=== PATIENT | female | born 1940 | race Caucasian/White ===

== ENCOUNTER 2017-01-31 10:04 | Inpatient (IN) | payer MEDICARE, OTHER ==
[2017-01-31] MEDS ORDERED: Albuterol/Ipratropium 3.0-0.5 MG/3 ML Neb Soln ONE (10:20)
--- NOTE | 2017-01-31 10:23 | EDM.PDOC ---
ED HISTORY OF PRESENT ILLNESS - General Chief Complaint: Respiratory Problem Stated Complaint: PT NOT BREATHING GOOD Time Seen by Provider: 01/31/17 10:05 Source of Information: Reports: Patient History Limitations: Reports: No limitations - History of Present Illness INITIAL COMMENTS - FREE TEXT/NARRATIVE: History of present illness: [76-year-old female comes in complaining of shortness of breath, daughter is at bedside indicating that mother has gotten increasingly weak unable to breathe and] Review of systems: As per history of present illness and below otherwise all systems reviewed and negative. Past medical history: As per history of present illness and as reviewed below otherwise noncontributory. Surgical history: As per history of present illness and as reviewed below otherwise noncontributory. Social history: No reported history of drug or alcohol abuse. Family history: As per history of present illness and as reviewed below otherwise noncontributory. Physical exam: HEENT: Atraumatic, normocephalic, pupils reactive, negative for conjunctival pallor or scleral icterus, mucous membranes moist, throat clear, neck supple, nontender, trachea midline. Lungs: Clear to auscultation, breath sounds equal bilaterally, chest nontender. Heart: S1S2, regular, negative for clicks, rubs, or JVD. Abdomen: Soft, nondistended, nontender. Negative for masses or hepatosplenomegaly. Negative for costovertebral tenderness. Pelvis: Stable nontender. Genitourinary: Deferred. Rectal: Deferred. Extremities: Atraumatic, negative for cords or calf pain. Neurovascular unremarkable. Neuro: Awake, alert, oriented. Cranial nerves II through XII unremarkable. Cerebellum unremarkable. Motor and sensory unremarkable throughout. Exam nonfocal. Diagnostics: [Chest x-ray, CBC, CMP, troponin, lactic acid, blood cultures, CT of the chest] Therapeutics: [] Impression: [Pneumonia in presence of resolving lung cancer] Plan: [Admit] Definitive disposition and diagnosis as appropriate pending reevaluation and review of above. - Related Data Allergies/ADRs: Allergies Allergy/AdvReac Type Severity Reaction Status Date / Time codeine Allergy Airway Verified 01/31/17 10:27 Tightness Iodinated Contrast Media - Allergy Airway Verified 01/31/17 10:27 Oral and Tightness [Iodinated Contrast Media - IV Dye] Penicillins Allergy Airway Verified 01/31/17 10:27 Tightness procaine HCl [From Novocain] Allergy Itching Verified 01/31/17 10:27 Home Meds: Home Meds Aclidinium [place] [Tudorza Pressair] 1 puff INH BID 11/09/14 [History] Clopidogrel [Plavix] 1 tab PO DAILY 11/09/14 [History] Esomeprazole Magnesium [Nexium] 1 tab PO DAILY 11/09/14 [History] Fluticasone/Vilanterol [Breo Ellipta 100-25 Mcg INH] 1 puff INH DAILY 11/09/14 [ History] Furosemide [Lasix] 1 tab PO DAILY 11/09/14 [History] Insulin Glarg,Human.Rec.Analog [Lantus] 9 units SUBCUT BID 11/09/14 [History] LORazepam 1 tab PO QID 11/09/14 [History] Levalbuterol HCl 1 puff INH QID 11/09/14 [History] Losartan [Cozaar] 1 tab PO DAILY 11/09/14 [History] atorvaSTATin [Lipitor] 5 mg PO DAILY 11/09/14 [History] diphenhydrAMINE [Benadryl] 1 cap PO QID 11/09/14 [History] Social & Family History - Tobacco Use Smoking Status *Q: Former Smoker Years of Tobacco use: 25 - Alcohol Use Days Per Week of Alcohol Use: 0 - Recreational Drug Use Recreational Drug Use: No ED ROS GENERAL - Review of Systems Review Of Systems: See Below (History of present illness) ED EXAM, GENERAL - Physical Exam Exam: See Below (See history of present illness) Course - Vital Signs Last Recorded V/S: Last Vital Signs Temp 36.4 C 01/31/17 10:28 Pulse 100 01/31/17 10:28 Resp 26 H 01/31/17 10:28 BP 114/57 L 01/31/17 10:28 Pulse Ox 94 L 01/31/17 10:28 - Orders/Labs/Meds Orders: Active Orders 24 hr Category Date Time Status Patient Status [ADT] Stat ADT 01/31/17 12:42 Ordered EKG Documentation Completion [RC] STAT Care 01/31/17 10:29 Active Chest 2V [CR] Stat Exams 01/31/17 10:29 Taken Chest wo Cont [CT] Stat Exams 01/31/17 11:36 Taken CULTURE BLOOD [BC] Stat Lab 01/31/17 11:38 Received CULTURE BLOOD [BC] Stat Lab 01/31/17 11:40 Received Levofloxacin/Dextrose 5%-Water [Levaquin in D5W 750 MG/ Med 01/31/17 12:29 Ordered 150 ML] 750 mg Premix Bag 1 bag IV ONETIME Blood Culture x2 Reflex Set [OM.PC] Stat Oth 01/31/17 11:23 Ordered Medication Orders Levofloxacin/Dextrose 750 mg/ (Premix) 150 mls @ 100 mls/hr IV ONETIME ONE Stop: 01/31/17 13:58 Labs: Laboratory Tests 01/31/17 01/31/17 01/31/17 Range/Units 10:45 10:45 10:45 WBC 19.33 H (4.0-11.0) K/uL RBC 4.11 L (4.30-5.90) M/uL Hgb 12.9 (12.0-16.0) g/dL Hct 39.9 (36.0-46.0) % MCV 97.1 (80.0-98.0) fL MCH 31.4 (27.0-32.0) pg MCHC 32.3 (31.0-37.0) g/dL RDW Std Deviation 51.7 (28.0-62.0) fl RDW Coeff of Lucrecia 15 (11.0-15.0) % Plt Count 244 (150-400) K/uL MPV 10.30 (7.40-12.00) fL Neut % (Auto) 84.8 H (48.0-80.0) % Lymph % (Auto) 10.7 L (16.0-40.0) % [place] % (Auto) 2.8 (0.0-15.0) % Eos % (Auto) 1.4 (0.0-7.0) % Baso % (Auto) 0.3 (0.0-1.5) % Neut # (Auto) 16.4 H (1.4-5.7) K/uL Lymph # (Auto) 2.1 (0.6-2.4) K/uL [place] # (Auto) 0.5 (0.0-0.8) K/uL Eos # (Auto) 0.3 (0.0-0.7) K/uL Baso # (Auto) 0.1 (0.0-0.1) K/uL Nucleated RBC % 0.0 /100WBC Nucleated RBCs # 0 K/uL INR 1.10 (0.86-1.11) Lactate (0.20-2.00) mmol/L Sodium 138 (136-146) mmol/L Potassium 4.2 (3.5-5.1) mmol/L Chloride 103 (98-110) mmol/L Carbon Dioxide 23 (21-31) mmol/L BUN 23 (6.0-23.0) mg/dL Creatinine 1.2 (0.6-1.5) mg/dL Est Cr Clr Drug Dosing 30.60 mL/min Estimated GFR (MDRD) 43.8 ml/min Glucose 250 H (60-110) mg/dL Calcium 9.2 (8.8-10.8) mg/dL Total Bilirubin 0.6 (0.1-1.5) mg/dL AST 19 (5-40) IU/L ALT 19 (8-54) IU/L Alkaline Phosphatase 85 (40-150) Troponin I (0.0-0.29) NG/ML Total Protein 6.4 (6.0-8.0) g/dL Albumin 3.5 (3.4-4.8) g/dL Globulin 2.9 (2.0-3.5) g/dL Albumin/Globulin Ratio 1.2 L (1.3-2.8) Amylase 49 (10-90) U/L Lipase 10 (7-80) U/L Urine Color Urine Appearance Urine pH (5.0-8.0) Ur Specific [place] (1.001-1.035) Urine Protein (NEGATIVE) mg/dL Urine Glucose (UA) (NEGATIVE) mg/dL Urine Ketones (NEGATIVE) mg/dL Urine Occult Blood (NEGATIVE) Urine Nitrite (NEGATIVE) Urine Bilirubin (NEGATIVE) Urine Urobilinogen (<2.0) EU/dL Ur Leukocyte Esterase (NEGATIVE) Urine RBC (0-2/HPF) Urine WBC (0-5/HPF) Ur Epithelial Cells (NONE-FEW) Urine Bacteria (NEGATIVE) 01/31/17 01/31/17 01/31/17 Range/Units 10:45 10:45 11:40 WBC (4.0-11.0) K/uL RBC (4.30-5.90) M/uL Hgb (12.0-16.0) g/dL Hct (36.0-46.0) % MCV (80.0-98.0) fL MCH (27.0-32.0) pg MCHC (31.0-37.0) g/dL RDW Std Deviation (28.0-62.0) fl RDW Coeff of Lucrecia (11.0-15.0) % Plt Count (150-400) K/uL MPV (7.40-12.00) fL Neut % (Auto) (48.0-80.0) % Lymph % (Auto) (16.0-40.0) % [place] % (Auto) (0.0-15.0) % Eos % (Auto) (0.0-7.0) % Baso % (Auto) (0.0-1.5) % Neut # (Auto) (1.4-5.7) K/uL Lymph # (Auto) (0.6-2.4) K/uL [place] # (Auto) (0.0-0.8) K/uL Eos # (Auto) (0.0-0.7) K/uL Baso # (Auto) (0.0-0.1) K/uL Nucleated RBC % /100WBC Nucleated RBCs # K/uL INR (0.86-1.11) Lactate 2.3 H (0.20-2.00) mmol/L Sodium (136-146) mmol/L Potassium (3.5-5.1) mmol/L Chloride (98-110) mmol/L Carbon Dioxide (21-31) mmol/L BUN (6.0-23.0) mg/dL Creatinine (0.6-1.5) mg/dL Est Cr Clr Drug Dosing mL/min Estimated GFR (MDRD) ml/min Glucose (60-110) mg/dL Calcium (8.8-10.8) mg/dL Total Bilirubin (0.1-1.5) mg/dL AST (5-40) IU/L ALT (8-54) IU/L Alkaline Phosphatase (40-150) Troponin I < 0.10 (0.0-0.29) NG/ML Total Protein (6.0-8.0) g/dL Albumin (3.4-4.8) g/dL Globulin (2.0-3.5) g/dL Albumin/Globulin Ratio (1.3-2.8) Amylase (10-90) U/L Lipase (7-80) U/L Urine Color YELLOW Urine Appearance CLEAR Urine pH 5.5 (5.0-8.0) Ur Specific [place] 1.025 (1.001-1.035) Urine Protein NEGATIVE (NEGATIVE) mg/dL Urine Glucose (UA) 100 H (NEGATIVE) mg/dL Urine Ketones NEGATIVE (NEGATIVE) mg/dL Urine Occult Blood NEGATIVE (NEGATIVE) Urine Nitrite NEGATIVE (NEGATIVE) Urine Bilirubin NEGATIVE (NEGATIVE) Urine Urobilinogen 0.2 (<2.0) EU/dL Ur Leukocyte Esterase SMALL (NEGATIVE) Urine RBC 1-2 (0-2/HPF) Urine WBC 20-25 (0-5/HPF) Ur Epithelial Cells FEW (NONE-FEW) Urine Bacteria 1+ H (NEGATIVE) Meds: Medications Generic Name Dose Route Start Last Admin Trade Name Kendall PRN Reason Stop Dose Admin Levofloxacin/Dextrose 750 mg/ 150 mls @ 100 mls/hr 01/31/17 12:29 Premix IV 01/31/17 13:58 ONETIME ONE Discontinued Medications Generic Name Dose Route Start Last Admin Trade Name Kendall PRN Reason Stop Dose Admin Albuterol/Ipratropium Confirm 01/31/17 10:20 01/31/17 10:29 Duoneb 3.0-0.5 Mg/3 Ml Administered 01/31/17 10:21 3 ml Dose Administration 3 ml .ROUTE .STK-MED ONE Sodium Chloride 1,000 mls @ 999 mls/hr 01/31/17 10:29 01/31/17 11:13 Normal Saline IV 01/31/17 11:29 999 mls/hr .Bolus ONE Administration Ketorolac Tromethamine 30 mg 01/31/17 10:29 01/31/17 11:12 Toradol IVPUSH 01/31/17 10:30 30 mg ONETIME ONE Administration Departure - Departure Time of Disposition: 12:46 Disposition: Admitted As Inpatient 67 Condition: good Clinical Impression: Pneumonia Forms: ED Department Discharge - My Orders Last 24 Hours: My Active Orders 01/31/17 10:29 EKG Documentation Completion [RC] STAT Chest 2V [CR] Stat 01/31/17 11:23 Blood Culture x2 Reflex Set [OM.PC] Stat 01/31/17 11:36 Chest wo Cont [CT] Stat 01/31/17 11:38 CULTURE BLOOD [BC] Stat 01/31/17 11:40 CULTURE BLOOD [BC] Stat 01/31/17 12:29 Levofloxacin/Dextrose 5%-Water [Levaquin in D5W 750 MG/150 ML] 750 mg Premix Bag 1 bag IV ONETIME 01/31/17 12:42 Patient Status [ADT] Stat - Assessment/Plan Last 24 Hours: My Active Orders 01/31/17 10:29 EKG Documentation Completion [RC] STAT Chest 2V [CR] Stat 01/31/17 11:23 Blood Culture x2 Reflex Set [OM.PC] Stat 01/31/17 11:36 Chest wo Cont [CT] Stat 01/31/17 11:38 CULTURE BLOOD [BC] Stat 01/31/17 11:40 CULTURE BLOOD [BC] Stat 01/31/17 12:29 Levofloxacin/Dextrose 5%-Water [Levaquin in D5W 750 MG/150 ML] 750 mg Premix Bag 1 bag IV ONETIME 01/31/17 12:42 Patient Status [ADT] Stat
[2017-01-31] MEDS ORDERED: Sodium Chloride 0.9% 1,000 ML IV ONE (10:29)
[2017-01-31] MEDS ORDERED: Ketorolac 30 MG/ML SDV IVPUSH ONE (10:29)
[2017-01-31] MEDS ORDERED: Levofloxacin/Dextrose 5%-Water 750 MG in Premix Bag 1 BAG IV ONE (12:29)
[2017-01-31] MEDS ORDERED: Ondansetron 4 MG/2 ML SDV IVPUSH PRN (13:07)
[2017-01-31] MEDS ORDERED: Acetaminophen 325 MG Tab PO PRN (13:07)
[2017-01-31] MEDS ORDERED: Sodium Chloride 0.9% 1,000 ML IV SCH (13:15)
--- NOTE | 2017-01-31 13:16 | PCM.HP ---
H&P History of Present Illness - General Admit Problem/Dx: Admission Diagnosis/Problem Admission Diagnosis/Problem Pneumonia - History of Present Illness Initial Comments - Free Text/Narative: 76 yo female with pmh of severe COPD and lung cancer. She presents with several day history of myalgias, fevers, cough and wheezing. She was evaluated in the ED with CT chest which reported irregular nodule in left upper lobe which could be scarring vs malignance and right lower lobe infiltrates.. Patient is scheduled for PET scan next month. Sacral Pain Score (Numeric/FACES): 2 - Related Data Allergies/Adverse Reactions: Allergies Allergy/AdvReac Type Severity Reaction Status Date / Time codeine Allergy Airway Verified 01/31/17 10:27 Tightness Iodinated Contrast Media - Allergy Airway Verified 01/31/17 10:27 Oral and Tightness [Iodinated Contrast Media - IV Dye] Penicillins Allergy Airway Verified 01/31/17 10:27 Tightness procaine HCl [From Novocain] Allergy Itching Verified 01/31/17 10:27 Home Medications: Home Meds Aclidinium [place] [Tudorza Pressair] 1 puff INH BID 11/09/14 [History] Esomeprazole Magnesium [Nexium] 1 tab PO DAILY 11/09/14 [History] Fluticasone/Vilanterol [Breo Ellipta 100-25 Mcg INH] 1 puff INH DAILY 11/09/14 [ History] Insulin Glarg,Human.Rec.Analog [Lantus] 9 units SUBCUT BID 11/09/14 [History] RX: Clopidogrel [Plavix] 1 tab PO DAILY 11/09/14 [History] RX: Furosemide [Lasix] 1 tab PO DAILY 11/09/14 [History] RX: LORazepam 1 tab PO QID 11/09/14 [History] RX: Levalbuterol HCl 1 puff INH QID 11/09/14 [History] RX: Losartan [Cozaar] 1 tab PO DAILY 11/09/14 [History] RX: atorvaSTATin [Lipitor] 5 mg PO DAILY 11/09/14 [History] diphenhydrAMINE [Benadryl] 1 cap PO QID 11/09/14 [History] Past Medical History HEENT History: Reports: Hard of hearing Cardiovascular History: Reports: Hypertension Respiratory History: Reports: Asthma, COPD Gastrointestinal History: Reports: GERD Genitourinary History: Reports: None Psychiatric History: Reports: Anxiety, Depression Endocrine/Metabolic History: Reports: Diabetes, type II Oncologic (Cancer) History: Reports: Lung Other Oncologic History: remission for 4 months - Past Surgical History HEENT Surgical History: Reports: None Cardiovascular Surgical History: Reports: Other (see below) Other Cardiovascular Surgeries/Procedures: Left bracial plastic artery Respiratory Surgical History: Reports: Other (see below) Other Respiratory Surgeries/Procedures: lung surgery- hx lung cancer GI Surgical History: Reports: Appendectomy, Cholecystectomy Female Surgical History: Reports: Hysterectomy Endocrine Surgical History: Reports: None Oncologic Surgical History: Reports: None Social & Family History - Tobacco Use Smoking Status *Q: Former Smoker Years of Tobacco use: 25 Used Tobacco, but Quit: Yes Month Tobacco Last Used: 14 years ago - Caffeine Use Caffeine Use: Reports: Coffee Caffeine Use Comment: 3 cups/coffee - Alcohol Use Days Per Week of Alcohol Use: 0 - Recreational Drug Use Recreational Drug Use: No H&P Review of Systems - Review of Systems: Review Of Systems: See Below General: Reports: malaise, weakness, fatigue HEENT: Reports: no symptoms Pulmonary: Reports: Wheezing, Cough Cardiovascular: Reports: no symptoms Gastrointestinal: Reports: No symptoms Genitourinary: Reports: no symptoms 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: Reports: no symptoms Skin: Reports: no symptoms Psychiatric: Reports: no symptoms Neurological: Reports: No Symptoms Hematologic/Lymphatic: Reports: no symptoms Immunologic: Reports: no symptoms Exam - Exam Exam: See Below - Vital Signs Vital Signs: Last Vital Signs Temp 36.4 C 01/31/17 10:28 Pulse 100 01/31/17 10:28 Resp 26 H 01/31/17 10:28 BP 114/57 L 01/31/17 10:28 Pulse Ox 94 L 01/31/17 10:28 Weight: 76 kg - Exam General: alert, cooperative Neck: supple, trachea midline, 2 Lungs: Normal respiratory effort, Decreased breath sounds Cardiovascular: regular rate, regular rhythm Abdomen: normal bowel sounds, soft Extremities: normal inspection. No: edema Skin: warm, dry, intact Neurological: No: focal deficit - Patient Data Lab Results last 24 hrs: Laboratory Results - last 24 hr 01/31/17 01/31/17 01/31/17 Range/Units 10:45 10:45 10:45 WBC 19.33 H (4.0-11.0) K/uL RBC 4.11 L (4.30-5.90) M/uL Hgb 12.9 (12.0-16.0) g/dL Hct 39.9 (36.0-46.0) % MCV 97.1 (80.0-98.0) fL MCH 31.4 (27.0-32.0) pg MCHC 32.3 (31.0-37.0) g/dL RDW Std Deviation 51.7 (28.0-62.0) fl RDW Coeff of Lucrecia 15 (11.0-15.0) % Plt Count 244 (150-400) K/uL MPV 10.30 (7.40-12.00) fL Neut % (Auto) 84.8 H (48.0-80.0) % Lymph % (Auto) 10.7 L (16.0-40.0) % [place] % (Auto) 2.8 (0.0-15.0) % Eos % (Auto) 1.4 (0.0-7.0) % Baso % (Auto) 0.3 (0.0-1.5) % Neut # (Auto) 16.4 H (1.4-5.7) K/uL Lymph # (Auto) 2.1 (0.6-2.4) K/uL [place] # (Auto) 0.5 (0.0-0.8) K/uL Eos # (Auto) 0.3 (0.0-0.7) K/uL Baso # (Auto) 0.1 (0.0-0.1) K/uL Nucleated RBC % 0.0 /100WBC Nucleated RBCs # 0 K/uL INR 1.10 (0.86-1.11) Lactate (0.20-2.00) mmol/L Sodium 138 (136-146) mmol/L Potassium 4.2 (3.5-5.1) mmol/L Chloride 103 (98-110) mmol/L Carbon Dioxide 23 (21-31) mmol/L BUN 23 (6.0-23.0) mg/dL Creatinine 1.2 (0.6-1.5) mg/dL Est Cr Clr Drug Dosing 30.60 mL/min Estimated GFR (MDRD) 43.8 ml/min Glucose 250 H (60-110) mg/dL Calcium 9.2 (8.8-10.8) mg/dL Total Bilirubin 0.6 (0.1-1.5) mg/dL AST 19 (5-40) IU/L ALT 19 (8-54) IU/L Alkaline Phosphatase 85 (40-150) Troponin I (0.0-0.29) NG/ML Total Protein 6.4 (6.0-8.0) g/dL Albumin 3.5 (3.4-4.8) g/dL Globulin 2.9 (2.0-3.5) g/dL Albumin/Globulin Ratio 1.2 L (1.3-2.8) Amylase 49 (10-90) U/L Lipase 10 (7-80) U/L Urine Color Urine Appearance Urine pH (5.0-8.0) Ur Specific [place] (1.001-1.035) Urine Protein (NEGATIVE) mg/dL Urine Glucose (UA) (NEGATIVE) mg/dL Urine Ketones (NEGATIVE) mg/dL Urine Occult Blood (NEGATIVE) Urine Nitrite (NEGATIVE) Urine Bilirubin (NEGATIVE) Urine Urobilinogen (<2.0) EU/dL Ur Leukocyte Esterase (NEGATIVE) Urine RBC (0-2/HPF) Urine WBC (0-5/HPF) Ur Epithelial Cells (NONE-FEW) Urine Bacteria (NEGATIVE) 01/31/17 01/31/17 01/31/17 Range/Units 10:45 10:45 11:40 WBC (4.0-11.0) K/uL RBC (4.30-5.90) M/uL Hgb (12.0-16.0) g/dL Hct (36.0-46.0) % MCV (80.0-98.0) fL MCH (27.0-32.0) pg MCHC (31.0-37.0) g/dL RDW Std Deviation (28.0-62.0) fl RDW Coeff of [place] (11.0-15.0) % Plt Count (150-400) K/uL MPV (7.40-12.00) fL Neut % (Auto) (48.0-80.0) % Lymph % (Auto) (16.0-40.0) % [place] % (Auto) (0.0-15.0) % Eos % (Auto) (0.0-7.0) % Baso % (Auto) (0.0-1.5) % Neut # (Auto) (1.4-5.7) K/uL Lymph # (Auto) (0.6-2.4) K/uL [place] # (Auto) (0.0-0.8) K/uL Eos # (Auto) (0.0-0.7) K/uL Baso # (Auto) (0.0-0.1) K/uL Nucleated RBC % /100WBC Nucleated RBCs # K/uL INR (0.86-1.11) Lactate 2.3 H (0.20-2.00) mmol/L Sodium (136-146) mmol/L Potassium (3.5-5.1) mmol/L Chloride (98-110) mmol/L Carbon Dioxide (21-31) mmol/L BUN (6.0-23.0) mg/dL Creatinine (0.6-1.5) mg/dL Est Cr Clr Drug Dosing mL/min Estimated GFR (MDRD) ml/min Glucose (60-110) mg/dL Calcium (8.8-10.8) mg/dL Total Bilirubin (0.1-1.5) mg/dL AST (5-40) IU/L ALT (8-54) IU/L Alkaline Phosphatase (40-150) Troponin I < 0.10 (0.0-0.29) NG/ML Total Protein (6.0-8.0) g/dL Albumin (3.4-4.8) g/dL Globulin (2.0-3.5) g/dL Albumin/Globulin Ratio (1.3-2.8) Amylase (10-90) U/L Lipase (7-80) U/L Urine Color YELLOW Urine Appearance CLEAR Urine pH 5.5 (5.0-8.0) Ur Specific [place] 1.025 (1.001-1.035) Urine Protein NEGATIVE (NEGATIVE) mg/dL Urine Glucose (UA) 100 H (NEGATIVE) mg/dL Urine Ketones NEGATIVE (NEGATIVE) mg/dL Urine Occult Blood NEGATIVE (NEGATIVE) Urine Nitrite NEGATIVE (NEGATIVE) Urine Bilirubin NEGATIVE (NEGATIVE) Urine Urobilinogen 0.2 (<2.0) EU/dL Ur Leukocyte Esterase SMALL (NEGATIVE) Urine RBC 1-2 (0-2/HPF) Urine WBC 20-25 (0-5/HPF) Ur Epithelial Cells FEW (NONE-FEW) Urine Bacteria 1+ H (NEGATIVE) Result Diagrams: 01/31/17 10:45 01/31/17 10:45 *Q Meaningful Use (ADM) - VTE *Q VTE Criteria *Q: - Stroke *Q Stroke Criteria *Q: - AMI *Q AMI Criteria *Q: Problem List Initiated/Reviewed/Updated: Yes Orders Last 24hrs: Active Orders 24 hr Category Date Time Status Patient Status [ADT] Stat ADT 01/31/17 12:42 Active Antiembolic Devices [RC] PER UNIT ROUTINE Care 01/31/17 13:08 Ordered EKG Documentation Completion [RC] STAT Care 01/31/17 10:29 Active Intake and Output [RC] QSHIFT Care 01/31/17 13:07 Ordered Oxygen Therapy [RC] PRN Care 01/31/17 13:07 Ordered RT Aerosol Therapy [RC] ASDIRECTED Care 01/31/17 13:09 Ordered Up ad Sara [RC] ASDIRECTED Care 01/31/17 13:07 Ordered VTE/DVT Education [RC] PER UNIT ROUTINE Care 01/31/17 13:07 Ordered Vital Signs [RC] Q4H Care 01/31/17 13:07 Ordered [employer] Diet [DIET] Diet 01/31/17 Breakfast Ordered Chest 2V [CR] Stat Exams 01/31/17 10:29 Taken Chest wo Cont [CT] Stat Exams 01/31/17 11:36 Taken BASIC METABOLIC PANEL,BMP [CHEM] AM Lab 02/01/17 05:11 Ordered BASIC METABOLIC PANEL,BMP [CHEM] AM Lab 02/02/17 05:11 Ordered BASIC METABOLIC PANEL,BMP [CHEM] AM Lab 02/03/17 05:11 Ordered CBC WITH AUTO DIFF [HEME] AM Lab 02/01/17 05:11 Ordered CBC WITH AUTO DIFF [HEME] AM Lab 02/02/17 05:11 Ordered CBC WITH AUTO DIFF [HEME] AM Lab 02/03/17 05:11 Ordered CULTURE BLOOD [BC] Stat Lab 01/31/17 11:38 Received CULTURE BLOOD [BC] Stat Lab 01/31/17 11:40 Received CULTURE SPUTUM + SMEAR [RM] Stat Lab 01/31/17 13:07 Uncollected CULTURE URINE [RM] Stat Lab 01/31/17 13:07 Uncollected LACTIC ACID,WHOLE BLOOD [BG] Q6H Lab 01/31/17 16:45 Ordered LACTIC ACID,WHOLE BLOOD [BG] Q6H Lab 01/31/17 22:45 Ordered LACTIC ACID,WHOLE BLOOD [BG] Q6H Lab 02/01/17 04:45 Ordered Acetaminophen [Tylenol] Med 01/31/17 13:07 Ordered 650 mg PO Q4H PRN Aclidinium [place] [Tudorza Pressair] Med 01/31/17 21:00 Ordered 1 puff INH BID Albuterol/Ipratropium [DuoNeb 3.0-0.5 MG/3 ML] Med 01/31/17 13:07 Ordered 3 ml NEB Q4HRRT PRN Clopidogrel [Plavix] Med 02/01/17 09:00 Ordered 1 tab PO DAILY Enoxaparin [Lovenox] Med 01/31/17 21:00 Ordered 40 mg SUBCUT Q12HR Fluticasone/Vilanterol Med 02/01/17 09:00 Ordered 1 puff INH DAILY Insulin Glarg,Human.Rec.Analog Med 01/31/17 21:00 Ordered 9 units SUBCUT BID Levalbuterol HCl Med 01/31/17 18:00 Ordered 1 puff INH QID Levofloxacin/Dextrose 5%-Water [Levaquin in D5W 750 MG/ Med 01/31/17 12:29 Active 150 ML] 750 mg Premix Bag 1 bag IV ONETIME Levofloxacin/Dextrose 5%-Water [Levaquin in D5W 750 MG/ Med 02/01/17 13:15 Ordered 150 ML] 750 mg Premix Bag 1 bag IV Q24H Ondansetron [Zofran] Med 01/31/17 13:07 Ordered 4 mg IVPUSH Q4H PRN Sodium Chloride 0.9% @ 125 MLS/HR (1000ml) Med 01/31/17 13:15 Ordered Sodium Chloride 0.9% [Normal Saline] 1,000 ml IV ASDIRECTED atorvaSTATin [Lipitor] Med 02/01/17 09:00 Ordered 5 mg PO DAILY Blood Culture x2 Reflex Set [OM.PC] Stat Oth 01/31/17 11:23 Ordered Sequential Compression Device [OM.PC] Per Unit Routine Oth 01/31/17 13:07 Ordered Resuscitation Status Routine Resus Stat 01/31/17 13:07 Ordered Medication Orders Acetaminophen (Tylenol) 650 mg PO Q4H PRN PRN Reason: Pain (Mild 1-3)/fever Albuterol/Ipratropium (Duoneb 3.0-0.5 Mg/3 Ml) 3 ml NEB Q4HRRT PRN PRN Reason: Shortness Of Breath/wheezing Atorvastatin Calcium (Lipitor) 5 mg PO DAILY VIJAYA Clopidogrel Bisulfate (Plavix) mg PO DAILY VIJAYA Enoxaparin Sodium (Lovenox) 40 mg SUBCUT Q12HR VIJAYA Levofloxacin/Dextrose 750 mg/ (Premix) 150 mls @ 100 mls/hr IV ONETIME ONE Stop: 01/31/17 13:58 Last Admin: 01/31/17 12:48 Dose: 100 mls/hr Sodium Chloride (Normal Saline) 1,000 mls @ 125 mls/hr IV ASDIRECTED VIJAYA Stop: 01/31/17 21:14 Non-Formulary Medication (Insulin Glarg,Human.Rec.Analog) 9 units SUBCUT BID VIJAYA Non-Formulary Medication (Fluticasone/Vilanterol) 1 puff INH DAILY VIJAYA Non-Formulary Medication (Aclidinium [place] [Tudorza Pressair]) 1 puff INH BID VIJAYA Non-Formulary Medication (Levalbuterol Hcl) 1 puff INH QID VIJAYA Ondansetron HCl (Zofran) 4 mg IVPUSH Q4H PRN PRN Reason: Nausea Assessment/Plan Comment:: 76 yo female admitted with community acquired pneumonia and UTI. We will treat with levaquin. Cultures are pending. When pneumonia clears patient will need repeat lung imaging.
[2017-01-31] MEDS: Albuterol/Ipratropium 3.0-0.5 MG/3 ML Neb Soln NEB PRN (16:03)
[2017-01-31] MEDS: Insulin Aspart 100 Units/ML 3 ML Pen SUBCUT SCH (16:41)
[2017-01-31] MEDS: Levalbuterol HCl 1.25 MG/0.5 ML Neb INH SCH ×2 (17:03→23:54)
[2017-01-31] MEDS: ACLIDINIUM BROMIDE INH SCH (20:52)
[2017-01-31] MEDS ORDERED: INSULIN GLARGINE SUBCUT SCH (21:00)
[2017-01-31] MEDS ORDERED: Enoxaparin 40 MG/0.4 ML Syringe SUBCUT SCH (21:00)
[2017-01-31] MEDS ORDERED: [UNRECOGNIZED DRUG - OTHER] SUBCUT SCH (21:00)
[2017-01-31] MEDS: Insulin Glargine,Human Rec. Analog 100 Units/ML 3 ML Pen SUBCUT SCH (21:17)
[2017-02-01] MEDS: Albuterol/Ipratropium 3.0-0.5 MG/3 ML Neb Soln NEB PRN (02:53)
[2017-02-01] MEDS: Levalbuterol HCl 1.25 MG/0.5 ML Neb INH SCH ×4 (05:53→20:46)
[2017-02-01 08:03] LABS: CHLORIDE,CL 106 mmol/L (98-110); SODIUM,NA 139 mmol/L (136-146)
[2017-02-01] MEDS: ACLIDINIUM BROMIDE INH SCH ×2 (08:43→20:47)
[2017-02-01] MEDS: Insulin Glargine,Human Rec. Analog 100 Units/ML 3 ML Pen SUBCUT SCH ×2 (08:52→21:40)
[2017-02-01] MEDS: Insulin Aspart 100 Units/ML 3 ML Pen SUBCUT SCH ×3 (08:52→18:23)
[2017-02-01] MEDS ORDERED: Clopidogrel 75 MG Tab PO SCH (09:00)
[2017-02-01] MEDS ORDERED: BREO ELLIPTA INH SCH (09:00)
[2017-02-01] MEDS: atorvaSTATin 10 MG Tab PO SCH (09:41)
[2017-02-01] MEDS ORDERED: Non-Formulary Medication 1 Each (Budesonide/Formoterol 2 INH) IH SCH (10:45)
--- NOTE | 2017-02-01 10:58 | PCM.PN ---
- General Info Date of Service: 02/01/17 Admission Dx/Problem (Free Text): Admission Diagnosis/Problem Admission Diagnosis/Problem Pneumonia Subjective Update: patient is breathing more easily. She is on her home O2 requirement of 2L in the day and 3L at night. She has a decreased appetite but denies any N/V/C/D or abdominal pain. She denies any chest pain. Functional Status: Reports: tolerating diet, ambulating, urinating - Review of Systems General: Reports: Fatigue HEENT: Reports: no symptoms Pulmonary: Reports: shortness of breath (back to baseline) Cardiovascular: Reports: No Symptoms Gastrointestinal: Reports: No symptoms, Decreased appetite. Denies: Abdominal pain, Constipation, Diarrhea, Nausea, Vomiting Genitourinary: Reports: no symptoms 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: Reports: no symptoms Skin: Reports: no symptoms Neurological: Reports: No Symptoms Psychiatric: Reports: no symptoms - Patient Data Vitals - most recent: Last Vital Signs Temp 98.8 F 02/01/17 08:00 Pulse 96 02/01/17 08:00 Resp 18 02/01/17 08:00 BP 149/67 H 02/01/17 08:00 Pulse Ox 93 L 02/01/17 08:00 Weight - most recent: 160 lb 14.999 oz I&O - last 24 hours: Intake & Output 01/31/17 02/01/17 02/01/17 22:59 06:59 14:59 Intake Total 670 870 Output Total 0 800 Balance 670 70 Lab Results last 24 hrs: Laboratory Results - last 24 hr 01/31/17 01/31/17 02/01/17 Range/Units 16:21 17:26 07:35 WBC 11.49 H (4.0-11.0) K/uL RBC 3.64 L (4.30-5.90) M/uL Hgb 11.4 L (12.0-16.0) g/dL Hct 34.9 L (36.0-46.0) % MCV 95.9 (80.0-98.0) fL MCH 31.3 (27.0-32.0) pg MCHC 32.7 (31.0-37.0) g/dL RDW Std Deviation 49.8 (28.0-62.0) fl RDW Coeff of Lucrecia 14 (11.0-15.0) % Plt Count 229 (150-400) K/uL MPV 10.20 (7.40-12.00) fL Neut % (Auto) 68.5 (48.0-80.0) % Lymph % (Auto) 14.4 L (16.0-40.0) % Cooper % (Auto) 7.7 (0.0-15.0) % Eos % (Auto) 9.1 H (0.0-7.0) % Baso % (Auto) 0.3 (0.0-1.5) % Neut # (Auto) 7.9 H (1.4-5.7) K/uL Lymph # (Auto) 1.7 (0.6-2.4) K/uL Cooper # (Auto) 0.9 H (0.0-0.8) K/uL Eos # (Auto) 1.1 H (0.0-0.7) K/uL Baso # (Auto) 0.0 (0.0-0.1) K/uL Nucleated RBC % 0.0 /100WBC Nucleated RBCs # 0 K/uL Lactate 1.2 (0.20-2.00) mmol/L Sodium (136-146) mmol/L Potassium (3.5-5.1) mmol/L Chloride (98-110) mmol/L Carbon Dioxide (21-31) mmol/L BUN (6.0-23.0) mg/dL Creatinine (0.6-1.5) mg/dL Est Cr Clr Drug Dosing mL/min Estimated GFR (MDRD) ml/min Glucose (60-110) mg/dL POC Glucose 130 H (60-110) mg/dL Calcium (8.8-10.8) mg/dL 02/01/17 Range/Units 07:35 WBC (4.0-11.0) K/uL RBC (4.30-5.90) M/uL Hgb (12.0-16.0) g/dL Hct (36.0-46.0) % MCV (80.0-98.0) fL MCH (27.0-32.0) pg MCHC (31.0-37.0) g/dL RDW Std Deviation (28.0-62.0) fl RDW Coeff of Lucrecia (11.0-15.0) % Plt Count (150-400) K/uL MPV (7.40-12.00) fL Neut % (Auto) (48.0-80.0) % Lymph % (Auto) (16.0-40.0) % Cooper % (Auto) (0.0-15.0) % Eos % (Auto) (0.0-7.0) % Baso % (Auto) (0.0-1.5) % Neut # (Auto) (1.4-5.7) K/uL Lymph # (Auto) (0.6-2.4) K/uL Cooper # (Auto) (0.0-0.8) K/uL Eos # (Auto) (0.0-0.7) K/uL Baso # (Auto) (0.0-0.1) K/uL Nucleated RBC % /100WBC Nucleated RBCs # K/uL Lactate (0.20-2.00) mmol/L Sodium 139 (136-146) mmol/L Potassium 3.6 (3.5-5.1) mmol/L Chloride 106 (98-110) mmol/L Carbon Dioxide 24 (21-31) mmol/L BUN 16 (6.0-23.0) mg/dL Creatinine 0.9 (0.6-1.5) mg/dL Est Cr Clr Drug Dosing 42.72 mL/min Estimated GFR (MDRD) > 60.0 ml/min Glucose 144 H (60-110) mg/dL POC Glucose (60-110) mg/dL Calcium 8.3 L (8.8-10.8) mg/dL Med Orders - Current: Current Medications Acetaminophen (Tylenol) 650 mg PO Q4H PRN PRN Reason: Pain (Mild 1-3)/fever Albuterol/Ipratropium (Duoneb 3.0-0.5 Mg/3 Ml) 3 ml NEB Q4HRRT PRN PRN Reason: Shortness Of Breath/wheezing Last Admin: 02/01/17 02:53 Dose: 3 ml Atorvastatin Calcium (Lipitor) 5 mg PO DAILY VIJAYA Last Admin: 02/01/17 09:41 Dose: 5 mg Diphenhydramine HCl (Benadryl) 50 mg PO TID PRN PRN Reason: Anxiety Enoxaparin Sodium (Lovenox) 40 mg SUBCUT Q24H [facility] Furosemide (Lasix) 20 mg PO DAILY [facility] Levofloxacin/Dextrose 750 mg/ (Premix) 150 mls @ 100 mls/hr IV Q48H [facility] Insulin Aspart (Novolog) 0 unit SUBCUT TIDAC VIJAYA PRN Reason: Protocol Insulin Glargine (Lantus Solostar) 9 units SUBCUT BID [facility] Last Admin: 02/01/17 08:52 Dose: Not Given Levalbuterol HCl (Xopenex) 1.25 mg INH QIDRT [facility] Last Admin: 02/01/17 10:11 Dose: 1.25 mg Lorazepam (Ativan) 1 mg PO QID PRN PRN Reason: Anxiety Losartan Potassium (Cozaar) 50 mg PO DAILY [facility] Ondansetron HCl (Zofran) 4 mg IVPUSH Q4H PRN PRN Reason: Nausea Symbicort 160/4.5 (Mcg) 2 each INH BIDRT [facility] Aclidinium [place] [ (Tudorza Pressair]) 1 each INH BIDRT [facility] Nexium 40 Mg 1 each PO DAILY [facility] Prednisone (Prednisone) 10 mg PO DAILY [facility] Discontinued Medications Albuterol/Ipratropium (Duoneb 3.0-0.5 Mg/3 Ml) Confirm Administered Dose 3 ml .ROUTE .STK-MED ONE Stop: 01/31/17 10:21 Last Admin: 01/31/17 10:29 Dose: 3 ml Clopidogrel Bisulfate (Plavix) 75 mg PO DAILY [facility] Last Admin: 02/01/17 09:37 Dose: Not Given Enoxaparin Sodium (Lovenox) 40 mg SUBCUT Q12HR [facility] Last Admin: 01/31/17 21:24 Dose: 40 mg Sodium Chloride (Normal Saline) 1,000 mls @ 999 mls/hr IV .Bolus ONE Stop: 01/31/17 11:29 Last Admin: 01/31/17 11:13 Dose: 999 mls/hr Levofloxacin/Dextrose 750 mg/ (Premix) 150 mls @ 100 mls/hr IV ONETIME ONE Stop: 01/31/17 13:58 Last Admin: 01/31/17 12:48 Dose: 100 mls/hr Sodium Chloride (Normal Saline) 1,000 mls @ 125 mls/hr IV ASDIRECTED [facility] Stop: 01/31/17 21:14 Last Admin: 01/31/17 13:34 Dose: 125 mls/hr Insulin Aspart (Novolog) 8 unit SUBCUT TIDAC [facility] Last Admin: 02/01/17 08:52 Dose: Not Given Ketorolac Tromethamine (Toradol) 30 mg IVPUSH ONETIME ONE Stop: 01/31/17 10:30 Last Admin: 01/31/17 11:12 Dose: 30 mg Levalbuterol HCl (Xopenex) 1.25 mg INH QID [facility] Last Admin: 02/01/17 05:53 Dose: 1.25 mg Non-Formulary Medication (Insulin Glarg,Human.Rec.Analog) 9 units SUBCUT BID [facility] Breo Ellipta ( Fluticasone/Vilanterol) 1 puff INH DAILY [facility] Aclidinium [place] [ (Tudorza Pressair]) 1 puff INH BID [facility] Last Admin: 02/01/17 08:43 Dose: 1 puff Nexium 40 Mg 40 each PO DAILY VIJAYA - Exam Quality Assessment: supplemental oxygen (2L during day and 3L at night), DVT prophylaxis (SCD's, Lovenox) General: alert, oriented, cooperative, no acute distress Neck: supple Lungs: Clear to auscultation, Normal respiratory effort, Decreased breath sounds Cardiovascular: Regular Rate, Regular Rhythm Abdomen: bowel sounds present, soft, no tenderness, no distension Extremities: no edema, no calf tenderness Peripheral Pulses: 2+: radial (L), radial (R) Skin: warm, dry, intact Neurological: no new focal deficit Psy/Mental Status: alert, normal affect, normal mood - Problem List & Annotations (1) Pneumonia SNOMED Code(s): 494049140 Code(s): J18.9 - PNEUMONIA, UNSPECIFIED ORGANISM Status: Acute Current Visit: Yes - Problem List Review Problem List Initiated/Reviewed/Updated: Yes - My Orders Last 24 Hours: My Active Orders 02/01/17 10:36 LORazepam [Ativan] 1 mg PO QID PRN diphenhydrAMINE [Benadryl] 50 mg PO TID PRN 02/01/17 10:45 Furosemide [Lasix] 20 mg PO DAILY Losartan [Cozaar] 50 mg PO DAILY Patient's Own Medication [Ptom] 1 each PO DAILY predniSONE 10 mg PO DAILY - Plan Plan:: 76 yo female admitted with community acquired pneumonia and UTI. 1. Community acquired pneumonia: -continue with levaquin 750mg IV daily. -blood Cultures are pending. -When pneumonia clears patient will need repeat lung imaging. -patient is back to baseline in terms of home O2 requirement. 2. UTI: -continue with Levaquin 750mg IV daily -urine cultures pending Home medications restarted Disposition: 1-2 days pending improvement.
[2017-02-01] MEDS: diphenhydrAMINE 50 MG Cap PO PRN (11:21)
[2017-02-01] MEDS: Losartan 50 MG Tab PO SCH (11:21)
[2017-02-01] MEDS: Furosemide 20 MG Tab PO SCH (11:21)
[2017-02-01] MEDS: predniSONE 10 MG Tab PO SCH (11:21)
[2017-02-01] MEDS: LORazepam 1 MG Tab PO PRN ×2 (11:21→18:59)
--- NOTE | 2017-02-01 11:29 | CR ---
EXAM DATE: 01/31/17 PATIENT'S AGE: 76 Patient: SEB WALKER Facility: [place], [place] Site . Site : 1940 Study: XRay Chest [id number]/16/2017 11:11:40 AM Ordering Physician: Doctor Martini Final Report: INDICATION: SOB/DIZZNIESS FOR 3 DAYS TECHNIQUE: PA and lateral chest films are submitted. COMPARISON: Chest CT dated 02/11/2016. FINDINGS: 1. There is an area of abnormal density in the left upper lobe posteriorly near or abutting the major fissure measuring approximately 3 cm in size. This is more prominent than on 02/11/2016. Differential would include malignancy versus inflammatory change. Recommend CT for further evaluation. Adjacent to this, there is linear scarring or atelectasis in the left upper lobe. 2. Chronic scarring and pleural thickening at the right lung base. Multiple old right rib fractures. 3. Heart size and pulmonary vasculature within normal limits. 4. Mild hyperinflation. IMPRESSION: 3 cm irregular density in the left upper lobe which is indeterminate for malignancy. Recommend chest CT for further evaluation. Dictated by Lalo Wells MD @ 01/31/2017 11:22:51 AM Dictated by: Lalo Wells MD @ 01/31/2017 11:22:56 (Electronic Signature) Report Signed by Proxy and Original Signed Document filed in the Medical Record. [facility]
--- NOTE | 2017-02-01 11:29 | CT ---
EXAM DATE: 01/31/17 PATIENT'S AGE: 76 Patient: SEB WALKER Facility: [place], [place] Site . Site : 1940 Study: CT Chest wo cont [id number]/16/2017 11:55:55 AM Ordering Physician: Doctor Martini Final Report: INDICATION: SOB. Last round of left lung radiation therapy in August 2016. TECHNIQUE: Volumetric helical scanning of the thorax was performed without IV contrast material. Coronal and sagittal reconstructions were obtained. COMPARISON: Today`s chest x-ray and is chest CT of 02/11/2016 FINDINGS: A 2.3 x 1.9 x 1.5 cm left upper lobe masslike opacity along the major fissure corresponds to the chest x-ray abnormality and is clearly increased from the previous CT scan. This may represent neoplasm and/or scarring. Some additional opacity nearby in the left upper lobe and in the adjacent left lower lobe superior segment presumably represents fibrosis. Right base atelectasis is demonstrated also. Concurrent pneumonia is not excluded. No pleural effusion is demonstrated. No airway abnormality is evident. No mediastinal or hilar lymphadenopathy is demonstrated. The heart size is normal. Calcified coronary arterial plaque is demonstrated. Images of the upper abdomen are unremarkable except for fatty change in the liver and a 1.2 cm left renal cyst. IMPRESSION: 1. 2.3 x 1.9 x 1.5 cm left upper lobe masslike opacity along the major fissure which corresponds to the chest x-ray and could represent neoplasm and/or scarring. 2. Fibrosis in the left upper lobe and left lower lobe superior segment near the left upper lobe pleural-based masslike opacity. 3. Right lower lobe base atelectasis. Concurrent pneumonia not excluded. 4. Coronary artery disease. 5. Fatty liver. 6. Left renal cyst. Dictated by Camilo Rich MD @ Jan 31 2017 11:59AM (Electronic Signature) Report Signed by Proxy and Original Signed Document filed in the Medical Record. [facility]
[2017-02-01] MEDS ORDERED: Enoxaparin 40 MG/0.4 ML Syringe SUBCUT SCH (21:00)
[2017-02-02] MEDS: Albuterol/Ipratropium 3.0-0.5 MG/3 ML Neb Soln NEB PRN (00:05)
[2017-02-02] MEDS: Levalbuterol HCl 1.25 MG/0.5 ML Neb INH SCH (05:18)
[2017-02-02 05:37] LABS: CHLORIDE,CL 106 mmol/L (98-110); SODIUM,NA 140 mmol/L (136-146)
[2017-02-02] MEDS: ACLIDINIUM BROMIDE INH SCH (06:28)
[2017-02-02] MEDS: Insulin Aspart 100 Units/ML 3 ML Pen SUBCUT SCH (06:46)
[2017-02-02 07:40] VITALS: BP 166/69
[2017-02-02] MEDS: atorvaSTATin 10 MG Tab PO SCH (08:56)
[2017-02-02] MEDS: Furosemide 20 MG Tab PO SCH (08:56)
[2017-02-02] MEDS: Losartan 50 MG Tab PO SCH (08:56)
[2017-02-02] MEDS: predniSONE 10 MG Tab PO SCH (08:57)
[2017-02-02] MEDS: diphenhydrAMINE 50 MG Cap PO PRN (09:08)
[2017-02-02] MEDS: Insulin Glargine,Human Rec. Analog 100 Units/ML 3 ML Pen SUBCUT SCH (09:18)
[2017-02-02] MEDS ORDERED: Levofloxacin 500 MG Tab PO ONE (09:35)
--- NOTE | 2017-02-02 10:36 | PCM.DCSUM1 ---
Discharge Summary - Hospital Course Free Text/Narrative:: Admission diagnosis: 1. Pneumonia 2. Left upper lobe lung nodule 3. UTI 4. Lung cancer Discharge diagnosis: 1. Pneumonia 2. Left upper lobe lung nodule 3. UTI 4. Lung cancer 76 year old female with a history of COPD and lung cancer that was admitted with community acquired pneumonia and UTI. Initial CXR showed a 3cm irregular density in the left upper lobe that could represent a malignancy. Chest CT was recommended and done which showed right lower lobe pneumonia, fibrosis, CAD, fatty liver and a left renal cyst. Another chest CT is recommended once the pneumonia clears. Patient started on Levaquin 750mg IV q48 (every other day secondary to her creatinine clearance) which improved her WBC count from 19,000 to 10,000. Patients wheezing and cough improved with this treatment and she was back at her baseline O2 requirement of 3L at night and 2L during the day, at time of discharge. Blood cultures were negative. Urine showed +1 bacteria and culture showed E. Coli susceptible to Levaquin which the patient was already on. At the time of discharge, the patients respiratory status was back to baseline, she was tolerating oral intake (with a diminished appetite), and she was voiding appropriately. - Discharge Data Discharge Date: 02/02/17 Discharge Disposition: Home, Self-Care 01 Condition: Fair - Discharge Diagnosis/Problem(s) (1) Pneumonia SNOMED Code(s): 601136194 ICD Code: J18.9 - PNEUMONIA, UNSPECIFIED ORGANISM Status: Acute Current Visit: Yes - Patient Instructions Diet: Diabetic Diet Activity: As Tolerated Showering/Bathing: February Shower Notify Provider of: Fever, Increased Pain, Nausea and/or Vomiting - Discharge Plan Prescriptions/Med Rec: Levofloxacin [Levaquin] 750 mg PO Q48H #3 tablet Home Medications: Home Meds Aclidinium [place] [Tudorza Pressair] 1 puff INH BID 11/09/14 [History] Esomeprazole Magnesium [Nexium] 40 mg PO DAILY 11/09/14 [History] Furosemide [Lasix] 20 mg PO DAILY 11/09/14 [History] Insulin Glarg,Human.Rec.Analog [Lantus] 12 units SUBCUT BID 11/09/14 [History] LORazepam 1 mg PO QID 11/09/14 [History] Levalbuterol HCl 1.25 mg INH QID PRN 11/09/14 [History] Losartan [Cozaar] 50 mg PO DAILY 11/09/14 [History] atorvaSTATin [Lipitor] 5 mg PO DAILY 11/09/14 [History] diphenhydrAMINE [Benadryl] 50 mg PO TID 11/09/14 [History] Budesonide/Formoterol [Symbicort 160-4.5 MCG] 2 inh IH BID 02/01/17 [History] Hydrocodone/Acetaminophen [Hydrocodon-Acetaminophen 5-325] 5 - 325 mg PO QID PRN 02/01/17 [History] Insulin Aspart [Novolog Flexpen] 8 unit SUBCUT TIDAC 02/01/17 [History] predniSONE 10 mg PO DAILY 02/01/17 [History] Levofloxacin [Levaquin] 750 mg PO Q48H #3 tablet 02/02/17 [Rx] Patient Handouts: Levofloxacin tablets, Community-Acquired Pneumonia, Adult, [id number] Forms: ED Department Discharge Referrals: [facility] [Outside] Micha Dai MD [Primary Care Provider] - 02/09/17 10:15 am - Discharge Summary/Plan Comment DC Time >30 min.: No Discharge Summary/Plan Comment: Admission diagnosis: 1. Community acquired Pneumonia 2. Left upper lobe lung nodule 3. UTI 4. Lung cancer Discharge diagnosis: 1. Community acquired Pneumonia 2. Left upper lobe lung nodule 3. UTI 4. Lung cancer 76 year old female with a history of COPD and lung cancer that was admitted with community acquired pneumonia and UTI. Initial CXR showed a 3cm irregular density in the left upper lobe that could represent a malignancy. Chest CT was recommended and done which showed right lower lobe pneumonia, fibrosis, CAD, fatty liver and a left renal cyst. Another chest CT is recommended once the pneumonia clears. Patient started on Levaquin 750mg IV q48 (every other day secondary to her creatinine clearance) which improved her WBC count from 19,000 to 10,000. Patients wheezing and cough improved with this treatment and she was back at her baseline O2 requirement of 3L at night and 2L during the day, at time of discharge. Blood cultures were negative. Urine showed +1 bacteria and culture showed E. Coli susceptible to Levaquin which the patient was already on. At the time of discharge, the patients respiratory status was back to baseline, she was tolerating oral intake (with a diminished appetite), and she was voiding appropriately. Discharge diagnosis: 1. prescribed Levaquin 750mg PO q48hrs, 3 tabs, 0 refills. This will treat her pneumonia and her UTI 2. f/u with Dr. Dai on 02/09/17. 3. Recommend f/u chest CT once pneumonia has cleared. Patient has a PET scan setup for next month. 4. All home medications were restarted - Patient Data Vitals - Most Recent: Last Vital Signs Temp 97.9 F 02/02/17 07:38 Pulse 98 02/02/17 07:38 Resp 18 02/02/17 07:38 BP 166/69 H 02/02/17 08:56 Pulse Ox 96 02/02/17 07:38 Weight - Most Recent: 167 lb 8.821 oz I&O - Last 24 hours: Intake & Output 02/01/17 02/02/17 02/02/17 22:59 06:59 14:59 Intake Total 636 Output Total 1250 Balance -614 Lab Results - Last 24 hrs: Laboratory Results - last 24 hr 01/31/17 01/31/17 02/01/17 Range/Units 20:46 21:27 06:28 WBC (4.0-11.0) K/uL RBC (4.30-5.90) M/uL Hgb (12.0-16.0) g/dL Hct (36.0-46.0) % MCV (80.0-98.0) fL MCH (27.0-32.0) pg MCHC (31.0-37.0) g/dL RDW Std Deviation (28.0-62.0) fl RDW Coeff of Lucrecia (11.0-15.0) % Plt Count (150-400) K/uL MPV (7.40-12.00) fL Neut % (Auto) (48.0-80.0) % Lymph % (Auto) (16.0-40.0) % [place] % (Auto) (0.0-15.0) % Eos % (Auto) (0.0-7.0) % Baso % (Auto) (0.0-1.5) % Neut # (Auto) (1.4-5.7) K/uL Lymph # (Auto) (0.6-2.4) K/uL [place] # (Auto) (0.0-0.8) K/uL Eos # (Auto) (0.0-0.7) K/uL Baso # (Auto) (0.0-0.1) K/uL Nucleated RBC % /100WBC Nucleated RBCs # K/uL Sodium (136-146) mmol/L Potassium (3.5-5.1) mmol/L Chloride (98-110) mmol/L Carbon Dioxide (21-31) mmol/L BUN (6.0-23.0) mg/dL Creatinine (0.6-1.5) mg/dL Est Cr Clr Drug Dosing mL/min Estimated GFR (MDRD) ml/min Glucose (60-110) mg/dL POC Glucose 64 117 H 154 H (60-110) mg/dL Calcium (8.8-10.8) mg/dL 02/01/17 02/01/17 02/01/17 Range/Units 11:44 18:02 20:35 WBC (4.0-11.0) K/uL RBC (4.30-5.90) M/uL Hgb (12.0-16.0) g/dL Hct (36.0-46.0) % MCV (80.0-98.0) fL MCH (27.0-32.0) pg MCHC (31.0-37.0) g/dL RDW Std Deviation (28.0-62.0) fl RDW Coeff of Lucrecia (11.0-15.0) % Plt Count (150-400) K/uL MPV (7.40-12.00) fL Neut % (Auto) (48.0-80.0) % Lymph % (Auto) (16.0-40.0) % [place] % (Auto) (0.0-15.0) % Eos % (Auto) (0.0-7.0) % Baso % (Auto) (0.0-1.5) % Neut # (Auto) (1.4-5.7) K/uL Lymph # (Auto) (0.6-2.4) K/uL [place] # (Auto) (0.0-0.8) K/uL Eos # (Auto) (0.0-0.7) K/uL Baso # (Auto) (0.0-0.1) K/uL Nucleated RBC % /100WBC Nucleated RBCs # K/uL Sodium (136-146) mmol/L Potassium (3.5-5.1) mmol/L Chloride (98-110) mmol/L Carbon Dioxide (21-31) mmol/L BUN (6.0-23.0) mg/dL Creatinine (0.6-1.5) mg/dL Est Cr Clr Drug Dosing mL/min Estimated GFR (MDRD) ml/min Glucose (60-110) mg/dL POC Glucose 140 H 179 H 150 H (60-110) mg/dL Calcium (8.8-10.8) mg/dL 02/02/17 02/02/17 02/02/17 Range/Units 04:43 04:43 06:39 WBC 9.56 (4.0-11.0) K/uL RBC 3.95 L (4.30-5.90) M/uL Hgb 12.1 (12.0-16.0) g/dL Hct 37.7 (36.0-46.0) % MCV 95.4 (80.0-98.0) fL MCH 30.6 (27.0-32.0) pg MCHC 32.1 (31.0-37.0) g/dL RDW Std Deviation 49.0 (28.0-62.0) fl RDW Coeff of Lucrecia 14 (11.0-15.0) % Plt Count 252 (150-400) K/uL MPV 10.10 (7.40-12.00) fL Neut % (Auto) 65.5 (48.0-80.0) % Lymph % (Auto) 16.1 (16.0-40.0) % [place] % (Auto) 7.8 (0.0-15.0) % Eos % (Auto) 10.1 H (0.0-7.0) % Baso % (Auto) 0.5 (0.0-1.5) % Neut # (Auto) 6.3 H (1.4-5.7) K/uL Lymph # (Auto) 1.5 (0.6-2.4) K/uL [place] # (Auto) 0.8 (0.0-0.8) K/uL Eos # (Auto) 1.0 H (0.0-0.7) K/uL Baso # (Auto) 0.1 (0.0-0.1) K/uL Nucleated RBC % 0.0 /100WBC Nucleated RBCs # 0 K/uL Sodium 140 (136-146) mmol/L Potassium 3.9 (3.5-5.1) mmol/L Chloride 106 (98-110) mmol/L Carbon Dioxide 22 (21-31) mmol/L BUN 14 (6.0-23.0) mg/dL Creatinine 0.9 (0.6-1.5) mg/dL Est Cr Clr Drug Dosing 42.72 mL/min Estimated GFR (MDRD) > 60.0 ml/min Glucose 131 H (60-110) mg/dL POC Glucose 144 H (60-110) mg/dL Calcium 8.9 (8.8-10.8) mg/dL 02/02/17 Range/Units 09:14 WBC (4.0-11.0) K/uL RBC (4.30-5.90) M/uL Hgb (12.0-16.0) g/dL Hct (36.0-46.0) % MCV (80.0-98.0) fL MCH (27.0-32.0) pg MCHC (31.0-37.0) g/dL RDW Std Deviation (28.0-62.0) fl RDW Coeff of Lucrecia (11.0-15.0) % Plt Count (150-400) K/uL MPV (7.40-12.00) fL Neut % (Auto) (48.0-80.0) % Lymph % (Auto) (16.0-40.0) % [place] % (Auto) (0.0-15.0) % Eos % (Auto) (0.0-7.0) % Baso % (Auto) (0.0-1.5) % Neut # (Auto) (1.4-5.7) K/uL Lymph # (Auto) (0.6-2.4) K/uL [place] # (Auto) (0.0-0.8) K/uL Eos # (Auto) (0.0-0.7) K/uL Baso # (Auto) (0.0-0.1) K/uL Nucleated RBC % /100WBC Nucleated RBCs # K/uL Sodium (136-146) mmol/L Potassium (3.5-5.1) mmol/L Chloride (98-110) mmol/L Carbon Dioxide (21-31) mmol/L BUN (6.0-23.0) mg/dL Creatinine (0.6-1.5) mg/dL Est Cr Clr Drug Dosing mL/min Estimated GFR (MDRD) ml/min Glucose (60-110) mg/dL POC Glucose 150 H (60-110) mg/dL Calcium (8.8-10.8) mg/dL Med Orders - Current: Current Medications Acetaminophen (Tylenol) 650 mg PO Q4H PRN PRN Reason: Pain (Mild 1-3)/fever Albuterol/Ipratropium (Duoneb 3.0-0.5 Mg/3 Ml) 3 ml NEB Q4HRRT PRN PRN Reason: Shortness Of Breath/wheezing Last Admin: 02/02/17 00:05 Dose: 3 ml Atorvastatin Calcium (Lipitor) 5 mg PO DAILY [facility] Last Admin: 02/02/17 08:56 Dose: 5 mg Diphenhydramine HCl (Benadryl) 50 mg PO TID PRN PRN Reason: Anxiety Last Admin: 02/02/17 09:08 Dose: 50 mg Enoxaparin Sodium (Lovenox) 40 mg SUBCUT Q24H [facility] Last Admin: 02/01/17 20:18 Dose: 40 mg Furosemide (Lasix) 20 mg PO DAILY [facility] Last Admin: 02/02/17 08:56 Dose: 20 mg Levofloxacin/Dextrose 750 mg/ (Premix) 150 mls @ 100 mls/hr IV Q48H [facility] Insulin Aspart (Novolog) 0 unit SUBCUT TIDAC [facility] PRN Reason: Protocol Last Admin: 02/02/17 06:46 Dose: Not Given Insulin Glargine (Lantus Solostar) 9 units SUBCUT BID [facility] Last Admin: 02/02/17 09:18 Dose: 9 units Levalbuterol HCl (Xopenex) 1.25 mg INH QIDRT [facility] Last Admin: 02/02/17 05:18 Dose: 1.25 mg Lorazepam (Ativan) 1 mg PO QID PRN PRN Reason: Anxiety Last Admin: 02/01/17 18:59 Dose: 1 mg Losartan Potassium (Cozaar) 50 mg PO DAILY [facility] Last Admin: 02/02/17 08:56 Dose: 50 mg Ondansetron HCl (Zofran) 4 mg IVPUSH Q4H PRN PRN Reason: Nausea Symbicort 160/4.5 (Mcg) 2 each INH BIDRT [facility] Last Admin: 02/02/17 09:35 Dose: 2 each Aclidinium [place] [ (Tudorza Pressair]) 1 each INH BIDRT [facility] Last Admin: 02/02/17 06:28 Dose: 1 each Nexium 40 Mg 1 each PO DAILY [facility] Last Admin: 02/02/17 08:58 Dose: 1 each Prednisone (Prednisone) 10 mg PO DAILY [facility] Last Admin: 02/02/17 08:57 Dose: 10 mg Discontinued Medications Albuterol/Ipratropium (Duoneb 3.0-0.5 Mg/3 Ml) Confirm Administered Dose 3 ml .ROUTE .STK-MED ONE Stop: 01/31/17 10:21 Last Admin: 01/31/17 10:29 Dose: 3 ml Clopidogrel Bisulfate (Plavix) 75 mg PO DAILY [facility] Last Admin: 02/01/17 09:37 Dose: Not Given Enoxaparin Sodium (Lovenox) 40 mg SUBCUT Q12HR [facility] Last Admin: 01/31/17 21:24 Dose: 40 mg Sodium Chloride (Normal Saline) 1,000 mls @ 999 mls/hr IV .Bolus ONE Stop: 01/31/17 11:29 Last Admin: 01/31/17 11:13 Dose: 999 mls/hr Levofloxacin/Dextrose 750 mg/ (Premix) 150 mls @ 100 mls/hr IV ONETIME ONE Stop: 01/31/17 13:58 Last Admin: 01/31/17 12:48 Dose: 100 mls/hr Sodium Chloride (Normal Saline) 1,000 mls @ 125 mls/hr IV ASDIRECTED [facility] Stop: 01/31/17 21:14 Last Admin: 01/31/17 13:34 Dose: 125 mls/hr Insulin Aspart (Novolog) 8 unit SUBCUT TIDAC [facility] Last Admin: 02/01/17 08:52 Dose: Not Given Ketorolac Tromethamine (Toradol) 30 mg IVPUSH ONETIME ONE Stop: 01/31/17 10:30 Last Admin: 01/31/17 11:12 Dose: 30 mg Levalbuterol HCl (Xopenex) 1.25 mg INH QID [facility] Last Admin: 02/01/17 05:53 Dose: 1.25 mg Levofloxacin (Levaquin) 750 mg PO ONETIME ONE Stop: 02/02/17 09:36 Last Admin: 02/02/17 09:40 Dose: 750 mg Non-Formulary Medication (Insulin Glarg,Human.Rec.Analog) 9 units SUBCUT BID [facility] Breo Ellipta ( Fluticasone/Vilanterol) 1 puff INH DAILY [facility] Last Admin: 02/01/17 19:48 Dose: Not Given Aclidinium Stevinson [ (Tudorza Pressair]) 1 puff INH BID [facility] Last Admin: 02/01/17 08:43 Dose: 1 puff Nexium 40 Mg 40 each PO DAILY [facility] *Q Meaningful Use (DIS) - VTE *Q VTE Criteria *Q: - Stroke *Q Stroke Criteria *Q: - AMI *Q AMI Criteria *Q:
[2017-02-02] MEDS ORDERED: Levofloxacin/Dextrose 5%-Water 750 MG in Premix Bag 1 BAG IV SCH (12:00)
== END 2017-02-02 10:15 | disposition home or self-care (01) | DRG 190 ==
LOC: MW.ED 10:04 → MW.MS 12:42 → UNDOADMIN 13:27 → UNDODISIN 02-02 10:15
PROVIDERS: ADMIT Internal Medicine; ATTEND Internal Medicine
DX: J44.0 Chronic obstructive pulmonary disease with (acute) lower respiratory infection (principal); J18.9 Pneumonia, unspecified organism; N39.0 Urinary tract infection, site not specified; C34.90 Malignant neoplasm of unspecified part of unspecified bronchus or lung; B96.20 Unspecified Escherichia coli [E. coli] as the cause of diseases classified elsewhere; I10 Essential (primary) hypertension; E11.9 Type 2 diabetes mellitus without complications; Z79.4 Long term (current) use of insulin; F41.8 Other specified anxiety disorders; Z87.891 Personal history of nicotine dependence; Z99.81 Dependence on supplemental oxygen
CPT/HCPCS: 36415; 71020; 71250; 80053; 81001; 82150; 83605; 83690; 84484; 85025; 85610; 87040 ×2; 87086; 87088; 87186; 93005; 94664; 96361; 96365; 96375; 99285; J1885; J1956; J7040; 80048; 82962; 94640; 99283; A9270-GY; J1650; J1815-GY; J7612-GY

== ENCOUNTER → 2017-03-01 | Outpatient (CLI) | payer MEDICARE, OTHER | LOC: MW.NM 08:46 | PROVIDERS: ATTEND Radiology Radiation Oncology ==

== ENCOUNTER 2017-03-12 16:53 | Observation (INO) | payer MEDICARE, OTHER ==
[2017-03-12] MEDS ORDERED: methylPREDNISolone Sodium Succinate 125 MG/2 ML SDV IVPUSH ONE (17:16)
[2017-03-12] MEDS ORDERED: Albuterol/Ipratropium 3.0-0.5 MG/3 ML Neb Soln NEB ONE (17:16)
[2017-03-12] MEDS ORDERED: Sodium Chloride 0.9% 2.5 ML Syringe FLUSH PRN (17:16)
[2017-03-12] MEDS ORDERED: Sodium Chloride 0.9% 10 ML Syringe FLUSH PRN (17:16)
[2017-03-12] MEDS ORDERED: Sodium Chloride 0.9% 1,000 ML IV SCH (17:30)
--- NOTE | 2017-03-12 17:35 | EDM.PDOC ---
ED HPI GENERAL MEDICAL PROBLEM - General Chief Complaint: Upper Extremity Injury/Pain Stated Complaint: ARM Time Seen by Provider: 03/12/17 17:08 - History of Present Illness INITIAL COMMENTS - FREE TEXT/NARRATIVE: HISTORY AND PHYSICAL: History of present illness: Patient is a 77-year-old white female with history of lung cancer he did undergo radiation therapy and is reported as stable disease she is a poor historian presents for concern of left upper extremity pain she states this pain she's had over last 2-3 days of her left arm she states is now also in her left shoulder patient has chronic shortness of breath related to her COPD she denies chest pain denies nausea vomiting she has had some generalized weakness. Review of systems: As per history of present illness and below otherwise all systems reviewed and negative. Past medical history: As per history of present illness and as reviewed below otherwise noncontributory. Surgical history: As per history of present illness and as reviewed below otherwise noncontributory. Social history: No reported history of drug or alcohol abuse. Family history: As per history of present illness and as reviewed below otherwise noncontributory. Physical exam: HEENT: Atraumatic, normocephalic, pupils reactive, negative for conjunctival pallor or scleral icterus, mucous membranes moist, throat clear, neck supple, nontender, trachea midline. Lungs: Scant end expiratory wheezing diminished breath sounds equal bilaterally , chest nontender. Heart: S1S2, regular, negative for clicks, rubs, or JVD. Abdomen: Soft, nondistended, nontender. Negative for masses or hepatosplenomegaly. Negative for costovertebral tenderness. Pelvis: Stable nontender. Genitourinary: Deferred. Rectal: Deferred. Extremities: Atraumatic, negative for cords or calf pain. Neurovascular unremarkable. Neuro: Awake, alert, oriented. Cranial nerves II through XII unremarkable. Cerebellum unremarkable. Motor and sensory unremarkable throughout. Exam nonfocal. Diagnostics: CBC CMP PT INR troponin d-dimer chest x-ray EKG Therapeutics: IV O2 monitor Cymetra 125 mg IV albuterol ipratropium nebulizer Impression: #1 history of lung cancer #2 COPD #3 left upper extremity pain Definitive disposition and diagnosis as appropriate pending reevaluation and review of above. Left Arm Pain Score (Numeric/FACES): 10 - Related Data Allergies Allergy/AdvReac Type Severity Reaction Status Date / Time codeine Allergy Airway Verified 03/12/17 16:59 Tightness Iodinated Contrast Media - Allergy Airway Verified 03/12/17 16:59 Oral and Tightness [Iodinated Contrast Media - IV Dye] peas Allergy Rash Verified 03/12/17 16:59 Penicillins Allergy Airway Verified 03/12/17 16:59 Tightness potato Allergy Rash Verified 03/12/17 16:59 procaine HCl [From Novocain] Allergy Itching Verified 03/12/17 16:59 wheat Allergy Airway Verified 03/12/17 16:59 Tightness chocolate Allergy Itching Uncoded 03/12/17 16:59 potato starch Allergy Rash Uncoded 03/12/17 16:59 tea Allergy Rash Uncoded 03/12/17 16:59 Home Meds: Home Meds Aclidinium [place] [Tudorza Pressair] 1 puff INH BID 11/09/14 [History] Esomeprazole Magnesium [Nexium] 40 mg PO DAILY 11/09/14 [History] Furosemide [Lasix] 20 mg PO DAILY 11/09/14 [History] Insulin Glarg,Human.Rec.Analog [Lantus] 12 units SUBCUT BID 11/09/14 [History] LORazepam 1 mg PO QID 11/09/14 [History] Levalbuterol HCl 1.25 mg INH QID PRN 11/09/14 [History] Losartan [Cozaar] 50 mg PO DAILY 11/09/14 [History] atorvaSTATin [Lipitor] 5 mg PO DAILY 11/09/14 [History] diphenhydrAMINE [Benadryl] 50 mg PO TID 11/09/14 [History] Budesonide/Formoterol [Symbicort 160-4.5 MCG] 2 inh IH BID 02/01/17 [History] Hydrocodone/Acetaminophen [Hydrocodon-Acetaminophen 5-325] 5 - 325 mg PO QID PRN 02/01/17 [History] Insulin Aspart [Novolog Flexpen] 8 unit SUBCUT TIDAC 02/01/17 [History] predniSONE 10 mg PO DAILY 02/01/17 [History] Levofloxacin [Levaquin] 750 mg PO Q48H #3 tablet 02/02/17 [Rx] Past Medical History HEENT History: Reports: Hard of Hearing Cardiovascular History: Reports: Hypertension Respiratory History: Reports: Asthma, COPD Gastrointestinal History: Reports: GERD Genitourinary History: Reports: None 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 Psychiatric History: Reports: Anxiety, Depression Endocrine/Metabolic History: Reports: Diabetes, Type II Hematologic History: Reports: None Immunologic History: Reports: None Oncologic (Cancer) History: Reports: Lung Other Oncologic History: remission for 4 months - Past Surgical History Head Surgeries/Procedures: Reports: None HEENT Surgical History: Reports: None Cardiovascular Surgical History: Reports: Other (See Below) Other Cardiovascular Surgeries/Procedures: Left bracial plastic artery Respiratory Surgical History: Reports: Other (See Below) Other Respiratory Surgeries/Procedures: lung surgery- hx lung cancer GI Surgical History: Reports: Appendectomy, Cholecystectomy Female Surgical History: Reports: Hysterectomy Endocrine Surgical History: Reports: None Oncologic Surgical History: Reports: None Social & Family History - Family History Family Medical History: Noncontributory - Tobacco Use Smoking Status *Q: Former Smoker Years of Tobacco use: 25 Used Tobacco, but Quit: Yes Month Tobacco Last Used: 2001 Second Hand Smoke Exposure: No - Caffeine Use Caffeine Use: Reports: Coffee Caffeine Use Comment: 3 cups/coffee - Alcohol Use Days Per Week of Alcohol Use: 0 - Recreational Drug Use Recreational Drug Use: No Review of Systems - Review of Systems Review Of Systems: ROS reveals no pertinent complaints other than HPI. Trauma Exam - Physical Exam Exam: See Below (see Dictation) Course - Vital Signs Last Recorded V/S: Last Vital Signs Temp 36.5 C 03/12/17 19:02 Pulse 90 03/12/17 19:02 Resp 20 03/12/17 19:02 BP 133/64 03/12/17 19:02 Pulse Ox 93 L 03/12/17 19:03 - Orders/Labs/Meds Orders: Active Orders 24 hr Category Date Time Status Cardiac Monitoring [RC] . DIRECTED Care 03/12/17 17:15 Active EKG Documentation Completion [RC] STAT Care 03/12/17 17:15 Active Oxygen Therapy, ED [RC] ASDIRECTED Care 03/12/17 17:15 Active Pulse Oximetry [RC] ASDIRECTED Care 03/12/17 17:15 Active RT Aerosol Therapy [RC] ASDIRECTED Care 03/12/17 17:17 Active Ang Chest [CT] Stat Exams 03/12/17 19:30 Ordered Chest 2V [CR] Stat Exams 03/12/17 17:16 Taken Humerus Lt [CR] Stat Exams 03/12/17 17:16 Taken UA W/MICROSCOPIC [URIN] Stat Lab 03/12/17 17:16 Uncollected Sodium Chloride 0.9% [Normal Saline] 1,000 ml Med 03/12/17 17:30 Active IV STAT Sodium Chloride 0.9% [Saline Flush] Med 03/12/17 17:16 Active 10 ml FLUSH ASDIRECTED PRN Sodium Chloride 0.9% [Saline Flush] Med 03/12/17 17:16 Active 2.5 ml FLUSH ASDIRECTED PRN Saline Lock Insert [OM.PC] Stat Oth 03/12/17 17:15 Ordered Medication Orders Sodium Chloride (Normal Saline) 1,000 mls @ 125 mls/hr IV STAT VIJAYA Last Admin: 03/12/17 17:42 Dose: 125 mls/hr Sodium Chloride (Saline Flush) 10 ml FLUSH ASDIRECTED PRN PRN Reason: Keep Vein Open Last Admin: 03/12/17 18:03 Dose: 10 ml Sodium Chloride (Saline Flush) 2.5 ml FLUSH ASDIRECTED PRN PRN Reason: Keep Vein Open Last Admin: 03/12/17 18:04 Dose: 2.5 ml Labs: Laboratory Tests 03/12/17 03/12/17 03/12/17 Range/Units 17:48 17:48 17:48 WBC 12.15 H (4.0-11.0) K/uL RBC 3.78 L (4.30-5.90) M/uL Hgb 11.7 L (12.0-16.0) g/dL Hct 36.3 (36.0-46.0) % MCV 96.0 (80.0-98.0) fL MCH 31.0 (27.0-32.0) pg MCHC 32.2 (31.0-37.0) g/dL RDW Std Deviation 48.8 (28.0-62.0) fl RDW Coeff of Lucrecia 14 (11.0-15.0) % Plt Count 268 (150-400) K/uL MPV 9.90 (7.40-12.00) fL Neut % (Auto) 64.8 (48.0-80.0) % Lymph % (Auto) 22.6 (16.0-40.0) % Webb % (Auto) 7.7 (0.0-15.0) % Eos % (Auto) 4.4 (0.0-7.0) % Baso % (Auto) 0.5 (0.0-1.5) % Neut # (Auto) 7.9 H (1.4-5.7) K/uL Lymph # (Auto) 2.8 H (0.6-2.4) K/uL Webb # (Auto) 0.9 H (0.0-0.8) K/uL Eos # (Auto) 0.5 (0.0-0.7) K/uL Baso # (Auto) 0.1 (0.0-0.1) K/uL Nucleated RBC % 0.0 /100WBC Nucleated RBCs # 0 K/uL INR (0.86-1.11) D-Dimer, Quantitative (0.0-0.52) mg/LFEU Lactate (0.20-2.00) mmol/L Sodium 140 (136-146) mmol/L Potassium 4.3 (3.5-5.1) mmol/L Chloride 106 (98-110) mmol/L Carbon Dioxide 23 (21-31) mmol/L BUN 22 (6.0-23.0) mg/dL Creatinine 1.0 (0.6-1.5) mg/dL Est Cr Clr Drug Dosing 36.11 mL/min Estimated GFR (MDRD) 53.9 ml/min Glucose 149 H (60-110) mg/dL Calcium 9.1 (8.8-10.8) mg/dL Total Bilirubin 0.2 (0.1-1.5) mg/dL AST 15 (5-40) IU/L ALT 16 (8-54) IU/L Alkaline Phosphatase 90 (40-150) Troponin I (0.0-0.29) NG/ML B-Natriuretic Peptide 82 (<100) PG/ML Total Protein 6.5 (6.0-8.0) g/dL Albumin 3.8 (3.4-4.8) g/dL Globulin 2.7 (2.0-3.5) g/dL Albumin/Globulin Ratio 1.4 (1.3-2.8) 03/12/17 03/12/17 03/12/17 Range/Units 17:48 17:48 17:48 WBC (4.0-11.0) K/uL RBC (4.30-5.90) M/uL Hgb (12.0-16.0) g/dL Hct (36.0-46.0) % MCV (80.0-98.0) fL MCH (27.0-32.0) pg MCHC (31.0-37.0) g/dL RDW Std Deviation (28.0-62.0) fl RDW Coeff of Lucrecia (11.0-15.0) % Plt Count (150-400) K/uL MPV (7.40-12.00) fL Neut % (Auto) (48.0-80.0) % Lymph % (Auto) (16.0-40.0) % Webb % (Auto) (0.0-15.0) % Eos % (Auto) (0.0-7.0) % Baso % (Auto) (0.0-1.5) % Neut # (Auto) (1.4-5.7) K/uL Lymph # (Auto) (0.6-2.4) K/uL Webb # (Auto) (0.0-0.8) K/uL Eos # (Auto) (0.0-0.7) K/uL Baso # (Auto) (0.0-0.1) K/uL Nucleated RBC % /100WBC Nucleated RBCs # K/uL INR 0.99 (0.86-1.11) D-Dimer, Quantitative (0.0-0.52) mg/LFEU Lactate 1.8 (0.20-2.00) mmol/L Sodium (136-146) mmol/L Potassium (3.5-5.1) mmol/L Chloride (98-110) mmol/L Carbon Dioxide (21-31) mmol/L BUN (6.0-23.0) mg/dL Creatinine (0.6-1.5) mg/dL Est Cr Clr Drug Dosing mL/min Estimated GFR (MDRD) ml/min Glucose (60-110) mg/dL Calcium (8.8-10.8) mg/dL Total Bilirubin (0.1-1.5) mg/dL AST (5-40) IU/L ALT (8-54) IU/L Alkaline Phosphatase (40-150) Troponin I < 0.10 (0.0-0.29) NG/ML B-Natriuretic Peptide (<100) PG/ML Total Protein (6.0-8.0) g/dL Albumin (3.4-4.8) g/dL Globulin (2.0-3.5) g/dL Albumin/Globulin Ratio (1.3-2.8) / Range/Units 17:48 WBC (4.0-11.0) K/uL RBC (4.30-5.90) M/uL Hgb (12.0-16.0) g/dL Hct (36.0-46.0) % MCV (80.0-98.0) fL MCH (27.0-32.0) pg MCHC (31.0-37.0) g/dL RDW Std Deviation (28.0-62.0) fl RDW Coeff of Lucrecia (11.0-15.0) % Plt Count (150-400) K/uL MPV (7.40-12.00) fL Neut % (Auto) (48.0-80.0) % Lymph % (Auto) (16.0-40.0) % Webb % (Auto) (0.0-15.0) % Eos % (Auto) (0.0-7.0) % Baso % (Auto) (0.0-1.5) % Neut # (Auto) (1.4-5.7) K/uL Lymph # (Auto) (0.6-2.4) K/uL Webb # (Auto) (0.0-0.8) K/uL Eos # (Auto) (0.0-0.7) K/uL Baso # (Auto) (0.0-0.1) K/uL Nucleated RBC % /100WBC Nucleated RBCs # K/uL INR (0.86-1.11) D-Dimer, Quantitative 0.83 H (0.0-0.52) mg/LFEU Lactate (0.20-2.00) mmol/L Sodium (136-146) mmol/L Potassium (3.5-5.1) mmol/L Chloride (98-110) mmol/L Carbon Dioxide (21-31) mmol/L BUN (6.0-23.0) mg/dL Creatinine (0.6-1.5) mg/dL Est Cr Clr Drug Dosing mL/min Estimated GFR (MDRD) ml/min Glucose (60-110) mg/dL Calcium (8.8-10.8) mg/dL Total Bilirubin (0.1-1.5) mg/dL AST (5-40) IU/L ALT (8-54) IU/L Alkaline Phosphatase (40-150) Troponin I (0.0-0.29) NG/ML B-Natriuretic Peptide (<100) PG/ML Total Protein (6.0-8.0) g/dL Albumin (3.4-4.8) g/dL Globulin (2.0-3.5) g/dL Albumin/Globulin Ratio (1.3-2.8) Meds: Medications Generic Name Dose Route Start Last Admin Trade Name Freq PRN Reason Stop Dose Admin Sodium Chloride 1,000 mls @ 125 mls/hr 03/12/17 17:30 03/12/17 17:42 Normal Saline IV 125 mls/hr STAT VIJAYA Administration Sodium Chloride 10 ml 03/12/17 17:16 03/12/17 18:03 Saline Flush FLUSH 10 ml ASDIRECTED PRN Administration Keep Vein Open Sodium Chloride 2.5 ml 03/12/17 17:16 03/12/17 18:04 Saline Flush FLUSH 2.5 ml ASDIRECTED PRN Administration Keep Vein Open Discontinued Medications Generic Name Dose Route Start Last Admin Trade Name Freq PRN Reason Stop Dose Admin Albuterol/Ipratropium 3 ml 03/12/17 17:16 03/12/17 17:33 Duoneb 3.0-0.5 Mg/3 Ml NEB 03/12/17 17:17 3 ml ONETIME ONE Administration Methylprednisolone Sodium Succinate 125 mg 03/12/17 17:16 03/12/17 17:40 Solu-Medrol IVPUSH 03/12/17 17:17 125 mg ONETIME ONE Administration Departure - Departure Time of Disposition: 19:31 Disposition: Refer to Observation Condition: good Clinical Impression: Dyspnea, COPD (chronic obstructive pulmonary disease), History of lung cancer, Left arm pain - Discharge Information Forms: ED Department Discharge - My Orders Last 24 Hours: My Active Orders 03/12/17 17:15 Cardiac Monitoring [RC] . DIRECTED EKG Documentation Completion [RC] STAT Oxygen Therapy, ED [RC] ASDIRECTED Pulse Oximetry [RC] ASDIRECTED Saline Lock Insert [OM.PC] Stat 03/12/17 17:16 Chest 2V [CR] Stat Humerus Lt [CR] Stat UA W/MICROSCOPIC [URIN] Stat Sodium Chloride 0.9% [Saline Flush] 10 ml FLUSH ASDIRECTED PRN Sodium Chloride 0.9% [Saline Flush] 2.5 ml FLUSH ASDIRECTED PRN 03/12/17 17:17 RT Aerosol Therapy [RC] ASDIRECTED 03/12/17 17:30 Sodium Chloride 0.9% [Normal Saline] 1,000 ml IV STAT 03/12/17 19:30 Ang Chest [CT] Stat - Assessment/Plan Last 24 Hours: My Active Orders 03/12/17 17:15 Cardiac Monitoring [RC] . DIRECTED EKG Documentation Completion [RC] STAT Oxygen Therapy, ED [RC] ASDIRECTED Pulse Oximetry [RC] ASDIRECTED Saline Lock Insert [OM.PC] Stat 03/12/17 17:16 Chest 2V [CR] Stat Humerus Lt [CR] Stat UA W/MICROSCOPIC [URIN] Stat Sodium Chloride 0.9% [Saline Flush] 10 ml FLUSH ASDIRECTED PRN Sodium Chloride 0.9% [Saline Flush] 2.5 ml FLUSH ASDIRECTED PRN 03/12/17 17:17 RT Aerosol Therapy [RC] ASDIRECTED 03/12/17 17:30 Sodium Chloride 0.9% [Normal Saline] 1,000 ml IV STAT 03/12/17 19:30 Ang Chest [CT] Stat
[2017-03-12] MEDS ORDERED: Morphine 2 MG/ML Syringe IVPUSH PRN (21:37)
[2017-03-12] MEDS ORDERED: Ondansetron 4 MG Tab PO PRN (21:55)
[2017-03-12] MEDS: Sodium Chloride 0.9% 1,000 ML IV SCH (22:16)
[2017-03-12] MEDS: Insulin Aspart 100 Units/ML 3 ML Pen SUBCUT SCH (22:51)
[2017-03-12] MEDS: Azithromycin 500 MG in Sodium Chloride 0.9% 250 ML IV SCH (22:54)
[2017-03-12] MEDS: Albuterol/Ipratropium 3.0-0.5 MG/3 ML Neb Soln NEB PRN (23:12)
[2017-03-12] MEDS ORDERED: Iopamidol 755 MG/ML 500 ML Multipack Bottle IVPUSH STA (23:46)
[2017-03-13 06:32] LABS: CHLORIDE,CL 109 mmol/L (98-110); SODIUM,NA 141 mmol/L (136-146)
[2017-03-13] MEDS: Insulin Aspart 100 Units/ML 3 ML Pen SUBCUT SCH ×4 (06:56→21:18)
[2017-03-13] MEDS: Albuterol/Ipratropium 3.0-0.5 MG/3 ML Neb Soln NEB PRN ×3 (08:19→21:23)
[2017-03-13] MEDS: Losartan 50 MG Tab PO SCH (08:55)
[2017-03-13] MEDS: predniSONE 10 MG Tab PO SCH (08:56)
[2017-03-13] MEDS: atorvaSTATin 10 MG Tab PO SCH (08:56)
[2017-03-13] MEDS: Furosemide 20 MG Tab PO SCH (08:56)
[2017-03-13] MEDS: SYMBICORT 160-4.5MCG INH SCH ×2 (08:56→21:21)
[2017-03-13] MEDS: Omeprazole 20 MG Cap.CR PO SCH (08:56)
[2017-03-13] MEDS ORDERED: oxyCODONE 5 MG Tab PO PRN (09:53)
--- NOTE | 2017-03-13 10:13 | PCM.HP ---
H&P History of Present Illness - General Date of Service: 03/13/17 Admit Problem/Dx: Admission Diagnosis/Problem Admission Diagnosis/Problem Dyspnea Source of Information: Patient, Family History Limitations: Reports: No Limitations - History of Present Illness Initial Comments - Free Text/Narative: The patient is a 77-year-old lady who was admitted secondary to left arm pain. The patient presented to the emergency department with a complaint as listed above. The patient does have a history of lung cancer and had undergone radiation therapy. The patient's daughter and grandson are with her. The patient does not know what type of lung cancer that she has. The patient says that the pain in her left arm started yesterday evening and had radiated down into her elbow. There was some concern assist this was an anginal equivalent. The patient currently says that her pain level is a 4/10. Patient does have a history of COPD as well and she quit smoking 14 years ago. The patient is currently using oxygen at home 2 L via nasal cannula during the day and 3 L via nasal cannula at night. The patient's daughter says that she also has some memory issues and she seems to forget more things. The patient has denied fever or chills. She has had increase in productive cough. The patient also has denied lightheadedness but did feel dizzy earlier today when trying to set up. The patient has had no specific aggravating or relieving factors. She has been chronically short of breath. The patient is also somewhat of a poor historian and her relatives have filled in some of the information. Onset of Symptoms: Reports: Gradual Duration of Symptoms: Reports: Day(s):, Improving Location: Reports: Upper Extremity, Left Quality: Reports: Sharp, Stabbing Severity: Moderate Improves with: Reports: None Worsens with: Reports: None Associated Symptoms: Reports: Cough, Shortness of Breath Left Arm Pain Score (Numeric/FACES): 5 - Related Data Allergies/Adverse Reactions: Allergies Allergy/AdvReac Type Severity Reaction Status Date / Time codeine Allergy Airway Verified 03/12/17 16:59 Tightness peas Allergy Rash Verified 03/12/17 16:59 Penicillins Allergy Airway Verified 03/12/17 16:59 Tightness potato Allergy Rash Verified 03/12/17 16:59 procaine HCl [From Novocain] Allergy Itching Verified 03/12/17 16:59 wheat Allergy Airway Verified 03/12/17 16:59 Tightness chocolate Allergy Itching Uncoded 03/12/17 16:59 potato starch Allergy Rash Uncoded 03/12/17 16:59 sea food Allergy Rash Uncoded 03/12/17 19:41 tea Allergy Rash Uncoded 03/12/17 16:59 Home Medications: Home Meds Aclidinium Critz [Tudorza Pressair] 1 puff INH BID 11/09/14 [History] Esomeprazole Magnesium [Nexium] 40 mg PO DAILY 11/09/14 [History] Furosemide [Lasix] 20 mg PO DAILY 11/09/14 [History] Insulin Glarg,Human.Rec.Analog [Lantus] 12 units SUBCUT BID 11/09/14 [History] LORazepam 1 mg PO QID 11/09/14 [History] Levalbuterol HCl 1.25 mg INH QID PRN 11/09/14 [History] Losartan [Cozaar] 50 mg PO DAILY 11/09/14 [History] atorvaSTATin [Lipitor] 5 mg PO DAILY 11/09/14 [History] diphenhydrAMINE [Benadryl] 50 mg PO TID 11/09/14 [History] Budesonide/Formoterol [Symbicort 160-4.5 MCG] 2 inh IH BID 02/01/17 [History] Hydrocodone/Acetaminophen [Hydrocodon-Acetaminophen 5-325] 5 - 325 mg PO QID PRN 02/01/17 [History] Insulin Aspart [Novolog Flexpen] 8 unit SUBCUT TIDAC 02/01/17 [History] predniSONE 10 mg PO DAILY 02/01/17 [History] Past Medical History HEENT History: Reports: Hard of Hearing Cardiovascular History: Reports: Hypertension Respiratory History: Reports: Asthma, COPD Gastrointestinal History: Reports: GERD Genitourinary History: Reports: None PSYCHODRAMATIST History: Reports: None Neurological History: Reports: Vertigo Psychiatric History: Reports: Anxiety, Depression Endocrine/Metabolic History: Reports: Diabetes, Type II Hematologic History: Reports: None Immunologic History: Reports: None Oncologic (Cancer) History: Reports: Lung Other Oncologic History: remission for 4 months Dermatologic History: Reports: None - Past Surgical History Head Surgeries/Procedures: Reports: None HEENT Surgical History: Reports: None Cardiovascular Surgical History: Reports: Other (See Below) Other Cardiovascular Surgeries/Procedures: Left bracial plastic artery Respiratory Surgical History: Reports: Other (See Below) Other Respiratory Surgeries/Procedures: lung surgery- hx lung cancer GI Surgical History: Reports: Appendectomy, Cholecystectomy Female Surgical History: Reports: Hysterectomy Endocrine Surgical History: Reports: None Oncologic Surgical History: Reports: None Social & Family History - Family History Family Medical History: Noncontributory - Tobacco Use Smoking Status *Q: Former Smoker Years of Tobacco use: 25 Used Tobacco, but Quit: No Month Tobacco Last Used: 2001 Second Hand Smoke Exposure: No - Caffeine Use Caffeine Use: Reports: Coffee Caffeine Use Comment: 3 cups/coffee - Alcohol Use Days Per Week of Alcohol Use: 0 - Recreational Drug Use Recreational Drug Use: No H&P Review of Systems - Review of Systems: Review Of Systems: See Below General: Reports: Weakness, Fatigue HEENT: Reports: No Symptoms Pulmonary: Reports: Shortness of Breath, Cough Cardiovascular: Reports: No Symptoms Gastrointestinal: Reports: No Symptoms Genitourinary: Reports: No Symptoms 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: Reports: No Symptoms Skin: Reports: No Symptoms Psychiatric: Reports: Anxiety Neurological: Reports: No Symptoms Hematologic/Lymphatic: Reports: No Symptoms Immunologic: Reports: No Symptoms Exam - Exam Exam: See Below - Vital Signs Vital Signs: Last Vital Signs Temp 36.8 C 03/13/17 08:00 Pulse 101 H 03/13/17 08:00 Resp 20 03/13/17 08:00 BP 162/71 H 03/13/17 08:55 Pulse Ox 98 03/13/17 08:00 Weight: 76 kg - Exam Quality Assessment: Supplemental Oxygen General: Alert, Oriented, Cooperative. No: Mild Distress HEENT: Conjunctiva Clear, EACs Clear, EOMI. No: Mucosa Moist & Pettus ( oropharynx dry) Neck: Supple, Trachea Midline Lungs: Wheezing (scattered) Cardiovascular: Regular Rate, Regular Rhythm Abdomen: Normal Bowel Sounds, Soft Back Exam: Normal Inspection Extremities: Normal Inspection Skin: Warm, Dry, Intact Neurological: Cranial Nerves Intact Neuro Extensive - Mental Status: Alert, Oriented x3 Psychiatric: Alert, Normal Affect, Normal Mood - Patient Data Lab Results last 24 hrs: Laboratory Results - last 24 hr 03/12/17 03/12/17 03/13/17 Range/Units 21:15 22:21 05:56 WBC 15.19 H (4.0-11.0) K/uL RBC 3.71 L (4.30-5.90) M/uL Hgb 11.5 L (12.0-16.0) g/dL Hct 35.4 L (36.0-46.0) % MCV 95.4 (80.0-98.0) fL MCH 31.0 (27.0-32.0) pg MCHC 32.5 (31.0-37.0) g/dL RDW Std Deviation 48.7 (28.0-62.0) fl RDW Coeff of Lucrecia 14 (11.0-15.0) % Plt Count 258 (150-400) K/uL MPV 10.00 (7.40-12.00) fL Neut % (Auto) 91.4 H (48.0-80.0) % Lymph % (Auto) 7.1 L (16.0-40.0) % [place] % (Auto) 1.4 (0.0-15.0) % Eos % (Auto) 0.0 (0.0-7.0) % Baso % (Auto) 0.1 (0.0-1.5) % Neut # (Auto) 13.9 H (1.4-5.7) K/uL Lymph # (Auto) 1.1 (0.6-2.4) K/uL [place] # (Auto) 0.2 (0.0-0.8) K/uL Eos # (Auto) 0.0 (0.0-0.7) K/uL Baso # (Auto) 0.0 (0.0-0.1) K/uL Nucleated RBC % 0.0 /100WBC Nucleated RBCs # 0 K/uL Sodium (136-146) mmol/L Potassium (3.5-5.1) mmol/L Chloride (98-110) mmol/L Carbon Dioxide (21-31) mmol/L BUN (6.0-23.0) mg/dL Creatinine (0.6-1.5) mg/dL Est Cr Clr Drug Dosing mL/min Estimated GFR (MDRD) ml/min Glucose (60-110) mg/dL POC Glucose 198 H (60-110) mg/dL Calcium (8.8-10.8) mg/dL Phosphorus (2.4-4.7) mg/dL Magnesium (1.5-2.3) mEq/L Total Bilirubin (0.1-1.5) mg/dL AST (5-40) IU/L ALT (8-54) IU/L Alkaline Phosphatase (40-150) Total Protein (6.0-8.0) g/dL Albumin (3.4-4.8) g/dL Globulin (2.0-3.5) g/dL Albumin/Globulin Ratio (1.3-2.8) Urine Color YELLOW Urine Appearance CLEAR Urine pH 7.0 (5.0-8.0) Ur Specific [place] <= 1.005 (1.001-1.035) Urine Protein NEGATIVE (NEGATIVE) mg/dL Urine Glucose (UA) 100 H (NEGATIVE) mg/dL Urine Ketones NEGATIVE (NEGATIVE) mg/dL Urine Occult Blood NEGATIVE (NEGATIVE) Urine Nitrite NEGATIVE (NEGATIVE) Urine Bilirubin NEGATIVE (NEGATIVE) Urine Urobilinogen 0.2 (<2.0) EU/dL Ur Leukocyte Esterase NEGATIVE (NEGATIVE) Urine RBC 2-3 (0-2/HPF) Urine WBC 0-1 (0-5/HPF) Ur Epithelial Cells RARE (NONE-FEW) Urine Bacteria FEW (NEGATIVE) Urine Yeast MODERATE 03/13/17 03/13/17 Range/Units 05:56 06:31 WBC (4.0-11.0) K/uL RBC (4.30-5.90) M/uL Hgb (12.0-16.0) g/dL Hct (36.0-46.0) % MCV (80.0-98.0) fL MCH (27.0-32.0) pg MCHC (31.0-37.0) g/dL RDW Std Deviation (28.0-62.0) fl RDW Coeff of Lucrecia (11.0-15.0) % Plt Count (150-400) K/uL MPV (7.40-12.00) fL Neut % (Auto) (48.0-80.0) % Lymph % (Auto) (16.0-40.0) % [place] % (Auto) (0.0-15.0) % Eos % (Auto) (0.0-7.0) % Baso % (Auto) (0.0-1.5) % Neut # (Auto) (1.4-5.7) K/uL Lymph # (Auto) (0.6-2.4) K/uL [place] # (Auto) (0.0-0.8) K/uL Eos # (Auto) (0.0-0.7) K/uL Baso # (Auto) (0.0-0.1) K/uL Nucleated RBC % /100WBC Nucleated RBCs # K/uL Sodium 141 (136-146) mmol/L Potassium 4.7 (3.5-5.1) mmol/L Chloride 109 (98-110) mmol/L Carbon Dioxide 21 (21-31) mmol/L BUN 22 (6.0-23.0) mg/dL Creatinine 0.9 (0.6-1.5) mg/dL Est Cr Clr Drug Dosing 63.80 mL/min Estimated GFR (MDRD) > 60.0 ml/min Glucose 223 H (60-110) mg/dL POC Glucose 207 H (60-110) mg/dL Calcium 8.6 L (8.8-10.8) mg/dL Phosphorus 3.9 (2.4-4.7) mg/dL Magnesium 1.8 (1.5-2.3) mEq/L Total Bilirubin 0.3 (0.1-1.5) mg/dL AST 15 (5-40) IU/L ALT 17 (8-54) IU/L Alkaline Phosphatase 79 (40-150) Total Protein 6.1 (6.0-8.0) g/dL Albumin 3.6 (3.4-4.8) g/dL Globulin 2.5 (2.0-3.5) g/dL Albumin/Globulin Ratio 1.4 (1.3-2.8) Urine Color Urine Appearance Urine pH (5.0-8.0) Ur Specific [place] (1.001-1.035) Urine Protein (NEGATIVE) mg/dL Urine Glucose (UA) (NEGATIVE) mg/dL Urine Ketones (NEGATIVE) mg/dL Urine Occult Blood (NEGATIVE) Urine Nitrite (NEGATIVE) Urine Bilirubin (NEGATIVE) Urine Urobilinogen (<2.0) EU/dL Ur Leukocyte Esterase (NEGATIVE) Urine RBC (0-2/HPF) Urine WBC (0-5/HPF) Ur Epithelial Cells (NONE-FEW) Urine Bacteria (NEGATIVE) Urine Yeast Result Diagrams: 03/13/17 05:56 03/13/17 05:56 *Q Meaningful Use (ADM) - VTE *Q VTE Criteria *Q: VTE Mechanical Contraindications *Q: At Risk for Falls - Stroke *Q Stroke Criteria *Q: - AMI *Q AMI Criteria *Q: - Problem List (1) COPD (chronic obstructive pulmonary disease) SNOMED Code(s): 83035037 ICD Code: J44.9 - CHRONIC OBSTRUCTIVE PULMONARY DISEASE, UNSPECIFIED Status : Chronic Priority: High Current Visit: Yes Qualifiers: COPD type: chronic bronchitis (2) Left arm pain SNOMED Code(s): 483185778 ICD Code: M79.602 - PAIN IN LEFT ARM Status: Acute Priority: High Current Visit: Yes (3) Dyspnea SNOMED Code(s): 495453394 ICD Code: R06.00 - DYSPNEA, UNSPECIFIED Status: Chronic Priority: Medium Current Visit: Yes Qualifiers: Dyspnea type: other forms of dyspnea Qualified Code(s): R06.09 - Other forms of dyspnea (4) History of lung cancer SNOMED Code(s): 469364110, 106021183 ICD Code: Z85.118 - PERSONAL HISTORY OF MALIGNANT NEOPLASM OF BRONCHUS AND LUNG Status: Chronic Priority: Medium Current Visit: Yes (5) DM II (diabetes mellitus, type II), controlled SNOMED Code(s): 40274609 ICD Code: E11.9 - TYPE 2 DIABETES MELLITUS WITHOUT COMPLICATIONS Status: Chronic Priority: Medium Current Visit: Yes Qualifiers: Diabetes mellitus complication status: without complication Diabetes mellitus intermediate card tender insulin use: with long-term use Qualified Code(s): E11.9 - Type 2 diabetes mellitus without complications; Z79.4 - watermaster (current) use of insulin Problem List Initiated/Reviewed/Updated: Yes Orders Last 24hrs: Active Orders 24 hr Category Date Time Status Patient Status [ADT] Routine ADT 03/13/17 09:53 Active Ambulate [RC] PER UNIT ROUTINE Care 03/13/17 09:56 Active Blood Glucose Check, Bedside [RC] WITHMEALSANDBED Care 03/13/17 09:53 Active Oxygen Therapy [RC] PRN Care 03/13/17 09:53 Active RT Aerosol Therapy [RC] ASDIRECTED Care 03/12/17 21:38 Active Telemetry Monitoring [Cardiac Monitoring] [RC] Q8H Care 03/12/17 21:34 Active VTE/DVT Education [RC] PER UNIT ROUTINE Care 03/13/17 09:53 Active Vital Signs [RC] Q4H Care 03/13/17 09:53 Active CBC WITH AUTO DIFF [HEME] AM Lab 03/14/17 05:11 Ordered COMPREHENSIVE METABOLIC PN,CMP [CHEM] AM Lab 03/14/17 05:11 Ordered Albuterol/Ipratropium [DuoNeb 3.0-0.5 MG/3 ML] Med 03/12/17 21:37 Active 3 ml NEB Q4HRRT PRN Azithromycin [Zithromax] 500 mg Med 03/12/17 22:00 Active Sodium Chloride 0.9% [Normal Saline] 250 ml IV Q24H Enoxaparin [Lovenox] Med 03/14/17 09:00 Ordered 40 mg SUBCUT DAILY Furosemide [Lasix] Med 03/13/17 09:00 Active 20 mg PO DAILY Insulin Aspart [NovoLOG] Med 03/12/17 22:00 Active See Protocol SUBCUT ACBED LORazepam [Ativan] Med 03/13/17 10:00 Active 1 mg PO QID Losartan [Cozaar] Med 03/13/17 09:00 Active 50 mg PO DAILY Morphine Med 03/12/17 21:37 Active 2 mg IVPUSH Q3H PRN Omeprazole Med 03/13/17 09:00 Active 40 mg PO DAILY Ondansetron [Zofran] Med 03/12/17 21:55 Active 4 mg PO Q4H PRN Patient's Own Medication [Ptom] Med 03/13/17 09:00 Active 1 each INH BID Patient's Own Medication [Ptom] Med 03/13/17 09:00 Active 1 each INH BID Sodium Chloride 0.9% [Normal Saline] 1,000 ml Med 03/12/17 21:45 Active IV ASDIRECTED Temazepam [Restoril] Med 03/13/17 21:00 Active 15 mg PO BEDTIME PRN atorvaSTATin [Lipitor] Med 03/13/17 09:00 Active 5 mg PO DAILY oxyCODONE Med 03/13/17 09:53 Ordered 5 mg PO Q4H PRN predniSONE Med 03/13/17 09:00 Active 10 mg PO DAILY Resuscitation Status Routine Resus Stat 03/13/17 09:53 Ordered Medication Orders Albuterol/Ipratropium (Duoneb 3.0-0.5 Mg/3 Ml) 3 ml NEB Q4HRRT PRN PRN Reason: Shortness of Breath Last Admin: 03/13/17 08:19 Dose: 3 ml Admin: 03/12/17 23:12 Dose: 3 ml Atorvastatin Calcium (Lipitor) 5 mg PO DAILY [facility] Last Admin: 03/13/17 08:56 Dose: 5 mg Enoxaparin Sodium (Lovenox) 40 mg SUBCUT DAILY [facility] Furosemide (Lasix) 20 mg PO DAILY [facility] Last Admin: 03/13/17 08:56 Dose: 20 mg Azithromycin 500 mg/ Sodium (Chloride) 250 mls @ 250 mls/hr IV Q24H [facility] Last Admin: 03/12/17 22:54 Dose: 250 mls/hr Sodium Chloride (Normal Saline) 1,000 mls @ 75 mls/hr IV ASDIRECTED [facility] Last Admin: 03/12/17 22:16 Dose: 75 mls/hr Insulin Aspart (Novolog) 0 unit SUBCUT ACBED [facility] PRN Reason: Protocol Last Admin: 03/13/17 06:56 Dose: 2 unit Admin: 03/12/17 22:51 Dose: 1 unit Lorazepam (Ativan) 1 mg PO QID [facility] Losartan Potassium (Cozaar) 50 mg PO DAILY [facility] Last Admin: 03/13/17 08:55 Dose: 50 mg Morphine Sulfate (Morphine) 2 mg IVPUSH Q3H PRN PRN Reason: Pain Omeprazole (Omeprazole) 40 mg PO DAILY [facility] Last Admin: 03/13/17 08:56 Dose: 40 mg Ondansetron HCl (Zofran) 4 mg PO Q4H PRN PRN Reason: Nausea/Vomiting Oxycodone HCl (Oxycodone) 5 mg PO Q4H PRN PRN Reason: Pain (moderate 4-6) Tudorza Pressair 1 each INH BID [facility] Symbicort 160-4.5mcg 1 each INH BID [facility] Prednisone (Prednisone) 10 mg PO DAILY [facility] Last Admin: 03/13/17 08:56 Dose: 10 mg Sodium Chloride (Saline Flush) 10 ml FLUSH ASDIRECTED PRN PRN Reason: Keep Vein Open Last Admin: 03/12/17 18:03 Dose: 10 ml Sodium Chloride (Saline Flush) 2.5 ml FLUSH ASDIRECTED PRN PRN Reason: Keep Vein Open Last Admin: 03/12/17 18:04 Dose: 2.5 ml Temazepam (Restoril) 15 mg PO BEDTIME PRN PRN Reason: Anxiety Assessment/Plan Comment:: The patient is a 77-year-old lady who presented primarily out of concern for pain in her left arm. There was some concern about this been an anginal equivalent. Patient does have a history of lung cancer which is undergone radiation treatment and she has a followup later with her oncologist. The patient will be admitted and treated for COPD exacerbation with azithromycin. The patient initially had a leukocytosis of 12,000. She also had a d-dimer which was initially elevated at 0.83. The patient is also diabetic and she'll be kept on sliding scale insulin at low dose. She'll be kept on a ADA cardiac diet. The patient will also be kept on her usual dose of oxygen at 2-3 L depending on her pulse oximetry. I have also recommended the patient ambulate. She will be started on Lovenox for DVT prophylaxis. I anticipate that the patient may be able to go home either later today or likely tomorrow. Patient's treatment plan will be adjusted as conditions and information indicates.
[2017-03-13] MEDS: LORazepam 1 MG Tab PO SCH ×2 (10:18→17:31)
[2017-03-13] MEDS ORDERED: LORazepam 1 MG Tab PO SCH (12:00)
[2017-03-13] MEDS: Sodium Chloride 0.9% 1,000 ML IV SCH (13:18)
[2017-03-13] MEDS ORDERED: Temazepam 15 MG Cap PO PRN (21:00)
[2017-03-13] MEDS: Azithromycin 500 MG in Sodium Chloride 0.9% 250 ML IV SCH (21:19)
[2017-03-14] MEDS: LORazepam 1 MG Tab PO SCH ×2 (00:05→06:18)
[2017-03-14] MEDS: Sodium Chloride 0.9% 1,000 ML IV SCH (03:53)
[2017-03-14] MEDS: Insulin Aspart 100 Units/ML 3 ML Pen SUBCUT SCH (06:46)
[2017-03-14 06:48] LABS: CHLORIDE,CL 111 mmol/L (98-110); SODIUM,NA 142 mmol/L (136-146)
[2017-03-14 07:58] VITALS: BP 163/72
[2017-03-14] MEDS: Losartan 50 MG Tab PO SCH (08:01)
[2017-03-14] MEDS: atorvaSTATin 10 MG Tab PO SCH (08:01)
[2017-03-14] MEDS: predniSONE 10 MG Tab PO SCH (08:02)
[2017-03-14] MEDS: Omeprazole 20 MG Cap.CR PO SCH (08:02)
[2017-03-14] MEDS: Furosemide 20 MG Tab PO SCH (08:02)
[2017-03-14] MEDS ORDERED: Enoxaparin 40 MG/0.4 ML Syringe SUBCUT SCH (09:00)
[2017-03-14] MEDS: SYMBICORT 160-4.5MCG INH SCH (09:29)
[2017-03-14] MEDS ORDERED: Acetaminophen/HYDROcodone 325-5 MG Tab PO PRN (10:09)
[2017-03-14] MEDS ORDERED: Levalbuterol HCl 1.25 MG/0.5 ML Neb INH PRN (10:09)
--- NOTE | 2017-03-14 11:02 | PCM.DCSUM1 ---
Discharge Summary - Hospital Course Free Text/Narrative:: The patient is a 77-year-old lady who was admitted secondary to left arm pain. The patient presented to the emergency department with a complaint as listed above. The patient does have a history of lung cancer and had undergone radiation therapy. The patient's daughter and grandson are with her. The patient does not know what type of lung cancer that she has. The patient says that the pain in her left arm started yesterday evening and had radiated down into her elbow. There was some concern assist this was an anginal equivalent. It was later determined to be from an old injury. The patient's pain has resolved. The patient currently says that her pain level is a 4/10. Patient does have a history of COPD as well and she quit smoking 14 years ago. The patient is currently using oxygen at home 2 L via nasal cannula during the day and 3 L via nasal cannula at night. The patient's daughter says that she also has some memory issues and she seems to forget more things. The patient has denied fever or chills. She has had increase in productive cough. The patient also has denied lightheadedness but did feel dizzy earlier today when trying to set up. The patient has had no specific aggravating or relieving factors. She has been chronically short of breath. The patient is also somewhat of a poor historian and her relatives have filled in some of the information. HPI Initial Comments: The patient initially had a white blood cell count of 15,000 and this has resolved. The patient is also minimally anemic with a hemoglobin of 11 g/dL and a hematocrit of 34.7%. Patient's noted left arm pain has resolved. The patient did have a previous closed fracture injury and she does have a history of COPD lung cancer and this may be a contributing factor for the patient's arm pain. She is doing very well at the time of discharge it is been recommended to continue with diabetic diet and exercise as tolerated. The patient has been recommended to followup with her primary care physician in one week. Patient's vital signs have otherwise been stable and she's been recommended to continue her oxygen support at home as well as continue taking her prednisone. The patient will be discharged on azithromycin 500 mg by mouth daily. - Discharge Data Discharge Date: 03/14/17 Discharge Disposition: Home, Self-Care 01 Condition: Good - Discharge Diagnosis/Problem(s) (1) COPD (chronic obstructive pulmonary disease) SNOMED Code(s): 97639307 ICD Code: J44.9 - CHRONIC OBSTRUCTIVE PULMONARY DISEASE, UNSPECIFIED Status : Chronic Priority: High Qualifiers: COPD type: chronic bronchitis (2) Left arm pain SNOMED Code(s): 676713477 ICD Code: M79.602 - PAIN IN LEFT ARM Status: Resolved Priority: Medium (3) Dyspnea SNOMED Code(s): 350593270 ICD Code: R06.00 - DYSPNEA, UNSPECIFIED Status: Chronic Priority: Medium Qualifiers: Dyspnea type: other forms of dyspnea Qualified Code(s): R06.09 - Other forms of dyspnea (4) History of lung cancer SNOMED Code(s): 429938975, 710565214 ICD Code: Z85.118 - PERSONAL HISTORY OF MALIGNANT NEOPLASM OF BRONCHUS AND LUNG Status: Chronic Priority: Medium (5) DM II (diabetes mellitus, type II), controlled SNOMED Code(s): 87997255 ICD Code: E11.9 - TYPE 2 DIABETES MELLITUS WITHOUT COMPLICATIONS Status: Chronic Priority: Medium Qualifiers: Diabetes mellitus complication status: without complication Diabetes mellitus group home insulin use: with spark tester use Qualified Code(s): E11.9 - Type 2 diabetes mellitus without complications; Z79.4 - [facility] (current) use of insulin - Patient Instructions Diet: Usual Diet as Tolerated, Diabetic Diet Activity: As Tolerated, Cough & Deep Breathe Driving: Do Not Drive Showering/Bathing: May Shower Notify Provider of: Fever, Increased Pain, Nausea and/or Vomiting - Discharge Plan Home Medications: Home Meds Aclidinium [place] [Tudorza Pressair] 1 puff INH BID 11/09/14 [History] Esomeprazole Magnesium [Nexium] 40 mg PO DAILY 11/09/14 [History] Furosemide [Lasix] 20 mg PO DAILY 11/09/14 [History] Insulin Glarg,Human.Rec.Analog [Lantus] 12 units SUBCUT BID 11/09/14 [History] LORazepam 1 mg PO QID 11/09/14 [History] Levalbuterol HCl 1.25 mg INH QID PRN 11/09/14 [History] Losartan [Cozaar] 50 mg PO DAILY 11/09/14 [History] atorvaSTATin [Lipitor] 5 mg PO DAILY 11/09/14 [History] diphenhydrAMINE [Benadryl] 50 mg PO TID 11/09/14 [History] Budesonide/Formoterol [Symbicort 160-4.5 MCG] 2 inh IH BID 02/01/17 [History] Hydrocodone/Acetaminophen [Hydrocodon-Acetaminophen 5-325] 5 - 325 mg PO QID PRN 02/01/17 [History] Insulin Aspart [Novolog Flexpen] 8 unit SUBCUT TIDAC 02/01/17 [History] predniSONE 10 mg PO DAILY 02/01/17 [History] Azithromycin 500 mg PO DAILY #5 tablet 03/14/17 [Rx] Patient Handouts: Chronic Obstructive Pulmonary Disease Exacerbation, Easy-to- Read Referrals: Micha Dai MD [Physician] - - General Info Admission Dx/Problem (Free Text: Admission Diagnosis/Problem Admission Diagnosis/Problem Dyspnea, left arm pain, poor historian Functional Status: Reports: pain controlled, tolerating diet - Review of Systems General: Reports: No Symptoms HEENT: Reports: no symptoms Pulmonary: Reports: no symptoms Cardiovascular: Reports: No Symptoms Gastrointestinal: Reports: No symptoms Genitourinary: Reports: no symptoms 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: Reports: no symptoms Skin: Reports: no symptoms Neurological: Reports: No Symptoms Psychiatric: Reports: no symptoms - Patient Data Vitals - Most Recent: Last Vital Signs Temp 36.8 C 03/14/17 07:56 Pulse 97 03/14/17 07:56 Resp 24 H 03/14/17 07:56 BP 163/72 H 03/14/17 08:01 Pulse Ox 97 03/14/17 09:53 Weight - Most Recent: 76 kg I&O - Last 24 hours: Intake & Output 03/13/17 03/14/17 03/14/17 22:59 06:59 14:59 Intake Total 2562 1227 Output Total 2150 1200 Balance 412 27 Lab Results - Last 24 hrs: Laboratory Results - last 24 hr 03/13/17 03/13/17 03/13/17 Range/Units 11:30 16:18 21:01 WBC (4.0-11.0) K/uL RBC (4.30-5.90) M/uL Hgb (12.0-16.0) g/dL Hct (36.0-46.0) % MCV (80.0-98.0) fL MCH (27.0-32.0) pg MCHC (31.0-37.0) g/dL RDW Std Deviation (28.0-62.0) fl RDW Coeff of Lucrecia (11.0-15.0) % Plt Count (150-400) K/uL MPV (7.40-12.00) fL Neut % (Auto) (48.0-80.0) % Lymph % (Auto) (16.0-40.0) % [place] % (Auto) (0.0-15.0) % Eos % (Auto) (0.0-7.0) % Baso % (Auto) (0.0-1.5) % Neut # (Auto) (1.4-5.7) K/uL Lymph # (Auto) (0.6-2.4) K/uL [place] # (Auto) (0.0-0.8) K/uL Eos # (Auto) (0.0-0.7) K/uL Baso # (Auto) (0.0-0.1) K/uL Nucleated RBC % /100WBC Nucleated RBCs # K/uL Sodium (136-146) mmol/L Potassium (3.5-5.1) mmol/L Chloride (98-110) mmol/L Carbon Dioxide (21-31) mmol/L BUN (6.0-23.0) mg/dL Creatinine (0.6-1.5) mg/dL Est Cr Clr Drug Dosing mL/min Estimated GFR (MDRD) ml/min Glucose (60-110) mg/dL POC Glucose 226 H 159 H 148 H (60-110) mg/dL Calcium (8.8-10.8) mg/dL Total Bilirubin (0.1-1.5) mg/dL AST (5-40) IU/L ALT (8-54) IU/L Alkaline Phosphatase (40-150) Total Protein (6.0-8.0) g/dL Albumin (3.4-4.8) g/dL Globulin (2.0-3.5) g/dL Albumin/Globulin Ratio (1.3-2.8) 03/14/17 03/14/17 Range/Units 05:48 05:48 WBC 10.21 (4.0-11.0) K/uL RBC 3.62 L (4.30-5.90) M/uL Hgb 11.0 L (12.0-16.0) g/dL Hct 34.7 L (36.0-46.0) % MCV 95.9 (80.0-98.0) fL MCH 30.4 (27.0-32.0) pg MCHC 31.7 (31.0-37.0) g/dL RDW Std Deviation 50.3 (28.0-62.0) fl RDW Coeff of Lucrecia 14 (11.0-15.0) % Plt Count 253 (150-400) K/uL MPV 9.90 (7.40-12.00) fL Neut % (Auto) 71.6 (48.0-80.0) % Lymph % (Auto) 18.0 (16.0-40.0) % [place] % (Auto) 7.0 (0.0-15.0) % Eos % (Auto) 3.1 (0.0-7.0) % Baso % (Auto) 0.3 (0.0-1.5) % Neut # (Auto) 7.3 H (1.4-5.7) K/uL Lymph # (Auto) 1.8 (0.6-2.4) K/uL [place] # (Auto) 0.7 (0.0-0.8) K/uL Eos # (Auto) 0.3 (0.0-0.7) K/uL Baso # (Auto) 0.0 (0.0-0.1) K/uL Nucleated RBC % 0.0 /100WBC Nucleated RBCs # 0 K/uL Sodium 142 (136-146) mmol/L Potassium 3.8 (3.5-5.1) mmol/L Chloride 111 H (98-110) mmol/L Carbon Dioxide 22 (21-31) mmol/L BUN 20 (6.0-23.0) mg/dL Creatinine 0.8 (0.6-1.5) mg/dL Est Cr Clr Drug Dosing 71.78 mL/min Estimated GFR (MDRD) > 60.0 ml/min Glucose 122 H (60-110) mg/dL POC Glucose (60-110) mg/dL Calcium 8.1 L (8.8-10.8) mg/dL Total Bilirubin 0.4 (0.1-1.5) mg/dL AST 19 (5-40) IU/L ALT 18 (8-54) IU/L Alkaline Phosphatase 66 (40-150) Total Protein 5.6 L (6.0-8.0) g/dL Albumin 3.3 L (3.4-4.8) g/dL Globulin 2.3 (2.0-3.5) g/dL Albumin/Globulin Ratio 1.4 (1.3-2.8) Med Orders - Current: Current Medications Discontinued Medications Hydrocodone Bitart/Acetaminophen ([place] 325-5 Mg) 1 tab PO QID PRN PRN Reason: Pain Albuterol/Ipratropium (Duoneb 3.0-0.5 Mg/3 Ml) 3 ml NEB ONETIME ONE Stop: 03/12/17 17:17 Last Admin: 03/12/17 17:33 Dose: 3 ml Albuterol/Ipratropium (Duoneb 3.0-0.5 Mg/3 Ml) 3 ml NEB Q4HRRT PRN PRN Reason: Shortness of Breath Last Admin: 03/13/17 21:23 Dose: 3 ml Atorvastatin Calcium (Lipitor) 5 mg PO DAILY [facility] Last Admin: 03/14/17 08:01 Dose: 5 mg Diphenhydramine HCl (Benadryl) 50 mg PO TID PRN PRN Reason: Allergies Enoxaparin Sodium (Lovenox) 40 mg SUBCUT DAILY [facility] Last Admin: 03/14/17 08:04 Dose: 40 mg Furosemide (Lasix) 20 mg PO DAILY [facility] Last Admin: 03/14/17 08:02 Dose: 20 mg Sodium Chloride (Normal Saline) 1,000 mls @ 125 mls/hr IV STAT [facility] Last Admin: 03/12/17 17:42 Dose: 125 mls/hr Azithromycin 500 mg/ Sodium (Chloride) 250 mls @ 250 mls/hr IV Q24H [facility] Last Infusion: 03/13/17 22:20 Dose: Infused Sodium Chloride (Normal Saline) 1,000 mls @ 75 mls/hr IV ASDIRECTED [facility] Last Admin: 03/14/17 03:53 Dose: 75 mls/hr Insulin Aspart (Novolog) 0 unit SUBCUT ACBED [facility] PRN Reason: Protocol Last Admin: 03/14/17 06:46 Dose: Not Given Insulin Aspart (Novolog) 8 unit SUBCUT TIDAC [facility] Insulin Glargine (Lantus Solostar) 12 units SUBCUT BID [facility] Iopamidol (Isovue Multipack-370 (76%)) 50 ml IVPUSH ONETIME STA Stop: 03/12/17 23:47 Last Admin: 03/12/17 23:47 Dose: 50 ml Levalbuterol HCl (Xopenex) 1.25 mg INH QID PRN PRN Reason: Shortness of Breath Lorazepam (Ativan) 1 mg PO QID [facility] Lorazepam (Ativan) 1 mg PO QID [facility] Last Admin: 03/14/17 06:18 Dose: 1 mg Losartan Potassium (Cozaar) 50 mg PO DAILY [facility] Last Admin: 03/14/17 08:01 Dose: 50 mg Methylprednisolone Sodium Succinate (Solu-Medrol) 125 mg IVPUSH ONETIME ONE Stop: 03/12/17 17:17 Last Admin: 03/12/17 17:40 Dose: 125 mg Morphine Sulfate (Morphine) 2 mg IVPUSH Q3H PRN PRN Reason: Pain Omeprazole (Omeprazole) 40 mg PO DAILY [facility] Last Admin: 03/14/17 08:02 Dose: 40 mg Ondansetron HCl (Zofran) 4 mg PO Q4H PRN PRN Reason: Nausea/Vomiting Oxycodone HCl (Oxycodone) 5 mg PO Q4H PRN PRN Reason: Pain (moderate 4-6) Tudorza Pressair 1 each INH BID [facility] Last Admin: 03/14/17 09:29 Dose: 1 each Symbicort 160-4.5mcg 1 each INH BID [facility] Last Admin: 03/14/17 09:29 Dose: 1 each Prednisone (Prednisone) 10 mg PO DAILY [facility] Last Admin: 03/14/17 08:02 Dose: 10 mg Sodium Chloride (Saline Flush) 10 ml FLUSH ASDIRECTED PRN PRN Reason: Keep Vein Open Last Admin: 03/12/17 18:03 Dose: 10 ml Sodium Chloride (Saline Flush) 2.5 ml FLUSH ASDIRECTED PRN PRN Reason: Keep Vein Open Last Admin: 03/12/17 18:04 Dose: 2.5 ml Temazepam (Restoril) 15 mg PO BEDTIME PRN PRN Reason: Anxiety - Exam Quality Assessment: Reports: supplemental oxygen General: Reports: alert, oriented, cooperative HEENT: Reports: Pupils equal, Pupils reactive, EOMI Neck: Reports: supple, trachea midline Lungs: Reports: Clear to auscultation Cardiovascular: Reports: Regular Rate, Regular Rhythm Abdomen: Reports: bowel sounds present, soft, no tenderness Back Exam: Reports: Decreased Range of Motion Extremities: Reports: no edema Skin: Reports: warm, dry, intact Neurological: Reports: no new focal deficit Psy/Mental Status: Reports: alert, normal affect *Q Meaningful Use (DIS) - VTE *Q VTE Criteria *Q: VTE Mechanical Contraindications *Q: At Risk for Falls - Stroke *Q Stroke Criteria *Q: - AMI *Q AMI Criteria *Q:
[2017-03-14] MEDS ORDERED: Insulin Aspart 100 Units/ML 3 ML Pen SUBCUT SCH (11:30)
[2017-03-14] MEDS ORDERED: diphenhydrAMINE 50 MG Cap PO PRN (14:00)
[2017-03-14] MEDS ORDERED: Insulin Glargine,Human Rec. Analog 100 Units/ML 3 ML Pen SUBCUT SCH (21:00)
--- NOTE | 2017-03-16 10:07 | CR ---
EXAM DATE: 03/12/17 PATIENT'S AGE: 77 Patient: SEB WALKER Facility: [place], [place] Site . Site : 1940 Study: XRay Chest [id number]/26/2017 6:19:00 PM Ordering Physician: Linda Pérez Final Report: INDICATION: Chest pain TECHNIQUE: Chest 2 views. COMPARISON: Two-view chest and CT scan shows 01/31/2017 FINDINGS: Cardiovascular and mediastinum: Heart size and vasculature are normal in caliber and appearance. Mediastinum is within normal limits. Lungs and pleural spaces: Lungs are clear. No sign of infiltrate. Stable patchy left upper lobe unchanged compared to CT scan of the chest 01/31/17. No sign of pleural effusion. No pneumothorax. Bones and soft tissues: No significant findings. IMPRESSION: No acute pulmonary or cardiac abnormalities. Stable left upper lobe opacity unchanged compared to CT scan chest 01/31/2017. Dictated by Pedro Lopes MD @ 03/12/2017 6:45:54 PM Dictated by: Pedro Lopes MD @ 03/12/2017 18:46:02 (Electronic Signature) Report Signed by Proxy. [facility]
--- NOTE | 2017-03-16 10:08 | CR ---
EXAM DATE: 03/12/17 PATIENT'S AGE: 77 Patient: SEB WALKER Facility: [place], [place] Site . Site : 1940 Study: XRay Extremity humerus [id number]/26/2017 6:19:47 PM Ordering Physician: Linda Pérez Final Report: INDICATION: Pain TECHNIQUE: Two views left humerus COMPARISON: None FINDINGS: Bones: Alignment is normal. No fractures or bone lesions. Joint spaces: Unremarkable. Soft tissues: Unremarkable. IMPRESSION: Negative. Dictated by Pedro Lopes MD @ 03/12/2017 6:43:12 PM Dictated by: Pedro Lopes MD @ 03/12/2017 18:43:17 (Electronic Signature) Report Signed by Proxy. [facility]
--- NOTE | 2017-03-16 10:35 | CT ---
EXAM DATE: 03/12/17 PATIENT'S AGE: 77 Patient: SEB WALKER Facility: [place], [place] Site . Site : 1940 Study: CT Chest Angio [id number]/26/2017 8:29:16 PM Ordering Physician: Linda Pérez Final Report: INDICATION: Chest pain TECHNIQUE: CT chest pulmonary PE protocol acquired with IV contrast. COMPARISON: 01/31/2017. FINDINGS: Cardiovascular structures: No evidence of pulmonary embolism. Heart size is normal. No sign of aneurysm or dissection in the thoracic aorta. Arthrosclerotic changes. Mediastinum and val: No mass or abnormally enlarged lymph nodes. A small hiatal hernia. Lungs: Emphysematous changes. Irregular masslike densities again seen in the left upper and lower lobes along the major fissure, with adjacent scarring. Chronic subsegmental atelectasis or scarring again seen in the right lower lobe and basilar aspect of the right middle lobe. Central bronchial wall thickening in the lower lobes suggestive of bronchitis, with a few foci of apparent bronchial opacification. Pleura and pericardium: No pleural effusions. Small posterior pericardial fluid. Chest wall and axilla: No mass or adenopathy. A left thyroid calcification again seen. Upper abdomen: Unremarkable. Bones: Chronic posterior right rib deformities again seen. IMPRESSION: No CT evidence of a pulmonary embolus. Irregular mass like densities again seen in the left lung along the major fissure. Correlate with PET-CT and a short-term followup study. Central lower lobe bronchial wall thickening compatible with bronchitis with few foci of bronchial opacification. Dictated by Kilo Mcadams MD @ 03/12/2017 8:45:53 PM Dictated by: Kilo Mcadams MD @ 03/12/2017 20:45:59 (Electronic Signature) Report Signed by Proxy. [facility]
== END 2017-03-14 10:30 | disposition home or self-care (01) ==
LOC: MW.ED 16:53 → MW.MS 19:32
PROVIDERS: ADMIT Internal Medicine; ATTEND Internal Medicine
DX: J44.9 Chronic obstructive pulmonary disease, unspecified (principal); M79.602 Pain in left arm; R06.00 Dyspnea, unspecified; E11.9 Type 2 diabetes mellitus without complications; I10 Essential (primary) hypertension; K21.9 Gastro-esophageal reflux disease without esophagitis; F41.9 Anxiety disorder, unspecified; F32.9 Major depressive disorder, single episode, unspecified; Z85.118 Personal history of other malignant neoplasm of bronchus and lung; Z87.891 Personal history of nicotine dependence; Z92.3 Personal history of irradiation; Z79.4 Long term (current) use of insulin; Z79.51 Long term (current) use of inhaled steroids; Z79.52 Long term (current) use of systemic steroids; Z79.899 Other long term (current) drug therapy; Z99.81 Dependence on supplemental oxygen; Z88.0 Allergy status to penicillin; Z88.4 Allergy status to anesthetic agent; Z88.5 Allergy status to narcotic agent; Z91.013 Allergy to seafood; Z91.018 Allergy to other foods; Z90.49 Acquired absence of other specified parts of digestive tract; Z90.710 Acquired absence of both cervix and uterus; Z98.890 Other specified postprocedural states
CPT/HCPCS: 36415; 71020; 71275; 73060; 80053; 81001; 82962; 83036; 83605; 83735; 83880; 84100; 84484; 85025; 85379; 85610; 93005; 94640; 94664; 96361; 96365; 96366; 96372; 96375; 99285; A9270; G0378; J0456; J1650; J1815; J2930; J7040; J7050; Q9967; 96374

== ENCOUNTER 2017-03-23 14:31 | Emergency (ER) | payer MEDICARE, OTHER ==
[2017-03-23] MEDS ORDERED: Sodium Chloride 0.9% 2.5 ML Syringe FLUSH PRN (15:21)
[2017-03-23] MEDS ORDERED: Ondansetron 4 MG Tab.DIS PO ONE (15:21)
[2017-03-23] MEDS ORDERED: HYDROmorphone 1 MG/ML Syringe IVPUSH PRN (15:21)
[2017-03-23] MEDS ORDERED: Sodium Chloride 0.9% 10 ML Syringe FLUSH PRN (15:21)
[2017-03-23] MEDS ORDERED: Ondansetron 4 MG/2 ML SDV IVPUSH ONE (15:23)
--- NOTE | 2017-03-23 15:36 | EDM.PDOC ---
ED HPI GENERAL MEDICAL PROBLEM - General Chief Complaint: General Stated Complaint: NOT FEELING WELL Time Seen by Provider: 03/23/17 14:57 Source of Information: Reports: Patient History Limitations: Reports: No Limitations - History of Present Illness INITIAL COMMENTS - FREE TEXT/NARRATIVE: History of present illness: [] Patient developed a cough last week and 4 days ago had a severe cough and felt a sudden pop in her left chest. She continues to have severe pain with a bad cough denies any fevers or chills. Patient has a history of lung cancer on the left chest. Patient states that she ran out of her hydrocodone this morning. Review of systems: As per history of present illness and below otherwise all systems reviewed and negative. Past medical history: As per history of present illness and as reviewed below otherwise noncontributory. Surgical history: As per history of present illness and as reviewed below otherwise noncontributory. Social history: No reported history of drug or alcohol abuse. Family history: As per history of present illness and as reviewed below otherwise noncontributory. Physical exam: General: Well developed, well nourished in NAD HEENT: Atraumatic, normocephalic, pupils reactive, negative for conjunctival pallor or scleral icterus, mucous membranes moist, throat clear, neck supple, nontender, trachea midline. Lungs: Clear to auscultation, breath sounds equal bilaterally, chest nontender. Heart: S1S2, regular, negative for clicks, rubs, or JVD. Abdomen: Soft, nondistended, nontender. Negative for masses or hepatosplenomegaly. Negative for costovertebral tenderness. Pelvis: Stable nontender. Genitourinary: Deferred. Rectal: Deferred. Extremities: Atraumatic, negative for cords or calf pain. Neurovascular unremarkable. Neuro: Awake, alert, oriented. Cranial nerves II through XII unremarkable. Cerebellum unremarkable. Motor and sensory unremarkable throughout. Exam nonfocal. Diagnostics: [] Cultures, Labs and x-rays done showing no rib fracture, no pneumonia on x- ray. Therapeutics: [] Pain medicines can Impression: [] Chest wall pain/med refill Plan: [] Hydrocodone med refill followup with PMD Definitive disposition and diagnosis as appropriate pending reevaluation and review of above. Left Chest Pain Score (Numeric/FACES): 10 - Related Data Allergies Allergy/AdvReac Type Severity Reaction Status Date / Time codeine Allergy Airway Verified 03/12/17 16:59 Tightness peas Allergy Rash Verified 03/12/17 16:59 Penicillins Allergy Airway Verified 03/12/17 16:59 Tightness potato Allergy Rash Verified 03/12/17 16:59 procaine HCl [From Novocain] Allergy Itching Verified 03/12/17 16:59 wheat Allergy Airway Verified 03/12/17 16:59 Tightness chocolate Allergy Itching Uncoded 03/12/17 16:59 potato starch Allergy Rash Uncoded 03/12/17 16:59 sea food Allergy Rash Uncoded 03/12/17 19:41 tea Allergy Rash Uncoded 03/12/17 16:59 Home Meds: Home Meds Aclidinium [place] [Tudorza Pressair] 1 puff INH BID 11/09/14 [History] Esomeprazole Magnesium [Nexium] 40 mg PO DAILY 11/09/14 [History] Furosemide [Lasix] 20 mg PO DAILY 11/09/14 [History] Insulin Glarg,Human.Rec.Analog [Lantus] 12 units SUBCUT BID 11/09/14 [History] LORazepam 1 mg PO QID 11/09/14 [History] Levalbuterol HCl 1.25 mg INH QID PRN 11/09/14 [History] Losartan [Cozaar] 50 mg PO DAILY 11/09/14 [History] atorvaSTATin [Lipitor] 5 mg PO DAILY 11/09/14 [History] diphenhydrAMINE [Benadryl] 50 mg PO TID 11/09/14 [History] Budesonide/Formoterol [Symbicort 160-4.5 MCG] 2 inh IH BID 02/01/17 [History] Hydrocodone/Acetaminophen [Hydrocodon-Acetaminophen 5-325] 5 - 325 mg PO QID PRN 02/01/17 [History] Insulin Aspart [Novolog Flexpen] 8 unit SUBCUT TIDAC 02/01/17 [History] predniSONE 10 mg PO DAILY 02/01/17 [History] Azithromycin 500 mg PO DAILY #5 tablet 03/14/17 [Rx] Past Medical History HEENT History: Reports: Hard of Hearing Cardiovascular History: Reports: Hypertension Respiratory History: Reports: Asthma, COPD Gastrointestinal History: Reports: GERD Genitourinary History: Reports: None CLASSROOM AIDE History: Reports: None Neurological History: Reports: Vertigo Psychiatric History: Reports: Anxiety, Depression Endocrine/Metabolic History: Reports: Diabetes, Type II Hematologic History: Reports: None Immunologic History: Reports: None Oncologic (Cancer) History: Reports: Lung Other Oncologic History: remission for 4 months Dermatologic History: Reports: None - Past Surgical History Head Surgeries/Procedures: Reports: None HEENT Surgical History: Reports: None Cardiovascular Surgical History: Reports: Other (See Below) Other Cardiovascular Surgeries/Procedures: Left bracial plastic artery Respiratory Surgical History: Reports: Other (See Below) Other Respiratory Surgeries/Procedures: lung surgery- hx lung cancer GI Surgical History: Reports: Appendectomy, Cholecystectomy Female Surgical History: Reports: Hysterectomy Endocrine Surgical History: Reports: None Oncologic Surgical History: Reports: None Social & Family History - Family History Family Medical History: Noncontributory - Tobacco Use Smoking Status *Q: Never Smoker Years of Tobacco use: 25 Used Tobacco, but Quit: No Month Tobacco Last Used: 2001 Second Hand Smoke Exposure: No - Caffeine Use Caffeine Use: Reports: Coffee Caffeine Use Comment: 3 cups/coffee - Alcohol Use Days Per Week of Alcohol Use: 0 - Recreational Drug Use Recreational Drug Use: No ED ROS GENERAL - Review of Systems Review Of Systems: See Below (See history of present illness) ED EXAM, GENERAL - Physical Exam Exam: See Below (See history of present illness) Course - Vital Signs Last Recorded V/S: Last Vital Signs Temp 36.4 C 03/23/17 15:00 Pulse 91 03/23/17 15:00 Resp 18 03/23/17 15:00 BP 123/76 03/23/17 15:00 Pulse Ox 93 L 03/23/17 15:00 - Orders/Labs/Meds Orders: Active Orders 24 hr Category Date Time Status CULTURE BLOOD [BC] Stat Lab 03/23/17 15:37 Received CULTURE BLOOD [BC] Stat Lab 03/23/17 15:47 Results HYDROmorphone [Dilaudid] Med 03/23/17 15:21 Active 0.5 mg IVPUSH Q1H PRN Sodium Chloride 0.9% [Saline Flush] Med 03/23/17 15:21 Active 10 ml FLUSH ASDIRECTED PRN Sodium Chloride 0.9% [Saline Flush] Med 03/23/17 15:21 Active 2.5 ml FLUSH ASDIRECTED PRN Blood Culture x2 Reflex Set [OM.PC] Stat Oth 03/23/17 15:22 Ordered Saline Lock Insert [OM.PC] Stat Oth 03/23/17 15:22 Ordered Medication Orders Hydromorphone HCl (Dilaudid) 0.5 mg IVPUSH Q1H PRN PRN Reason: Pain Last Admin: 03/23/17 15:49 Dose: 0.5 mg Sodium Chloride (Saline Flush) 10 ml FLUSH ASDIRECTED PRN PRN Reason: Keep Vein Open Sodium Chloride (Saline Flush) 2.5 ml FLUSH ASDIRECTED PRN PRN Reason: Keep Vein Open Labs: Laboratory Tests 03/23/17 03/23/17 Range/Units 15:37 15:37 WBC 12.64 H (4.0-11.0) K/uL RBC 4.03 L (4.30-5.90) M/uL Hgb 12.5 (12.0-16.0) g/dL Hct 38.8 (36.0-46.0) % MCV 96.3 (80.0-98.0) fL MCH 31.0 (27.0-32.0) pg MCHC 32.2 (31.0-37.0) g/dL RDW Std Deviation 49.8 (28.0-62.0) fl RDW Coeff of Lucrecia 14 (11.0-15.0) % Plt Count 273 (150-400) K/uL MPV 10.50 (7.40-12.00) fL Neut % (Auto) 77.5 (48.0-80.0) % Lymph % (Auto) 13.8 L (16.0-40.0) % [place]hen[place] % (Auto) 5.5 (0.0-15.0) % Eos % (Auto) 2.7 (0.0-7.0) % Baso % (Auto) 0.5 (0.0-1.5) % Neut # (Auto) 9.8 H (1.4-5.7) K/uL Lymph # (Auto) 1.8 (0.6-2.4) K/uL [place] # (Auto) 0.7 (0.0-0.8) K/uL Eos # (Auto) 0.3 (0.0-0.7) K/uL Baso # (Auto) 0.1 (0.0-0.1) K/uL Nucleated RBC % 0.0 /100WBC Nucleated RBCs # 0 K/uL Sodium 139 (136-146) mmol/L Potassium 4.4 (3.5-5.1) mmol/L Chloride 104 (98-110) mmol/L Carbon Dioxide 26 (21-31) mmol/L BUN 17 (6.0-23.0) mg/dL Creatinine 1.1 (0.6-1.5) mg/dL Est Cr Clr Drug Dosing 52.96 mL/min Estimated GFR (MDRD) 48.3 ml/min Glucose 187 H (60-110) mg/dL Calcium 9.2 (8.8-10.8) mg/dL Total Bilirubin 0.2 (0.1-1.5) mg/dL AST 17 (5-40) IU/L ALT 21 (8-54) IU/L Alkaline Phosphatase 85 (40-150) Total Protein 6.8 (6.0-8.0) g/dL Albumin 4.0 (3.4-4.8) g/dL Globulin 2.8 (2.0-3.5) g/dL Albumin/Globulin Ratio 1.4 (1.3-2.8) Meds: Medications Generic Name Dose Route Start Last Admin Trade Name Freq PRN Reason Stop Dose Admin Hydromorphone HCl 0.5 mg 03/23/17 15:21 03/23/17 15:49 Dilaudid IVPUSH 0.5 mg Q1H PRN Administration Pain Sodium Chloride 10 ml 03/23/17 15:21 Saline Flush FLUSH ASDIRECTED PRN Keep Vein Open Sodium Chloride 2.5 ml 03/23/17 15:21 Saline Flush FLUSH ASDIRECTED PRN Keep Vein Open Discontinued Medications Generic Name Dose Route Start Last Admin Trade Name Freq PRN Reason Stop Dose Admin Ondansetron HCl 4 mg 03/23/17 15:23 03/23/17 15:40 Zofran IVPUSH 03/23/17 15:24 4 mg ONETIME ONE Administration Departure - Departure Time of Disposition: 16:43 Disposition: Home, Self-Care 01 Condition: good Clinical Impression: Chest wall pain - Discharge Information Forms: ED Department Discharge Additional Instructions: The following information is given to patients seen in the emergency department who are being discharged to home. This information is to outline your options for follow-up care. We provide all patients seen in our emergency department with a follow-up referral. The need for follow-up, as well as the timing and circumstances, are variable depending upon the specifics of your emergency department visit. If you don't have a primary care physician on staff, we will provide you with a referral. We always advise you to contact your personal physician following an emergency department visit to inform them of the circumstance of the visit and for follow-up with them and/or the need for any referrals to a consulting specialist. The emergency department will also refer you to a specialist when appropriate. This referral assures that you have the opportunity for follow-up care with a specialist. All of these measure are taken in an effort to provide you with optimal care, which includes your follow-up. Under all circumstances we always encourage you to contact your private physician who remains a resource for coordinating your care. When calling for follow-up care, please make the office aware that this follow-up is from your recent emergency room visit. If for any reason you are refused follow-up, please contact the [facility] Emergency Department at and asked to speak to the emergency department charge nurse. Take hydrocodone 5/325 #16 as directed for chest wall pain. Followup with primary care physician return here if symptoms change or worsen [facility] [address] [place] [id number] - My Orders Last 24 Hours: My Active Orders 03/23/17 15:21 HYDROmorphone [Dilaudid] 0.5 mg IVPUSH Q1H PRN Sodium Chloride 0.9% [Saline Flush] 10 ml FLUSH ASDIRECTED PRN Sodium Chloride 0.9% [Saline Flush] 2.5 ml FLUSH ASDIRECTED PRN 03/23/17 15:22 Blood Culture x2 Reflex Set [OM.PC] Stat Saline Lock Insert [OM.PC] Stat 03/23/17 15:37 CULTURE BLOOD [BC] Stat 03/23/17 15:47 CULTURE BLOOD [BC] Stat - Assessment/Plan Last 24 Hours: My Active Orders 03/23/17 15:21 HYDROmorphone [Dilaudid] 0.5 mg IVPUSH Q1H PRN Sodium Chloride 0.9% [Saline Flush] 10 ml FLUSH ASDIRECTED PRN Sodium Chloride 0.9% [Saline Flush] 2.5 ml FLUSH ASDIRECTED PRN 03/23/17 15:22 Blood Culture x2 Reflex Set [OM.PC] Stat Saline Lock Insert [OM.PC] Stat 03/23/17 15:37 CULTURE BLOOD [BC] Stat 03/23/17 15:47 CULTURE BLOOD [BC] Stat
--- NOTE | 2017-03-23 16:24 | CR ---
EXAMINATION: Two-view chest (PA and Lateral views). HISTORY: Shortness of breath. Comparison: 03/12/2017 FINDINGS: The trachea is midline. The cardiomediastinal silhouette is stable. There is again noted is scarring /opacity within the left perihilar region, unchanged. No acute consolidation. No pleural effusion or pneumothorax. Chronic interstitial prominence again noted. Osseous structures appear unremarkable. IMPRESSION: No acute cardiopulmonary process.
[2017-03-23 18:33] VITALS: BP 126/62
== END 2017-03-23 17:10 | disposition home or self-care (01) ==
LOC: MW.ED 14:31
DX: R07.89 Other chest pain (principal); I10 Essential (primary) hypertension; J44.9 Chronic obstructive pulmonary disease, unspecified; K21.9 Gastro-esophageal reflux disease without esophagitis; F41.9 Anxiety disorder, unspecified; F32.9 Major depressive disorder, single episode, unspecified; J45.909 Unspecified asthma, uncomplicated; E11.9 Type 2 diabetes mellitus without complications; Z90.49 Acquired absence of other specified parts of digestive tract; Z98.890 Other specified postprocedural states; Z85.118 Personal history of other malignant neoplasm of bronchus and lung; Z90.710 Acquired absence of both cervix and uterus; Z79.4 Long term (current) use of insulin; Z79.2 Long term (current) use of antibiotics; Z79.899 Other long term (current) drug therapy; Z88.8 Allergy status to other drugs, medicaments and biological substances; Z88.5 Allergy status to narcotic agent; Z88.0 Allergy status to penicillin
CPT/HCPCS: 36415; 71020; 80053; 85025; 87040; 96374; 96375; 99283; J1170; J2405

== ENCOUNTER 2017-06-23 16:34 | Emergency (ER) | payer MEDICARE, OTHER ==
[2017-06-23] MEDS ORDERED: Sodium Chloride 0.9% 2.5 ML Syringe FLUSH PRN (17:14)
[2017-06-23] MEDS ORDERED: Sodium Chloride 0.9% 10 ML Syringe FLUSH PRN (17:14)
[2017-06-23] MEDS ORDERED: Ketorolac 30 MG/ML SDV IVPUSH ONE (17:14)
--- NOTE | 2017-06-23 17:21 | EDM.PDOC ---
ED HPI GENERAL MEDICAL PROBLEM - General Chief Complaint: Lower Extremity Injury/Pain Stated Complaint: RIGHT LEG PAIN Time Seen by Provider: 06/23/17 17:05 - History of Present Illness INITIAL COMMENTS - FREE TEXT/NARRATIVE: HISTORY AND PHYSICAL: History of present illness: The patient is a 77 y/o female who follows at [facility] with Dr. Dai and has a history of COPD hypertension diabetes hypercholesterolemia lung cancer which is in remission and who presents with complaints of a "charley horse" that started last evening/early this morning while she was sleeping that woke her from sleep, located in the anterior aspect of her right leg. Denies any recent trauma to the leg or the lower extremity and says she woke up with severe pain in the anterior aspect of her right leg and also complains of some right groin pain. She has no knee pain or thigh pain and no distal neurosensory changes or pain in the ankle or foot. She has no abdominal complaints of nausea vomiting or pain and has no flank pain or urinary complaints. She's having normal bowel movements. Patient denies any issues with ambulation and has no lower back or mid back pain. The patient only takes her normal pain medications , oxycodone, and nothing new or additional. Patient also told nursing that she' s been having episodic chest pain on-and-off for over one month and this started when she coughed very hard and she felt like she pulled a muscle. She says it comes and goes and she is currently not having it. She has not discussed this discomfort with her provider and only mentioned that here as an aside. The patient says she does not feel more short of breath than usual and has been eating and drinking normally. Patient denies any other extremity complaints and has no history of any hernias or musculoskeletal issues. She says she has not had any recent falls. Review of systems: As per history of present illness and below otherwise all systems reviewed and negative. Past medical history: As per history of present illness and as reviewed below otherwise noncontributory. Surgical history: As per history of present illness and as reviewed below otherwise noncontributory. Social history: No reported history of drug or alcohol abuse. Family history: As per history of present illness and as reviewed below otherwise noncontributory. Physical exam: Gen.: Well-developed well-nourished female who is nontoxic and vital signs been reviewed by me. She is speaking clearly and easily in the ED HEENT: Atraumatic, normocephalic, negative for conjunctival pallor or scleral icterus, mucous membranes moist, throat clear, neck supple, nontender, trachea midline. Lungs: Clear to auscultation with slightly diminished breath sounds at the bases , breath sounds equal bilaterally, chest nontender. Heart: S1S2, regular, negative for clicks, rubs, or JVD. Abdomen: Soft, nondistended, nontender. Negative for masses or hepatosplenomegaly. Negative for costovertebral tenderness. Pelvis: Stable nontender. On palpation of the right inguinal area there is reproducible tenderness but there is no hernial defect appreciated in the inguinal area. There is no palpable bony deformities appreciated. Genitourinary: Deferred. Rectal: Deferred. Extremities: Atraumatic appearing with full range of motion without defects or deficits. There is reproducible tenderness when I palpate the anterior larson on the right especially more proximally along the tibialis anterior. There is no leg asymmetry or pedal edema and there is no deep calf tenderness or popliteal fossa tenderness. The patient has many superficial veins bilaterally. There is no bony defects or deformities nor tenderness of the lateral hip femur knee tib- fib ankle or foot. The patient is strong distal pulses on palpation of the right extremity. When I passively flex the hip on the right there is no discomfort when I externally or internally rotate the patient has discomfort. She has more discomfort with external rotation. The legs are, negative for cords or calf pain. Neurovascular unremarkable. Neuro: Awake, alert, oriented. Cranial nerves II through XII unremarkable. Cerebellum unremarkable. Motor and sensory unremarkable throughout. Exam nonfocal. She has intact dorsi and plantar flexion inclusive of the great toe bilaterally 5/5 Diagnostics: EKG CBC CMP INR troponin venous Doppler of the right leg, x-ray of the right hip with pelvis and the right tib-fib Therapeutics: IV O2 monitor Toradol--- patient refused this and she says she has a reaction to anti-inflammatories I discussed all testing results with the patient and family members at bedside. I told her that her discomfort on her history and my evaluation is likely muscular as I have not found any other evidence for abnormalities. She is comfortable with this and will use her pain management at home as well as over- the-counter lotion such as BenGay. As for her complaints of this episodic chest pain which has been ongoing for over a month with negative workup and currently no chest pain she is comfortable with follow-up with with her provider in the clinic as this was not her primary concern anyway when she came here. I cautioned her to return for chest pain involves her changes as well as new symptomatology with respect to her leg. She and family are agreeable to all of this and comfortable with it. Impression: Right lower extremity pain likely musculoskeletal stable Definitive disposition and diagnosis as appropriate pending reevaluation and review of above. right leg Pain Score (Numeric/FACES): 8 - Related Data Allergies Allergy/AdvReac Type Severity Reaction Status Date / Time codeine Allergy Airway Verified 06/23/17 16:37 Tightness peas Allergy Rash Verified 06/23/17 16:37 Penicillins Allergy Airway Verified 06/23/17 16:37 Tightness potato Allergy Rash Verified 06/23/17 16:37 procaine HCl [From Novocain] Allergy Itching Verified 06/23/17 16:37 wheat Allergy Airway Verified 06/23/17 16:37 Tightness chocolate Allergy Itching Uncoded 06/23/17 16:37 potato starch Allergy Rash Uncoded 06/23/17 16:37 sea food Allergy Rash Uncoded 06/23/17 16:37 tea Allergy Rash Uncoded 06/23/17 16:37 Home Meds: Home Meds Aclidinium [place] [Tudorza Pressair] 1 puff INH BID 11/09/14 [History] Esomeprazole Magnesium [Nexium] 40 mg PO DAILY 11/09/14 [History] Furosemide [Lasix] 20 mg PO DAILY 11/09/14 [History] Insulin Glarg,Human.Rec.Analog [Lantus] 12 units SUBCUT BID 11/09/14 [History] LORazepam 1 mg PO QID 11/09/14 [History] Levalbuterol HCl 1.25 mg INH QID PRN 11/09/14 [History] Losartan [Cozaar] 50 mg PO DAILY 11/09/14 [History] atorvaSTATin [Lipitor] 5 mg PO DAILY 11/09/14 [History] diphenhydrAMINE [Benadryl] 50 mg PO TID 11/09/14 [History] Budesonide/Formoterol [Symbicort 160-4.5 MCG] 2 inh IH BID 02/01/17 [History] Hydrocodone/Acetaminophen [Hydrocodon-Acetaminophen 5-325] 5 - 325 mg PO QID PRN 02/01/17 [History] Insulin Aspart [Novolog Flexpen] 8 unit SUBCUT TIDAC 02/01/17 [History] predniSONE 10 mg PO DAILY 02/01/17 [History] Azithromycin 500 mg PO DAILY #5 tablet 03/14/17 [Rx] Past Medical History HEENT History: Reports: Hard of Hearing Cardiovascular History: Reports: Hypertension Respiratory History: Reports: Asthma, COPD, Other (See Below) Other Respiratory History: lung cancer Gastrointestinal History: Reports: GERD Genitourinary History: Reports: None [employer] History: Reports: Neurological History: Reports: Vertigo Psychiatric History: Reports: Anxiety, Depression Endocrine/Metabolic History: Reports: Diabetes, Type II Hematologic History: Reports: None Immunologic History: Reports: None Oncologic (Cancer) History: Reports: Lung Other Oncologic History: remission for 4 months Dermatologic History: Reports: None - Past Surgical History Head Surgeries/Procedures: Reports: None HEENT Surgical History: Reports: None Cardiovascular Surgical History: Reports: Other (See Below) Other Cardiovascular Surgeries/Procedures: Left bracial plastic artery Respiratory Surgical History: Reports: Other (See Below) Other Respiratory Surgeries/Procedures: lung surgery- hx lung cancer GI Surgical History: Reports: Appendectomy, Cholecystectomy Female Surgical History: Reports: Hysterectomy Endocrine Surgical History: Reports: None Oncologic Surgical History: Reports: None Social & Family History - Family History Family Medical History: Noncontributory - Tobacco Use Smoking Status *Q: Never Smoker Years of Tobacco use: 25 Used Tobacco, but Quit: No Month Tobacco Last Used: 2001 Second Hand Smoke Exposure: No - Caffeine Use Caffeine Use: Reports: Coffee Caffeine Use Comment: 3 cups/coffee - Alcohol Use Days Per Week of Alcohol Use: 0 - Recreational Drug Use Recreational Drug Use: No Review of Systems - Review of Systems Review Of Systems: ROS reveals no pertinent complaints other than HPI. ED EXAM, GENERAL - Physical Exam Exam: See Below (See dictation) Course - Vital Signs Last Recorded V/S: Last Vital Signs Temp 36.8 C 06/23/17 16:34 Pulse 97 06/23/17 16:34 Resp 28 H 06/23/17 16:34 BP 160/72 H 06/23/17 16:34 Pulse Ox 94 L 06/23/17 16:34 - Orders/Labs/Meds Orders: Active Orders 24 hr Category Date Time Status Cardiac Monitoring [RC] . DIRECTED Care 06/23/17 17:13 Active EKG Documentation Completion [RC] STAT Care 06/23/17 17:13 Active Oxygen Therapy, ED [RC] ASDIRECTED Care 06/23/17 17:13 Active Pulse Oximetry [RC] ASDIRECTED Care 06/23/17 17:13 Active Hip Min 2V or 3V w Pelvis Rt [CR] Stat Exams 06/23/17 17:14 Taken Tibia Fibula Rt [CR] Stat Exams 06/23/17 17:14 Taken Venous Doppler Lwr Ext Rt [US] Stat Exams 06/23/17 17:14 Taken Sodium Chloride 0.9% [Saline Flush] Med 06/23/17 17:14 Active 10 ml FLUSH ASDIRECTED PRN Sodium Chloride 0.9% [Saline Flush] Med 06/23/17 17:14 Active 2.5 ml FLUSH ASDIRECTED PRN Saline Lock Insert [OM.PC] Stat Oth 06/23/17 17:13 Ordered Medication Orders Sodium Chloride (Saline Flush) 10 ml FLUSH ASDIRECTED PRN PRN Reason: Keep Vein Open Sodium Chloride (Saline Flush) 2.5 ml FLUSH ASDIRECTED PRN PRN Reason: Keep Vein Open Labs: Laboratory Tests 06/23/17 06/23/17 06/23/17 Range/Units 17:08 17:08 17:08 WBC 11.98 H (4.0-11.0) K/uL RBC 3.97 L (4.30-5.90) M/uL Hgb 12.3 (12.0-16.0) g/dL Hct 37.6 (36.0-46.0) % MCV 94.7 (80.0-98.0) fL MCH 31.0 (27.0-32.0) pg MCHC 32.7 (31.0-37.0) g/dL RDW Std Deviation 51.9 (28.0-62.0) fl RDW Coeff of Lucrecia 15 (11.0-15.0) % Plt Count 302 (150-400) K/uL MPV 10.50 (7.40-12.00) fL Neut % (Auto) 74.9 (48.0-80.0) % Lymph % (Auto) 13.9 L (16.0-40.0) % Towner % (Auto) 7.5 (0.0-15.0) % Eos % (Auto) 3.4 (0.0-7.0) % Baso % (Auto) 0.3 (0.0-1.5) % Neut # (Auto) 9.0 H (1.4-5.7) K/uL Lymph # (Auto) 1.7 (0.6-2.4) K/uL Towner # (Auto) 0.9 H (0.0-0.8) K/uL Eos # (Auto) 0.4 (0.0-0.7) K/uL Baso # (Auto) 0.0 (0.0-0.1) K/uL Nucleated RBC % 0.0 /100WBC Nucleated RBCs # 0 K/uL INR 1.00 (0.86-1.11) Sodium 141 (136-146) mmol/L Potassium 4.0 (3.5-5.1) mmol/L Chloride 103 (98-110) mmol/L Carbon Dioxide 28 (21-31) mmol/L BUN 18 (6.0-23.0) mg/dL Creatinine 1.1 (0.6-1.5) mg/dL Est Cr Clr Drug Dosing 54.95 mL/min Estimated GFR (MDRD) 48.3 ml/min Glucose 220 H (60-110) mg/dL Calcium 9.5 (8.8-10.8) mg/dL Total Bilirubin 0.2 (0.1-1.5) mg/dL AST 16 (5-40) IU/L ALT 19 (8-54) IU/L Alkaline Phosphatase 88 (40-150) Troponin I (0.0-0.29) NG/ML Total Protein 6.7 (6.0-8.0) g/dL Albumin 3.8 (3.4-4.8) g/dL Globulin 2.9 (2.0-3.5) g/dL Albumin/Globulin Ratio 1.3 (1.3-2.8) 06/23/17 Range/Units 17:08 WBC (4.0-11.0) K/uL RBC (4.30-5.90) M/uL Hgb (12.0-16.0) g/dL Hct (36.0-46.0) % MCV (80.0-98.0) fL MCH (27.0-32.0) pg MCHC (31.0-37.0) g/dL RDW Std Deviation (28.0-62.0) fl RDW Coeff of Lucrecia (11.0-15.0) % Plt Count (150-400) K/uL MPV (7.40-12.00) fL Neut % (Auto) (48.0-80.0) % Lymph % (Auto) (16.0-40.0) % Towner % (Auto) (0.0-15.0) % Eos % (Auto) (0.0-7.0) % Baso % (Auto) (0.0-1.5) % Neut # (Auto) (1.4-5.7) K/uL Lymph # (Auto) (0.6-2.4) K/uL Towner # (Auto) (0.0-0.8) K/uL Eos # (Auto) (0.0-0.7) K/uL Baso # (Auto) (0.0-0.1) K/uL Nucleated RBC % /100WBC Nucleated RBCs # K/uL INR (0.86-1.11) Sodium (136-146) mmol/L Potassium (3.5-5.1) mmol/L Chloride (98-110) mmol/L Carbon Dioxide (21-31) mmol/L BUN (6.0-23.0) mg/dL Creatinine (0.6-1.5) mg/dL Est Cr Clr Drug Dosing mL/min Estimated GFR (MDRD) ml/min Glucose (60-110) mg/dL Calcium (8.8-10.8) mg/dL Total Bilirubin (0.1-1.5) mg/dL AST (5-40) IU/L ALT (8-54) IU/L Alkaline Phosphatase (40-150) Troponin I < 0.10 (0.0-0.29) NG/ML Total Protein (6.0-8.0) g/dL Albumin (3.4-4.8) g/dL Globulin (2.0-3.5) g/dL Albumin/Globulin Ratio (1.3-2.8) Meds: Medications Generic Name Dose Route Start Last Admin Trade Name Freq PRN Reason Stop Dose Admin Sodium Chloride 10 ml 06/23/17 17:14 Saline Flush FLUSH ASDIRECTED PRN Keep Vein Open Sodium Chloride 2.5 ml 06/23/17 17:14 Saline Flush FLUSH ASDIRECTED PRN Keep Vein Open Discontinued Medications Generic Name Dose Route Start Last Admin Trade Name Freq PRN Reason Stop Dose Admin Ketorolac Tromethamine 30 mg 06/23/17 17:14 Toradol IVPUSH 06/23/17 17:15 ONETIME ONE Departure - Departure Time of Disposition: 18:58 Disposition: Home, Self-Care 01 Condition: Good Clinical Impression: Lower extremity pain, right - Discharge Information Referrals: Micha Dai MD [Primary Care Provider] - Forms: ED Department Discharge Additional Instructions: The following information is given to patients seen in the emergency department who are being discharged to home. This information is to outline your options for follow-up care. We provide all patients seen in our emergency department with a follow-up referral. The need for follow-up, as well as the timing and circumstances, are variable depending upon the specifics of your emergency department visit. If you don't have a primary care physician on staff, we will provide you with a referral. We always advise you to contact your personal physician following an emergency department visit to inform them of the circumstance of the visit and for follow-up with them and/or the need for any referrals to a consulting specialist. The emergency department will also refer you to a specialist when appropriate. This referral assures that you have the opportunity for followup care with a specialist. All of these measure are taken in an effort to provide you with optimal care, which includes your followup. Under all circumstances we always encourage you to contact your private physician who remains a resource for coordinating your care. When calling for followup care, please make the office aware that this follow-up is from your recent emergency room visit. If for any reason you are refused follow-up, please contact the [facility] emergency department at and ask to speak to the emergency department charge nurse. [address] [place] [phone] Dai's office tomorrow to schedule a follow-up minutes we discussed. Use the medication you have at home for any pain and apply heat to areas of muscle pain as we discussed as well as topical ointments as you choose. Please return to ER as needed and as discussed. - My Orders Last 24 Hours: My Active Orders 06/23/17 17:13 Cardiac Monitoring [RC] . DIRECTED EKG Documentation Completion [RC] STAT Oxygen Therapy, ED [RC] ASDIRECTED Pulse Oximetry [RC] ASDIRECTED Saline Lock Insert [OM.PC] Stat 06/23/17 17:14 Hip Min 2V or 3V w Pelvis Rt [CR] Stat Tibia Fibula Rt [CR] Stat Venous Doppler Lwr Ext Rt [US] Stat Sodium Chloride 0.9% [Saline Flush] 10 ml FLUSH ASDIRECTED PRN Sodium Chloride 0.9% [Saline Flush] 2.5 ml FLUSH ASDIRECTED PRN - Assessment/Plan Last 24 Hours: My Active Orders 06/23/17 17:13 Cardiac Monitoring [RC] . DIRECTED EKG Documentation Completion [RC] STAT Oxygen Therapy, ED [RC] ASDIRECTED Pulse Oximetry [RC] ASDIRECTED Saline Lock Insert [OM.PC] Stat 06/23/17 17:14 Hip Min 2V or 3V w Pelvis Rt [CR] Stat Tibia Fibula Rt [CR] Stat Venous Doppler Lwr Ext Rt [US] Stat Sodium Chloride 0.9% [Saline Flush] 10 ml FLUSH ASDIRECTED PRN Sodium Chloride 0.9% [Saline Flush] 2.5 ml FLUSH ASDIRECTED PRN
[2017-06-23 19:17] VITALS: BP 136/54
--- NOTE | 2017-06-24 16:32 | CR ---
EXAM DATE: 06/23/17 PATIENT'S AGE: 77 Patient: SEB WALKER Facility: [place], [place] Site . Site : 1940 Study: XRay Hip w/pelvis [id number]/6/2017 5:49:47 PM Ordering Physician: Slava Jimenez Final Report: HISTORY: Right groin pain. FINDINGS: AP pelvis, AP and frogleg views of the right hip demonstrates the pelvic ring and sacral ala are intact. Joint spaces are maintained within the hips. No fracture is seen. There is soft tissue calcification seen overlying the lateral aspect of the right iliac bone. IMPRESSION: No fracture or dislocation within the pelvis or right hip. Dictated by Isaura Ramirez MD @ 06/23/2017 6:20:00 PM Dictated by: Isaura Ramirez MD @ 06/23/2017 18:20:06 (Electronic Signature) Report Signed by Proxy. GUERO
--- NOTE | 2017-06-24 16:33 | CR ---
EXAM DATE: 06/23/17 PATIENT'S AGE: 77 Patient: SEB WALKER Facility: [place], [place] Site . Site : 1940 Study: XRay Extremity tib/fib [id number]/6/2017 5:50:12 PM Ordering Physician: Slava Jimenez Final Report: Indication: Pain. Technique: Right tibia and fibula two views. Comparison: None. Findings: No acute fracture or dislocation. No additional osseous abnormality. Soft tissues as imaged are unremarkable. Impression: No acute osseous abnormality. Dictated by Santiago Mary MD @ 06/23/2017 6:21:26 PM Dictated by: Santiago Mary MD @ 06/23/2017 18:21:34 (Electronic Signature) Report Signed by Proxy. [facility]IL[facility]ina
--- NOTE | 2017-06-24 16:34 | US ---
EXAM DATE: 06/23/17 PATIENT'S AGE: 77 Patient: SEB WALKER Facility: [place], [place] Site . Site : 1940 Study: US Extremity Right [id number]/6/2017 6:17:15 PM Ordering Physician: Slava Jimenez Final Report: INDICATION: Right leg pain and swelling. TECHNIQUE: Ultrasound venous duplex lower right extremity. Compression venous exam was performed using chopra-scale, color Doppler, and spectral Doppler imaging. COMPARISON: None. FINDINGS: Sonographic imaging demonstrates the right common femoral, deep femoral, superficial femoral, popliteal, posterior tibial and greater saphenous and the contralateral left common femoral veins to be fully compressible with normal color Doppler blood flow. IMPRESSION: No right lower extremity DVT. Dictated by Jerome Babcock MD @ 06/23/2017 6:41:55 PM Dictated by: Jerome Babcock MD @ 06/23/2017 18:42:06 (Electronic Signature) Report Signed by Proxy. GUERO
== END 2017-06-23 19:27 | disposition home or self-care (01) ==
LOC: MW.ED 16:34
DX: M79.604 Pain in right leg (principal); I10 Essential (primary) hypertension; J44.9 Chronic obstructive pulmonary disease, unspecified; K21.9 Gastro-esophageal reflux disease without esophagitis; F32.9 Major depressive disorder, single episode, unspecified; E11.9 Type 2 diabetes mellitus without complications; Z85.118 Personal history of other malignant neoplasm of bronchus and lung; Z90.49 Acquired absence of other specified parts of digestive tract; Z90.710 Acquired absence of both cervix and uterus; Z79.4 Long term (current) use of insulin; Z79.2 Long term (current) use of antibiotics; Z79.899 Other long term (current) drug therapy; Z88.7 Allergy status to serum and vaccine; Z91.018 Allergy to other foods; Z91.013 Allergy to seafood; Z88.0 Allergy status to penicillin; Z88.5 Allergy status to narcotic agent
CPT/HCPCS: 73502-26-RT; 73502-RT; 73590-26-RT; 73590-RT; 80053; 84484; 85025; 85610; 93005; 93971-26-RT; 93971-RT; 99284; 99285-25

== ENCOUNTER 2017-07-06 12:08 | Emergency (ER) | payer MEDICARE, OTHER ==
[2017-07-06] MEDS ORDERED: Aspirin 81 MG Tab.Chew PO ONE (12:50)
[2017-07-06 13:00] VITALS: BP 124/81
[2017-07-06] MEDS ORDERED: Sodium Chloride 0.9% 1,000 ML IV SCH (13:00)
--- NOTE | 2017-07-06 13:05 | EDM.PDOC ---
ED HPI GENERAL MEDICAL PROBLEM - General Chief Complaint: Chest Pain Stated Complaint: LEFT SIDE RIBS PAIN Time Seen by Provider: 07/06/17 12:52 Source of Information: Reports: Patient History Limitations: Reports: No Limitations - History of Present Illness INITIAL COMMENTS - FREE TEXT/NARRATIVE: HISTORY AND PHYSICAL: History of present illness: Patient is a 77-year-old female who presents to the emergency room today with complaints of left chest wall pain. She reports that she's had this for approximately 1 week and last night she rolled over in bed and felt increased pain under her left breast. She states this pain wraps around her trunk into her left shoulder blade. Denies any dyspnea, diaphoresis, nausea, vomiting or headache. Denies any fever or chills. Patient does have a history of lung cancer which she has received radiation treatment in [place]. Reports that she certainly had a PET scan done 2 weeks ago which was "normal". Currently is in remission. Routinely sees her oncologist through [facility]. Patient has a past medical history of lung cancer, diabetes type 2, hypertension , COPD. Patient does use home oxygen 2 L per nasal cannula. Has a past history of smoking 15 years. Reports she has not smoked in approximately 10 or 15 years. Review of systems: As per history of present illness and below otherwise all systems reviewed and negative. Past medical history: As per history of present illness and as reviewed below otherwise noncontributory. Surgical history: As per history of present illness and as reviewed below otherwise noncontributory. Social history: No reported history of drug or alcohol abuse. Family history: As per history of present illness and as reviewed below otherwise noncontributory. Physical exam: General: Nontoxic appearing 77-year-old female. Able to speak in full sentences without shortness of breath. Alert and oriented HEENT: Atraumatic, normocephalic, pupils reactive, negative for conjunctival pallor or scleral icterus, mucous membranes moist, throat clear, neck supple, nontender, trachea midline. Lungs: Expiratory rhonchi noted to the right posterior base, breath sounds equal bilaterally, chest tender to palpation under the left breast Heart: S1S2, regular rate and rhythm Abdomen: Soft, nondistended, nontender. Negative for masses or hepatosplenomegaly. Negative for costovertebral tenderness. Pelvis: Stable nontender. Genitourinary: Deferred. Rectal: Deferred. Skin: No overt lesions, rashes, open sores. Intact, warm, and dry. Extremities: Atraumatic, negative for cords or calf pain. Neurovascular unremarkable. +1 pitting edema to bilateral lower extremities. Neuro: Awake, alert, oriented. Cranial nerves II through XII unremarkable. Cerebellum unremarkable. Motor and sensory unremarkable throughout. Exam nonfocal. Discussed diagnostics with patient and neighbor at bedside. Patient reports that she has home pain medications which she believes are oxycodone and an anti- inflammatory. Instructed for the patient take her anti-inflammatory as directed. She can apply heat or ice to the area alternating throughout the day. Instructed patient to follow-up with her primary care provider in the next 1-2 days. Patient voices understanding and is agreeable to plan of care. Denies any further questions or concerns. Diagnostics: CBC, CMP, troponin, EKG, one view chest x-ray, [employer]: Patient declined 324 mg aspirin at this time Patient declined Toradol Impression: Chest wall pain Plan: 1. Apply heat and ice to the area alternating throughout the day 2. Take pain medications as prescribed that you have at home. 3. Follow-up with your primary care provider in the next 1-2 days. Return to the ED as needed as discussed Definitive disposition and diagnosis as appropriate pending reevaluation and review of above. Duration: Week(s): Location: Reports: Chest Left Chest Pain Score (Numeric/FACES): 5 - Related Data Allergies Allergy/AdvReac Type Severity Reaction Status Date / Time codeine Allergy Airway Verified 07/06/17 12:32 Tightness Influenza Virus Vaccines Allergy Hives Verified 07/06/17 12:58 peas Allergy Rash Verified 07/06/17 12:32 Penicillins Allergy Airway Verified 07/06/17 12:32 Tightness pneumococcal vaccine Allergy Hives Verified 07/06/17 12:58 potato Allergy Rash Verified 07/06/17 12:32 procaine HCl [From Novocain] Allergy Itching Verified 07/06/17 12:32 Tetanus Vaccines and Toxoid Allergy Hives Verified 07/06/17 12:58 wheat Allergy Airway Verified 07/06/17 12:32 Tightness chocolate Allergy Itching Uncoded 07/06/17 12:32 potato starch Allergy Rash Uncoded 07/06/17 12:32 sea food Allergy Rash Uncoded 07/06/17 12:32 tea Allergy Rash Uncoded 07/06/17 12:32 Home Meds: Home Meds Aclidinium [place] [Tudorza Pressair] 1 puff INH BID 11/09/14 [History] Esomeprazole Magnesium [Nexium] 40 mg PO DAILY 11/09/14 [History] Furosemide [Lasix] 20 mg PO DAILY 11/09/14 [History] Insulin Glarg,Human.Rec.Analog [Lantus] 12 units SUBCUT BID 11/09/14 [History] LORazepam 1 mg PO QID 11/09/14 [History] Levalbuterol HCl 1.25 mg INH QID PRN 11/09/14 [History] Losartan [Cozaar] 50 mg PO DAILY 11/09/14 [History] atorvaSTATin [Lipitor] 5 mg PO DAILY 11/09/14 [History] diphenhydrAMINE [Benadryl] 50 mg PO QID 11/09/14 [History] Budesonide/Formoterol [Symbicort 160-4.5 MCG] 2 inh IH BID 02/01/17 [History] Hydrocodone/Acetaminophen [Hydrocodon-Acetaminophen 5-325] 5 - 325 mg PO TID PRN 02/01/17 [History] Insulin Aspart [Novolog Flexpen] 8 unit SUBCUT TIDAC 02/01/17 [History] predniSONE 10 mg PO DAILY 02/01/17 [History] Azithromycin 500 mg PO DAILY #5 tablet 03/14/17 [Rx] tiZANidine [Zanaflex] 4 mg PO TID 07/06/17 [History] Past Medical History HEENT History: Reports: Hard of Hearing Cardiovascular History: Reports: Hypertension Respiratory History: Reports: Asthma, COPD, Other (See Below) Other Respiratory History: on home oxygen at 2liters per minute; lung cancer Gastrointestinal History: Reports: GERD Genitourinary History: Reports: None SLAB PULLER History: Reports: Neurological History: Reports: Vertigo Other Neuro History: pt reports "small stroke 2016" Psychiatric History: Reports: Anxiety, Depression Other Psychiatric History: claustrophobic Endocrine/Metabolic History: Reports: Diabetes, Type II Hematologic History: Reports: None Immunologic History: Reports: None Oncologic (Cancer) History: Reports: Lung Other Oncologic History: remission for 4 months Dermatologic History: Reports: None - Infectious Disease History Infectious Disease History: Reports: Chicken Pox, Measles, Mumps - Past Surgical History Head Surgeries/Procedures: Reports: None HEENT Surgical History: Reports: None Cardiovascular Surgical History: Reports: Other (See Below) Other Cardiovascular Surgeries/Procedures: Left bracial plastic artery Respiratory Surgical History: Reports: Other (See Below) Other Respiratory Surgeries/Procedures: lung surgery- hx lung cancer GI Surgical History: Reports: Appendectomy, Cholecystectomy Endocrine Surgical History: Reports: None Neurological Surgical History: Reports: None Oncologic Surgical History: Reports: None Social & Family History - Family History Family Medical History: Noncontributory - Tobacco Use Smoking Status *Q: Former Smoker Years of Tobacco use: 25 Used Tobacco, but Quit: Yes Month Tobacco Last Used: "14 years ago" Second Hand Smoke Exposure: No - Caffeine Use Caffeine Use: Reports: Coffee Caffeine Use Comment: 1-2drinks/day - Alcohol Use Days Per Week of Alcohol Use: 0 - Recreational Drug Use Recreational Drug Use: No ED ROS GENERAL - Review of Systems Review Of Systems: ROS reveals no pertinent complaints other than HPI. ED EXAM, GENERAL - Physical Exam Exam: See Below (See dictation) EKG INTERPRETATION EKG Date: 07/06/17 Time: 12:25 Rhythm: NSR Rate (Beats/Min): 98 Comparison: NA - No Prior EKG Course - Vital Signs Last Recorded V/S: Last Vital Signs Temp 36.6 C 07/06/17 12:59 Pulse 95 07/06/17 12:59 Resp 20 07/06/17 12:59 BP 124/81 07/06/17 12:59 Pulse Ox 97 07/06/17 12:59 - Orders/Labs/Meds Orders: Active Orders 24 hr Category Date Time Status EKG Documentation Completion [RC] STAT Care 07/06/17 12:50 Active Sodium Chloride 0.9% [Normal Saline] 1,000 ml Med 07/06/17 13:00 Active IV ASDIRECTED Medication Orders Sodium Chloride (Normal Saline) 1,000 mls @ 125 mls/hr IV ASDIRECTED VIJAYA Last Admin: 07/06/17 13:05 Dose: 125 mls/hr Labs: Laboratory Tests 07/06/17 07/06/17 07/06/17 Range/Units 15:07 15:07 15:07 WBC 10.93 (4.0-11.0) K/uL RBC 3.99 L (4.30-5.90) M/uL Hgb 12.3 (12.0-16.0) g/dL Hct 37.6 (36.0-46.0) % MCV 94.2 (80.0-98.0) fL MCH 30.8 (27.0-32.0) pg MCHC 32.7 (31.0-37.0) g/dL RDW Std Deviation 51.1 (28.0-62.0) fl RDW Coeff of Lucrecia 15 (11.0-15.0) % Plt Count 262 (150-400) K/uL MPV 10.10 (7.40-12.00) fL Nucleated RBC % 0.0 /100WBC Nucleated RBCs # 0 K/uL Sodium 140 (136-146) mmol/L Potassium 3.8 (3.5-5.1) mmol/L Chloride 103 (98-110) mmol/L Carbon Dioxide 28 (21-31) mmol/L BUN 17 (6.0-23.0) mg/dL Creatinine 1.0 (0.6-1.5) mg/dL Est Cr Clr Drug Dosing 36.11 mL/min Estimated GFR (MDRD) 53.9 ml/min Glucose 165 H (60-110) mg/dL Calcium 9.2 (8.8-10.8) mg/dL Total Bilirubin 0.3 (0.1-1.5) mg/dL AST 16 (5-40) IU/L ALT 19 (8-54) IU/L Alkaline Phosphatase 83 (40-150) Troponin I < 0.10 (0.0-0.29) NG/ML Total Protein 6.2 (6.0-8.0) g/dL Albumin 3.6 (3.4-4.8) g/dL Globulin 2.6 (2.0-3.5) g/dL Albumin/Globulin Ratio 1.4 (1.3-2.8) Meds: Medications Generic Name Dose Route Start Last Admin Trade Name Freq PRN Reason Stop Dose Admin Sodium Chloride 1,000 mls @ 125 mls/hr 07/06/17 13:00 07/06/17 13:05 Normal Saline IV 125 mls/hr ASDIRECTED VIJAYA Administration Discontinued Medications Generic Name Dose Route Start Last Admin Trade Name Freq PRN Reason Stop Dose Admin Aspirin 324 mg 07/06/17 12:50 07/06/17 13:02 Aspirin PO 07/06/17 12:51 Not Given ONETIME ONE Ketorolac Tromethamine 30 mg 07/06/17 15:47 07/06/17 15:56 Toradol IVPUSH 07/06/17 15:48 Not Given ONETIME ONE Departure - Departure Time of Disposition: 16:10 Disposition: Home, Self-Care 01 Clinical Impression: Chest wall pain Referrals: Micha Dai MD [Primary Care Provider] - Forms: ED Department Discharge Additional Instructions: My general discharge The following information is given to patients seen in the emergency department who are being discharged to home. This information is to outline your options for follow-up care. We provide all patients seen in our emergency department with a follow-up referral. The need for follow-up, as well as the timing and circumstances, are variable depending upon the specifics of your emergency department visit. If you don't have a primary care physician on staff, we will provide you with a referral. We always advise you to contact your personal physician following an emergency department visit to inform them of the circumstance of the visit and for follow-up with them and/or the need for any referrals to a consulting specialist. The emergency department will also refer you to a specialist when appropriate. This referral assures that you have the opportunity for follow-up care with a specialist. All of these measure are taken in an effort to provide you with optimal care, which includes your follow-up. Under all circumstances we always encourage you to contact your private physician who remains a resource for coordinating your care. When calling for follow-up care, please make the office aware that this follow-up is from your recent emergency room visit. If for any reason you are refused follow-up, please contact the [facility] Emergency Department at and asked to speak to the emergency department charge nurse. [facility] [address] [place] [id number] 1. Apply heat and ice to the area alternating throughout the day 2. Take pain medications as prescribed that you have at home. 3. Follow-up with your primary care provider in the next 1-2 days. Return to the ED as needed as discussed - My Orders Last 24 Hours: My Active Orders 07/06/17 12:50 EKG Documentation Completion [RC] STAT 07/06/17 13:00 Sodium Chloride 0.9% [Normal Saline] 1,000 ml IV ASDIRECTED - Assessment/Plan Last 24 Hours: My Active Orders 07/06/17 12:50 EKG Documentation Completion [RC] STAT 07/06/17 13:00 Sodium Chloride 0.9% [Normal Saline] 1,000 ml IV ASDIRECTED
--- NOTE | 2017-07-06 13:45 | CR ---
EXAMINATION: Portable chest radiograph. HISTORY: Chest pain. FINDINGS: The trachea is midline. The cardiomediastinal silhouette is stable. Again left suprahilar opacity and atelectasis. Otherwise no focal consolidation or pleural effusion. Osseous structures appear osteopenic. IMPRESSION: No acute cardiopulmonary process.
[2017-07-06] MEDS ORDERED: Ketorolac 30 MG/ML SDV IVPUSH ONE (15:47)
== END 2017-07-06 16:25 | disposition home or self-care (01) ==
LOC: MW.ED 12:08
DX: R07.89 Other chest pain (principal); I10 Essential (primary) hypertension; J44.9 Chronic obstructive pulmonary disease, unspecified; K21.9 Gastro-esophageal reflux disease without esophagitis; F32.9 Major depressive disorder, single episode, unspecified; E11.9 Type 2 diabetes mellitus without complications; Z85.118 Personal history of other malignant neoplasm of bronchus and lung; Z90.49 Acquired absence of other specified parts of digestive tract; Z98.890 Other specified postprocedural states; Z87.891 Personal history of nicotine dependence; Z79.4 Long term (current) use of insulin; Z79.2 Long term (current) use of antibiotics; Z79.899 Other long term (current) drug therapy; Z88.0 Allergy status to penicillin; Z88.5 Allergy status to narcotic agent; Z88.7 Allergy status to serum and vaccine; Z91.018 Allergy to other foods
CPT/HCPCS: 36415; 71010; 80053; 84484; 85027; 93005; 96360; 96361; 99285; J7040; 99284

== ENCOUNTER 2017-07-27 11:48 | Emergency (ER) | payer MEDICARE, OTHER ==
[2017-07-27 12:02] VITALS: BP 150/73
[2017-07-27] MEDS ORDERED: Sodium Chloride 0.9% 2.5 ML Syringe FLUSH PRN (12:09)
[2017-07-27] MEDS ORDERED: Sodium Chloride 0.9% 10 ML Syringe FLUSH PRN (12:09)
[2017-07-27] MEDS ORDERED: Ketorolac 30 MG/ML SDV IVPUSH ONE (12:33)
--- NOTE | 2017-07-27 12:36 | EDM.PDOC ---
ED HPI GENERAL MEDICAL PROBLEM - General Chief Complaint: Chest Pain Stated Complaint: LT SIDE HURTS Time Seen by Provider: 07/27/17 12:03 - History of Present Illness INITIAL COMMENTS - FREE TEXT/NARRATIVE: HISTORY AND PHYSICAL: History of present illness: The patient is a 77 y/o female with a history of COPD who uses oxygen in the evenings 2 L, diabetes hypercholesterolemia hypertension and lung cancer which she received radiation therapy and tells me she is in remission with a negative PET scan last month who presents with complaints of left sided rib and chest pain that has been ongoing for the last 2 months. The patient was seen here in June on July 06 for similar and had a workup which was negative and she says that she has since followed up with Dr. Dai. He said that further testing was not indicated. The patient denies any new trauma to the area and has not had any new cough but says that her existing chronic cough seems a little worse and she feels a little bit more short of breath over the last few days. She has no anterior left chest pain like heart pain and she has no leg pain or swelling. She has no abdominal pains nausea vomiting or diarrhea. Review of systems: As per history of present illness and below otherwise all systems reviewed and negative. Past medical history: As per history of present illness and as reviewed below otherwise noncontributory. Surgical history: As per history of present illness and as reviewed below otherwise noncontributory. Social history: No reported history of drug or alcohol abuse. Family history: As per history of present illness and as reviewed below otherwise noncontributory. Physical exam: Gen.: Well-developed well-nourished female who is nontoxic and speaking clearly in the ED without breathlessness. Vital signs have been reviewed by me HEENT: Atraumatic, normocephalic, pupils reactive, negative for conjunctival pallor or scleral icterus, mucous membranes moist, throat clear, neck supple, nontender, trachea midline. Lungs: Clear to auscultation but there is diminished breath sounds in the bases and no wheezing stridor coarse breath sounds, breath sounds equal bilaterally, chest wall on the left lateral and posterior aspects has tenderness with palpation without defects deformities or crepitance. The left breast is without any gross masses or tenderness. Heart: S1S2, regular, negative for clicks, rubs, or JVD. Abdomen: Soft, nondistended, nontender. Negative for masses or hepatosplenomegaly. Negative for costovertebral tenderness. Pelvis: Stable nontender. Genitourinary: Deferred. Rectal: Deferred. Extremities: Atraumatic, negative for cords or calf pain. Neurovascular unremarkable. No pedal edema or leg asymmetry Neuro: Awake, alert, oriented. Cranial nerves II through XII unremarkable. Cerebellum unremarkable. Motor and sensory unremarkable throughout. Exam nonfocal. Diagnostics: EKG CBC CMP INR lactic acid troponin UA CT scan of the chest Therapeutics: IV O2 monitor Toradol--- please note that the patient told nursing that she has issues with Toradol and that she cannot take it and then she was given a [place] 5 as that is what she normally takes at home. I discussed all testing results with the patient and family at bedside. Currently I cannot find any acute changes on her labs or CAT scan. I attempted to call Dr. Dai to notify him of this patient's visit for similar problems that she has presented with in the past including her visit here and July 06. I will advise her to call him and make a follow-up appointment and use the medication she has at home for pain. I will advise her on reasons to return. Impression: Left chest wall pain chronic etiology unclear Definitive disposition and diagnosis as appropriate pending reevaluation and review of above. Left Rib Pain Score (Numeric/FACES): 6 - Related Data Allergies Allergy/AdvReac Type Severity Reaction Status Date / Time codeine Allergy Airway Verified 07/27/17 12:05 Tightness Influenza Virus Vaccines Allergy Hives Verified 07/27/17 12:05 peas Allergy Rash Verified 07/27/17 12:05 Penicillins Allergy Airway Verified 07/27/17 12:05 Tightness pneumococcal vaccine Allergy Hives Verified 07/27/17 12:05 potato Allergy Rash Verified 07/27/17 12:05 procaine HCl [From Novocain] Allergy Itching Verified 07/27/17 12:05 Tetanus Vaccines and Toxoid Allergy Hives Verified 07/27/17 12:05 wheat Allergy Airway Verified 07/27/17 12:05 Tightness chocolate Allergy Itching Uncoded 07/27/17 12:05 potato starch Allergy Rash Uncoded 07/27/17 12:05 sea food Allergy Rash Uncoded 07/27/17 12:05 tea Allergy Rash Uncoded 07/27/17 12:05 Home Meds: Home Meds Aclidinium Victor [Tudorza Pressair] 1 puff INH BID 11/09/14 [History] Esomeprazole Magnesium [Nexium] 40 mg PO DAILY 11/09/14 [History] Furosemide [Lasix] 20 mg PO DAILY 11/09/14 [History] Insulin Glarg,Human.Rec.Analog [Lantus] 12 units SUBCUT BID 11/09/14 [History] LORazepam 1 mg PO QID 11/09/14 [History] Levalbuterol HCl 1.25 mg INH QID PRN 11/09/14 [History] Losartan [Cozaar] 50 mg PO DAILY 11/09/14 [History] atorvaSTATin [Lipitor] 5 mg PO DAILY 11/09/14 [History] diphenhydrAMINE [Benadryl] 50 mg PO QID 11/09/14 [History] Budesonide/Formoterol [Symbicort 160-4.5 MCG] 2 inh IH BID 02/01/17 [History] Hydrocodone/Acetaminophen [Hydrocodon-Acetaminophen 5-325] 5 - 325 mg PO TID PRN 02/01/17 [History] Insulin Aspart [Novolog Flexpen] 8 unit SUBCUT TIDAC 02/01/17 [History] predniSONE 10 mg PO DAILY 02/01/17 [History] Azithromycin 500 mg PO DAILY #5 tablet 03/14/17 [Rx] tiZANidine [Zanaflex] 4 mg PO TID 07/06/17 [History] Past Medical History HEENT History: Reports: Hard of Hearing Cardiovascular History: Reports: Hypertension Respiratory History: Reports: Asthma, COPD, Other (See Below) Other Respiratory History: on home oxygen at 2liters per minute; lung cancer Gastrointestinal History: Reports: GERD Genitourinary History: Reports: None LOSS PREVENTION SPECIALIST History: Reports: Neurological History: Reports: Vertigo Other Neuro History: pt reports "small stroke 2016" Psychiatric History: Reports: Anxiety, Depression Other Psychiatric History: claustrophobic Endocrine/Metabolic History: Reports: Diabetes, Type II Hematologic History: Reports: None Immunologic History: Reports: None Oncologic (Cancer) History: Reports: Lung Other Oncologic History: remission for 4 months Dermatologic History: Reports: None - Infectious Disease History Infectious Disease History: Reports: Chicken Pox, Measles, Mumps - Past Surgical History Head Surgeries/Procedures: Reports: None HEENT Surgical History: Reports: None Cardiovascular Surgical History: Reports: Other (See Below) Other Cardiovascular Surgeries/Procedures: Left bracial plastic artery Respiratory Surgical History: Reports: Other (See Below) Other Respiratory Surgeries/Procedures: lung surgery- hx lung cancer GI Surgical History: Reports: Appendectomy, Cholecystectomy Endocrine Surgical History: Reports: None Neurological Surgical History: Reports: None Oncologic Surgical History: Reports: None Social & Family History - Family History Family Medical History: Noncontributory - Tobacco Use Smoking Status *Q: Former Smoker Years of Tobacco use: 25 Used Tobacco, but Quit: Yes Month Tobacco Last Used: Oct 2002 Second Hand Smoke Exposure: No - Caffeine Use Caffeine Use: Reports: Coffee Caffeine Use Comment: 1-2drinks/day - Alcohol Use Days Per Week of Alcohol Use: 0 - Recreational Drug Use Recreational Drug Use: No ED ROS GENERAL - Review of Systems Review Of Systems: ROS reveals no pertinent complaints other than HPI. ED EXAM, GENERAL - Physical Exam Exam: See Below (See dictation) Course - Vital Signs Last Recorded V/S: Last Vital Signs Temp 36.2 C 07/27/17 12:00 Pulse 98 07/27/17 12:00 Resp 20 07/27/17 12:00 BP 150/73 H 07/27/17 12:00 Pulse Ox 94 L 07/27/17 12:00 - Orders/Labs/Meds Orders: Active Orders 24 hr Category Date Time Status Cardiac Monitoring [RC] . DIRECTED Care 07/27/17 12:09 Active EKG Documentation Completion [RC] STAT Care 07/27/17 12:09 Active Oxygen Therapy, ED [RC] ASDIRECTED Care 07/27/17 12:09 Active Pulse Oximetry [RC] ASDIRECTED Care 07/27/17 12:09 Active UA W/MICROSCOPIC [URIN] Stat Lab 07/27/17 12:12 Uncollected Sodium Chloride 0.9% [Saline Flush] Med 07/27/17 12:09 Active 10 ml FLUSH ASDIRECTED PRN Sodium Chloride 0.9% [Saline Flush] Med 07/27/17 12:09 Active 2.5 ml FLUSH ASDIRECTED PRN Saline Lock Insert [OM.PC] Stat Oth 07/27/17 12:09 Ordered Medication Orders Sodium Chloride (Saline Flush) 10 ml FLUSH ASDIRECTED PRN PRN Reason: Keep Vein Open Sodium Chloride (Saline Flush) 2.5 ml FLUSH ASDIRECTED PRN PRN Reason: Keep Vein Open Labs: Laboratory Tests 07/27/17 07/27/17 07/27/17 Range/Units 12:33 12:33 12:33 WBC 9.46 (4.0-11.0) K/uL RBC 4.04 L (4.30-5.90) M/uL Hgb 12.4 (12.0-16.0) g/dL Hct 38.5 (36.0-46.0) % MCV 95.3 (80.0-98.0) fL MCH 30.7 (27.0-32.0) pg MCHC 32.2 (31.0-37.0) g/dL RDW Std Deviation 52.2 (28.0-62.0) fl RDW Coeff of Lucrecia 15 (11.0-15.0) % Plt Count 275 (150-400) K/uL MPV 10.40 (7.40-12.00) fL Neut % (Auto) 77.9 (48.0-80.0) % Lymph % (Auto) 14.3 L (16.0-40.0) % [place] % (Auto) 5.0 (0.0-15.0) % Eos % (Auto) 2.2 (0.0-7.0) % Baso % (Auto) 0.6 (0.0-1.5) % Neut # (Auto) 7.4 H (1.4-5.7) K/uL Lymph # (Auto) 1.4 (0.6-2.4) K/uL [place] # (Auto) 0.5 (0.0-0.8) K/uL Eos # (Auto) 0.2 (0.0-0.7) K/uL Baso # (Auto) 0.1 (0.0-0.1) K/uL Nucleated RBC % 0.0 /100WBC Nucleated RBCs # 0 K/uL INR 1.03 (0.86-1.11) Lactate (0.20-2.00) mmol/L Sodium 139 (136-146) mmol/L Potassium 4.7 (3.5-5.1) mmol/L Chloride 106 (98-110) mmol/L Carbon Dioxide 23 (21-31) mmol/L BUN 18 (6.0-23.0) mg/dL Creatinine 1.0 (0.6-1.5) mg/dL Est Cr Clr Drug Dosing 36.11 mL/min Estimated GFR (MDRD) 53.9 ml/min Glucose 174 H (60-110) mg/dL Calcium 9.2 (8.8-10.8) mg/dL Total Bilirubin 0.3 (0.1-1.5) mg/dL AST 17 (5-40) IU/L ALT 18 (8-54) IU/L Alkaline Phosphatase 82 (40-150) Troponin I (0.0-0.29) NG/ML Total Protein 6.5 (6.0-8.0) g/dL Albumin 3.6 (3.4-4.8) g/dL Globulin 2.9 (2.0-3.5) g/dL Albumin/Globulin Ratio 1.2 L (1.3-2.8) 07/27/17 07/27/17 Range/Units 12:33 12:33 WBC (4.0-11.0) K/uL RBC (4.30-5.90) M/uL Hgb (12.0-16.0) g/dL Hct (36.0-46.0) % MCV (80.0-98.0) fL MCH (27.0-32.0) pg MCHC (31.0-37.0) g/dL RDW Std Deviation (28.0-62.0) fl RDW Coeff of Lucrecia (11.0-15.0) % Plt Count (150-400) K/uL MPV (7.40-12.00) fL Neut % (Auto) (48.0-80.0) % Lymph % (Auto) (16.0-40.0) % [place] % (Auto) (0.0-15.0) % Eos % (Auto) (0.0-7.0) % Baso % (Auto) (0.0-1.5) % Neut # (Auto) (1.4-5.7) K/uL Lymph # (Auto) (0.6-2.4) K/uL [place] # (Auto) (0.0-0.8) K/uL Eos # (Auto) (0.0-0.7) K/uL Baso # (Auto) (0.0-0.1) K/uL Nucleated RBC % /100WBC Nucleated RBCs # K/uL INR (0.86-1.11) Lactate 2.3 H (0.20-2.00) mmol/L Sodium (136-146) mmol/L Potassium (3.5-5.1) mmol/L Chloride (98-110) mmol/L Carbon Dioxide (21-31) mmol/L BUN (6.0-23.0) mg/dL Creatinine (0.6-1.5) mg/dL Est Cr Clr Drug Dosing mL/min Estimated GFR (MDRD) ml/min Glucose (60-110) mg/dL Calcium (8.8-10.8) mg/dL Total Bilirubin (0.1-1.5) mg/dL AST (5-40) IU/L ALT (8-54) IU/L Alkaline Phosphatase (40-150) Troponin I < 0.10 (0.0-0.29) NG/ML Total Protein (6.0-8.0) g/dL Albumin (3.4-4.8) g/dL Globulin (2.0-3.5) g/dL Albumin/Globulin Ratio (1.3-2.8) Meds: Medications Generic Name Dose Route Start Last Admin Trade Name Freq PRN Reason Stop Dose Admin Sodium Chloride 10 ml 07/27/17 12:09 Saline Flush FLUSH ASDIRECTED PRN Keep Vein Open Sodium Chloride 2.5 ml 07/27/17 12:09 Saline Flush FLUSH ASDIRECTED PRN Keep Vein Open Discontinued Medications Generic Name Dose Route Start Last Admin Trade Name Freq PRN Reason Stop Dose Admin Hydrocodone Bitart/Acetaminophen 1 tab 07/27/17 14:03 07/27/17 14:11 [place] 325-5 Mg PO 07/27/17 14:04 1 tab ONETIME ONE Administration Iopamidol 55 ml 07/27/17 13:47 07/27/17 13:48 Isovue Multipack-370 (76%) IVPUSH 07/27/17 13:48 55 ml ONETIME STA Administration Ketorolac Tromethamine 30 mg 07/27/17 12:33 Toradol IVPUSH 07/27/17 12:34 ONETIME ONE Ketorolac Tromethamine 30 mg 07/27/17 13:22 Toradol IM 07/27/17 13:23 ONETIME ONE Departure - Departure Time of Disposition: 16:01 Disposition: Home, Self-Care 01 Condition: Good Clinical Impression: Chest wall pain - Discharge Information Referrals: Micha Dai MD [Primary Care Provider] - Forms: ED Department Discharge Additional Instructions: The following information is given to patients seen in the emergency department who are being discharged to home. This information is to outline your options for follow-up care. We provide all patients seen in our emergency department with a follow-up referral. The need for follow-up, as well as the timing and circumstances, are variable depending upon the specifics of your emergency department visit. If you don't have a primary care physician on staff, we will provide you with a referral. We always advise you to contact your personal physician following an emergency department visit to inform them of the circumstance of the visit and for follow-up with them and/or the need for any referrals to a consulting specialist. The emergency department will also refer you to a specialist when appropriate. This referral assures that you have the opportunity for followup care with a specialist. All of these measure are taken in an effort to provide you with optimal care, which includes your followup. Under all circumstances we always encourage you to contact your private physician who remains a resource for coordinating your care. When calling for followup care, please make the office aware that this follow-up is from your recent emergency room visit. If for any reason you are refused follow-up, please contact the [facility] emergency department at and ask to speak to the emergency department charge nurse. [address] [place] [address] Please use her pain medications that you have from home and call Dr. Dai to schedule a follow-up appointment in the next few days for reevaluation of his chronic pain. Return to ER as needed and as discussed - My Orders Last 24 Hours: My Active Orders 07/27/17 12:09 Cardiac Monitoring [RC] . DIRECTED EKG Documentation Completion [RC] STAT Oxygen Therapy, ED [RC] ASDIRECTED Pulse Oximetry [RC] ASDIRECTED Sodium Chloride 0.9% [Saline Flush] 10 ml FLUSH ASDIRECTED PRN Sodium Chloride 0.9% [Saline Flush] 2.5 ml FLUSH ASDIRECTED PRN Saline Lock Insert [OM.PC] Stat 07/27/17 12:12 UA W/MICROSCOPIC [URIN] Stat - Assessment/Plan Last 24 Hours: My Active Orders 07/27/17 12:09 Cardiac Monitoring [RC] . DIRECTED EKG Documentation Completion [RC] STAT Oxygen Therapy, ED [RC] ASDIRECTED Pulse Oximetry [RC] ASDIRECTED Sodium Chloride 0.9% [Saline Flush] 10 ml FLUSH ASDIRECTED PRN Sodium Chloride 0.9% [Saline Flush] 2.5 ml FLUSH ASDIRECTED PRN Saline Lock Insert [OM.PC] Stat 07/27/17 12:12 UA W/MICROSCOPIC [URIN] Stat
[2017-07-27] MEDS ORDERED: Ketorolac 30 MG/ML SDV IM ONE (13:22)
[2017-07-27] MEDS ORDERED: Iopamidol 755 MG/ML 500 ML Multipack Bottle IVPUSH STA (13:47)
[2017-07-27] MEDS ORDERED: Acetaminophen/HYDROcodone 325-5 MG Tab PO ONE (14:03)
--- NOTE | 2017-07-27 15:15 | PCM.SN ---
- Free Text/Narrative Note: Called for IV start, 20 gauge IV inserted right wrist with aseptic technique, no redness, no swelling noted.
--- NOTE | 2017-07-27 15:53 | CT ---
EXAMINATION: CT chest with contrast HISTORY: Shortness of breath COMPARISON: PET scan dated 03/17/2017, CT chest dated 01/31/2017. TECHNIQUE: Axial CT images obtained through the chest following the administration of 50 mL of Isovue -370 in the right hand. Coronal and sagittal reconstructions obtained. FINDINGS: There is a stable 1.5 x 2.4 cm nodular area along the major fissure within the left upper l obe. There is stable thickening along the major fissures bilaterally also noted. No focal consolidati on or pleural effusion. The heart is normal in size without a significant pericardial effusion. The t horacic aorta is normal in caliber. Main and central pulmonary arteries are patent. Coronary calcific ations are noted. The central airways are clear. Prominent atheromatous changes noted at the origin o f the brachiocephalic artery. The visualized images of the upper abdomen are grossly unremarkable. IMPRESSION: 1. No acute cardiopulmonary findings. 2. Stable pulmonary opacities bilaterally. 3. Prominent atheromatous changes noted at the origin of the right brachiocephalic artery and moderat leobardo within the coronary arteries.
== END 2017-07-27 16:20 | disposition home or self-care (01) ==
LOC: MW.ED 11:48
DX: R07.89 Other chest pain (principal); I10 Essential (primary) hypertension; J44.9 Chronic obstructive pulmonary disease, unspecified; F32.9 Major depressive disorder, single episode, unspecified; E11.9 Type 2 diabetes mellitus without complications; Z85.118 Personal history of other malignant neoplasm of bronchus and lung; Z90.49 Acquired absence of other specified parts of digestive tract; Z98.890 Other specified postprocedural states; Z87.891 Personal history of nicotine dependence; Z79.4 Long term (current) use of insulin; Z79.2 Long term (current) use of antibiotics; Z79.899 Other long term (current) drug therapy; Z88.0 Allergy status to penicillin; Z88.5 Allergy status to narcotic agent; Z88.7 Allergy status to serum and vaccine; Z88.8 Allergy status to other drugs, medicaments and biological substances; Z91.013 Allergy to seafood; Z91.018 Allergy to other foods
CPT/HCPCS: 36415; 71260; 80053; 83605; 84484; 85025; 85610; 93005; 99285; A9270; Q9967; 36410; 99283

== ENCOUNTER 2017-09-25 13:45 | Observation (INO) | payer MEDICARE, OTHER ==
[2017-09-25 15:13] LABS: CHLORIDE,CL 102 mmol/L (98-110); SODIUM,NA 140 mmol/L (136-146)
[2017-09-25] MEDS ORDERED: Albuterol/Ipratropium 3.0-0.5 MG/3 ML Neb Soln NEB ONE (15:44)
--- NOTE | 2017-09-25 15:50 | EDM.PDOC ---
ED HPI GENERAL MEDICAL PROBLEM - General Chief Complaint: Respiratory Problem Stated Complaint: COUGH Time Seen by Provider: 09/25/17 14:30 Source of Information: Reports: Patient, Family History Limitations: Reports: No Limitations - History of Present Illness INITIAL COMMENTS - FREE TEXT/NARRATIVE: HISTORY AND PHYSICAL: History of present illness: [Pt comes to the ER, accompanied by 2 daughters, w/ complaints of cough and discomfort in her chest. Has a history of frequent pneumonia, asthma, COPD, type 2 diabetes and hypertension. She follows regularly with Dr. Dai. According to patient's daughter she was recently treated for pneumonia. Patient states that she has had increased shortness of breath and wheezing. Has been coughing but has been unable to expectorate any sputum. Has been using her nebulizer every 3 hours without significant improvement. Denies fever and chills, nausea, vomiting, abdominal pain. No change in her urination or bowel habits. No change in ambulation or stability. No pain with breathing or pain in her chest. No difficulty taking a deep breath.] Review of systems: As per history of present illness and below otherwise all systems reviewed and negative. Past medical history: As per history of present illness and as reviewed below otherwise noncontributory. Surgical history: As per history of present illness and as reviewed below otherwise noncontributory. Social history: No reported history of drug or alcohol abuse. Family history: As per history of present illness and as reviewed below otherwise noncontributory. Physical exam: HEENT: Atraumatic, normocephalic. Oral mucous membranes are pink. Lips are cracked and appear dry. Lungs: Both lung ascencio are congested and tight. Slight wheezing but no crackles or rales. Breath sounds are equal bilaterally. Heart: S1S2, regular rate and rhythm. Abdomen: Soft, nondistended, nontender. No masses guarding or rebound. Extremities: Atraumatic, negative for cords or calf pain. No significant swelling or edema to feet or lower legs. Neurovascular unremarkable. Neuro: Awake, alert, oriented. Motor and sensory unremarkable throughout. Exam nonfocal. Diagnostics: [CXR, EKG, CBC, CMP, blood cultures, UA, lactate, troponin] Therapeutics: [1 liter NS at 125mL/hour, DuoNeb, Levaquin 750 mg IV, Solu-Medrol 125 mg IV] Impression: [pneumonia COPD asthma ] Plan: [Chest x-ray shows pneumonia. EKG and lab results were largely unremarkable. Admit for IV antibiotics and observation under the care of Dr. Aldo Forbes. Patients in agreement with today's plan.] Definitive disposition and diagnosis as appropriate pending reevaluation and review of above. Upper Back Pain Score (Numeric/FACES): 10 - Related Data Allergies Allergy/AdvReac Type Severity Reaction Status Date / Time codeine Allergy Airway Verified 09/25/17 14:03 Tightness Influenza Virus Vaccines Allergy Hives Verified 09/25/17 14:03 peas Allergy Rash Verified 09/25/17 14:03 Penicillins Allergy Airway Verified 09/25/17 14:03 Tightness pneumococcal vaccine Allergy Hives Verified 09/25/17 14:03 potato Allergy Rash Verified 09/25/17 14:03 procaine HCl [From Novocain] Allergy Itching Verified 09/25/17 14:03 Tetanus Vaccines and Toxoid Allergy Hives Verified 09/25/17 14:03 wheat Allergy Airway Verified 09/25/17 14:03 Tightness chocolate Allergy Itching Uncoded 09/25/17 14:03 potato starch Allergy Rash Uncoded 09/25/17 14:03 sea food Allergy Rash Uncoded 09/25/17 14:03 tea Allergy Rash Uncoded 09/25/17 14:03 Home Meds: Home Meds Aclidinium [place] [Tudorza Pressair] 1 puff INH BID 11/09/14 [History] Esomeprazole Magnesium [Nexium] 40 mg PO DAILY 11/09/14 [History] Furosemide [Lasix] 20 mg PO DAILY 11/09/14 [History] Insulin Glarg,Human.Rec.Analog [Lantus] 12 units SUBCUT BID 11/09/14 [History] LORazepam 1 mg PO QID 11/09/14 [History] Levalbuterol HCl 1.25 mg INH QID PRN 11/09/14 [History] Losartan [Cozaar] 50 mg PO DAILY 11/09/14 [History] atorvaSTATin [Lipitor] 5 mg PO DAILY 11/09/14 [History] diphenhydrAMINE [Benadryl] 50 mg PO QID 11/09/14 [History] Budesonide/Formoterol [Symbicort 160-4.5 MCG] 2 inh IH BID 02/01/17 [History] Hydrocodone/Acetaminophen [Hydrocodon-Acetaminophen 5-325] 5 - 325 mg PO TID PRN 02/01/17 [History] Insulin Aspart [Novolog Flexpen] 8 unit SUBCUT TIDAC 02/01/17 [History] predniSONE 10 mg PO DAILY 02/01/17 [History] Azithromycin 500 mg PO DAILY #5 tablet 03/14/17 [Rx] tiZANidine [Zanaflex] 4 mg PO TID 07/06/17 [History] Past Medical History HEENT History: Reports: Hard of Hearing Cardiovascular History: Reports: Hypertension Respiratory History: Reports: Asthma, COPD, Other (See Below) Other Respiratory History: on home oxygen at 2liters per minute; lung cancer Gastrointestinal History: Reports: GERD Genitourinary History: Reports: None 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: Neurological History: Reports: Vertigo Other Neuro History: pt reports "small stroke 2016" Psychiatric History: Reports: Anxiety, Depression Other Psychiatric History: claustrophobic Endocrine/Metabolic History: Reports: Diabetes, Type II Hematologic History: Reports: None Immunologic History: Reports: None Oncologic (Cancer) History: Reports: Lung Other Oncologic History: remission for 4 months Dermatologic History: Reports: None - Infectious Disease History Infectious Disease History: Reports: Chicken Pox - Past Surgical History Head Surgeries/Procedures: Reports: None HEENT Surgical History: Reports: None Cardiovascular Surgical History: Reports: Other (See Below) Other Cardiovascular Surgeries/Procedures: Left bracial plastic artery Respiratory Surgical History: Reports: Other (See Below) Other Respiratory Surgeries/Procedures: lung surgery- hx lung cancer GI Surgical History: Reports: Appendectomy, Cholecystectomy Endocrine Surgical History: Reports: None Neurological Surgical History: Reports: None Oncologic Surgical History: Reports: None Social & Family History - Family History Family Medical History: Noncontributory - Tobacco Use Smoking Status *Q: Former Smoker Years of Tobacco use: 25 Used Tobacco, but Quit: Yes Month Tobacco Last Used: 2002 Second Hand Smoke Exposure: No - Caffeine Use Caffeine Use: Reports: Coffee Caffeine Use Comment: 1-2drinks/day - Alcohol Use Days Per Week of Alcohol Use: 0 - Recreational Drug Use Recreational Drug Use: No ED ROS GENERAL - Review of Systems Review Of Systems: ROS reveals no pertinent complaints other than HPI. ED EXAM, GENERAL - Physical Exam Exam: See Below Course - Vital Signs Last Recorded V/S: Last Vital Signs Temp 97.7 F 09/25/17 15:30 Pulse 92 09/25/17 15:30 Resp 22 H 09/25/17 15:30 BP 131/55 L 09/25/17 15:30 Pulse Ox 90 L 09/25/17 15:30 - Orders/Labs/Meds Orders: Active Orders 24 hr Category Date Time Status Patient Status [ADT] Routine ADT 09/25/17 15:58 Active Blood Glucose Check, Bedside [RC] QIDACANDBED Care 09/25/17 16:03 Active EKG Documentation Completion [RC] STAT Care 09/25/17 14:31 Active Oxygen Therapy [RC] PRN Care 09/25/17 15:58 Active RT Aerosol Therapy [RC] ASDIRECTED Care 09/25/17 15:44 Active RT Aerosol Therapy [RC] ASDIRECTED Care 09/25/17 16:00 Active VTE/DVT Education [RC] PER UNIT ROUTINE Care 09/25/17 15:58 Active Vital Signs [RC] Q4H Care 09/25/17 15:58 Active [place] [employer] Diet [DIET] Diet 09/25/17 Dinner Active Chest 2V [CR] Stat Exams 09/25/17 14:31 Taken CULTURE BLOOD [BC] Stat Lab 09/25/17 14:44 Received Albuterol/Ipratropium [DuoNeb 3.0-0.5 MG/3 ML] Med 09/25/17 15:58 Active 3 ml NEB Q4HRRT PRN Insulin Aspart [NovoLOG] Med 09/25/17 17:00 Active See Protocol SUBCUT ACBED Levofloxacin/Dextrose 5%-Water [Levaquin in D5W 750 MG/ Med 09/25/17 15:58 Active 150 ML] 750 mg Premix Bag 1 bag IV ONETIME Levofloxacin/Dextrose 5%-Water [Levaquin in D5W 750 MG/ Med 09/27/17 17:00 Active 150 ML] 750 mg Premix Bag 1 bag IV Q48H Ondansetron [Zofran] Med 09/25/17 15:58 Active 4 mg IVPUSH Q4H PRN Sodium Chloride 0.9% [Normal Saline] 1,000 ml Med 09/25/17 15:51 Active IV STAT Resuscitation Status Routine Resus Stat 09/25/17 15:58 Ordered Medication Orders Albuterol/Ipratropium (Duoneb 3.0-0.5 Mg/3 Ml) 3 ml NEB Q4HRRT PRN PRN Reason: Shortness Of Breath/wheezing Sodium Chloride (Normal Saline) 1,000 mls @ 125 mls/hr IV STAT ONE Stop: 09/25/17 23:50 Levofloxacin/Dextrose 750 mg/ (Premix) 150 mls @ 100 mls/hr IV ONETIME ONE Stop: 09/25/17 17:27 Levofloxacin/Dextrose 750 mg/ (Premix) 150 mls @ 100 mls/hr IV Q48H VIJAYA Insulin Aspart (Novolog) 0 unit SUBCUT ACBED VIJAYA PRN Reason: Protocol Ondansetron HCl (Zofran) 4 mg IVPUSH Q4H PRN PRN Reason: Nausea Labs: Laboratory Tests 09/25/17 09/25/17 09/25/17 Range/Units 14:44 14:44 14:44 WBC 10.98 (4.0-11.0) K/uL RBC 4.17 L (4.30-5.90) M/uL Hgb 12.9 (12.0-16.0) g/dL Hct 39.8 (36.0-46.0) % MCV 95.4 (80.0-98.0) fL MCH 30.9 (27.0-32.0) pg MCHC 32.4 (31.0-37.0) g/dL RDW Std Deviation 54.1 (28.0-62.0) fl RDW Coeff of Lucrecia 16 H (11.0-15.0) % Plt Count 273 (150-400) K/uL MPV 10.50 (7.40-12.00) fL Neut % (Auto) 55.3 (48.0-80.0) % Lymph % (Auto) 18.0 (16.0-40.0) % [place] % (Auto) 9.3 (0.0-15.0) % Eos % (Auto) 16.8 H (0.0-7.0) % Baso % (Auto) 0.6 (0.0-1.5) % Neut # (Auto) 6.1 H (1.4-5.7) K/uL Lymph # (Auto) 2.0 (0.6-2.4) K/uL [place] # (Auto) 1.0 H (0.0-0.8) K/uL Eos # (Auto) 1.8 H (0.0-0.7) K/uL Baso # (Auto) 0.1 (0.0-0.1) K/uL Nucleated RBC % 0.0 /100WBC Nucleated RBCs # 0 K/uL Lactate 1.1 (0.20-2.00) mmol/L Sodium 140 (136-146) mmol/L Potassium 4.1 (3.5-5.1) mmol/L Chloride 102 (98-110) mmol/L Carbon Dioxide 27 (21-31) mmol/L BUN 16 (6.0-23.0) mg/dL Creatinine 1.0 (0.6-1.5) mg/dL Est Cr Clr Drug Dosing 37.85 mL/min Estimated GFR (MDRD) 53.9 ml/min Glucose 106 (60-110) mg/dL Calcium 9.4 (8.8-10.8) mg/dL Total Bilirubin 0.5 (0.1-1.5) mg/dL AST 19 (5-40) IU/L ALT 19 (8-54) IU/L Alkaline Phosphatase 85 (40-150) Troponin I < 0.10 (0.0-0.29) NG/ML Total Protein 6.4 (6.0-8.0) g/dL Albumin 3.6 (3.4-4.8) g/dL Globulin 2.8 (2.0-3.5) g/dL Albumin/Globulin Ratio 1.3 (1.3-2.8) Urine Color Urine Appearance Urine pH (5.0-8.0) Ur Specific [place] (1.001-1.035) Urine Protein (NEGATIVE) mg/dL Urine Glucose (UA) (NEGATIVE) mg/dL Urine Ketones (NEGATIVE) mg/dL Urine Occult Blood (NEGATIVE) Urine Nitrite (NEGATIVE) Urine Bilirubin (NEGATIVE) Urine Urobilinogen (<2.0) EU/dL Ur Leukocyte Esterase (NEGATIVE) Urine RBC (0-2/HPF) Urine WBC (0-5/HPF) Ur Epithelial Cells (NONE-FEW) Urine Bacteria (NEGATIVE) Urine Yeast 09/25/17 Range/Units 15:17 WBC (4.0-11.0) K/uL RBC (4.30-5.90) M/uL Hgb (12.0-16.0) g/dL Hct (36.0-46.0) % MCV (80.0-98.0) fL MCH (27.0-32.0) pg MCHC (31.0-37.0) g/dL RDW Std Deviation (28.0-62.0) fl RDW Coeff of Lucrecia (11.0-15.0) % Plt Count (150-400) K/uL MPV (7.40-12.00) fL Neut % (Auto) (48.0-80.0) % Lymph % (Auto) (16.0-40.0) % [place] % (Auto) (0.0-15.0) % Eos % (Auto) (0.0-7.0) % Baso % (Auto) (0.0-1.5) % Neut # (Auto) (1.4-5.7) K/uL Lymph # (Auto) (0.6-2.4) K/uL [place] # (Auto) (0.0-0.8) K/uL Eos # (Auto) (0.0-0.7) K/uL Baso # (Auto) (0.0-0.1) K/uL Nucleated RBC % /100WBC Nucleated RBCs # K/uL Lactate (0.20-2.00) mmol/L Sodium (136-146) mmol/L Potassium (3.5-5.1) mmol/L Chloride (98-110) mmol/L Carbon Dioxide (21-31) mmol/L BUN (6.0-23.0) mg/dL Creatinine (0.6-1.5) mg/dL Est Cr Clr Drug Dosing mL/min Estimated GFR (MDRD) ml/min Glucose (60-110) mg/dL Calcium (8.8-10.8) mg/dL Total Bilirubin (0.1-1.5) mg/dL AST (5-40) IU/L ALT (8-54) IU/L Alkaline Phosphatase (40-150) Troponin I (0.0-0.29) NG/ML Total Protein (6.0-8.0) g/dL Albumin (3.4-4.8) g/dL Globulin (2.0-3.5) g/dL Albumin/Globulin Ratio (1.3-2.8) Urine Color YELLOW Urine Appearance SLT CLOUDY Urine pH 6.0 (5.0-8.0) Ur Specific [place] 1.025 (1.001-1.035) Urine Protein NEGATIVE (NEGATIVE) mg/dL Urine Glucose (UA) NEGATIVE (NEGATIVE) mg/dL Urine Ketones NEGATIVE (NEGATIVE) mg/dL Urine Occult Blood NEGATIVE (NEGATIVE) Urine Nitrite NEGATIVE (NEGATIVE) Urine Bilirubin NEGATIVE (NEGATIVE) Urine Urobilinogen 0.2 (<2.0) EU/dL Ur Leukocyte Esterase NEGATIVE (NEGATIVE) Urine RBC NONE SEEN (0-2/HPF) Urine WBC 2-5 (0-5/HPF) Ur Epithelial Cells FEW (NONE-FEW) Urine Bacteria 3+ H (NEGATIVE) Urine Yeast MODERATE Meds: Medications Generic Name Dose Route Start Last Admin Trade Name Freq PRN Reason Stop Dose Admin Albuterol/Ipratropium 3 ml 09/25/17 15:58 Duoneb 3.0-0.5 Mg/3 Ml NEB Q4HRRT PRN Shortness Of Breath/wheezing Sodium Chloride 1,000 mls @ 125 mls/hr 09/25/17 15:51 Normal Saline IV 09/25/17 23:50 STAT ONE Levofloxacin/Dextrose 750 mg/ 150 mls @ 100 mls/hr 09/25/17 15:58 Premix IV 09/25/17 17:27 ONETIME ONE Levofloxacin/Dextrose 750 mg/ 150 mls @ 100 mls/hr 09/27/17 17:00 Premix IV Q48H [facility] Insulin Aspart 0 unit 09/25/17 17:00 Novolog SUBCUT ACBED [facility] Protocol Ondansetron HCl 4 mg 09/25/17 15:58 Zofran IVPUSH Q4H PRN Nausea Discontinued Medications Generic Name Dose Route Start Last Admin Trade Name Freq PRN Reason Stop Dose Admin Albuterol/Ipratropium 3 ml 09/25/17 15:44 09/25/17 15:52 Duoneb 3.0-0.5 Mg/3 Ml NEB 09/25/17 15:45 3 ml ONETIME ONE Administration Methylprednisolone Sodium Succinate 125 mg 09/25/17 16:02 Solu-Medrol IVPUSH 09/25/17 16:03 ONETIME ONE Departure - Departure Time of Disposition: 16:22 Disposition: Refer to Observation Condition: Good Clinical Impression: Pneumonia - Discharge Information Referrals: Micha Dai MD [Primary Care Provider] - Forms: ED Department Discharge - My Orders Last 24 Hours: My Active Orders 09/25/17 14:31 EKG Documentation Completion [RC] STAT Chest 2V [CR] Stat 09/25/17 14:44 CULTURE BLOOD [BC] Stat 09/25/17 15:44 RT Aerosol Therapy [RC] ASDIRECTED 09/25/17 15:51 Sodium Chloride 0.9% [Normal Saline] 1,000 ml IV STAT 09/25/17 15:58 Levofloxacin/Dextrose 5%-Water [Levaquin in D5W 750 MG/150 ML] 750 mg Premix Bag 1 bag IV ONETIME - Assessment/Plan Last 24 Hours: My Active Orders 09/25/17 14:31 EKG Documentation Completion [RC] STAT Chest 2V [CR] Stat 09/25/17 14:44 CULTURE BLOOD [BC] Stat 09/25/17 15:44 RT Aerosol Therapy [RC] ASDIRECTED 09/25/17 15:51 Sodium Chloride 0.9% [Normal Saline] 1,000 ml IV STAT 09/25/17 15:58 Levofloxacin/Dextrose 5%-Water [Levaquin in D5W 750 MG/150 ML] 750 mg Premix Bag 1 bag IV ONETIME
[2017-09-25] MEDS ORDERED: Sodium Chloride 0.9% 1,000 ML IV ONE (15:51)
[2017-09-25] MEDS ORDERED: Levofloxacin/Dextrose 5%-Water 750 MG in Premix Bag 1 BAG IV ONE (15:58)
[2017-09-25] MEDS ORDERED: Albuterol/Ipratropium 3.0-0.5 MG/3 ML Neb Soln NEB PRN (15:58)
[2017-09-25] MEDS ORDERED: Ondansetron 4 MG/2 ML SDV IVPUSH PRN (15:58)
[2017-09-25] MEDS ORDERED: methylPREDNISolone Sodium Succinate 125 MG/2 ML SDV IVPUSH ONE (16:02)
[2017-09-25] MEDS: Insulin Aspart 100 Units/ML 3 ML Pen SUBCUT SCH ×2 (17:42→20:25)
[2017-09-25] MEDS ORDERED: Levalbuterol HCl 1.25 MG/3 ML Neb INH PRN (19:39)
--- NOTE | 2017-09-25 19:39 | PCM.HP ---
H&P History of Present Illness - General Date of Service: 09/25/17 Admit Problem/Dx: Admission Diagnosis/Problem Admission Diagnosis/Problem Pneumonia Source of Information: Patient, Family, Provider - History of Present Illness Initial Comments - Free Text/Narative: She presented to the ED today with complaint of frequent productive cough and dyspnea. She was seen in the ED and diagnosed with a pneumonia. She vomited one or two times at home. no fever She lives alone. Upper Back Pain Score (Numeric/FACES): 10 Right Abdomen Pain Score (Numeric/FACES): 7 - Related Data Allergies/Adverse Reactions: Allergies Allergy/AdvReac Type Severity Reaction Status Date / Time codeine Allergy Airway Verified 09/25/17 14:03 Tightness Influenza Virus Vaccines Allergy Hives Verified 09/25/17 14:03 peas Allergy Rash Verified 09/25/17 14:03 Penicillins Allergy Airway Verified 09/25/17 14:03 Tightness pneumococcal vaccine Allergy Hives Verified 09/25/17 14:03 potato Allergy Rash Verified 09/25/17 14:03 procaine HCl [From Novocain] Allergy Itching Verified 09/25/17 14:03 Tetanus Vaccines and Toxoid Allergy Hives Verified 09/25/17 14:03 wheat Allergy Airway Verified 09/25/17 14:03 Tightness chocolate Allergy Itching Uncoded 09/25/17 14:03 potato starch Allergy Rash Uncoded 09/25/17 14:03 sea food Allergy Rash Uncoded 09/25/17 14:03 tea Allergy Rash Uncoded 09/25/17 14:03 Home Medications: Home Meds Aclidinium [place] [Tudorza Pressair] 1 puff INH BID 11/09/14 [History] Esomeprazole Magnesium [Nexium] 40 mg PO DAILY 11/09/14 [History] Furosemide [Lasix] 20 mg PO DAILY 11/09/14 [History] Insulin Glarg,Human.Rec.Analog [Lantus] 12 units SUBCUT BID 11/09/14 [History] LORazepam 1 mg PO QID 11/09/14 [History] Levalbuterol HCl 1.25 mg INH QID PRN 11/09/14 [History] Losartan [Cozaar] 50 mg PO DAILY 11/09/14 [History] atorvaSTATin [Lipitor] 5 mg PO DAILY 11/09/14 [History] diphenhydrAMINE [Benadryl] 50 mg PO QID 11/09/14 [History] Budesonide/Formoterol [Symbicort 160-4.5 MCG] 2 inh IH BID 02/01/17 [History] Hydrocodone/Acetaminophen [Hydrocodon-Acetaminophen 5-325] 5 - 325 mg PO QID PRN 02/01/17 [History] Insulin Aspart [Novolog Flexpen] 8 unit SUBCUT TIDAC 02/01/17 [History] predniSONE 10 mg PO DAILY 02/01/17 [History] Azithromycin 500 mg PO DAILY #5 tablet 03/14/17 [Rx] Past Medical History HEENT History: Reports: Hard of Hearing Cardiovascular History: Reports: Hypertension Respiratory History: Reports: Asthma, COPD, Other (See Below) Other Respiratory History: on home oxygen at 2liters per minute; lung cancer Gastrointestinal History: Reports: GERD. Denies: Cirrhosis Genitourinary History: Reports: None. 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: Neurological History: Reports: Vertigo Other Neuro History: pt reports "small stroke 2016" Psychiatric History: Reports: Anxiety, Depression Other Psychiatric History: claustrophobic Endocrine/Metabolic History: Reports: Diabetes, Type II Hematologic History: Reports: None Immunologic History: Reports: None Oncologic (Cancer) History: Reports: Lung Other Oncologic History: remission for 4 months Dermatologic History: Reports: None - Infectious Disease History Infectious Disease History: Reports: Chicken Pox - Past Surgical History Head Surgeries/Procedures: Reports: None HEENT Surgical History: Reports: None Cardiovascular Surgical History: Reports: Other (See Below) Other Cardiovascular Surgeries/Procedures: Left bracial plastic artery Respiratory Surgical History: Reports: Other (See Below) Other Respiratory Surgeries/Procedures: lung surgery- hx lung cancer GI Surgical History: Reports: Appendectomy, Cholecystectomy Endocrine Surgical History: Reports: None Neurological Surgical History: Reports: None Oncologic Surgical History: Reports: None Social & Family History - Family History Family Medical History: Noncontributory - Tobacco Use Smoking Status *Q: Former Smoker Years of Tobacco use: 25 Used Tobacco, but Quit: Yes Month Tobacco Last Used: 2001 Second Hand Smoke Exposure: No - Caffeine Use Caffeine Use: Reports: Coffee Caffeine Use Comment: 1-2drinks/day - Alcohol Use Days Per Week of Alcohol Use: 0 - Recreational Drug Use Recreational Drug Use: No H&P Review of Systems - Review of Systems: Review Of Systems: See Below General: Denies: Fever, Chills HEENT: Denies: Ear Pain, Headaches Pulmonary: Reports: Shortness of Breath, Wheezing, Cough, Sputum Cardiovascular: Denies: Chest Pain (she feels that her breathing is "tight". ) Gastrointestinal: Denies: Abdominal Pain, Black Stool, Bloody Stool, Difficulty Swallowing, Hematemesis, Hematochezia, Melena Genitourinary: Denies: Dysuria, Hematuria Exam - Exam Exam: See Below - Vital Signs Vital Signs: Last Vital Signs Temp 98 F 09/25/17 15:58 Pulse 100 09/25/17 15:58 Resp 22 H 09/25/17 15:58 BP 140/63 09/25/17 15:58 Pulse Ox 90 L 09/25/17 15:58 Weight: 169.9 kg - Exam Quality Assessment: Supplemental Oxygen General: Alert, Oriented HEENT: Conjunctiva Clear, EOMI, Mucosa Moist & [place] Lungs: Clear to Auscultation, Other (decreased tidal volumes ; prolongation of expiration) Cardiovascular: Regular Rate, Regular Rhythm GI/Abdominal Exam: Soft, Non-Tender (Female) Exam: Deferred Extremities: No Pedal Edema Neurological: Cranial Nerves Intact, Normal Speech Neuro Extensive - Mental Status: Normal Mood/Affect Neuro Extensive - Motor, Sensory, Reflexes: No: Facial palsy (L), Facial Palsy ( R) - Patient Data Lab Results Last 24 hrs: Laboratory Results - last 24 hr 09/25/17 Range/Units 17:28 POC Glucose 129 H (60-110) mg/dL Result Diagrams: 09/25/17 14:44 09/25/17 14:44 *Q Meaningful Use (ADM) - VTE *Q VTE Criteria *Q: - Stroke *Q Stroke Criteria *Q: - AMI *Q AMI Criteria *Q: - Problem List (1) Pneumonia SNOMED Code(s): 733507366 ICD Code: J18.9 - PNEUMONIA, UNSPECIFIED ORGANISM Status: Acute Current Visit: Yes (2) COPD (chronic obstructive pulmonary disease) SNOMED Code(s): 57983641 ICD Code: J44.9 - CHRONIC OBSTRUCTIVE PULMONARY DISEASE, UNSPECIFIED Status : Chronic Priority: High Current Visit: No Qualifiers: COPD type: chronic bronchitis (3) DM II (diabetes mellitus, type II), controlled SNOMED Code(s): 33818429 ICD Code: E11.9 - TYPE 2 DIABETES MELLITUS WITHOUT COMPLICATIONS Status: Chronic Priority: Medium Current Visit: No Qualifiers: Diabetes mellitus complication status: without complication Diabetes mellitus 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 Qualified Code(s): E11.9 - Type 2 diabetes mellitus without complications; 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 (4) History of lung cancer SNOMED Code(s): 901609789 ICD Code: Z85.118 - PERSONAL HISTORY OF MALIGNANT NEOPLASM OF BRONCHUS AND LUNG Status: Chronic Priority: Medium Current Visit: No Problem List Initiated/Reviewed/Updated: Yes Orders Last 24hrs: Active Orders 24 hr Category Date Time Status Blood Glucose Check, Bedside [] QIDACANDBED Care 09/25/17 16:03 Active Insulin Aspart [NovoLOG] Med 09/25/17 17:00 Active See Protocol SUBCUT ACBED Levofloxacin/Dextrose 5%-Water [Levaquin in D5W 750 MG/ Med 09/27/17 17:00 Active 150 ML] 750 mg Premix Bag 1 bag IV Q48H Medication Orders Albuterol/Ipratropium (Duoneb 3.0-0.5 Mg/3 Ml) 3 ml NEB Q4HRRT PRN PRN Reason: Shortness Of Breath/wheezing Sodium Chloride (Normal Saline) 1,000 mls @ 125 mls/hr IV STAT ONE Stop: 09/25/17 23:50 Last Admin: 09/25/17 16:36 Dose: 125 mls/hr Levofloxacin/Dextrose 750 mg/ (Premix) 150 mls @ 100 mls/hr IV Q48H [facility] Insulin Aspart (Novolog) 0 unit SUBCUT ACBED VIJAYA PRN Reason: Protocol Last Admin: 09/25/17 17:42 Dose: Ondansetron HCl (Zofran) 4 mg IVPUSH Q4H PRN PRN Reason: Nausea Assessment/Plan Comment:: 09/25/2017 See orders anticipated discharge within 24 to 48 hours. Aldo Forbes MD
[2017-09-25] MEDS ORDERED: Codeine/guaiFENesin 100-10 MG/5 ML Syrup 5 ML Cup PO PRN (19:43)
[2017-09-25] MEDS: Insulin Glargine,Human Rec. Analog 100 Units/ML 3 ML Pen SUBCUT SCH (20:27)
[2017-09-25] MEDS: Acetaminophen/HYDROcodone 325-5 MG Tab PO PRN (20:28)
[2017-09-25] MEDS ORDERED: SYMBICORT 160/4.5 INH SCH (21:00)
[2017-09-25] MEDS ORDERED: guaiFENesin/Dextromethorphan 100-10 MG/5 ML Soln 10 ML Cup PO PRN (22:34)
[2017-09-25] MEDS: LORazepam 1 MG Tab PO SCH (23:23)
[2017-09-26] MEDS: Acetaminophen/HYDROcodone 325-5 MG Tab PO PRN (03:08)
[2017-09-26] MEDS: LORazepam 1 MG Tab PO SCH (06:29)
[2017-09-26] MEDS: Insulin Aspart 100 Units/ML 3 ML Pen SUBCUT SCH (06:30)
[2017-09-26 06:34] LABS: CHLORIDE,CL 104 mmol/L (98-110); SODIUM,NA 137 mmol/L (136-146)
[2017-09-26] MEDS ORDERED: Omeprazole 20 MG Cap.CR PO SCH (07:30)
[2017-09-26 08:31] VITALS: BP 160/66
[2017-09-26] MEDS: Insulin Glargine,Human Rec. Analog 100 Units/ML 3 ML Pen SUBCUT SCH (08:47)
[2017-09-26] MEDS ORDERED: Furosemide 20 MG Tab PO SCH (09:00)
[2017-09-26] MEDS ORDERED: predniSONE 10 MG Tab PO SCH (09:00)
[2017-09-26] MEDS ORDERED: atorvaSTATin 10 MG Tab PO SCH (09:00)
[2017-09-26] MEDS ORDERED: Losartan 50 MG Tab PO SCH (09:00)
--- NOTE | 2017-09-26 09:34 | PCM.DCSUM1 ---
Discharge Summary - Discharge Data Discharge Date: 09/26/17 Discharge Disposition: Home, Self-Care 01 Condition: Good - Patient Summary/Data Hospital Course: 77 yo female who presented with cough and chest s-ray suggestive of pneumonia. She was given levaquin and monitored overnight. This morning she reports feeling much better and is requesting discharge. She was discharged home with oral levaquin 750mg q48hrs with three tablets. Her son will be staying with her at home. - Patient Instructions Diet: Diabetic Diet Activity: As Tolerated Notify Provider of: Fever, Nausea and/or Vomiting - Discharge Plan Prescriptions/Med Rec: Levofloxacin [Levaquin] 750 mg PO Q48H #3 tablet Home Medications: Home Meds Aclidinium [place] [Tudorza Pressair] 1 puff INH BID 11/09/14 [History] Esomeprazole Magnesium [Nexium] 40 mg PO DAILY 11/09/14 [History] Furosemide [Lasix] 20 mg PO DAILY 11/09/14 [History] Insulin Glarg,Human.Rec.Analog [Lantus] 12 units SUBCUT BID 11/09/14 [History] LORazepam 1 mg PO QID 11/09/14 [History] Levalbuterol HCl 1.25 mg INH QID PRN 11/09/14 [History] Losartan [Cozaar] 50 mg PO DAILY 11/09/14 [History] atorvaSTATin [Lipitor] 5 mg PO DAILY 11/09/14 [History] diphenhydrAMINE [Benadryl] 50 mg PO QID 11/09/14 [History] Budesonide/Formoterol [Symbicort 160-4.5 MCG] 2 inh IH BID 02/01/17 [History] Hydrocodone/Acetaminophen [Hydrocodon-Acetaminophen 5-325] 5 - 325 mg PO QID PRN 02/01/17 [History] Insulin Aspart [Novolog Flexpen] 8 unit SUBCUT TIDAC 02/01/17 [History] predniSONE 10 mg PO DAILY 02/01/17 [History] Levofloxacin [Levaquin] 750 mg PO Q48H #3 tablet 09/26/17 [Rx] Patient Handouts: Levofloxacin tablets, Community-Acquired Pneumonia, Adult, [id number] Referrals: Micha Dai MD [Primary Care Provider] - (Please call clinic for follow up appointment in 1 week. ) - Patient Data Vitals - Most Recent: Last Vital Signs Temp 36.4 C 09/26/17 08:00 Pulse 91 09/26/17 08:00 Resp 20 09/26/17 08:00 BP 160/66 H 09/26/17 08:45 Pulse Ox 94 L 09/26/17 08:00 Weight - Most Recent: 169.9 kg I&O - Last 24 hours: Intake & Output 09/25/17 09/26/17 09/26/17 22:59 06:59 14:59 Intake Total 1300 Output Total 820 Balance 480 Lab Results - Last 24 hrs: Laboratory Results - last 24 hr 09/25/17 09/25/17 09/26/17 Range/Units 17:28 20:19 05:43 WBC (4.0-11.0) K/uL RBC (4.30-5.90) M/uL Hgb (12.0-16.0) g/dL Hct (36.0-46.0) % MCV (80.0-98.0) fL MCH (27.0-32.0) pg MCHC (31.0-37.0) g/dL RDW Std Deviation (28.0-62.0) fl RDW Coeff of Lucrecia (11.0-15.0) % Plt Count (150-400) K/uL MPV (7.40-12.00) fL Neut % (Auto) (48.0-80.0) % Lymph % (Auto) (16.0-40.0) % [place] % (Auto) (0.0-15.0) % Eos % (Auto) (0.0-7.0) % Baso % (Auto) (0.0-1.5) % Neut # (Auto) (1.4-5.7) K/uL Lymph # (Auto) (0.6-2.4) K/uL [place] # (Auto) (0.0-0.8) K/uL Eos # (Auto) (0.0-0.7) K/uL Baso # (Auto) (0.0-0.1) K/uL Nucleated RBC % /100WBC Nucleated RBCs # K/uL Sodium (136-146) mmol/L Potassium (3.5-5.1) mmol/L Chloride (98-110) mmol/L Carbon Dioxide (21-31) mmol/L BUN (6.0-23.0) mg/dL Creatinine (0.6-1.5) mg/dL Est Cr Clr Drug Dosing mL/min Estimated GFR (MDRD) ml/min Glucose (60-110) mg/dL POC Glucose 129 H 206 H 201 H (60-110) mg/dL Calcium (8.8-10.8) mg/dL 09/26/17 09/26/17 Range/Units 05:50 05:50 WBC 9.86 (4.0-11.0) K/uL RBC 4.17 L (4.30-5.90) M/uL Hgb 12.8 (12.0-16.0) g/dL Hct 39.3 (36.0-46.0) % MCV 94.2 (80.0-98.0) fL MCH 30.7 (27.0-32.0) pg MCHC 32.6 (31.0-37.0) g/dL RDW Std Deviation 52.5 (28.0-62.0) fl RDW Coeff of Lucrecia 15 (11.0-15.0) % Plt Count 270 (150-400) K/uL MPV 10.70 (7.40-12.00) fL Neut % (Auto) 87.2 H (48.0-80.0) % Lymph % (Auto) 11.4 L (16.0-40.0) % [place] % (Auto) 1.3 (0.0-15.0) % Eos % (Auto) 0.0 (0.0-7.0) % Baso % (Auto) 0.1 (0.0-1.5) % Neut # (Auto) 8.6 H (1.4-5.7) K/uL Lymph # (Auto) 1.1 (0.6-2.4) K/uL [place] # (Auto) 0.1 (0.0-0.8) K/uL Eos # (Auto) 0.0 (0.0-0.7) K/uL Baso # (Auto) 0.0 (0.0-0.1) K/uL Nucleated RBC % 0.0 /100WBC Nucleated RBCs # 0 K/uL Sodium 137 (136-146) mmol/L Potassium 4.4 (3.5-5.1) mmol/L Chloride 104 (98-110) mmol/L Carbon Dioxide 22 (21-31) mmol/L BUN 16 (6.0-23.0) mg/dL Creatinine 0.9 (0.6-1.5) mg/dL Est Cr Clr Drug Dosing 42.06 mL/min Estimated GFR (MDRD) > 60.0 ml/min Glucose 224 H (60-110) mg/dL POC Glucose (60-110) mg/dL Calcium 9.0 (8.8-10.8) mg/dL Med Orders - Current: Current Medications Hydrocodone Bitart/Acetaminophen ([place] 325-5 Mg) 1 tab PO QID PRN PRN Reason: Pain Last Admin: 09/26/17 03:08 Dose: 1 tab Albuterol/Ipratropium (Duoneb 3.0-0.5 Mg/3 Ml) 3 ml NEB Q4HRRT PRN PRN Reason: Shortness Of Breath/wheezing Atorvastatin Calcium (Lipitor) [address] [facility] Last Admin: 09/26/17 08:44 Dose: 5 mg Furosemide (Lasix) [address] [facility] Last Admin: 09/26/17 08:45 Dose: 20 mg Guaifenesin/Dextromethorphan (Robitussin Dm) 10 ml PO Q6H PRN PRN Reason: Cough Last Admin: 09/25/17 23:23 Dose: 10 ml Levofloxacin/Dextrose 750 mg/ (Premix) 150 mls @ 100 mls/hr IV Q48H [facility] Insulin Aspart (Novolog) [address] [facility] PRN Reason: Protocol Last Admin: 09/26/17 06:30 Dose: 4 units Insulin Glargine (Lantus Solostar) [address] [facility] Last Admin: 09/26/17 08:47 Dose: 12 units Levalbuterol HCl (Xopenex) 1.25 mg INH QID PRN PRN Reason: Shortness of Breath Lorazepam (Ativan) [address] [facility] Last Admin: 09/26/17 06:29 Dose: Not Given Losartan Potassium (Cozaar) [address] [facility] Last Admin: 09/26/17 08:45 Dose: 50 mg Omeprazole (Omeprazole) [address] [facility] Last Admin: 09/26/17 06:31 Dose: 20 mg Ondansetron HCl (Zofran) 4 mg IVPUSH Q4H PRN PRN Reason: Nausea Symbicort 160/4.[address] [facility] Last Admin: 09/26/17 08:59 Dose: Not Given Prednisone (Prednisone) [address] [facility] Last Admin: 09/26/17 08:45 Dose: 10 mg Discontinued Medications Albuterol/Ipratropium (Duoneb 3.0-0.5 Mg/3 Ml) 3 ml NEB ONETIME ONE Stop: 09/25/17 15:45 Last Admin: 09/25/17 15:52 Dose: 3 ml Guaifenesin/Codeine Phosphate (Robitussin Ac) 5 ml PO Q4H PRN PRN Reason: Cough Sodium Chloride (Normal Saline) 1,000 mls @ 125 mls/hr IV STAT ONE Stop: 09/25/17 23:50 Last Admin: 09/25/17 16:36 Dose: 125 mls/hr Levofloxacin/Dextrose 750 mg/ (Premix) 150 mls @ 100 mls/hr IV ONETIME ONE Stop: 09/25/17 17:27 Last Admin: 09/25/17 16:34 Dose: 100 mls/hr Methylprednisolone Sodium Succinate (Solu-Medrol) 125 mg IVPUSH ONETIME ONE Stop: 09/25/17 16:03 Last Admin: 09/25/17 16:34 Dose: 125 mg *Q Meaningful Use (DIS) - VTE *Q VTE Criteria *Q: - Stroke *Q Stroke Criteria *Q: - AMI *Q AMI Criteria *Q:
--- NOTE | 2017-09-27 15:55 | CR ---
EXAM DATE: 09/25/17 PATIENT'S AGE: 77 Patient: SEB WALKER Facility: [place], [place] Site . Site : 1940 Study: XRay Chest [id number] 3:06:04 PM Ordering Physician: Doctor Martini Final Report: Indication: Pain. Shortness of breath. Technique: Two-view chest. Comparison: September 08, 2017. Findings: New faint opacity left upper lobe likely infectious or inflammatory. Faint opacity at the right lung base laterally potentially atelectatic in nature. Overall heart size is within normal limits. There are no pleural effusions. Vascular calcifications within the aorta. Impression: New faint infiltrate in the left upper lobe likely infectious or inflammatory. Clinical correlation and radiographic follow up recommended. Dictated by Oj Villafana MD @ Sep 25 2017 3:08PM (Electronic Signature) Report Signed by Proxy. GUERO
[2017-09-27] MEDS ORDERED: Levofloxacin/Dextrose 5%-Water 750 MG in Premix Bag 1 BAG IV SCH (17:00)
== END 2017-09-26 10:35 | disposition home or self-care (01) ==
LOC: MW.ED 13:45 → MW.MS 15:58
PROVIDERS: ADMIT Family Medicine; ATTEND Family Medicine
DX: J44.0 Chronic obstructive pulmonary disease with (acute) lower respiratory infection (principal); J18.9 Pneumonia, unspecified organism; I10 Essential (primary) hypertension; K21.9 Gastro-esophageal reflux disease without esophagitis; F41.9 Anxiety disorder, unspecified; F32.9 Major depressive disorder, single episode, unspecified; F40.240 Claustrophobia; Z79.899 Other long term (current) drug therapy; Z79.4 Long term (current) use of insulin; Z88.5 Allergy status to narcotic agent; Z88.0 Allergy status to penicillin; Z91.013 Allergy to seafood; Z88.7 Allergy status to serum and vaccine; Z91.018 Allergy to other foods; Z88.4 Allergy status to anesthetic agent; Z86.73 Personal history of transient ischemic attack (TIA), and cerebral infarction without residual deficits; Z85.118 Personal history of other malignant neoplasm of bronchus and lung; Z98.890 Other specified postprocedural states; Z90.49 Acquired absence of other specified parts of digestive tract; Z87.891 Personal history of nicotine dependence
CPT/HCPCS: 36415; 71020; 80048; 80053; 81001; 82962; 83605; 84484; 85025; 87040; 87086; 93005; 94640; 96365; 96375; 99285; A9270; J1815; J1956; J2930; J7040; 96361; 96374; 99283; G0378

== ENCOUNTER 2017-10-24 09:25 | Emergency (ER) | payer MEDICARE, OTHER ==
[2017-10-24] MEDS ORDERED: Albuterol/Ipratropium 3.0-0.5 MG/3 ML Neb Soln NEB ONE (09:39)
[2017-10-24] MEDS ORDERED: methylPREDNISolone Sodium Succinate 125 MG/2 ML SDV IVPUSH ONE (09:40)
[2017-10-24] MEDS ORDERED: Sodium Chloride 0.9% 2.5 ML Syringe FLUSH PRN (09:40)
[2017-10-24] MEDS ORDERED: Sodium Chloride 0.9% 10 ML Syringe FLUSH PRN (09:40)
[2017-10-24] MEDS ORDERED: Aspirin 325 MG Tab PO ONE (09:53)
--- NOTE | 2017-10-24 09:53 | EDM.PDOC ---
ED HPI GENERAL MEDICAL PROBLEM - General Chief Complaint: Respiratory Problem Stated Complaint: SHORTNESS OF BREATH Time Seen by Provider: 10/24/17 09:36 Source of Information: Reports: Patient History Limitations: Reports: No Limitations - History of Present Illness INITIAL COMMENTS - FREE TEXT/NARRATIVE: History of present illness: []Patient usually gets up around 4 or 5 in the morning and this morning slept until 7 AM. When he awoke he complained of severe chills and his noted that he was confused not knowing the date or where he worked. This has happened before and was diagnosed with low B12 and a TIA. Patient complains of mild headache any weakness, numbness or tingling. Patient's glucose was 115 prior to arrival. Patient has a history of skin cancer on his scalp and has received radiation for this. Review of systems: As per history of present illness and below otherwise all systems reviewed and negative. Past medical history: As per history of present illness and as reviewed below otherwise noncontributory. Surgical history: As per history of present illness and as reviewed below otherwise noncontributory. Social history: No reported history of drug or alcohol abuse. Family history: As per history of present illness and as reviewed below otherwise noncontributory. Physical exam: General: Well developed, well nourished in NAD HEENT: Atraumatic, normocephalic, pupils reactive, negative for conjunctival pallor or scleral icterus, mucous membranes moist, throat clear, neck supple, nontender, trachea midline. Lungs: Clear to auscultation, breath sounds equal bilaterally, chest nontender. Heart: S1S2, regular, negative for clicks, rubs, or JVD. Abdomen: Soft, nondistended, nontender. Negative for masses or hepatosplenomegaly. Negative for costovertebral tenderness. Pelvis: Stable nontender. Genitourinary: Deferred. Rectal: Deferred. Extremities: Atraumatic, negative for cords or calf pain. Neurovascular unremarkable. Neuro: Awake, alert, states it's 1984. Cranial nerves II through XII unremarkable. Cerebellum unremarkable. Motor and sensory unremarkable throughout. Exam nonfocal. Diagnostics: []Labs normal and x-ray showing atelectasis Therapeutics: []DuoNeb and Solu-Medrol given Impression: []COPD exacerbation Plan: []Follow-up PMD prednisone taper Definitive disposition and diagnosis as appropriate pending reevaluation and review of above. - Related Data Allergies Allergy/AdvReac Type Severity Reaction Status Date / Time aspirin Allergy Rash Verified 10/24/17 10:32 codeine Allergy Airway Verified 10/24/17 09:29 Tightness Influenza Virus Vaccines Allergy Hives Verified 10/24/17 09:29 peas Allergy Rash Verified 10/24/17 09:29 Penicillins Allergy Airway Verified 10/24/17 09:29 Tightness pneumococcal vaccine Allergy Hives Verified 10/24/17 09:29 potato Allergy Rash Verified 10/24/17 09:29 procaine HCl [From Novocain] Allergy Itching Verified 10/24/17 09:29 Tetanus Vaccines and Toxoid Allergy Hives Verified 10/24/17 09:29 wheat Allergy Airway Verified 10/24/17 09:29 Tightness chocolate Allergy Itching Uncoded 09/25/17 14:03 potato starch Allergy Rash Uncoded 09/25/17 14:03 sea food Allergy Rash Uncoded 09/25/17 14:03 tea Allergy Rash Uncoded 09/25/17 14:03 Home Meds: Home Meds Aclidinium [place] [Tudorza Pressair] 1 puff INH BID 11/09/14 [History] Esomeprazole Magnesium [Nexium] 40 mg PO DAILY 11/09/14 [History] Furosemide [Lasix] 20 mg PO DAILY 11/09/14 [History] Insulin Glarg,Human.Rec.Analog [Lantus] 12 units SUBCUT BID 11/09/14 [History] LORazepam 1 mg PO QID 11/09/14 [History] Levalbuterol HCl 1.25 mg INH QID PRN 11/09/14 [History] Losartan [Cozaar] 50 mg PO DAILY 11/09/14 [History] atorvaSTATin [Lipitor] 5 mg PO DAILY 11/09/14 [History] diphenhydrAMINE [Benadryl] 50 mg PO QID 11/09/14 [History] Budesonide/Formoterol [Symbicort 160-4.5 MCG] 2 inh IH BID 02/01/17 [History] Hydrocodone/Acetaminophen [Hydrocodon-Acetaminophen 5-325] 5 - 325 mg PO QID PRN 02/01/17 [History] Insulin Aspart [Novolog Flexpen] 8 unit SUBCUT TIDAC 02/01/17 [History] predniSONE 10 mg PO DAILY 02/01/17 [History] Levofloxacin [Levaquin] 750 mg PO Q48H #3 tablet 09/26/17 [Rx] predniSONE [Prednisone] 10 mg PO ASDIRECTED #1 tab.ds.pk 10/24/17 [Rx] predniSONE [Prednisone] 20 mg PO DAILY #5 tablet 10/24/17 [Rx] Past Medical History HEENT History: Reports: Hard of Hearing Cardiovascular History: Reports: Hypertension Respiratory History: Reports: Asthma, COPD, Other (See Below) Other Respiratory History: on home oxygen at 2liters per minute; lung cancer Gastrointestinal History: Reports: GERD Genitourinary History: Reports: None 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: Reports: 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 History: Reports: None Neurological History: Reports: Vertigo Other Neuro History: pt reports "small stroke 2016" Psychiatric History: Reports: Anxiety, Depression Other Psychiatric History: claustrophobic Endocrine/Metabolic History: Reports: Diabetes, Type II Hematologic History: Reports: None Immunologic History: Reports: None Oncologic (Cancer) History: Reports: Lung Other Oncologic History: remission for 4 months Dermatologic History: Reports: None - Infectious Disease History Infectious Disease History: Reports: Chicken Pox, Measles, Mumps - Past Surgical History Head Surgeries/Procedures: Reports: None HEENT Surgical History: Reports: None Cardiovascular Surgical History: Reports: Other (See Below) Other Cardiovascular Surgeries/Procedures: Left bracial plastic artery Respiratory Surgical History: Reports: Other (See Below) Other Respiratory Surgeries/Procedures: lung surgery- hx lung cancer GI Surgical History: Reports: Appendectomy, Cholecystectomy Endocrine Surgical History: Reports: None Neurological Surgical History: Reports: None 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 Surgical History: Reports: None Oncologic Surgical History: Reports: None Dermatological Surgical History: Reports: None Social & Family History - Family History Family Medical History: Noncontributory - Tobacco Use Smoking Status *Q: Former Smoker Years of Tobacco use: 25 Used Tobacco, but Quit: Yes Month Tobacco Last Used: 1 Second Hand Smoke Exposure: No - Caffeine Use Caffeine Use: Reports: Coffee Caffeine Use Comment: 1-2drinks/day - Alcohol Use Days Per Week of Alcohol Use: 0 - Recreational Drug Use Recreational Drug Use: No ED ROS GENERAL - Review of Systems Review Of Systems: See Below (See history of present illness) ED EXAM, GENERAL - Physical Exam Exam: See Below (See history of present illness) Course - Vital Signs Last Recorded V/S: Last Vital Signs Temp 98.4 F 10/24/17 09:29 Pulse 102 H 10/24/17 09:35 Resp 22 H 10/24/17 09:35 BP 120/55 L 10/24/17 09:35 Pulse Ox 94 L 10/24/17 09:35 - Orders/Labs/Meds Orders: Active Orders 24 hr Category Date Time Status EKG Documentation Completion [RC] STAT Care 10/24/17 09:30 Active RT Aerosol Therapy [RC] ASDIRECTED Care 10/24/17 09:41 Active RT Aerosol Therapy [RC] ASDIRECTED Care 10/24/17 11:32 Active Chest 1V Frontal [CR] Stat Exams 10/24/17 09:40 Taken Sodium Chloride 0.9% [Saline Flush] Med 10/24/17 09:40 Active 10 ml FLUSH ASDIRECTED PRN Sodium Chloride 0.9% [Saline Flush] Med 10/24/17 09:40 Active 2.5 ml FLUSH ASDIRECTED PRN Saline Lock Insert [OM.PC] Stat Oth 10/24/17 09:40 Ordered Medication Orders Sodium Chloride (Saline Flush) 10 ml FLUSH ASDIRECTED PRN PRN Reason: Keep Vein Open Sodium Chloride (Saline Flush) 2.5 ml FLUSH ASDIRECTED PRN PRN Reason: Keep Vein Open Labs: Laboratory Tests 10/24/17 10/24/17 10/24/17 Range/Units 10:00 10:00 10:00 WBC 9.87 (4.0-11.0) K/uL RBC 3.98 L (4.30-5.90) M/uL Hgb 12.3 (12.0-16.0) g/dL Hct 37.9 (36.0-46.0) % MCV 95.2 (80.0-98.0) fL MCH 30.9 (27.0-32.0) pg MCHC 32.5 (31.0-37.0) g/dL RDW Std Deviation 53.1 (28.0-62.0) fl RDW Coeff of Lucrecia 15 (11.0-15.0) % Plt Count 247 (150-400) K/uL MPV 10.40 (7.40-12.00) fL Neut % (Auto) 72.3 (48.0-80.0) % Lymph % (Auto) 14.1 L (16.0-40.0) % [place] % (Auto) 6.7 (0.0-15.0) % Eos % (Auto) 6.3 (0.0-7.0) % Baso % (Auto) 0.6 (0.0-1.5) % Neut # (Auto) 7.1 H (1.4-5.7) K/uL Lymph # (Auto) 1.4 (0.6-2.4) K/uL [place] # (Auto) 0.7 (0.0-0.8) K/uL Eos # (Auto) 0.6 (0.0-0.7) K/uL Baso # (Auto) 0.1 (0.0-0.1) K/uL Nucleated RBC % 0.0 /100WBC Nucleated RBCs # 0 K/uL Sodium 141 (136-146) mmol/L Potassium 4.5 (3.5-5.1) mmol/L Chloride 103 (98-110) mmol/L Carbon Dioxide 27 (21-31) mmol/L BUN 17 (6.0-23.0) mg/dL Creatinine 1.0 (0.6-1.5) mg/dL Est Cr Clr Drug Dosing 36.11 mL/min Estimated GFR (MDRD) 53.9 ml/min Glucose 150 H (60-110) mg/dL Calcium 9.4 (8.8-10.8) mg/dL Total Bilirubin 0.3 (0.1-1.5) mg/dL AST 19 (5-40) IU/L ALT 18 (8-54) IU/L Alkaline Phosphatase 94 (40-150) Troponin I < 0.10 (0.0-0.29) NG/ML B-Natriuretic Peptide 35 (<100) PG/ML Total Protein 6.5 (6.0-8.0) g/dL Albumin 3.8 (3.4-4.8) g/dL Globulin 2.7 (2.0-3.5) g/dL Albumin/Globulin Ratio 1.4 (1.3-2.8) Meds: Medications Generic Name Dose Route Start Last Admin Trade Name Freq PRN Reason Stop Dose Admin Sodium Chloride 10 ml 01/07/18 09:40 Saline Flush FLUSH ASDIRECTED PRN Keep Vein Open Sodium Chloride 2.5 ml 10/24/17 09:40 Saline Flush FLUSH ASDIRECTED PRN Keep Vein Open Discontinued Medications Generic Name Dose Route Start Last Admin Trade Name Kendall PRN Reason Stop Dose Admin Albuterol 5 mg 10/24/17 11:32 Proventil Neb Soln NEB 10/24/17 11:33 ONETIME ONE Albuterol/Ipratropium 3 ml 10/24/17 09:39 10/24/17 09:46 Duoneb 3.0-0.5 Mg/3 Ml NEB 10/24/17 09:40 3 ml ONETIME ONE Administration Aspirin 325 mg 10/24/17 09:53 Aspirin PO 10/24/17 09:54 ONETIME ONE Methylprednisolone Sodium Succinate 125 mg 10/24/17 09:40 Solu-Medrol IVPUSH 10/24/17 09:41 ONETIME ONE Departure - Departure Time of Disposition: 12:01 Disposition: Home, Self-Care 01 Condition: Good Clinical Impression: COPD exacerbation - Discharge Information Prescriptions: predniSONE [Prednisone] 10 mg PO ASDIRECTED #1 tab.ds.pk predniSONE [Prednisone] 20 mg PO DAILY #5 tablet Referrals: Micha Dai MD [Primary Care Provider] - Forms: ED Department Discharge - My Orders Last 24 Hours: My Active Orders 10/24/17 09:30 EKG Documentation Completion [RC] STAT 10/24/17 09:40 Chest 1V Frontal [CR] Stat Sodium Chloride 0.9% [Saline Flush] 10 ml FLUSH ASDIRECTED PRN Sodium Chloride 0.9% [Saline Flush] 2.5 ml FLUSH ASDIRECTED PRN Saline Lock Insert [OM.PC] Stat 10/24/17 09:41 RT Aerosol Therapy [RC] ASDIRECTED 10/24/17 11:32 RT Aerosol Therapy [RC] ASDIRECTED - Assessment/Plan Last 24 Hours: My Active Orders 10/24/17 09:30 EKG Documentation Completion [RC] STAT 10/24/17 09:40 Chest 1V Frontal [CR] Stat Sodium Chloride 0.9% [Saline Flush] 10 ml FLUSH ASDIRECTED PRN Sodium Chloride 0.9% [Saline Flush] 2.5 ml FLUSH ASDIRECTED PRN Saline Lock Insert [OM.PC] Stat 10/24/17 09:41 RT Aerosol Therapy [RC] ASDIRECTED 10/24/17 11:32 RT Aerosol Therapy [RC] ASDIRECTED
[2017-10-24 10:42] LABS: CHLORIDE,CL 103 mmol/L (98-110); SODIUM,NA 141 mmol/L (136-146)
[2017-10-24] MEDS ORDERED: Albuterol 0.083% 2.5 MG/3 ML Neb Soln NEB ONE (11:32)
[2017-10-24 20:31] VITALS: BP 142/67
--- NOTE | 2017-10-25 13:23 | CR ---
EXAM DATE: 10/24/17 PATIENT'S AGE: 77 Patient: SEB WALKER Facility: [place], [place] Site . Site : 1940 Study: XRay Chest [id number]/7/[id number] 11:32:55 AM Ordering Physician: Julito Turner Final Report: Indication: Pain/SOB. Technique: Upright portable AP image of the chest. Comparison: None. Findings: Upper left perihilar streaky/reticular opacity, presumably due to minor atelectasis or scarring. Lungs otherwise clear. No pleural effusion. Heart size and pulmonary vasculature within normal limits. No significant bony abnormality. Impression : Upper left perihilar streaky/reticular opacity, presumably due to minor atelectasis or scarring. Dictated by Camilo Rich MD @ Oct 24 2017 11:33AM (Electronic Signature) Report Signed by Proxy. GUERO
--- NOTE | 2017-11-23 07:18 | EDM.PDOC ---
ED HPI GENERAL MEDICAL PROBLEM - General Chief Complaint: Respiratory Problem Stated Complaint: SHORTNESS OF BREATH Time Seen by Provider: 10/24/17 09:36 Source of Information: Reports: Patient History Limitations: Reports: No Limitations - History of Present Illness INITIAL COMMENTS - FREE TEXT/NARRATIVE: History of present illness: []Patient usually gets up around 4 or 5 in the morning and this morning slept until 7 AM. When he awoke he complained of severe chills and his noted that he was confused not knowing the date or where he worked. This has happened before and was diagnosed with low B12 and a TIA. Patient complains of mild headache any weakness, numbness or tingling. Patient's glucose was 115 prior to arrival. Patient has a history of skin cancer on his scalp and has received radiation for this. Review of systems: As per history of present illness and below otherwise all systems reviewed and negative. Past medical history: As per history of present illness and as reviewed below otherwise noncontributory. Surgical history: As per history of present illness and as reviewed below otherwise noncontributory. Social history: No reported history of drug or alcohol abuse. Family history: As per history of present illness and as reviewed below otherwise noncontributory. Physical exam: General: Well developed, well nourished in NAD HEENT: Atraumatic, normocephalic, pupils reactive, negative for conjunctival pallor or scleral icterus, mucous membranes moist, throat clear, neck supple, nontender, trachea midline. Lungs: Clear to auscultation, breath sounds equal bilaterally, chest nontender. Heart: S1S2, regular, negative for clicks, rubs, or JVD. Abdomen: Soft, nondistended, nontender. Negative for masses or hepatosplenomegaly. Negative for costovertebral tenderness. Pelvis: Stable nontender. Genitourinary: Deferred. Rectal: Deferred. Extremities: Atraumatic, negative for cords or calf pain. Neurovascular unremarkable. Neuro: Awake, alert, states it's 1984. Cranial nerves II through XII unremarkable. Cerebellum unremarkable. Motor and sensory unremarkable throughout. Exam nonfocal. Diagnostics: []Labs normal and x-ray showing atelectasis Therapeutics: []DuoNeb and Solu-Medrol given, improved patient prefers to go home labs are normal at this time. Impression: []COPD exacerbation Plan: []Follow-up PMD prednisone taper, return to ER if symptoms worsen or change. Definitive disposition and diagnosis as appropriate pending reevaluation and review of above. - Related Data Allergies Allergy/AdvReac Type Severity Reaction Status Date / Time aspirin Allergy Rash Verified 11/03/17 15:43 codeine Allergy Airway Verified 11/03/17 15:43 Tightness Influenza Virus Vaccines Allergy Hives Verified 11/03/17 15:43 peas Allergy Rash Verified 11/03/17 15:43 Penicillins Allergy Airway Verified 11/03/17 15:43 Tightness pneumococcal vaccine Allergy Hives Verified 11/03/17 15:43 potato Allergy Rash Verified 11/03/17 15:43 procaine HCl [From Novocain] Allergy Itching Verified 11/03/17 15:43 Tetanus Vaccines and Toxoid Allergy Hives Verified 11/03/17 15:43 wheat Allergy Airway Verified 11/03/17 15:43 Tightness chocolate Allergy Itching Uncoded 09/25/17 14:03 potato starch Allergy Rash Uncoded 09/25/17 14:03 sea food Allergy Rash Uncoded 09/25/17 14:03 tea Allergy Rash Uncoded 09/25/17 14:03 Home Meds: Home Meds Esomeprazole Magnesium [Nexium] 40 mg PO DAILY 11/09/14 [History] Furosemide [Lasix] 20 mg PO DAILY 11/09/14 [History] Insulin Glarg,Human.Rec.Analog [Lantus] 12 units SUBCUT BID 11/09/14 [History] LORazepam 1 mg PO QID 11/09/14 [History] Levalbuterol HCl 1.25 mg INH QID PRN 11/09/14 [History] Losartan [Cozaar] 50 mg PO DAILY 11/09/14 [History] diphenhydrAMINE [Benadryl] 50 mg PO QID 11/09/14 [History] Budesonide/Formoterol [Symbicort 160-4.5 MCG] 2 inh IH BID 02/01/17 [History] Insulin Aspart [Novolog Flexpen] 8 unit SUBCUT TIDAC 02/01/17 [History] Hydrocodone/Acetaminophen [Hydrocodon-Acetaminoph 7.5-300] 1 each PO Q6H PRN # 12 tablet 11/06/17 [Rx] Levofloxacin [Levaquin] 750 mg PO DAILY #3 tab 11/06/17 [Rx] Methocarbamol [Robaxin] 750 mg PO Q6H #12 tab 11/06/17 [Rx] Prednisone [IJD: predniSONE] 40 mg PO WITHBREAKFAST #18 tablet 11/06/17 [Rx] Past Medical History HEENT History: Reports: Hard of Hearing Cardiovascular History: Reports: Hypertension Respiratory History: Reports: Asthma, COPD, Other (See Below) Other Respiratory History: on home oxygen at 2liters per minute; lung cancer Gastrointestinal History: Reports: GERD Genitourinary History: Reports: None [employer]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[employer]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: 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 History: Reports: None Neurological History: Reports: Vertigo Other Neuro History: pt reports "small stroke 2016" Psychiatric History: Reports: Anxiety, Depression Other Psychiatric History: claustrophobic Endocrine/Metabolic History: Reports: Diabetes, Type II Hematologic History: Reports: None Immunologic History: Reports: None Oncologic (Cancer) History: Reports: Lung Other Oncologic History: remission for 4 months Dermatologic History: Reports: None - Infectious Disease History Infectious Disease History: Reports: Chicken Pox, Measles, Mumps - Past Surgical History Head Surgeries/Procedures: Reports: None HEENT Surgical History: Reports: None Cardiovascular Surgical History: Reports: Other (See Below) Other Cardiovascular Surgeries/Procedures: Left bracial plastic artery Respiratory Surgical History: Reports: Other (See Below) Other Respiratory Surgeries/Procedures: lung surgery- hx lung cancer GI Surgical History: Reports: Appendectomy, Cholecystectomy Endocrine Surgical History: Reports: None Neurological Surgical History: Reports: None 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 Surgical History: Reports: None Oncologic Surgical History: Reports: None Dermatological Surgical History: Reports: None Social & Family History - Family History Family Medical History: Noncontributory - Tobacco Use Smoking Status *Q: Former Smoker Years of Tobacco use: 25 Used Tobacco, but Quit: Yes Month Tobacco Last Used: 1 Second Hand Smoke Exposure: No - Caffeine Use Caffeine Use: Reports: Coffee Caffeine Use Comment: 1-2drinks/day - Alcohol Use Days Per Week of Alcohol Use: 0 - Recreational Drug Use Recreational Drug Use: No ED ROS GENERAL - Review of Systems Review Of Systems: See Below (See history of present illness) ED EXAM, GENERAL - Physical Exam Exam: See Below (See history of present illness) Free Text/Narrative:: History of present illness: []Patient usually gets up around 4 or 5 in the morning and this morning slept until 7 AM. When he awoke he complained of severe chills and his noted that he was confused not knowing the date or where he worked. This has happened before and was diagnosed with low B12 and a TIA. Patient complains of mild headache any weakness, numbness or tingling. Patient's glucose was 115 prior to arrival. Patient has a history of skin cancer on his scalp and has received radiation for this. Review of systems: As per history of present illness and below otherwise all systems reviewed and negative. Past medical history: As per history of present illness and as reviewed below otherwise noncontributory. Surgical history: As per history of present illness and as reviewed below otherwise noncontributory. Social history: No reported history of drug or alcohol abuse. Family history: As per history of present illness and as reviewed below otherwise noncontributory. Physical exam: General: Well developed, well nourished in NAD HEENT: Atraumatic, normocephalic, pupils reactive, negative for conjunctival pallor or scleral icterus, mucous membranes moist, throat clear, neck supple, nontender, trachea midline. Lungs: Clear to auscultation, breath sounds equal bilaterally, chest nontender. Heart: S1S2, regular, negative for clicks, rubs, or JVD. Abdomen: Soft, nondistended, nontender. Negative for masses or hepatosplenomegaly. Negative for costovertebral tenderness. Pelvis: Stable nontender. Genitourinary: Deferred. Rectal: Deferred. Extremities: Atraumatic, negative for cords or calf pain. Neurovascular unremarkable. Neuro: Awake, alert, states it's 1984. Cranial nerves II through XII unremarkable. Cerebellum unremarkable. Motor and sensory unremarkable throughout. Exam nonfocal. Diagnostics: []Labs normal and x-ray showing atelectasis Therapeutics: []DuoNeb and Solu-Medrol given Impression: []COPD exacerbation Plan: []Follow-up PMD prednisone taper Definitive disposition and diagnosis as appropriate pending reevaluation and review of above. Course - Vital Signs Last Recorded V/S: Last Vital Signs Temp 98.4 F 10/24/17 09:29 Pulse 97 10/24/17 13:00 Resp 20 10/24/17 13:00 BP 142/67 H 10/24/17 13:00 Pulse Ox 95 10/24/17 13:00 - Orders/Labs/Meds Labs: Laboratory Tests 10/24/17 10/24/17 10/24/17 Range/Units 10:00 10:00 10:00 WBC 9.87 (4.0-11.0) K/uL RBC 3.98 L (4.30-5.90) M/uL Hgb 12.3 (12.0-16.0) g/dL Hct 37.9 (36.0-46.0) % MCV 95.2 (80.0-98.0) fL MCH 30.9 (27.0-32.0) pg MCHC 32.5 (31.0-37.0) g/dL RDW Std Deviation 53.1 (28.0-62.0) fl RDW Coeff of Lucrecia 15 (11.0-15.0) % Plt Count 247 (150-400) K/uL MPV 10.40 (7.40-12.00) fL Neut % (Auto) 72.3 (48.0-80.0) % Lymph % (Auto) 14.1 L (16.0-40.0) % [place] % (Auto) 6.7 (0.0-15.0) % Eos % (Auto) 6.3 (0.0-7.0) % Baso % (Auto) 0.6 (0.0-1.5) % Neut # (Auto) 7.1 H (1.4-5.7) K/uL Lymph # (Auto) 1.4 (0.6-2.4) K/uL [place] # (Auto) 0.7 (0.0-0.8) K/uL Eos # (Auto) 0.6 (0.0-0.7) K/uL Baso # (Auto) 0.1 (0.0-0.1) K/uL Nucleated RBC % 0.0 /100WBC Nucleated RBCs # 0 K/uL Sodium 141 (136-146) mmol/L Potassium 4.5 (3.5-5.1) mmol/L Chloride 103 (98-110) mmol/L Carbon Dioxide 27 (21-31) mmol/L BUN 17 (6.0-23.0) mg/dL Creatinine 1.0 (0.6-1.5) mg/dL Est Cr Clr Drug Dosing 36.11 mL/min Estimated GFR (MDRD) 53.9 ml/min Glucose 150 H (60-110) mg/dL Calcium 9.4 (8.8-10.8) mg/dL Total Bilirubin 0.3 (0.1-1.5) mg/dL AST 19 (5-40) IU/L ALT 18 (8-54) IU/L Alkaline Phosphatase 94 (40-150) Troponin I < 0.10 (0.0-0.29) NG/ML B-Natriuretic Peptide 35 (<100) PG/ML Total Protein 6.5 (6.0-8.0) g/dL Albumin 3.8 (3.4-4.8) g/dL Globulin 2.7 (2.0-3.5) g/dL Albumin/Globulin Ratio 1.4 (1.3-2.8) Meds: Medications Discontinued Medications Generic Name Dose Route Start Last Admin Trade Name Freq PRN Reason Stop Dose Admin Albuterol 5 mg 10/24/17 11:32 10/24/17 12:47 Proventil Neb Soln NEB 10/24/17 11:33 5 mg ONETIME ONE Administration Albuterol/Ipratropium 3 ml 10/24/17 09:39 10/24/17 09:46 Duoneb 3.0-0.5 Mg/3 Ml NEB 10/24/17 09:40 3 ml ONETIME ONE Administration Aspirin 325 mg 10/24/17 09:53 10/24/17 12:29 Aspirin PO 10/24/17 09:54 Not Given ONETIME ONE Methylprednisolone Sodium Succinate 125 mg 10/24/17 09:40 10/24/17 12:29 Solu-Medrol IVPUSH 10/24/17 09:41 125 mg ONETIME ONE Administration Sodium Chloride 10 ml 10/24/17 09:40 Saline Flush FLUSH ASDIRECTED PRN Keep Vein Open Sodium Chloride 2.5 ml 10/24/17 09:40 Saline Flush FLUSH ASDIRECTED PRN Keep Vein Open Departure - Departure Time of Disposition: 07:17 Disposition: Home, Self-Care 01 Condition: Good Clinical Impression: COPD exacerbation, COPD exacerbation - Discharge Information Instructions: Chronic Obstructive Pulmonary Disease, [id number] Referrals: Micha Dai MD [Primary Care Provider] - Forms: ED Department Discharge Additional Instructions: The following information is given to patients seen in the emergency department who are being discharged to home. This information is to outline your options for follow-up care. We provide all patients seen in our emergency department with a follow-up referral. The need for follow-up, as well as the timing and circumstances, are variable depending upon the specifics of your emergency department visit. If you don't have a primary care physician on staff, we will provide you with a referral. We always advise you to contact your personal physician following an emergency department visit to inform them of the circumstance of the visit and for follow-up with them and/or the need for any referrals to a consulting specialist. The emergency department will also refer you to a specialist when appropriate. This referral assures that you have the opportunity for follow-up care with a specialist. All of these measure are taken in an effort to provide you with optimal care, which includes your follow-up. Under all circumstances we always encourage you to contact your private physician who remains a resource for coordinating your care. When calling for follow-up care, please make the office aware that this follow-up is from your recent emergency room visit. If for any reason you are refused follow-up, please contact the [facility] Emergency Department at and asked to speak to the emergency department charge nurse. [facility] [address] [place] [id number]
== END 2017-10-24 13:02 | disposition home or self-care (01) ==
LOC: MW.ED 09:25
DX: J44.1 Chronic obstructive pulmonary disease with (acute) exacerbation (principal); K21.9 Gastro-esophageal reflux disease without esophagitis; F32.9 Major depressive disorder, single episode, unspecified; E11.9 Type 2 diabetes mellitus without complications; I10 Essential (primary) hypertension; Z79.4 Long term (current) use of insulin; Z79.2 Long term (current) use of antibiotics; Z88.0 Allergy status to penicillin; Z88.5 Allergy status to narcotic agent; Z88.6 Allergy status to analgesic agent; Z88.7 Allergy status to serum and vaccine; Z91.013 Allergy to seafood; Z91.018 Allergy to other foods
CPT/HCPCS: 36415; 71045; 80053; 83880; 84484; 85025; 93005; 94640; 96374; 99285; J2930

== ENCOUNTER 2017-10-26 12:53 | Inpatient (IN) | payer MEDICARE, OTHER ==
[2017-10-26] MEDS ORDERED: Albuterol/Ipratropium 3.0-0.5 MG/3 ML Neb Soln NEB ONE (13:05)
[2017-10-26] MEDS ORDERED: Sodium Chloride 0.9% 2.5 ML Syringe FLUSH PRN ×2 (13:05→13:07)
[2017-10-26] MEDS ORDERED: Sodium Chloride 0.9% 10 ML Syringe FLUSH PRN ×2 (13:05→13:07)
[2017-10-26] MEDS ORDERED: Levofloxacin/Dextrose 5%-Water 500 MG in Premix Bag 1 BAG IV ONE (13:29)
--- NOTE | 2017-10-26 13:53 | CR ---
EXAMINATION: Portable chest radiograph. HISTORY: Shortness of breath. Comparison: 09/25/2017 FINDINGS: The trachea is midline. The cardiomediastinal silhouette is within normal limits. There is a stable a alyson of left suprahilar scarring, grossly unchanged. Chronic interstitial prominence is noted. Mild bl unting of the right costophrenic angle also unchanged. Osseous structures appear unremarkable. IMPRESSION: No acute cardiopulmonary process.
[2017-10-26 14:18] LABS: CHLORIDE,CL 102 mmol/L (98-110); SODIUM,NA 140 mmol/L (136-146)
[2017-10-26] MEDS ORDERED: Albuterol 0.083% 2.5 MG/3 ML Neb Soln NEB PRN (17:00)
--- NOTE | 2017-10-26 17:18 | PCM.HP ---
H&P History of Present Illness - General Date of Service: 10/26/17 Admit Problem/Dx: Admission Diagnosis/Problem Admission Diagnosis/Problem COPD, Severe chronic obstructive pulmonary disease Source of Information: Patient, Family (daughter at bedside) History Limitations: Reports: No Limitations - History of Present Illness Initial Comments - Free Text/Narative: This 77 year old female with pmh of DM type 2, oxygen dependent COPD, HTN, anxiety, depression, and history of lung ca presented to the ED today with worsening SOB. She reports this has progressively worsened over the last 2 weeks. She was in the ED a couple days ago and was sent home. She reports having a cough which is non productive. She denies URI symptoms such as sore throat, sinus congestion or ear pain. She reports having pleuritic chest pain when she coughs. She uses 3 L NC at home at all times. She has a history of tobacco use but quit 14 years ago. She recently went through radiation treatment for lung cancer and was just cleared this Wednesday for being cancer free. She reports she is using inhalers at home appropriately. Nursing in ED noted, she has no portable oxygen, so when she leaves her house she is without oxygen. She didn't get the influenza vaccine due to allergies. In the ED slight leukocytosis noted, 13,260, NA 140, BUN 24, Cr 1.0 K+4.7, glucose 147, troponin negative. CXR revealed no acute cardiopulmonary process, no infiltrate. BC were obtained. And PICC line ordered due to poor IV access. She was treated with duonebs and Levaquin in ED. She will be admitted for COPD exacerbation and suspected bronchitis. PCP, Dr Dai. Back Pain Pain Score (Numeric/FACES): 8 - Related Data Allergies/Adverse Reactions: Allergies Allergy/AdvReac Type Severity Reaction Status Date / Time aspirin Allergy Rash Verified 10/24/17 10:32 codeine Allergy Airway Verified 10/24/17 09:29 Tightness Influenza Virus Vaccines Allergy Hives Verified 10/24/17 09:29 peas Allergy Rash Verified 10/24/17 09:29 Penicillins Allergy Airway Verified 10/24/17 09:29 Tightness pneumococcal vaccine Allergy Hives Verified 10/24/17 09:29 potato Allergy Rash Verified 10/24/17 09:29 procaine HCl [From Novocain] Allergy Itching Verified 10/24/17 09:29 Tetanus Vaccines and Toxoid Allergy Hives Verified 10/24/17 09:29 wheat Allergy Airway Verified 10/24/17 09:29 Tightness chocolate Allergy Itching Uncoded 09/25/17 14:03 potato starch Allergy Rash Uncoded 09/25/17 14:03 sea food Allergy Rash Uncoded 09/25/17 14:03 tea Allergy Rash Uncoded 09/25/17 14:03 Home Medications: Home Meds Aclidinium [place] [Tudorza Pressair] 1 puff INH BID 11/09/14 [History] Esomeprazole Magnesium [Nexium] 40 mg PO DAILY 11/09/14 [History] Furosemide [Lasix] 20 mg PO DAILY 11/09/14 [History] Insulin Glarg,Human.Rec.Analog [Lantus] 12 units SUBCUT BID 11/09/14 [History] LORazepam 1 mg PO QID 11/09/14 [History] Levalbuterol HCl 1.25 mg INH QID PRN 11/09/14 [History] Losartan [Cozaar] 50 mg PO DAILY 11/09/14 [History] atorvaSTATin [Lipitor] 5 mg PO DAILY 11/09/14 [History] diphenhydrAMINE [Benadryl] 50 mg PO QID 11/09/14 [History] Budesonide/Formoterol [Symbicort 160-4.5 MCG] 2 inh IH BID 02/01/17 [History] Hydrocodone/Acetaminophen [Hydrocodon-Acetaminophen 5-325] 5 - 325 mg PO QID PRN 02/01/17 [History] Insulin Aspart [Novolog Flexpen] 8 unit SUBCUT TIDAC 02/01/17 [History] predniSONE 10 mg PO DAILY 02/01/17 [History] Levofloxacin [Levaquin] 750 mg PO Q48H #3 tablet 09/26/17 [Rx] predniSONE [Prednisone] 10 mg PO ASDIRECTED #1 tab.ds.pk 10/24/17 [Rx] predniSONE [Prednisone] 20 mg PO DAILY #5 tablet 10/24/17 [Rx] Past Medical History HEENT History: Reports: Hard of Hearing Cardiovascular History: Reports: Hypertension. Denies: Afib, Blood Clots/VTE/ DVT, CAD, Heart Failure Respiratory History: Reports: Asthma, COPD, Other (See Below) Other Respiratory History: on home oxygen at 3liters per minute; lung cancer Gastrointestinal History: Reports: GERD Genitourinary History: Reports: None. 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: 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 History: Reports: None Neurological History: Reports: Vertigo Other Neuro History: pt reports "small stroke 2016" Psychiatric History: Reports: Anxiety, Depression Other Psychiatric History: claustrophobic Endocrine/Metabolic History: Reports: Diabetes, Type II Hematologic History: Reports: None Immunologic History: Reports: None Oncologic (Cancer) History: Reports: Lung Other Oncologic History: remission for 4 months Dermatologic History: Reports: None - Infectious Disease History Infectious Disease History: Reports: Chicken Pox, Measles, Mumps - Past Surgical History Head Surgeries/Procedures: Reports: None HEENT Surgical History: Reports: None Cardiovascular Surgical History: Reports: Other (See Below) Other Cardiovascular Surgeries/Procedures: Left bracial plastic artery Respiratory Surgical History: Reports: Other (See Below) Other Respiratory Surgeries/Procedures: lung surgery- hx lung cancer GI Surgical History: Reports: Appendectomy, Cholecystectomy Endocrine Surgical History: Reports: None Neurological Surgical History: Reports: None 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 Surgical History: Reports: None Oncologic Surgical History: Reports: None Dermatological Surgical History: Reports: None Social & Family History - Family History Family Medical History: Noncontributory - Tobacco Use Smoking Status *Q: Former Smoker Years of Tobacco use: 25 Used Tobacco, but Quit: Yes Month Tobacco Last Used: 14yrs ago Second Hand Smoke Exposure: No - Caffeine Use Caffeine Use: Reports: Coffee Caffeine Use Comment: 1-2drinks/day - Alcohol Use Days Per Week of Alcohol Use: 0 - Recreational Drug Use Recreational Drug Use: No - Living Situation & Occupation Living situation: Reports: with Family Occupation: Retired H&P Review of Systems - Review of Systems: Review Of Systems: See Below General: Reports: No Symptoms. Denies: Fever, Chills, Malaise, Weakness, Fatigue HEENT: Reports: No Symptoms. Denies: Headaches, Sinus Congestion, Sore Throat Pulmonary: Reports: Shortness of Breath, Wheezing, Pleuritic Chest Pain, Cough. Denies: Sputum, Hemoptysis Cardiovascular: Reports: Dyspnea on Exertion. Denies: Chest Pain, Palpitations , Lightheadedness Gastrointestinal: Reports: No Symptoms. Denies: Abdominal Pain, Black Stool, Bloody Stool, Flatus, Nausea, Vomiting Genitourinary: Reports: No Symptoms. Denies: Dysuria, Frequency, Burning, Pain , Urgency 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: Reports: No Symptoms, Back Pain (chronic). Denies: Neck Pain Psychiatric: Reports: No Symptoms. Denies: Confusion Neurological: Reports: No Symptoms. Denies: Confusion Exam - Exam Exam: See Below - Vital Signs Vital Signs: Last Vital Signs Temp 97.6 F 10/26/17 12:57 Pulse 112 H 10/26/17 12:57 Resp 28 H 10/26/17 12:57 BP 171/78 H 10/26/17 12:57 Pulse Ox 95 10/26/17 12:57 - Exam General: Alert, Oriented, Cooperative HEENT: Conjunctiva Clear, Mucosa Moist & [place], Normal Nasal Septum Neck: Trachea Midline Lungs: Rhonchi, Wheezing (throughout). No: Normal Respiratory Effort (labored breathing noted) Cardiovascular: Regular Rate, Regular Rhythm GI/Abdominal Exam: Normal Bowel Sounds, Soft, Non-Tender, No Organomegaly, No Distention, No Abnormal Bruit, No Mass, Pelvis Stable Back Exam: Normal Inspection, Full Range of Motion, NT Extremities: Normal Range of Motion, Non-Tender, Pedal Edema (+1 non pitting edema to bilateral lower legs.) Neuro Extensive - Mental Status: Alert, Oriented x3, Normal Mood/Affect, Normal Cognition Psychiatric: Alert, Normal Affect, Normal Mood - Patient Data Result Diagrams: 10/26/17 13:50 10/26/17 13:50 *Q Meaningful Use (ADM) - VTE *Q VTE Criteria *Q: - Stroke *Q Stroke Criteria *Q: - AMI *Q AMI Criteria *Q: - Problem List (1) COPD exacerbation SNOMED Code(s): 349571231048764 ICD Code: J44.1 - CHRONIC OBSTRUCTIVE PULMONARY DISEASE W (ACUTE) EXACERBATION Status: Acute Current Visit: No (2) HTN (hypertension) SNOMED Code(s): 60159198 ICD Code: I10 - ESSENTIAL (PRIMARY) HYPERTENSION Status: Chronic Current Visit: Yes Qualifiers: Hypertension type: essential hypertension Qualified Code(s): I10 - Essential (primary) hypertension (3) Anxiety SNOMED Code(s): 45461066 ICD Code: F41.9 - ANXIETY DISORDER, UNSPECIFIED Status: Chronic Current Visit: Yes (4) Depressed SNOMED Code(s): 66150153 ICD Code: F32.9 - MAJOR DEPRESSIVE DISORDER, SINGLE EPISODE, UNSPECIFIED Status: Chronic Current Visit: Yes (5) DM II (diabetes mellitus, type II), controlled SNOMED Code(s): 65812143 ICD Code: E11.9 - TYPE 2 DIABETES MELLITUS WITHOUT COMPLICATIONS Status: Chronic Priority: Medium Current Visit: No Qualifiers: Diabetes mellitus complication status: without complication 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: with senior living use Qualified Code(s): E11.9 - Type 2 diabetes mellitus without complications; Z79.4 - [facility] (current) use of insulin; Z79.4 - [facility] (current) use of insulin; 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; Z79.4 - [facility] (current) use of insulin (6) History of lung cancer SNOMED Code(s): 153293185 ICD Code: Z85.118 - PERSONAL HISTORY OF MALIGNANT NEOPLASM OF BRONCHUS AND LUNG Status: Chronic Priority: Medium Current Visit: No Problem List Initiated/Reviewed/Updated: Yes Orders Last 24hrs: Active Orders 24 hr Category Date Time Status Blood Glucose Check, Bedside [RC] TIDAC Care 10/26/17 17:05 Ordered Oxygen Therapy [RC] PRN Care 10/26/17 17:00 Ordered RT Aerosol Therapy [RC] ASDIRECTED Care 10/26/17 17:04 Ordered Up With Assistance [RC] ASDIRECTED Care 10/26/17 17:00 Ordered VTE/DVT Education [RC] PER UNIT ROUTINE Care 10/26/17 17:00 Ordered Vital Signs [RC] Q4H Care 10/26/17 17:00 Ordered Citizen Of [place] Diabetic [employer] Diet [DIET] Diet 10/26/17 Dinner Ordered Central Line Placement [CR] Routine Exams 10/26/17 16:53 Ordered Guide Vascular Access [US] Routine Exams 10/26/17 16:53 Ordered PICC Line Insertion [CR] Routine Exams 10/26/17 16:25 Ordered BASIC METABOLIC PANEL,BMP [CHEM] AM Lab 10/27/17 05:11 Ordered BASIC METABOLIC PANEL,BMP [CHEM] AM Lab 10/28/17 05:11 Ordered BASIC METABOLIC PANEL,BMP [CHEM] AM Lab 10/29/17 05:11 Ordered CBC WITH AUTO DIFF [HEME] AM Lab 10/27/17 05:11 Ordered CBC WITH AUTO DIFF [HEME] AM Lab 10/28/17 05:11 Ordered CBC WITH AUTO DIFF [HEME] AM Lab 10/29/17 05:11 Ordered INFLUENZA A+B AG SCREEN [RM] Stat Lab 10/26/17 16:30 Uncollected Acetaminophen [Tylenol] Med 10/26/17 17:00 Ordered 650 mg PO Q4H PRN Acetaminophen/HYDROcodone [[place] 325-5 MG] Med 10/26/17 17:07 Ordered 1 tab PO Q6H PRN Albuterol [Proventil Neb Soln] Med 10/26/17 17:00 Ordered 2.5 mg NEB Q2H PRN Albuterol/Ipratropium [DuoNeb 3.0-0.5 MG/3 ML] Med 10/26/17 18:00 Ordered 3 ml NEB Q4HRRT Heparin Sodium Med 10/26/17 21:00 Ordered 5,000 units SUBCUT Q12HR Insulin Aspart [NovoLOG] Med 10/27/17 07:30 Ordered See Protocol SUBCUT TIDAC Insulin Glarg,Human.Rec.Analog [LantUS Solostar] Med 10/26/17 21:00 Ordered 12 units SUBCUT BID Levofloxacin/Dextrose 5%-Water [Levaquin in D5W 750 MG/ Med 10/27/17 15:00 Ordered 150 ML] 750 mg Premix Bag 1 bag IV Q48H methylPREDNISolone Sod Succ [Solu-MEDROL] Med 10/26/17 16:30 Ordered 125 mg IVPUSH Q6H Resuscitation Status Routine Resus Stat 10/26/17 17:00 Ordered Medication Orders Acetaminophen (Tylenol) 650 mg PO Q4H PRN PRN Reason: Pain (mild 1-3) Hydrocodone Bitart/Acetaminophen ([place] 325-5 Mg) 1 tab PO Q6H PRN PRN Reason: Pain Albuterol (Proventil Neb Soln) 2.5 mg NEB Q2H PRN PRN Reason: Shortness Of Breath/wheezing Albuterol/Ipratropium (Duoneb 3.0-0.5 Mg/3 Ml) 3 ml NEB Q4HRRT VIJAYA Heparin Sodium (Porcine) (Heparin Sodium) 5,000 units SUBCUT Q12HR VIJAYA Levofloxacin/Dextrose 750 mg/ (Premix) 150 mls @ 100 mls/hr IV Q48H VIJAYA Insulin Aspart (Novolog) 0 unit SUBCUT TIDAC VIJAYA PRN Reason: Protocol Insulin Glargine (Lantus Solostar) 12 units SUBCUT BID VIJAYA Methylprednisolone Sodium Succinate (Solu-Medrol) 125 mg IVPUSH Q6H VIJAYA Sodium Chloride (Saline Flush) 10 ml FLUSH ASDIRECTED PRN PRN Reason: Keep Vein Open Sodium Chloride (Saline Flush) 2.5 ml FLUSH ASDIRECTED PRN PRN Reason: Keep Vein Open Sodium Chloride (Saline Flush) 10 ml FLUSH ASDIRECTED PRN PRN Reason: Keep Vein Open Sodium Chloride (Saline Flush) 2.5 ml FLUSH ASDIRECTED PRN PRN Reason: Keep Vein Open Assessment/Plan Comment:: This 77 year old female admitted with COPD exacerbation and bronchitis 1. COPD exacerbation: Continue with Oxygen 3 L NC. Will order Solumedrol 125 mg Q6hr IV, Duonebs and albuterol PRN. Will monitor. No infiltrate noted, will add Levaquin for suspected bronchitis. Will test for influenza as well. Continue home inhalers as well. 2. Dm type 2: Monitor closely with steroid administration, may need increase in insulin needs. Keep Lantus BID and Novolog aggressive sliding scale. 3. HTN: Elevated on arrival, likely due to respiratory distress. Monitor and continue home medications. VTE prophylaxis: Heparin Q12h Dispo: 2-4 days pending improvement.
--- NOTE | 2017-10-26 17:20 | US ---
EXAMINATION: Fluoro and ultrasound guided right-sided PICC line placement. HISTORY: IV access. TECHNIQUE/FINDINGS: After written informed consent was obtained from the patient using ultrasound an d Fluoro guidance under aseptic conditions utilizing 1% lidocaine as local anesthesia right basilic v ein was accessed and a 4 [place] PICC catheter was deployed with its tip in the distal superior vena c jayme. The catheter flushes and withdraws blood well. The catheter is flushed with the diluted heparin . The catheter secured well. IMPRESSION: Successful Fluoro and ultrasound guided PICC line placement.
[2017-10-26] MEDS: methylPREDNISolone Sodium Succinate 125 MG/2 ML SDV IVPUSH SCH ×2 (17:21→23:28)
[2017-10-26] MEDS: Albuterol/Ipratropium 3.0-0.5 MG/3 ML Neb Soln NEB SCH ×2 (17:41→21:07)
[2017-10-26] MEDS: Acetaminophen/HYDROcodone 325-5 MG Tab PO PRN (17:41)
[2017-10-26] MEDS: Heparin Sodium 5,000 Units/ML Vial SUBCUT SCH (20:47)
[2017-10-26] MEDS: Insulin Glargine,Human Rec. Analog 100 Units/ML 3 ML Pen SUBCUT SCH (21:06)
[2017-10-27] MEDS ORDERED: Cefepime 2 GM in Premix Bag 1 BAG IV SCH (02:00)
[2017-10-27] MEDS: Albuterol/Ipratropium 3.0-0.5 MG/3 ML Neb Soln NEB SCH ×6 (02:01→22:23)
[2017-10-27] MEDS: Acetaminophen/HYDROcodone 325-5 MG Tab PO PRN ×4 (02:53→22:31)
[2017-10-27] MEDS: methylPREDNISolone Sodium Succinate 125 MG/2 ML SDV IVPUSH SCH ×4 (03:34→22:23)
[2017-10-27 06:11] LABS: CHLORIDE,CL 103 mmol/L (98-110); SODIUM,NA 138 mmol/L (136-146)
[2017-10-27] MEDS ORDERED: Insulin Aspart 100 Units/ML 3 ML Pen SUBCUT SCH (07:30)
--- NOTE | 2017-10-27 08:01 | PCM.PN ---
- General Info Date of Service: 10/27/17 Admission Dx/Problem (Free Text): Admission Diagnosis/Problem Admission Diagnosis/Problem COPD, Severe chronic obstructive pulmonary disease Subjective Update: Feeling better this morning. Upper back hurts from coughing. Nonproductive cough still. No chest pain. SOB is better but worsens with ambulation. Functional Status: Reports: Pain Controlled, Tolerating Diet, Ambulating, Urinating - Review of Systems General: Reports: No Symptoms. Denies: Fever, Weakness, Fatigue HEENT: Reports: No Symptoms. Denies: Sinus Congestion, Sore Throat Pulmonary: Reports: Shortness of Breath, Cough, Wheezing (but has improved). Denies: Sputum, Hemoptysis Cardiovascular: Reports: No Symptoms. Denies: Chest Pain Gastrointestinal: Reports: No Symptoms. Denies: Abdominal Pain, Nausea, Vomiting Genitourinary: Reports: No Symptoms. Denies: Dysuria, Frequency, Burning 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: Reports: Back Pain (upper back, especially when coughing). Denies: Neck Pain Neurological: Reports: No Symptoms Psychiatric: Reports: No Symptoms - Patient Data Vitals - Most Recent: Last Vital Signs Temp 97.9 F 10/27/17 04:00 Pulse 107 H 10/27/17 04:00 Resp 24 H 10/27/17 04:00 BP 137/53 L 10/27/17 04:00 Pulse Ox 95 10/27/17 04:00 Weight - Most Recent: 74.5 kg I&O - Last 24 Hours: Intake & Output 10/26/17 10/27/17 10/27/17 22:59 06:59 14:59 Intake Total 400 Output Total 725 Balance -325 Lab Results Last 24 Hours: Laboratory Results - last 24 hr 10/26/17 10/27/17 10/27/17 Range/Units 20:08 05:21 05:21 WBC 9.28 (4.0-11.0) K/uL RBC 3.70 L (4.30-5.90) M/uL Hgb 11.4 L (12.0-16.0) g/dL Hct 34.5 L (36.0-46.0) % MCV 93.2 (80.0-98.0) fL MCH 30.8 (27.0-32.0) pg MCHC 33.0 (31.0-37.0) g/dL RDW Std Deviation 51.8 (28.0-62.0) fl RDW Coeff of Lucrecia 15 (11.0-15.0) % Plt Count 223 (150-400) K/uL MPV 10.70 (7.40-12.00) fL Neut % (Auto) 95.0 H (48.0-80.0) % Lymph % (Auto) 4.0 L (16.0-40.0) % [place] % (Auto) 0.9 (0.0-15.0) % Eos % (Auto) 0.0 (0.0-7.0) % Baso % (Auto) 0.1 (0.0-1.5) % Neut # (Auto) 8.8 H (1.4-5.7) K/uL Lymph # (Auto) 0.4 L (0.6-2.4) K/uL [place] # (Auto) 0.1 (0.0-0.8) K/uL Eos # (Auto) 0.0 (0.0-0.7) K/uL Baso # (Auto) 0.0 (0.0-0.1) K/uL Nucleated RBC % 0.0 /100WBC Nucleated RBCs # 0 K/uL Sodium 138 (136-146) mmol/L Potassium 4.4 (3.5-5.1) mmol/L Chloride 103 (98-110) mmol/L Carbon Dioxide 26 (21-31) mmol/L BUN 23 (6.0-23.0) mg/dL Creatinine 0.9 (0.6-1.5) mg/dL Est Cr Clr Drug Dosing 42.06 mL/min Estimated GFR (MDRD) > 60.0 ml/min Glucose 330 H (60-110) mg/dL POC Glucose 148 H (60-110) mg/dL Calcium 8.7 L (8.8-10.8) mg/dL 10/27/17 Range/Units 06:25 WBC (4.0-11.0) K/uL RBC (4.30-5.90) M/uL Hgb (12.0-16.0) g/dL Hct (36.0-46.0) % MCV (80.0-98.0) fL MCH (27.0-32.0) pg MCHC (31.0-37.0) g/dL RDW Std Deviation (28.0-62.0) fl RDW Coeff of Lucrecia (11.0-15.0) % Plt Count (150-400) K/uL MPV (7.40-12.00) fL Neut % (Auto) (48.0-80.0) % Lymph % (Auto) (16.0-40.0) % [place] % (Auto) (0.0-15.0) % Eos % (Auto) (0.0-7.0) % Baso % (Auto) (0.0-1.5) % Neut # (Auto) (1.4-5.7) K/uL Lymph # (Auto) (0.6-2.4) K/uL [place] # (Auto) (0.0-0.8) K/uL Eos # (Auto) (0.0-0.7) K/uL Baso # (Auto) (0.0-0.1) K/uL Nucleated RBC % /100WBC Nucleated RBCs # K/uL Sodium (136-146) mmol/L Potassium (3.5-5.1) mmol/L Chloride (98-110) mmol/L Carbon Dioxide (21-31) mmol/L BUN (6.0-23.0) mg/dL Creatinine (0.6-1.5) mg/dL Est Cr Clr Drug Dosing mL/min Estimated GFR (MDRD) ml/min Glucose (60-110) mg/dL POC Glucose 259 H (60-110) mg/dL Calcium (8.8-10.8) mg/dL Tra Results Last 24 Hours: Microbiology 10/26/17 17:21 Influenza Type A Antigen Screen - Final Nasopharyngeal Swab - Nare, Left NEGATIVE INFLUENZA A VIRUS AG Influenza Type B Antigen Screen - Final NEGATIVE INFLUENZA B VIRUS AG Med Orders - Current: Current Medications Acetaminophen (Tylenol) 650 mg PO Q4H PRN PRN Reason: Pain (mild 1-3) Hydrocodone Bitart/Acetaminophen ([place] 325-5 Mg) 1 tab PO Q6H PRN PRN Reason: Pain Last Admin: 10/27/17 02:53 Dose: 1 tab Albuterol (Proventil Neb Soln) 2.5 mg NEB Q2H PRN PRN Reason: Shortness Of Breath/wheezing Last Admin: 10/27/17 02:48 Dose: 2.5 mg Albuterol/Ipratropium (Duoneb 3.0-0.5 Mg/3 Ml) 3 ml NEB Q4HRRT [facility] Last Admin: 10/27/17 06:14 Dose: 3 ml Heparin Sodium (Porcine) (Heparin Sodium) 5,000 units SUBCUT Q12HR [facility] Last Admin: 10/26/17 20:47 Dose: 5,000 units Levofloxacin/Dextrose 750 mg/ (Premix) 150 mls @ 100 mls/hr IV Q24H VIJAYA Cefepime HCl 2 gm/ Premix 50 mls @ 100 mls/hr IV Q8H [facility] Insulin Aspart (Novolog) 8 unit SUBCUT TIDAC VIJAYA Insulin Aspart (Novolog) 0 unit SUBCUT TIDAC VIJAYA PRN Reason: Protocol Insulin Glargine (Lantus Solostar) 12 units SUBCUT BID [facility] Last Admin: 10/26/17 21:06 Dose: 12 units Lorazepam (Ativan) 1 mg PO QID PRN PRN Reason: Anxiety Methylprednisolone Sodium Succinate (Solu-Medrol) 125 mg IVPUSH Q6H [facility] Last Admin: 10/27/17 03:34 Dose: 125 mg Non-Formulary Medication (Aclidinium [place] [Tudorza Pressair]) 1 puff INH BID [facility] Non-Formulary Medication (Budesonide/Formoterol) 2 inh IH BID [facility]JAYA Sodium Chloride (Saline Flush) 10 ml FLUSH ASDIRECTED PRN PRN Reason: Keep Vein Open Sodium Chloride (Saline Flush) 2.5 ml FLUSH ASDIRECTED PRN PRN Reason: Keep Vein Open Sodium Chloride (Saline Flush) 10 ml FLUSH ASDIRECTED PRN PRN Reason: Keep Vein Open Sodium Chloride (Saline Flush) 2.5 ml FLUSH ASDIRECTED PRN PRN Reason: Keep Vein Open Discontinued Medications Albuterol/Ipratropium (Duoneb 3.0-0.5 Mg/3 Ml) 3 ml NEB ONETIME ONE Stop: 10/26/17 13:06 Last Admin: 10/26/17 13:13 Dose: 3 ml Levofloxacin/Dextrose 500 mg/ (Premix) 100 mls @ 100 mls/hr IV ONETIME ONE Stop: 10/26/17 14:28 Last Admin: 10/26/17 14:55 Dose: 75 mls/hr Cefepime HCl 2 gm/ Premix 50 mls @ 33 mls/hr IV Q8H [facility] Last Admin: 10/27/17 02:33 Dose: 33 mls/hr Insulin Aspart (Novolog) 0 unit SUBCUT TIDAC [facility] PRN Reason: Protocol Last Admin: 10/27/17 06:30 Dose: 9 units - Exam Quality Assessment: Supplemental Oxygen, DVT Prophylaxis General: Alert, Oriented, Cooperative, No Acute Distress Lungs: Decreased Breath Sounds (bibasilar), Rhonchi (throughout lung ascencio), Wheezing (throughout). No: Normal Respiratory Effort (continues to be slightly labored, but improved from ED yesterday) Cardiovascular: Regular Rate, Regular Rhythm GI/Abdominal Exam: Normal Bowel Sounds, Soft, Non-Tender, No Organomegaly, No Distention, No Abnormal Bruit, No Mass, Pelvis Stable Back Exam: Normal Inspection, Full Range of Motion Extremities: Normal Inspection, Normal Range of Motion, Non-Tender, Normal Capillary Refill, Pedal Edema (+ 1 non pitting edema to bilateral lower legs, improved from yesterday.) Neurological: No New Focal Deficit Psy/Mental Status: Alert, Normal Affect, Normal Mood - Problem List & Annotations (1) Gram-negative pneumonia SNOMED Code(s): 533392282 Code(s): J15.6 - PNEUMONIA DUE TO OTHER GRAM-NEGATIVE BACTERIA Status: Suspected Current Visit: Yes (2) COPD exacerbation SNOMED Code(s): 450429561808548 Code(s): J44.1 - CHRONIC OBSTRUCTIVE PULMONARY DISEASE W (ACUTE) EXACERBATION Status: Acute Current Visit: No (3) HTN (hypertension) SNOMED Code(s): 02458362 Code(s): I10 - ESSENTIAL (PRIMARY) HYPERTENSION Status: Chronic Current Visit: Yes Qualifiers: Hypertension type: essential hypertension Qualified Code(s): I10 - Essential (primary) hypertension (4) Anxiety SNOMED Code(s): 20665819 Code(s): F41.9 - ANXIETY DISORDER, UNSPECIFIED Status: Chronic Current Visit: Yes (5) Depressed SNOMED Code(s): 90784346 Code(s): F32.9 - MAJOR DEPRESSIVE DISORDER, SINGLE EPISODE, UNSPECIFIED Status: Chronic Current Visit: Yes (6) DM II (diabetes mellitus, type II), controlled SNOMED Code(s): 47987223 Code(s): E11.9 - TYPE 2 DIABETES MELLITUS WITHOUT COMPLICATIONS Status: Chronic Priority: Medium Current Visit: No Qualifiers: Diabetes mellitus complication status: without complication Diabetes mellitus intermediate designer insulin use: with assisted use Qualified Code(s): E11.9 - Type 2 diabetes mellitus without complications; Z79.4 - terminal operator (current) use of insulin; Z79.4 - terminal operator (current) use of insulin; Z79.4 - MCC ( current) use of insulin; Z79.4 - terminal operator (current) use of insulin (7) History of lung cancer SNOMED Code(s): 599790490 Code(s): Z85.118 - PERSONAL HISTORY OF MALIGNANT NEOPLASM OF BRONCHUS AND LUNG Status: Chronic Priority: Medium Current Visit: No - Problem List Review Problem List Initiated/Reviewed/Updated: Yes - My Orders Last 24 Hours: My Active Orders 10/26/17 16:30 methylPREDNISolone Sod Succ [Solu-MEDROL] 125 mg IVPUSH Q6H 10/26/17 17:00 Oxygen Therapy [RC] PRN Up With Assistance [RC] ASDIRECTED Vital Signs [RC] Q4H Acetaminophen [Tylenol] 650 mg PO Q4H PRN Albuterol [Proventil Neb Soln] 2.5 mg NEB Q2H PRN Resuscitation Status Routine 10/26/17 17:04 RT Aerosol Therapy [RC] ASDIRECTED 10/26/17 17:05 Blood Glucose Check, Bedside [RC] TIDAC 10/26/17 17:07 Acetaminophen/HYDROcodone [[place] 325-5 MG] 1 tab PO Q6H PRN 10/26/17 18:00 Albuterol/Ipratropium [DuoNeb 3.0-0.5 MG/3 ML] 3 ml NEB Q4HRRT 10/26/17 21:00 Heparin Sodium 5,000 units SUBCUT Q12HR Insulin Glarg,Human.Rec.Analog [LantUS Solostar] 12 units SUBCUT BID 10/26/17 Dinner [place] [employer] Diet [DIET] 10/27/17 07:57 LORazepam [Ativan] 1 mg PO QID PRN 10/27/17 09:00 Aclidinium [place] [Tudorza Pressair] 1 puff INH BID Budesonide/Formoterol 2 inh IH BID 10/27/17 11:30 Insulin Aspart [NovoLOG] 8 unit SUBCUT TIDAC Insulin Aspart [NovoLOG] See Protocol SUBCUT TIDAC 10/27/17 15:00 Levofloxacin/Dextrose 5%-Water [Levaquin in D5W 750 MG/150 ML] 750 mg Premix Bag 1 bag IV Q24H 10/28/17 05:11 BASIC METABOLIC PANEL,BMP [CHEM] AM CBC WITH AUTO DIFF [HEME] AM 10/29/17 05:11 BASIC METABOLIC PANEL,BMP [CHEM] AM CBC WITH AUTO DIFF [HEME] AM - Plan Plan:: This 77 year old female admitted with COPD exacerbation and suspected gram negative ananya pneumonia 1. Suspected gram negative ananya pneumonia: BC return 2/ gram neg rods. Cefepime added to Levaquin. Will continue these and monitor. Patient feeling better. TRA for blood culture pending. Non productive cough. Will obtain UA. 2. COPD exacerbation: Continue with Oxygen 3 L NC. Will order Solumedrol 125 mg Q6hr IV, Duonebs and albuterol PRN. Will monitor. No infiltrate noted, will add Levaquin for suspected bronchitis. Will test for influenza as well. Continue home inhalers as well. 3. Dm type 2: BS elevated, will adjust insulin. Will give 8 units with each meal plus SSI. Continue Lantus. 4. HTN: Improved and stable. Hold home medications for now. Slight tachycardia noted, low 100s, but likely secondary to steroids and nebulizers. VTE prophylaxis: Heparin Q12h Dispo: 2-4 days pending improvement.
[2017-10-27] MEDS: Heparin Sodium 5,000 Units/ML Vial SUBCUT SCH ×2 (10:23→22:24)
[2017-10-27] MEDS: Insulin Glargine,Human Rec. Analog 100 Units/ML 3 ML Pen SUBCUT SCH ×2 (10:25→22:30)
[2017-10-27] MEDS: SYMBICORT 160/4.5 MCG INH SCH ×2 (10:29→22:31)
[2017-10-27] MEDS: Cefepime 2 GM in Premix Bag 1 BAG IV SCH ×2 (10:35→17:45)
[2017-10-27] MEDS: Insulin Aspart 100 Units/ML 3 ML Pen SUBCUT SCH ×4 (12:07→18:00)
[2017-10-27] MEDS ORDERED: Levofloxacin/Dextrose 5%-Water 750 MG in Premix Bag 1 BAG IV SCH (15:00)
[2017-10-28] MEDS: LORazepam 1 MG Tab PO PRN ×3 (00:49→19:34)
[2017-10-28] MEDS: Cefepime 2 GM in Premix Bag 1 BAG IV SCH ×2 (02:14→10:59)
[2017-10-28] MEDS: Albuterol/Ipratropium 3.0-0.5 MG/3 ML Neb Soln NEB SCH ×6 (02:14→21:24)
[2017-10-28] MEDS: methylPREDNISolone Sodium Succinate 125 MG/2 ML SDV IVPUSH SCH ×2 (03:40→11:59)
[2017-10-28] MEDS: Acetaminophen/HYDROcodone 325-5 MG Tab PO PRN ×4 (06:08→19:03)
[2017-10-28] MEDS: SYMBICORT 160/4.5 MCG INH SCH ×2 (06:19→21:28)
[2017-10-28] MEDS: Insulin Aspart 100 Units/ML 3 ML Pen SUBCUT SCH ×6 (07:21→18:13)
[2017-10-28] MEDS: Heparin Sodium 5,000 Units/ML Vial SUBCUT SCH ×2 (08:34→21:25)
[2017-10-28] MEDS: Insulin Glargine,Human Rec. Analog 100 Units/ML 3 ML Pen SUBCUT SCH ×2 (08:39→21:24)
--- NOTE | 2017-10-28 08:59 | PCM.PN ---
- General Info Date of Service: 10/28/17 Admission Dx/Problem (Free Text): Admission Diagnosis/Problem Admission Diagnosis/Problem COPD, Severe chronic obstructive pulmonary disease Subjective Update: Feeling better with breathing today, coughing but continues to be non productive. No chest pain. Continues to have upper back pain with coughing or moving. Lonnie is working. Asking when she will be able to be discharged home. Functional Status: Reports: Pain Controlled, Tolerating Diet, Ambulating ( reports she is not ambulating much because she gets short of breath) - Review of Systems Pulmonary: Reports: Shortness of Breath (with ambulation), Cough. Denies: Sputum, Hemoptysis, Wheezing Cardiovascular: Reports: No Symptoms. Denies: Chest Pain, Palpitations, Lightheadedness Gastrointestinal: Reports: No Symptoms. Denies: Abdominal Pain, Nausea, Vomiting Genitourinary: Reports: No Symptoms. Denies: Dysuria, Frequency, Burning 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: Reports: Back Pain (upper back and shoulder blades) Skin: Reports: No Symptoms. Denies: Cyanosis Neurological: Reports: No Symptoms. Denies: Confusion Psychiatric: Reports: No Symptoms. Denies: Confusion - Patient Data Vitals - Most Recent: Last Vital Signs Temp 99.2 F 10/28/17 07:55 Pulse 107 H 10/28/17 07:55 Resp 22 H 10/28/17 07:55 BP 128/77 10/28/17 07:55 Pulse Ox 94 L 10/28/17 07:55 Weight - Most Recent: 74.5 kg I&O - Last 24 Hours: Intake & Output 10/27/17 10/28/17 10/28/17 22:59 06:59 14:59 Intake Total 1100 900 Output Total 950 1100 Balance 150 -200 Lab Results Last 24 Hours: Laboratory Results - last 24 hr 10/27/17 10/27/17 10/27/17 Range/Units 11:30 11:43 17:14 WBC (4.0-11.0) K/uL RBC (4.30-5.90) M/uL Hgb (12.0-16.0) g/dL Hct (36.0-46.0) % MCV (80.0-98.0) fL MCH (27.0-32.0) pg MCHC (31.0-37.0) g/dL RDW Std Deviation (28.0-62.0) fl RDW Coeff of Lucrecia (11.0-15.0) % Plt Count (150-400) K/uL MPV (7.40-12.00) fL Neut % (Auto) (48.0-80.0) % Lymph % (Auto) (16.0-40.0) % [place] % (Auto) (0.0-15.0) % Eos % (Auto) (0.0-7.0) % Baso % (Auto) (0.0-1.5) % Neut # (Auto) (1.4-5.7) K/uL Lymph # (Auto) (0.6-2.4) K/uL [place] # (Auto) (0.0-0.8) K/uL Eos # (Auto) (0.0-0.7) K/uL Baso # (Auto) (0.0-0.1) K/uL Nucleated RBC % /100WBC Nucleated RBCs # K/uL Sodium (136-146) mmol/L Potassium (3.5-5.1) mmol/L Chloride (98-110) mmol/L Carbon Dioxide (21-31) mmol/L BUN (6.0-23.0) mg/dL Creatinine (0.6-1.5) mg/dL Est Cr Clr Drug Dosing mL/min Estimated GFR (MDRD) ml/min Glucose (60-110) mg/dL POC Glucose 266 H 304 H (60-110) mg/dL Calcium (8.8-10.8) mg/dL Urine Color YELLOW Urine Appearance CLOUDY Urine pH 6.0 (5.0-8.0) Ur Specific [place] 1.010 (1.001-1.035) Urine Protein NEGATIVE (NEGATIVE) mg/dL Urine Glucose (UA) >=1000 (NEGATIVE) mg/dL Urine Ketones TRACE H (NEGATIVE) mg/dL Urine Occult Blood NEGATIVE (NEGATIVE) Urine Nitrite NEGATIVE (NEGATIVE) Urine Bilirubin NEGATIVE (NEGATIVE) Urine Urobilinogen 0.2 (<2.0) EU/dL Ur Leukocyte Esterase NEGATIVE (NEGATIVE) Urine RBC 0-1 (0-2/HPF) Urine WBC 0-1 (0-5/HPF) Ur Epithelial Cells OCCASIONAL (NONE-FEW) Urine Bacteria RARE (NEGATIVE) Urine Yeast MANY 10/27/17 10/28/17 10/28/17 Range/Units 22:28 05:42 05:42 WBC 16.76 H (4.0-11.0) K/uL RBC 3.85 L (4.30-5.90) M/uL Hgb 11.5 L (12.0-16.0) g/dL Hct 35.9 L (36.0-46.0) % MCV 93.2 (80.0-98.0) fL MCH 29.9 (27.0-32.0) pg MCHC 32.0 (31.0-37.0) g/dL RDW Std Deviation 52.1 (28.0-62.0) fl RDW Coeff of Lucrecia 15 (11.0-15.0) % Plt Count 268 (150-400) K/uL MPV 10.80 (7.40-12.00) fL Neut % (Auto) 93.1 H (48.0-80.0) % Lymph % (Auto) 3.3 L (16.0-40.0) % [place] % (Auto) 3.5 (0.0-15.0) % Eos % (Auto) 0.0 (0.0-7.0) % Baso % (Auto) 0.1 (0.0-1.5) % Neut # (Auto) 15.6 H (1.4-5.7) K/uL Lymph # (Auto) 0.6 (0.6-2.4) K/uL [place] # (Auto) 0.6 (0.0-0.8) K/uL Eos # (Auto) 0.0 (0.0-0.7) K/uL Baso # (Auto) 0.0 (0.0-0.1) K/uL Nucleated RBC % 0.0 /100WBC Nucleated RBCs # 0 K/uL Sodium 138 (136-146) mmol/L Potassium 4.4 (3.5-5.1) mmol/L Chloride 104 (98-110) mmol/L Carbon Dioxide 24 (21-31) mmol/L BUN 26 H (6.0-23.0) mg/dL Creatinine 1.0 (0.6-1.5) mg/dL Est Cr Clr Drug Dosing 37.85 mL/min Estimated GFR (MDRD) 53.9 ml/min Glucose 339 H (60-110) mg/dL POC Glucose 292 H (60-110) mg/dL Calcium 8.8 (8.8-10.8) mg/dL Urine Color Urine Appearance Urine pH (5.0-8.0) Ur Specific [place] (1.001-1.035) Urine Protein (NEGATIVE) mg/dL Urine Glucose (UA) (NEGATIVE) mg/dL Urine Ketones (NEGATIVE) mg/dL Urine Occult Blood (NEGATIVE) Urine Nitrite (NEGATIVE) Urine Bilirubin (NEGATIVE) Urine Urobilinogen (<2.0) EU/dL Ur Leukocyte Esterase (NEGATIVE) Urine RBC (0-2/HPF) Urine WBC (0-5/HPF) Ur Epithelial Cells (NONE-FEW) Urine Bacteria (NEGATIVE) Urine Yeast 10/28/17 Range/Units 06:12 WBC (4.0-11.0) K/uL RBC (4.30-5.90) M/uL Hgb (12.0-16.0) g/dL Hct (36.0-46.0) % MCV (80.0-98.0) fL MCH (27.0-32.0) pg MCHC (31.0-37.0) g/dL RDW Std Deviation (28.0-62.0) fl RDW Coeff of [place]cre[place] (11.0-15.0) % Plt Count (150-400) K/uL MPV (7.40-12.00) fL Neut % (Auto) (48.0-80.0) % Lymph % (Auto) (16.0-40.0) % [place] % (Auto) (0.0-15.0) % Eos % (Auto) (0.0-7.0) % Baso % (Auto) (0.0-1.5) % Neut # (Auto) (1.4-5.7) K/uL Lymph # (Auto) (0.6-2.4) K/uL [place] # (Auto) (0.0-0.8) K/uL Eos # (Auto) (0.0-0.7) K/uL Baso # (Auto) (0.0-0.1) K/uL Nucleated RBC % /100WBC Nucleated RBCs # K/uL Sodium (136-146) mmol/L Potassium (3.5-5.1) mmol/L Chloride (98-110) mmol/L Carbon Dioxide (21-31) mmol/L BUN (6.0-23.0) mg/dL Creatinine (0.6-1.5) mg/dL Est Cr Clr Drug Dosing mL/min Estimated GFR (MDRD) ml/min Glucose (60-110) mg/dL POC Glucose 321 H (60-110) mg/dL Calcium (8.8-10.8) mg/dL Urine Color Urine Appearance Urine pH (5.0-8.0) Ur Specific [place] (1.001-1.035) Urine Protein (NEGATIVE) mg/dL Urine Glucose (UA) (NEGATIVE) mg/dL Urine Ketones (NEGATIVE) mg/dL Urine Occult Blood (NEGATIVE) Urine Nitrite (NEGATIVE) Urine Bilirubin (NEGATIVE) Urine Urobilinogen (<2.0) EU/dL Ur Leukocyte Esterase (NEGATIVE) Urine RBC (0-2/HPF) Urine WBC (0-5/HPF) Ur Epithelial Cells (NONE-FEW) Urine Bacteria (NEGATIVE) Urine Yeast Med Orders - Current: Current Medications Acetaminophen (Tylenol) 650 mg PO Q4H PRN PRN Reason: Pain (mild 1-3) Hydrocodone Bitart/Acetaminophen ([place] 325-5 Mg) 1 tab PO Q4H PRN PRN Reason: Pain Last Admin: 10/28/17 06:08 Dose: 1 tab Albuterol (Proventil Neb Soln) 2.5 mg NEB Q2H PRN PRN Reason: Shortness Of Breath/wheezing Last Admin: 10/27/17 02:48 Dose: 2.5 mg Albuterol/Ipratropium (Duoneb 3.0-0.5 Mg/3 Ml) 3 ml NEB Q4HRRT [facility] Last Admin: 10/28/17 06:17 Dose: 3 ml Heparin Sodium (Porcine) (Heparin Sodium) 5,000 units SUBCUT Q12HR [facility] Last Admin: 10/28/17 08:34 Dose: 5,000 units Levofloxacin/Dextrose 750 mg/ (Premix) 150 mls @ 100 mls/hr IV Q24H [facility] Last Admin: 10/27/17 14:49 Dose: 100 mls/hr Cefepime HCl 2 gm/ Premix 50 mls @ 100 mls/hr IV Q8H [facility] Last Admin: 10/28/17 02:14 Dose: 100 mls/hr Insulin Aspart (Novolog) 8 unit SUBCUT TIDAC [facility] Last Admin: 10/28/17 07:21 Dose: 8 units Insulin Aspart (Novolog) 0 unit SUBCUT TIDAC VIJAYA PRN Reason: Protocol Last Admin: 10/28/17 07:22 Dose: 8 units Insulin Glargine (Lantus Solostar) 12 units SUBCUT BID [facility] Last Admin: 10/28/17 08:39 Dose: 12 units Lorazepam (Ativan) 1 mg PO QID PRN PRN Reason: Anxiety Last Admin: 10/28/17 07:23 Dose: 1 mg Methylprednisolone Sodium Succinate (Solu-Medrol) 125 mg IVPUSH Q6H [facility] Last Admin: 10/28/17 03:40 Dose: 125 mg Tudorza Pressair 400 (Mcg) 1 each INH BIDRT [facility] Last Admin: 10/28/17 06:19 Dose: Not Given Symbicort 160/4.5 (Mcg) 2 each INH BIDRT [facility] Last Admin: 10/28/17 06:19 Dose: Not Given Sodium Chloride (Saline Flush) 10 ml FLUSH ASDIRECTED PRN PRN Reason: Keep Vein Open Sodium Chloride (Saline Flush) 2.5 ml FLUSH ASDIRECTED PRN PRN Reason: Keep Vein Open Sodium Chloride (Saline Flush) 10 ml FLUSH ASDIRECTED PRN PRN Reason: Keep Vein Open Sodium Chloride (Saline Flush) 2.5 ml FLUSH ASDIRECTED PRN PRN Reason: Keep Vein Open Discontinued Medications Hydrocodone Bitart/Acetaminophen ([place]ges [place] 325-5 Mg) 1 tab PO Q6H PRN PRN Reason: Pain Last Admin: 10/27/17 15:47 Dose: 1 tab Albuterol/Ipratropium (Duoneb 3.0-0.5 Mg/3 Ml) 3 ml NEB ONETIME ONE Stop: 10/26/17 13:06 Last Admin: 10/26/17 13:13 Dose: 3 ml Levofloxacin/Dextrose 500 mg/ (Premix) 100 mls @ 100 mls/hr IV ONETIME ONE Stop: 10/26/17 14:28 Last Admin: 10/26/17 14:55 Dose: 75 mls/hr Cefepime HCl 2 gm/ Premix 50 mls @ 33 mls/hr IV Q8H [facility] Last Admin: 10/27/17 02:33 Dose: 33 mls/hr Insulin Aspart (Novolog) 0 unit SUBCUT TIDAC [facility] PRN Reason: Protocol Last Admin: 10/27/17 06:30 Dose: 9 units - Exam General: Alert, Oriented, Cooperative, No Acute Distress Neck: Supple Lungs: Decreased Breath Sounds (bibasilar), Wheezing (scnat wheezing to L, otherwise improved since admission). No: Rhonchi Cardiovascular: Regular Rate, Regular Rhythm Extremities: Normal Inspection, Normal Range of Motion, Non-Tender, No Pedal Edema, Normal Capillary Refill Neurological: No New Focal Deficit Psy/Mental Status: Alert, Normal Affect, Normal Mood - Problem List & Annotations (1) Gram-negative pneumonia SNOMED Code(s): 364224688 Code(s): J15.6 - PNEUMONIA DUE TO OTHER GRAM-NEGATIVE BACTERIA Status: Suspected Current Visit: Yes (2) COPD exacerbation SNOMED Code(s): 014165239591644 Code(s): J44.1 - CHRONIC OBSTRUCTIVE PULMONARY DISEASE W (ACUTE) EXACERBATION Status: Acute Current Visit: No (3) HTN (hypertension) SNOMED Code(s): 55797568 Code(s): I10 - ESSENTIAL (PRIMARY) HYPERTENSION Status: Chronic Current Visit: Yes Qualifiers: Hypertension type: essential hypertension Qualified Code(s): I10 - Essential (primary) hypertension (4) Anxiety SNOMED Code(s): 55153787 Code(s): F41.9 - ANXIETY DISORDER, UNSPECIFIED Status: Chronic Current Visit: Yes (5) Depressed SNOMED Code(s): 75086590 Code(s): F32.9 - MAJOR DEPRESSIVE DISORDER, SINGLE EPISODE, UNSPECIFIED Status: Chronic Current Visit: Yes (6) DM II (diabetes mellitus, type II), controlled SNOMED Code(s): 28815827 Code(s): E11.9 - TYPE 2 DIABETES MELLITUS WITHOUT COMPLICATIONS Status: Chronic Priority: Medium Current Visit: No Qualifiers: Diabetes mellitus complication status: without complication Diabetes mellitus terminal press operator insulin use: with terminal press operator use Qualified Code(s): E11.9 - Type 2 diabetes mellitus without complications; Z79.4 - USP (current) use of insulin; Z79.4 - USP (current) use of insulin; Z79.4 - buttermaker ( current) use of insulin; Z79.4 - buttermaker (current) use of insulin (7) History of lung cancer SNOMED Code(s): 254254299 Code(s): Z85.118 - PERSONAL HISTORY OF MALIGNANT NEOPLASM OF BRONCHUS AND LUNG Status: Chronic Priority: Medium Current Visit: No - Problem List Review Problem List Initiated/Reviewed/Updated: Yes - My Orders Last 24 Hours: My Active Orders 10/27/17 09:00 Patient's Own Medication [Ptom] 1 each INH BIDRT Patient's Own Medication [Ptom] 2 each INH BIDRT 10/27/17 11:30 Insulin Aspart [NovoLOG] 8 unit SUBCUT TIDAC Insulin Aspart [NovoLOG] See Protocol SUBCUT TIDAC 10/27/17 15:00 Levofloxacin/Dextrose 5%-Water [Levaquin in D5W 750 MG/150 ML] 750 mg Premix Bag 1 bag IV Q24H 10/28/17 08:48 CULTURE BLOOD [BC] Stat CULTURE BLOOD [BC] Stat Blood Culture x2 Reflex Set [OM.PC] Stat 10/29/17 05:11 BASIC METABOLIC PANEL,BMP [CHEM] AM CBC WITH AUTO DIFF [HEME] AM - Plan Plan:: This 77 year old female admitted with COPD exacerbation and suspected gram negative ananya pneumonia 1. Suspected gram negative ananya pneumonia: BC return 2/ gram neg rods, E coli, sensitive to Levaquin. Will discontinue Cefepime. Continues to feel better. UA negative. 2. COPD exacerbation: Remains on home oxygen of 3 L NC. Will decrease Solumedrol 125 mg to Q12hr IV, Duonebs and albuterol PRN. Will monitor. Continue home inhalers as well. 3. Dm type 2: BS elevated, but better at lunch time today, with decrease in steroid. Will give 8 units with each meal plus SSI. Continue Lantus. 4. HTN: stable. Hold home medications for now. Slight tachycardia noted, low 100s, but likely secondary to steroids and nebulizers. VTE prophylaxis: Heparin Q12h Dispo: 1-2 days pending improvement.
[2017-10-28] MEDS: Acetaminophen 325 MG Tab PO PRN (09:08)
[2017-10-29] MEDS: methylPREDNISolone Sodium Succinate 125 MG/2 ML SDV IVPUSH SCH ×2 (00:35→11:43)
[2017-10-29] MEDS: Acetaminophen/HYDROcodone 325-5 MG Tab PO PRN ×5 (02:56→20:20)
[2017-10-29] MEDS: Albuterol/Ipratropium 3.0-0.5 MG/3 ML Neb Soln NEB SCH ×6 (02:56→21:01)
[2017-10-29] MEDS: LORazepam 1 MG Tab PO PRN ×4 (02:56→22:39)
[2017-10-29] MEDS: Acetaminophen 325 MG Tab PO PRN ×3 (04:15→22:39)
[2017-10-29 07:14] LABS: CHLORIDE,CL 103 mmol/L (98-110); SODIUM,NA 137 mmol/L (136-146)
[2017-10-29] MEDS: SYMBICORT 160/4.5 MCG INH SCH ×2 (07:15→21:07)
[2017-10-29] MEDS: Insulin Aspart 100 Units/ML 3 ML Pen SUBCUT SCH ×3 (08:39→17:55)
[2017-10-29] MEDS: Heparin Sodium 5,000 Units/ML Vial SUBCUT SCH ×2 (08:47→21:01)
[2017-10-29] MEDS: Insulin Glargine,Human Rec. Analog 100 Units/ML 3 ML Pen SUBCUT SCH ×2 (08:55→21:01)
--- NOTE | 2017-10-29 09:47 | PCM.PN ---
- General Info Date of Service: 10/29/17 Admission Dx/Problem (Free Text): Admission Diagnosis/Problem Admission Diagnosis/Problem COPD, Severe chronic obstructive pulmonary disease Subjective Update: Feeling a lot better this morning. Still reports back pain, but topical aspercream has helped tremendously. SOB occurs still with exertion, but improving. Today she reports she is not on oxygen continuously at home, ONLY at night. Previously she had reported she was on continuous oxygen. She denies chest pain or abdominal pain. Functional Status: Reports: Pain Controlled, Tolerating Diet, Ambulating, Urinating - Review of Systems HEENT: Reports: No Symptoms. Denies: Sore Throat, Rhinitis, Visual Changes Pulmonary: Reports: Shortness of Breath (intermittently and with walking), Cough , Wheezing. Denies: Sputum, Hemoptysis Cardiovascular: Reports: No Symptoms, Dyspnea on Exertion. Denies: Chest Pain, Palpitations, Lightheadedness Gastrointestinal: Reports: No Symptoms. Denies: Abdominal Pain, Nausea, Vomiting Genitourinary: Reports: No Symptoms. Denies: Dysuria, Frequency, Burning 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: Reports: Back Pain (but has improved.) Neurological: Reports: No Symptoms. Denies: Confusion Psychiatric: Reports: No Symptoms. Denies: Confusion - Patient Data Vitals - Most Recent: Last Vital Signs Temp 98.6 F 10/29/17 07:00 Pulse 101 H 10/29/17 07:00 Resp 20 10/29/17 07:00 BP 164/70 H 10/29/17 07:00 Pulse Ox 93 L 10/29/17 07:00 Weight - Most Recent: 74.5 kg I&O - Last 24 Hours: Intake & Output 10/28/17 10/29/17 10/29/17 22:59 06:59 14:59 Intake Total 1090 1080 Output Total 770 200 Balance 320 880 Lab Results Last 24 Hours: Laboratory Results - last 24 hr 10/28/17 10/28/17 10/29/17 Range/Units 12:14 16:22 06:39 WBC 17.35 H (4.0-11.0) K/uL RBC 3.66 L (4.30-5.90) M/uL Hgb 11.1 L (12.0-16.0) g/dL Hct 33.8 L (36.0-46.0) % MCV 92.3 (80.0-98.0) fL MCH 30.3 (27.0-32.0) pg MCHC 32.8 (31.0-37.0) g/dL RDW Std Deviation 51.6 (28.0-62.0) fl RDW Coeff of Lucrecia 15 (11.0-15.0) % Plt Count 245 (150-400) K/uL MPV 10.70 (7.40-12.00) fL Neut % (Auto) 94.1 H (48.0-80.0) % Lymph % (Auto) 3.0 L (16.0-40.0) % [facility] % (Auto) 2.8 (0.0-15.0) % Eos % (Auto) 0.0 (0.0-7.0) % Baso % (Auto) 0.1 (0.0-1.5) % Neut # (Auto) 16.3 H (1.4-5.7) K/uL Lymph # (Auto) 0.5 L (0.6-2.4) K/uL [facility] # (Auto) 0.5 (0.0-0.8) K/uL Eos # (Auto) 0.0 (0.0-0.7) K/uL Baso # (Auto) 0.0 (0.0-0.1) K/uL Nucleated RBC % 0.0 /100WBC Nucleated RBCs # 0 K/uL Sodium (136-146) mmol/L Potassium (3.5-5.1) mmol/L Chloride (98-110) mmol/L Carbon Dioxide (21-31) mmol/L BUN (6.0-23.0) mg/dL Creatinine (0.6-1.5) mg/dL Est Cr Clr Drug Dosing mL/min Estimated GFR (MDRD) ml/min Glucose (60-110) mg/dL POC Glucose 198 H 174 H (60-110) mg/dL Calcium (8.8-10.8) mg/dL 10/29/17 10/29/17 Range/Units 06:39 07:17 WBC (4.0-11.0) K/uL RBC (4.30-5.90) M/uL Hgb (12.0-16.0) g/dL Hct (36.0-46.0) % MCV (80.0-98.0) fL MCH (27.0-32.0) pg MCHC (31.0-37.0) g/dL RDW Std Deviation (28.0-62.0) fl RDW Coeff of Lucrecia (11.0-15.0) % Plt Count (150-400) K/uL MPV (7.40-12.00) fL Neut % (Auto) (48.0-80.0) % Lymph % (Auto) (16.0-40.0) % [facility] % (Auto) (0.0-15.0) % Eos % (Auto) (0.0-7.0) % Baso % (Auto) (0.0-1.5) % Neut # (Auto) (1.4-5.7) K/uL Lymph # (Auto) (0.6-2.4) K/uL [facility] # (Auto) (0.0-0.8) K/uL Eos # (Auto) (0.0-0.7) K/uL Baso # (Auto) (0.0-0.1) K/uL Nucleated RBC % /100WBC Nucleated RBCs # K/uL Sodium 137 (136-146) mmol/L Potassium 4.5 (3.5-5.1) mmol/L Chloride 103 (98-110) mmol/L Carbon Dioxide 25 (21-31) mmol/L BUN 31 H (6.0-23.0) mg/dL Creatinine 0.9 (0.6-1.5) mg/dL Est Cr Clr Drug Dosing 41.69 mL/min Estimated GFR (MDRD) > 60.0 ml/min Glucose 292 H (60-110) mg/dL POC Glucose 275 H (60-110) mg/dL Calcium 8.7 L (8.8-10.8) mg/dL Tra Results Last 24 Hours: Microbiology 10/28/17 09:14 Aerobic Blood Culture - Preliminary Blood - Venous - Lab Draw NO GROWTH AFTER 1 DAY Anaerobic Blood Culture - Preliminary NO GROWTH AFTER 1 DAY 10/28/17 09:02 Aerobic Blood Culture - Preliminary Blood - Venous NO GROWTH AFTER 1 DAY Anaerobic Blood Culture - Preliminary NO GROWTH AFTER 1 DAY Med Orders - Current: Current Medications Acetaminophen (Tylenol) 650 mg PO Q4H PRN PRN Reason: Pain (mild 1-3) Last Admin: 10/29/17 04:15 Dose: 650 mg Hydrocodone Bitart/Acetaminophen ([place] 325-5 Mg) 1 tab PO Q4H PRN PRN Reason: Pain Last Admin: 10/29/17 07:13 Dose: 1 tab Albuterol (Proventil Neb Soln) 2.5 mg NEB Q2H PRN PRN Reason: Shortness Of Breath/wheezing Last Admin: 10/27/17 02:48 Dose: 2.5 mg Albuterol/Ipratropium (Duoneb 3.0-0.5 Mg/3 Ml) 3 ml NEB Q4HRRT [facility] Last Admin: 10/29/17 06:07 Dose: 3 ml Heparin Sodium (Porcine) (Heparin Sodium) 5,000 units SUBCUT Q12HR [facility] Last Admin: 10/29/17 08:47 Dose: 5,000 units Levofloxacin/Dextrose 750 mg/ (Premix) 150 mls @ 100 mls/hr IV Q48H [facility] Insulin Aspart (Novolog) 8 unit SUBCUT TIDAC [facility] Last Admin: 10/29/17 08:39 Dose: 8 units Insulin Glargine (Lantus Solostar) 12 units SUBCUT BID [facility] Last Admin: 10/29/17 08:55 Dose: 12 units Lorazepam (Ativan) 1 mg PO QID PRN PRN Reason: Anxiety Last Admin: 10/29/17 08:46 Dose: 1 mg Methylprednisolone Sodium Succinate (Solu-Medrol) 125 mg IVPUSH Q12H [facility] Last Admin: 10/29/17 00:35 Dose: 125 mg Tudorza Pressair 400 (Mcg) 1 each INH BIDRT [facility] Last Admin: 10/29/17 07:16 Dose: Not Given Symbicort 160/4.5 (Mcg) 2 each INH BIDRT [facility] Last Admin: 10/29/17 07:15 Dose: 2 each Sodium Chloride (Saline Flush) 10 ml FLUSH ASDIRECTED PRN PRN Reason: Keep Vein Open Sodium Chloride (Saline Flush) 2.5 ml FLUSH ASDIRECTED PRN PRN Reason: Keep Vein Open Sodium Chloride (Saline Flush) 10 ml FLUSH ASDIRECTED PRN PRN Reason: Keep Vein Open Sodium Chloride (Saline Flush) 2.5 ml FLUSH ASDIRECTED PRN PRN Reason: Keep Vein Open Discontinued Medications Hydrocodone Bitart/Acetaminophen ([place] 325-5 Mg) 1 tab PO Q6H PRN PRN Reason: Pain Last Admin: 10/27/17 15:47 Dose: 1 tab Albuterol/Ipratropium (Duoneb 3.0-0.5 Mg/3 Ml) 3 ml NEB ONETIME ONE Stop: 10/26/17 13:06 Last Admin: 10/26/17 13:13 Dose: 3 ml Levofloxacin/Dextrose 500 mg/ (Premix) 100 mls @ 100 mls/hr IV ONETIME ONE Stop: 10/26/17 14:28 Last Admin: 10/26/17 14:55 Dose: 75 mls/hr Levofloxacin/Dextrose 750 mg/ (Premix) 150 mls @ 100 mls/hr IV Q24H [facility] Last Admin: 10/27/17 14:49 Dose: 100 mls/hr Cefepime HCl 2 gm/ Premix 50 mls @ 100 mls/hr IV Q8H [facility] Last Admin: 10/28/17 10:59 Dose: 100 mls/hr Cefepime HCl 2 gm/ Premix 50 mls @ 33 mls/hr IV Q8H [facility] Last Admin: 10/27/17 02:33 Dose: 33 mls/hr Insulin Aspart (Novolog) 0 unit SUBCUT TIDAC [facility] PRN Reason: Protocol Last Admin: 10/27/17 06:30 Dose: 9 units Insulin Aspart (Novolog) 0 unit SUBCUT TIDAC [facility] PRN Reason: Protocol Last Admin: 10/28/17 17:36 Dose: Not Given Methylprednisolone Sodium Succinate (Solu-Medrol) 125 mg IVPUSH Q6H [facility] Last Admin: 10/28/17 03:40 Dose: 125 mg - Exam General: Alert, Oriented, Cooperative, No Acute Distress Neck: Supple Lungs: Wheezing (scant, much improved.). No: Normal Respiratory Effort (same labored breathing with speaking.) Cardiovascular: Regular Rate, Regular Rhythm, No Murmurs GI/Abdominal Exam: Normal Bowel Sounds, Soft, Non-Tender, No Organomegaly, No Distention, No Abnormal Bruit, No Mass, Pelvis Stable Back Exam: Normal Inspection, Full Range of Motion Extremities: Normal Inspection, Non-Tender, Normal Capillary Refill, Pedal Edema (+1 pitting edema, bilaterally, baseline.) Neurological: No New Focal Deficit Psy/Mental Status: Alert, Normal Affect, Normal Mood - Problem List & Annotations (1) Gram-negative pneumonia SNOMED Code(s): 399809539 Code(s): J15.6 - PNEUMONIA DUE TO OTHER GRAM-NEGATIVE BACTERIA Status: Suspected Current Visit: Yes (2) COPD exacerbation SNOMED Code(s): 348974508357320 Code(s): J44.1 - CHRONIC OBSTRUCTIVE PULMONARY DISEASE W (ACUTE) EXACERBATION Status: Acute Current Visit: No (3) HTN (hypertension) SNOMED Code(s): 14339019 Code(s): I10 - ESSENTIAL (PRIMARY) HYPERTENSION Status: Chronic Current Visit: Yes Qualifiers: Hypertension type: essential hypertension Qualified Code(s): I10 - Essential (primary) hypertension (4) Anxiety SNOMED Code(s): 65134980 Code(s): F41.9 - ANXIETY DISORDER, UNSPECIFIED Status: Chronic Current Visit: Yes (5) Depressed SNOMED Code(s): 53872105 Code(s): F32.9 - MAJOR DEPRESSIVE DISORDER, SINGLE EPISODE, UNSPECIFIED Status: Chronic Current Visit: Yes (6) DM II (diabetes mellitus, type II), controlled SNOMED Code(s): 70410333 Code(s): E11.9 - TYPE 2 DIABETES MELLITUS WITHOUT COMPLICATIONS Status: Chronic Priority: Medium Current Visit: No Qualifiers: Diabetes mellitus complication status: without complication Diabetes mellitus correction insulin use: with correction use Qualified Code(s): E11.9 - Type 2 diabetes mellitus without complications; Z79.4 - [facility] (current) use of insulin; Z79.4 - field staff (current) use of insulin; Z79.4 - field staff ( current) use of insulin; Z79.4 - [facility] (current) use of insulin (7) History of lung cancer SNOMED Code(s): 655048315 Code(s): Z85.118 - PERSONAL HISTORY OF MALIGNANT NEOPLASM OF BRONCHUS AND LUNG Status: Chronic Priority: Medium Current Visit: No - Problem List Review Problem List Initiated/Reviewed/Updated: Yes - My Orders Last 24 Hours: My Active Orders 10/28/17 08:48 Blood Culture x2 Reflex Set [OM.PC] Stat 10/28/17 09:02 CULTURE BLOOD [BC] Stat 10/28/17 09:14 CULTURE BLOOD [BC] Stat 10/28/17 12:00 methylPREDNISolone Sod Succ [Solu-MEDROL] 125 mg IVPUSH Q12H 10/28/17 13:27 Consult to Physical Therapy [PT Evaluation and Treatment] [CONS] Routine 10/28/17 17:27 Ready for Discharge [RC] PER UNIT ROUTINE 10/29/17 15:00 Levofloxacin/Dextrose 5%-Water [Levaquin in D5W 750 MG/150 ML] 750 mg Premix Bag 1 bag IV Q48H - Plan Plan:: This 77 year old female admitted with COPD exacerbation and suspected gram negative ananya pneumonia 1. Suspected gram negative ananya pneumonia: BC return 2/4 gram neg rods, E coli, sensitive to Levaquin. Repeat BC negative x 1 day. Continues to improve and feels more "perky" today 2. COPD exacerbation: Reporting today she is only on 3 L oxygen at night time, during the day she needs nothing. Solumedrol 125 mg to Q12hr IV, Duonebs and albuterol PRN. Will monitor. Continue home inhalers as well. 3. Dm type 2: BS elevated, but improving after decrease in steroid. Will give 8 units with each meal. Continue Lantus. 4. HTN: Slightly elevated this morning, will restart Losartan and Lasix. VTE prophylaxis: Heparin Q12h Dispo: 1-2 days pending improvement.
[2017-10-29] MEDS: Losartan 50 MG Tab PO SCH (10:43)
[2017-10-29] MEDS: Furosemide 20 MG Tab PO SCH (10:44)
[2017-10-29] MEDS ORDERED: Levofloxacin/Dextrose 5%-Water 750 MG in Premix Bag 1 BAG IV SCH (15:00)
--- NOTE | 2017-10-29 17:12 | PCM.SN ---
- Free Text/Narrative Note: Caden complains of chest pain this evening. Feeling anxious and is feeling better with cool air blowing on her. She reports pain to her xyphoid process it hurts when it is palpated and when she takes a deep breath and coughs. She denies worsening SOB and the pain does not radiate. She was just given [place] for pain. Do not feel this is cardiac in nature. Will monitor. VS stable. Dr Bautista notified and is aware. Will monitor pain.
[2017-10-30] MEDS: Acetaminophen/HYDROcodone 325-5 MG Tab PO PRN (00:22)
[2017-10-30] MEDS: methylPREDNISolone Sodium Succinate 125 MG/2 ML SDV IVPUSH SCH (00:27)
[2017-10-30] MEDS: Albuterol/Ipratropium 3.0-0.5 MG/3 ML Neb Soln NEB SCH ×3 (01:45→09:46)
[2017-10-30] MEDS: Acetaminophen/HYDROcodone 325-10 MG Tab PO PRN ×2 (02:26→08:27)
[2017-10-30] MEDS: SYMBICORT 160/4.5 MCG INH SCH (06:15)
[2017-10-30 06:43] LABS: CHLORIDE,CL 101 mmol/L (98-110); SODIUM,NA 137 mmol/L (136-146)
[2017-10-30] MEDS: Furosemide 20 MG Tab PO SCH (08:28)
[2017-10-30] MEDS: Losartan 50 MG Tab PO SCH (08:29)
[2017-10-30] MEDS: Insulin Aspart 100 Units/ML 3 ML Pen SUBCUT SCH (08:30)
[2017-10-30] MEDS: Heparin Sodium 5,000 Units/ML Vial SUBCUT SCH (08:31)
[2017-10-30] MEDS: Insulin Glargine,Human Rec. Analog 100 Units/ML 3 ML Pen SUBCUT SCH (08:32)
[2017-10-30 09:46] VITALS: BP 161/97
--- NOTE | 2017-10-30 10:48 | PCM.DCSUM1 ---
Discharge Summary - Discharge Data Discharge Date: 10/30/17 Discharge Disposition: Home, Self-Care 01 Condition: Good - Patient Summary/Data Consults: Consultations 10/28/17 13:27 Consult to Physical Therapy [PT Evaluation and Treatment] [CONS] Routine Hospital Course: This 77 year old female with pmh of DM type 2, oxygen dependent COPD, HTN, anxiety, depression, who was admitted and treated for Ecoli pneumonia and bacteremia. She presented with shortness of breath, and cough. She was noted to have a leukocytosis 13,260, NA 140, BUN 24, Cr 1.0 K+4.7, glucose 147, troponin negative. CXR revealed no acute cardiopulmonary process. She was initially admitted and treated for COPD exacerbation with levaquin, solumedrol and duonebs. PICC was placed for IV access. Blood cultures / grew out E.coli which is sensitive to levaquin. Repeat blood cultures have been no growth to date. She is feeling well today and is requesting discharge home. She was discharged home on prednisone 40mg daily for five more days and Levaquin for ten more days. - Discharge Plan Prescriptions/Med Rec: Levofloxacin [Levaquin] 750 mg PO DAILY #10 tab predniSONE [Prednisone] 40 mg PO DAILY #10 tablet Home Medications: Home Meds Esomeprazole Magnesium [Nexium] 40 mg PO DAILY 11/09/14 [History] Furosemide [Lasix] 20 mg PO DAILY 11/09/14 [History] Insulin Glarg,Human.Rec.Analog [Lantus] 12 units SUBCUT BID 11/09/14 [History] LORazepam 1 mg PO QID 11/09/14 [History] Levalbuterol HCl 1.25 mg INH QID PRN 11/09/14 [History] Losartan [Cozaar] 50 mg PO DAILY 11/09/14 [History] diphenhydrAMINE [Benadryl] 50 mg PO QID 11/09/14 [History] Budesonide/Formoterol [Symbicort 160-4.5 MCG] 2 inh IH BID 02/01/17 [History] Hydrocodone/Acetaminophen [Hydrocodon-Acetaminophen 5-325] 5 - 325 mg PO QID PRN 02/01/17 [History] Insulin Aspart [Novolog Flexpen] 8 unit SUBCUT TIDAC 02/01/17 [History] Levofloxacin [Levaquin] 750 mg PO DAILY #10 tab 10/30/17 [Rx] predniSONE [Prednisone] 40 mg PO DAILY #10 tablet 10/30/17 [Rx] Patient Handouts: Chronic Obstructive Pulmonary Disease, [id number], Levofloxacin tablets, Prednisone tablets Referrals: Micha Dai MD [Physician] - 11/05/17 9:00 am - Patient Data Vitals - Most Recent: Last Vital Signs Temp 36.7 C 10/30/17 08:00 Pulse 103 H 10/30/17 08:00 Resp 24 H 10/30/17 08:00 BP 155/74 H 10/30/17 08:29 Pulse Ox 95 10/30/17 08:00 Weight - Most Recent: 74.5 kg I&O - Last 24 hours: Intake & Output 10/29/17 10/30/17 10/30/17 22:59 06:59 14:59 Intake Total 1330 450 Output Total 1300 2100 Balance 30 -1650 Lab Results - Last 24 hrs: Laboratory Results - last 24 hr 10/29/17 10/29/17 10/30/17 Range/Units 11:32 16:31 06:05 WBC 16.55 H (4.0-11.0) K/uL RBC 4.16 L (4.30-5.90) M/uL Hgb 12.7 (12.0-16.0) g/dL Hct 38.1 (36.0-46.0) % MCV 91.6 (80.0-98.0) fL MCH 30.5 (27.0-32.0) pg MCHC 33.3 (31.0-37.0) g/dL RDW Std Deviation 51.2 (28.0-62.0) fl RDW Coeff of Lucrecia 15 (11.0-15.0) % Plt Count 250 (150-400) K/uL MPV 10.70 (7.40-12.00) fL Neut % (Auto) 93.5 H (48.0-80.0) % Lymph % (Auto) 3.1 L (16.0-40.0) % [facility] % (Auto) 3.3 (0.0-15.0) % Eos % (Auto) 0.0 (0.0-7.0) % Baso % (Auto) 0.1 (0.0-1.5) % Neut # (Auto) 15.5 H (1.4-5.7) K/uL Lymph # (Auto) 0.5 L (0.6-2.4) K/uL [facility] # (Auto) 0.6 (0.0-0.8) K/uL Eos # (Auto) 0.0 (0.0-0.7) K/uL Baso # (Auto) 0.0 (0.0-0.1) K/uL Nucleated RBC % 0.0 /100WBC Nucleated RBCs # 0 K/uL Sodium (136-146) mmol/L Potassium (3.5-5.1) mmol/L Chloride (98-110) mmol/L Carbon Dioxide (21-31) mmol/L BUN (6.0-23.0) mg/dL Creatinine (0.6-1.5) mg/dL Est Cr Clr Drug Dosing mL/min Estimated GFR (MDRD) ml/min Glucose (60-110) mg/dL POC Glucose 295 H 211 H (60-110) mg/dL Calcium (8.8-10.8) mg/dL 10/30/17 10/30/17 Range/Units 06:05 06:14 WBC (4.0-11.0) K/uL RBC (4.30-5.90) M/uL Hgb (12.0-16.0) g/dL Hct (36.0-46.0) % MCV (80.0-98.0) fL MCH (27.0-32.0) pg MCHC (31.0-37.0) g/dL RDW Std Deviation (28.0-62.0) fl RDW Coeff of Lucrecia (11.0-15.0) % Plt Count (150-400) K/uL MPV (7.40-12.00) fL Neut % (Auto) (48.0-80.0) % Lymph % (Auto) (16.0-40.0) % [facility] % (Auto) (0.0-15.0) % Eos % (Auto) (0.0-7.0) % Baso % (Auto) (0.0-1.5) % Neut # (Auto) (1.4-5.7) K/uL Lymph # (Auto) (0.6-2.4) K/uL [facility] # (Auto) (0.0-0.8) K/uL Eos # (Auto) (0.0-0.7) K/uL Baso # (Auto) (0.0-0.1) K/uL Nucleated RBC % /100WBC Nucleated RBCs # K/uL Sodium 137 (136-146) mmol/L Potassium 4.4 (3.5-5.1) mmol/L Chloride 101 (98-110) mmol/L Carbon Dioxide 24 (21-31) mmol/L BUN 29 H (6.0-23.0) mg/dL Creatinine 0.8 (0.6-1.5) mg/dL Est Cr Clr Drug Dosing 46.91 mL/min Estimated GFR (MDRD) > 60.0 ml/min Glucose 195 H (60-110) mg/dL POC Glucose 169 H (60-110) mg/dL Calcium 9.2 (8.8-10.8) mg/dL SWETHA Results - Last 24 hrs: Microbiology 10/28/17 09:14 Aerobic Blood Culture - Preliminary Blood - Venous - Lab Draw NO GROWTH AFTER 2 DAYS Anaerobic Blood Culture - Preliminary NO GROWTH AFTER 2 DAYS 10/28/17 09:02 Aerobic Blood Culture - Preliminary Blood - Venous NO GROWTH AFTER 2 DAYS Anaerobic Blood Culture - Preliminary NO GROWTH AFTER 2 DAYS Med Orders - Current: Current Medications Acetaminophen (Tylenol) 650 mg PO Q4H PRN PRN Reason: Pain (mild 1-3) Last Admin: 10/29/17 22:39 Dose: 650 mg Hydrocodone Bitart/Acetaminophen ([place] 325-10 Mg) 1 tab PO Q6H PRN PRN Reason: Pain Last Admin: 10/30/17 08:27 Dose: 1 tab Albuterol (Proventil Neb Soln) 2.5 mg NEB Q2H PRN PRN Reason: Shortness Of Breath/wheezing Last Admin: 10/27/17 02:48 Dose: 2.5 mg Albuterol/Ipratropium (Duoneb 3.0-0.5 Mg/3 Ml) 3 ml NEB Q4HRRT [facility] Last Admin: 10/30/17 09:46 Dose: 3 ml Furosemide (Lasix) 20 mg PO DAILY [facility] Last Admin: 10/30/17 08:28 Dose: 20 mg Heparin Sodium (Porcine) (Heparin Sodium) 5,000 units SUBCUT Q12HR [facility] Last Admin: 10/30/17 08:31 Dose: 5,000 units Levofloxacin/Dextrose 750 mg/ (Premix) 150 mls @ 100 mls/hr IV Q48H [facility] Last Admin: 10/29/17 15:33 Dose: 100 mls/hr Insulin Aspart (Novolog) 8 unit SUBCUT TIDAC [facility] Last Admin: 10/30/17 08:30 Dose: Not Given Insulin Glargine (Lantus Solostar) 12 units SUBCUT BID [facility] Last Admin: 10/30/17 08:32 Dose: 12 units Lorazepam (Ativan) 1 mg PO QID PRN PRN Reason: Anxiety Last Admin: 10/29/17 22:39 Dose: 1 mg Losartan Potassium (Cozaar) 50 mg PO DAILY [facility] Last Admin: 10/30/17 08:29 Dose: 50 mg Methylprednisolone Sodium Succinate (Solu-Medrol) 125 mg IVPUSH Q12H [facility] Last Admin: 10/30/17 00:27 Dose: 125 mg Tudorza Pressair 400 (Mcg) 1 each INH BIDRT [facility] Last Admin: 10/30/17 06:17 Dose: Not Given Symbicort 160/4.5 (Mcg) 2 each INH BIDRT [facility] Last Admin: 10/30/17 06:15 Dose: 2 each Sodium Chloride (Saline Flush) 10 ml FLUSH ASDIRECTED PRN PRN Reason: Keep Vein Open Sodium Chloride (Saline Flush) 2.5 ml FLUSH ASDIRECTED PRN PRN Reason: Keep Vein Open Sodium Chloride (Saline Flush) 10 ml FLUSH ASDIRECTED PRN PRN Reason: Keep Vein Open Sodium Chloride (Saline Flush) 2.5 ml FLUSH ASDIRECTED PRN PRN Reason: Keep Vein Open Discontinued Medications Hydrocodone Bitart/Acetaminophen ([place] 325-5 Mg) 1 tab PO Q6H PRN PRN Reason: Pain Last Admin: 10/27/17 15:47 Dose: 1 tab Hydrocodone Bitart/Acetaminophen ([place] 325-5 Mg) 1 tab PO Q4H PRN PRN Reason: Pain Last Admin: 10/30/17 00:22 Dose: 1 tab Albuterol/Ipratropium (Duoneb 3.0-0.5 Mg/3 Ml) 3 ml NEB ONETIME ONE Stop: 10/26/17 13:06 Last Admin: 10/26/17 13:13 Dose: 3 ml Levofloxacin/Dextrose 500 mg/ (Premix) 100 mls @ 100 mls/hr IV ONETIME ONE Stop: 10/26/17 14:28 Last Admin: 10/26/17 14:55 Dose: 75 mls/hr Levofloxacin/Dextrose 750 mg/ (Premix) 150 mls @ 100 mls/hr IV Q24H [facility] Last Admin: 10/27/17 14:49 Dose: 100 mls/hr Cefepime HCl 2 gm/ Premix 50 mls @ 100 mls/hr IV Q8H [facility] Last Admin: 10/28/17 10:59 Dose: 100 mls/hr Cefepime HCl 2 gm/ Premix 50 mls @ 33 mls/hr IV Q8H [facility] Last Admin: 10/27/17 02:33 Dose: 33 mls/hr Insulin Aspart (Novolog) 0 unit SUBCUT TIDAC [facility] PRN Reason: Protocol Last Admin: 10/27/17 06:30 Dose: 9 units Insulin Aspart (Novolog) 0 unit SUBCUT TIDAC [facility] PRN Reason: Protocol Last Admin: 10/28/17 17:36 Dose: Not Given Methylprednisolone Sodium Succinate (Solu-Medrol) 125 mg IVPUSH Q6H [facility] Last Admin: 10/28/17 03:40 Dose: 125 mg *Q Meaningful Use (DIS) - VTE *Q VTE Criteria *Q: - Stroke *Q Stroke Criteria *Q: - AMI *Q AMI Criteria *Q:
--- NOTE | 2017-11-23 07:10 | EDM.PDOC ---
ED HPI GENERAL MEDICAL PROBLEM - General Chief Complaint: Respiratory Problem Stated Complaint: SHORTNESS OF BREATHING Time Seen by Provider: 10/26/17 12:55 Source of Information: Reports: Patient, Family (daughter at bedside) History Limitations: Reports: No Limitations - History of Present Illness INITIAL COMMENTS - FREE TEXT/NARRATIVE: History of present illness: []Patient was seen here 2 days ago with COPD exacerbation and returns feeling poorly with worsening shortness of breath. She was started on prednisone with nebs while in the ED with improvement. Patient denies any fevers days for nebs are not working as well. Review of systems: As per history of present illness and below otherwise all systems reviewed and negative. Past medical history: As per history of present illness and as reviewed below otherwise noncontributory. Surgical history: As per history of present illness and as reviewed below otherwise noncontributory. Social history: No reported history of drug or alcohol abuse. Family history: As per history of present illness and as reviewed below otherwise noncontributory. Physical exam: General: Well developed, well nourished in NAD HEENT: Atraumatic, normocephalic, pupils reactive, negative for conjunctival pallor or scleral icterus, mucous membranes moist, throat clear, neck supple, nontender, trachea midline. Lungs: Clear to auscultation, breath sounds equal bilaterally, chest nontender. Heart: S1S2, regular, negative for clicks, rubs, or JVD. Abdomen: Soft, nondistended, nontender. Negative for masses or hepatosplenomegaly. Negative for costovertebral tenderness. Pelvis: Stable nontender. Genitourinary: Deferred. Rectal: Deferred. Extremities: Atraumatic, negative for cords or calf pain. Neurovascular unremarkable. Neuro: Awake, alert, oriented. Cranial nerves II through XII unremarkable. Cerebellum unremarkable. Motor and sensory unremarkable throughout. Exam nonfocal. Diagnostics: [] Therapeutics: []Nebs Impression: []COPD exacerbation Plan: []Admit Definitive disposition and diagnosis as appropriate pending reevaluation and review of above. Back Pain Pain Score (Numeric/FACES): 2 - Related Data Allergies Allergy/AdvReac Type Severity Reaction Status Date / Time aspirin Allergy Rash Verified 11/03/17 15:43 codeine Allergy Airway Verified 11/03/17 15:43 Tightness Influenza Virus Vaccines Allergy Hives Verified 11/03/17 15:43 peas Allergy Rash Verified 11/03/17 15:43 Penicillins Allergy Airway Verified 11/03/17 15:43 Tightness pneumococcal vaccine Allergy Hives Verified 11/03/17 15:43 potato Allergy Rash Verified 11/03/17 15:43 procaine HCl [From Novocain] Allergy Itching Verified 11/03/17 15:43 Tetanus Vaccines and Toxoid Allergy Hives Verified 11/03/17 15:43 wheat Allergy Airway Verified 11/03/17 15:43 Tightness chocolate Allergy Itching Uncoded 09/25/17 14:03 potato starch Allergy Rash Uncoded 09/25/17 14:03 sea food Allergy Rash Uncoded 09/25/17 14:03 tea Allergy Rash Uncoded 09/25/17 14:03 Home Meds: Home Meds Esomeprazole Magnesium [Nexium] 40 mg PO DAILY 11/09/14 [History] Furosemide [Lasix] 20 mg PO DAILY 11/09/14 [History] Insulin Glarg,Human.Rec.Analog [Lantus] 12 units SUBCUT BID 11/09/14 [History] LORazepam 1 mg PO QID 11/09/14 [History] Levalbuterol HCl 1.25 mg INH QID PRN 11/09/14 [History] Losartan [Cozaar] 50 mg PO DAILY 11/09/14 [History] diphenhydrAMINE [Benadryl] 50 mg PO QID 11/09/14 [History] Budesonide/Formoterol [Symbicort 160-4.5 MCG] 2 inh IH BID 02/01/17 [History] Insulin Aspart [Novolog Flexpen] 8 unit SUBCUT TIDAC 02/01/17 [History] Hydrocodone/Acetaminophen [Hydrocodon-Acetaminoph 7.5-300] 1 each PO Q6H PRN # 12 tablet 11/06/17 [Rx] Levofloxacin [Levaquin] 750 mg PO DAILY #3 tab 11/06/17 [Rx] Methocarbamol [Robaxin] 750 mg PO Q6H #12 tab 11/06/17 [Rx] Prednisone [IJD: predniSONE] 40 mg PO WITHBREAKFAST #18 tablet 11/06/17 [Rx] Past Medical History HEENT History: Reports: Hard of Hearing Cardiovascular History: Reports: Hypertension Respiratory History: Reports: Asthma, COPD, Other (See Below) Other Respiratory History: on home oxygen at 3liters per minute; lung cancer Gastrointestinal History: Reports: GERD Genitourinary History: Reports: None [employer] History: Reports: 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 History: Reports: None Neurological History: Reports: Vertigo Other Neuro History: pt reports "small stroke 2016" Psychiatric History: Reports: Anxiety, Depression Other Psychiatric History: claustrophobic Endocrine/Metabolic History: Reports: Diabetes, Type II Hematologic History: Reports: None Immunologic History: Reports: None Oncologic (Cancer) History: Reports: Lung Other Oncologic History: remission for 4 months Dermatologic History: Reports: None - Infectious Disease History Infectious Disease History: Reports: Chicken Pox, Measles, Mumps - Past Surgical History Head Surgeries/Procedures: Reports: None HEENT Surgical History: Reports: None Cardiovascular Surgical History: Reports: Other (See Below) Other Cardiovascular Surgeries/Procedures: Left bracial plastic artery Respiratory Surgical History: Reports: Other (See Below) Other Respiratory Surgeries/Procedures: lung surgery- hx lung cancer GI Surgical History: Reports: Appendectomy, Cholecystectomy Endocrine Surgical History: Reports: None Neurological Surgical History: Reports: None 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 Surgical History: Reports: None Oncologic Surgical History: Reports: None Dermatological Surgical History: Reports: None Social & Family History - Family History Family Medical History: Noncontributory - Tobacco Use Smoking Status *Q: Former Smoker Years of Tobacco use: 25 Used Tobacco, but Quit: Yes Month Tobacco Last Used: 1999 Second Hand Smoke Exposure: No - Caffeine Use Caffeine Use: Reports: Coffee Caffeine Use Comment: 1-2drinks/day - Alcohol Use Days Per Week of Alcohol Use: 0 - Recreational Drug Use Recreational Drug Use: No - Living Situation & Occupation Living situation: Reports: with Family Occupation: Retired ED ROS GENERAL - Review of Systems Review Of Systems: See Below (History of present illness:) ED EXAM, GENERAL - Physical Exam Exam: See Below (History of present illness:) GI/Abdominal: Normal Bowel Sounds, Soft, Non-Tender, No Organomegaly, No Distention, No Abnormal Bruit, No Mass, Pelvis Stable Back Exam: Normal Inspection, Full Range of Motion Extremities: Normal Inspection, Non-Tender, Normal Capillary Refill, Pedal Edema (+1 pitting edema, bilaterally, baseline.) Course - Vital Signs Last Recorded V/S: Last Vital Signs Temp 98.0 F 01/13/18 08:00 Pulse 103 H 10/30/17 08:00 Resp 24 H 10/30/17 08:00 BP 155/74 H 10/30/17 08:29 Pulse Ox 95 10/30/17 08:00 - Orders/Labs/Meds Labs: Laboratory Tests 10/26/17 10/26/17 10/26/17 Range/Units 13:50 13:50 13:50 WBC 13.26 H (4.0-11.0) K/uL RBC 4.11 L (4.30-5.90) M/uL Hgb 12.5 (12.0-16.0) g/dL Hct 39.0 (36.0-46.0) % MCV 94.9 (80.0-98.0) fL MCH 30.4 (27.0-32.0) pg MCHC 32.1 (31.0-37.0) g/dL RDW Std Deviation 53.7 (28.0-62.0) fl RDW Coeff of Lucrecia 16 H (11.0-15.0) % Plt Count 268 (150-400) K/uL MPV 10.40 (7.40-12.00) fL Neut % (Auto) 78.9 (48.0-80.0) % Lymph % (Auto) 12.3 L (16.0-40.0) % [place] % (Auto) 7.8 (0.0-15.0) % Eos % (Auto) 0.8 (0.0-7.0) % Baso % (Auto) 0.2 (0.0-1.5) % Neut # (Auto) 10.5 H (1.4-5.7) K/uL Lymph # (Auto) 1.6 (0.6-2.4) K/uL [place] # (Auto) 1.0 H (0.0-0.8) K/uL Eos # (Auto) 0.1 (0.0-0.7) K/uL Baso # (Auto) 0.0 (0.0-0.1) K/uL Nucleated RBC % 0.0 /100WBC Nucleated RBCs # 0 K/uL Sodium 140 (136-146) mmol/L Potassium 4.7 (3.5-5.1) mmol/L Chloride 102 (98-110) mmol/L Carbon Dioxide 25 (21-31) mmol/L BUN 24 H (6.0-23.0) mg/dL Creatinine 1.0 (0.6-1.5) mg/dL Est Cr Clr Drug Dosing TNP Estimated GFR (MDRD) 53.9 ml/min Glucose 147 H (60-110) mg/dL Calcium 9.7 (8.8-10.8) mg/dL Total Bilirubin 0.4 (0.1-1.5) mg/dL AST 21 (5-40) IU/L ALT 22 (8-54) IU/L Alkaline Phosphatase 93 (40-150) Troponin I < 0.10 (0.0-0.29) NG/ML Total Protein 6.9 (6.0-8.0) g/dL Albumin 4.0 (3.4-4.8) g/dL Globulin 2.9 (2.0-3.5) g/dL Albumin/Globulin Ratio 1.4 (1.3-2.8) Meds: Medications Discontinued Medications Generic Name Dose Route Start Last Admin Trade Name Freq PRN Reason Stop Dose Admin Acetaminophen 650 mg 10/26/17 17:00 10/29/17 22:39 Tylenol PO 650 mg Q4H PRN Administration Pain (mild 1-3) Hydrocodone Bitart/Acetaminophen 1 tab 10/26/17 17:07 10/27/17 15:47 [place] 325-5 Mg PO 1 tab Q6H PRN Administration Pain Hydrocodone Bitart/Acetaminophen 1 tab 10/27/17 21:01 10/30/17 00:22 [place] 325-5 Mg PO 1 tab Q4H PRN Administration Pain Hydrocodone Bitart/Acetaminophen 1 tab 10/30/17 00:30 10/30/17 08:27 [place] 325-10 Mg PO 1 tab Q6H PRN Administration Pain Albuterol 2.5 mg 10/26/17 17:00 10/27/17 02:48 Proventil Neb Soln NEB 2.5 mg Q2H PRN Administration Shortness Of Breath/wheezing Albuterol/Ipratropium 3 ml 10/26/17 13:05 10/26/17 13:13 Duoneb 3.0-0.5 Mg/3 Ml NEB 10/26/17 13:06 3 ml ONETIME ONE Administration Albuterol/Ipratropium 3 ml 10/26/17 18:00 10/30/17 09:46 Duoneb 3.0-0.5 Mg/3 Ml NEB 3 ml Q4HRRT VIJAYA Administration Furosemide 20 mg 10/29/17 10:00 10/30/17 08:28 Lasix PO 20 mg DAILY VIJAYA Administration Heparin Sodium (Porcine) 5,000 units 10/26/17 21:00 10/30/17 08:31 Heparin Sodium SUBCUT 5,000 units Q12HR VIJAYA Administration Levofloxacin/Dextrose 500 mg/ 100 mls @ 100 mls/hr 10/26/17 13:29 10/26/17 14 :55 Premix IV 10/26/17 14:28 75 mls/hr ONETIME ONE Administration Levofloxacin/Dextrose 750 mg/ 150 mls @ 100 mls/hr 10/27/17 15:00 10/27/17 14 :49 Premix IV 100 mls/hr Q24H VIJAYA Administration Cefepime HCl 2 gm/ Premix 50 mls @ 100 mls/hr 10/27/17 10:00 10/28/17 10:59 IV 100 mls/hr Q8H VIJAYA Administration Cefepime HCl 2 gm/ Premix 50 mls @ 33 mls/hr 10/27/17 02:00 10/27/17 02:33 IV 33 mls/hr Q8H VIJAYA Administration Levofloxacin/Dextrose 750 mg/ 150 mls @ 100 mls/hr 10/29/17 15:00 10/29/17 15 :33 Premix IV 100 mls/hr Q48H VIJAYA Administration Insulin Aspart 0 unit 10/27/17 07:30 10/27/17 06:30 Novolog SUBCUT 9 units [facility] Administration Protocol Insulin Aspart 8 unit 10/27/17 11:30 10/30/17 08:30 Novolog SUBCUT Not Given [facility]AC [facility] Insulin Aspart 0 unit 10/27/17 11:30 10/28/17 17:36 [facility] SUBCUT [facility] Protocol Insulin Glargine 12 units 10/26/17 21:00 10/30/17 08:32 Lantus Solostar SUBCUT 12 units BID VIJAYA Administration Lorazepam 1 mg 10/27/17 07:57 10/29/17 22:39 Ativan PO 1 mg QID PRN Administration Anxiety Losartan Potassium 50 mg 10/29/17 10:00 10/30/17 08:29 Cozaar PO 50 mg DAILY VIJAYA Administration Methylprednisolone Sodium Succinate 125 mg 10/26/17 16:30 10/28/17 03:40 Solu-Medrol IVPUSH 125 mg Q6H VIJAYA Administration Methylprednisolone Sodium Succinate 125 mg 10/28/17 12:00 10/30/17 00:27 Solu-Medrol IVPUSH 125 mg Q12H VIJAYA Administration Tudorza Pressair 400 1 each 10/27/17 09:00 10/30/17 06:17 Mcg INH Not Given BIDRT VIJAYA Symbicort 160/4.5 2 each 10/27/17 09:00 10/30/17 06:15 Mcg INH 2 each BIDRT VIJAYA Administration Sodium Chloride 10 ml 10/26/17 13:05 Saline Flush FLUSH ASDIRECTED PRN Keep Vein Open Sodium Chloride 2.5 ml 10/26/17 13:05 Saline Flush FLUSH ASDIRECTED PRN Keep Vein Open Sodium Chloride 10 ml 10/26/17 13:07 Saline Flush FLUSH ASDIRECTED PRN Keep Vein Open Sodium Chloride 2.5 ml 10/26/17 13:07 Saline Flush FLUSH ASDIRECTED PRN Keep Vein Open Departure - Departure Time of Disposition: 07:24 Disposition: Admitted As Inpatient 67 Condition: Fair Clinical Impression: COPD exacerbation - Discharge Information
== END 2017-10-30 11:40 | disposition home or self-care (01) | DRG 190 ==
LOC: MW.ED 12:53 → MW.MS 15:11
PROVIDERS: ADMIT Internal Medicine; ATTEND Internal Medicine
PROC: 02HV33Z Insertion of Infusion Device into Superior Vena Cava, Percutaneous Approach (ICD-10-PCS; principal; 2017-10-26)
DX: J44.0 Chronic obstructive pulmonary disease with (acute) lower respiratory infection (principal); J15.5 Pneumonia due to Escherichia coli; R78.81 Bacteremia; J44.1 Chronic obstructive pulmonary disease with (acute) exacerbation; E11.9 Type 2 diabetes mellitus without complications; I10 Essential (primary) hypertension; F41.8 Other specified anxiety disorders; D72.829 Elevated white blood cell count, unspecified; Z88.8 Allergy status to other drugs, medicaments and biological substances; Z88.0 Allergy status to penicillin; Z79.899 Other long term (current) drug therapy; Z79.4 Long term (current) use of insulin; Z99.81 Dependence on supplemental oxygen; Z85.118 Personal history of other malignant neoplasm of bronchus and lung; Z87.891 Personal history of nicotine dependence
CPT/HCPCS: 36415; 71045; 80053; 84484; 85025; 87040 ×2; 87186; 94640; 96365; 99285; J1956; 36569; 76937; 76937-26; 77001; 77001-26; 80048; 81001; 82962; 87804; 97161-GP; 99284; A9270-GY; J0692; J1644; J1815-GY ×2; J2930

== ENCOUNTER 2017-11-03 15:33 | Inpatient (IN) | payer MEDICARE, OTHER ==
[2017-11-03] MEDS ORDERED: methylPREDNISolone Sodium Succinate 125 MG/2 ML SDV IVPUSH ONE (15:40)
[2017-11-03] MEDS ORDERED: Albuterol/Ipratropium 3.0-0.5 MG/3 ML Neb Soln NEB ONE (15:40)
[2017-11-03] MEDS ORDERED: Albuterol/Ipratropium 3.0-0.5 MG/3 ML Neb Soln ONE (15:42)
--- NOTE | 2017-11-03 15:42 | EDM.PDOC ---
ED HPI GENERAL MEDICAL PROBLEM - General Chief Complaint: Respiratory Problem Stated Complaint: SHORTNESS OF BREATH Time Seen by Provider: 11/03/17 15:41 Source of Information: Reports: Patient - History of Present Illness INITIAL COMMENTS - FREE TEXT/NARRATIVE: HISTORY AND PHYSICAL: History of present illness: [Patient recently discharged from the hospital on the after a Escherichia coli sepsis infection, apparently she had requested discharge but she has not been doing well at home she is not eating or drinking and is very weak and short of breath at this time She is able to speak but is somewhat labored to do so ] Review of systems: As per history of present illness and below otherwise all systems reviewed and negative. Past medical history: As per history of present illness and as reviewed below otherwise noncontributory. Surgical history: As per history of present illness and as reviewed below otherwise noncontributory. Social history: No reported history of drug or alcohol abuse. Family history: As per history of present illness and as reviewed below otherwise noncontributory. Physical exam: HEENT: Atraumatic, normocephalic, pupils reactive, negative for conjunctival pallor or scleral icterus, mucous membranes moist, throat clear, neck supple, nontender, trachea midline. Lungs: Clear to auscultation, breath sounds equal bilaterally, chest nontender. Heart: S1S2, regular, negative for clicks, rubs, or JVD. Abdomen: Soft, nondistended, nontender. Negative for masses or hepatosplenomegaly. Negative for costovertebral tenderness. Pelvis: Stable nontender. Genitourinary: Deferred. Rectal: Deferred. Extremities: Atraumatic, negative for cords or calf pain. Neurovascular unremarkable. Neuro: Awake, alert, oriented. Cranial nerves II through XII unremarkable. Cerebellum unremarkable. Motor and sensory unremarkable throughout. Exam nonfocal. Diagnostics: [Lab as below EKG Chest 1 view Normal saline 1 25 mL per hour ] Therapeutics: [Normal saline 1 25 mL per hour Solu-Medrol 125 mg IV DuoNeb PICC line placement with Dr. Eduardo md ] Impression: Hypoxia Recent sepsis diagnosis with Escherichia coli on Levaquin Rhabdomyolysis Dehydration [Shortness of breath Recent hospitalization] Definitive disposition and diagnosis as appropriate pending reevaluation and review of above. UPPER BACK Pain Score (Numeric/FACES): 10 - Related Data Allergies Allergy/AdvReac Type Severity Reaction Status Date / Time aspirin Allergy Rash Verified 11/03/17 15:43 codeine Allergy Airway Verified 11/03/17 15:43 Tightness Influenza Virus Vaccines Allergy Hives Verified 11/03/17 15:43 peas Allergy Rash Verified 11/03/17 15:43 Penicillins Allergy Airway Verified 11/03/17 15:43 Tightness pneumococcal vaccine Allergy Hives Verified 11/03/17 15:43 potato Allergy Rash Verified 11/03/17 15:43 procaine HCl [From Novocain] Allergy Itching Verified 11/03/17 15:43 Tetanus Vaccines and Toxoid Allergy Hives Verified 11/03/17 15:43 wheat Allergy Airway Verified 11/03/17 15:43 Tightness chocolate Allergy Itching Uncoded 09/25/17 14:03 potato starch Allergy Rash Uncoded 09/25/17 14:03 sea food Allergy Rash Uncoded 09/25/17 14:03 tea Allergy Rash Uncoded 09/25/17 14:03 Home Meds: Home Meds Esomeprazole Magnesium [Nexium] 40 mg PO DAILY 11/09/14 [History] Furosemide [Lasix] 20 mg PO DAILY 11/09/14 [History] Insulin Glarg,Human.Rec.Analog [Lantus] 12 units SUBCUT BID 11/09/14 [History] LORazepam 1 mg PO QID 11/09/14 [History] Levalbuterol HCl 1.25 mg INH QID PRN 11/09/14 [History] Losartan [Cozaar] 50 mg PO DAILY 11/09/14 [History] diphenhydrAMINE [Benadryl] 50 mg PO QID 11/09/14 [History] Budesonide/Formoterol [Symbicort 160-4.5 MCG] 2 inh IH BID 02/01/17 [History] Hydrocodone/Acetaminophen [Hydrocodon-Acetaminophen 5-325] 5 - 325 mg PO QID PRN 02/01/17 [History] Insulin Aspart [Novolog Flexpen] 8 unit SUBCUT TIDAC 02/01/17 [History] Levofloxacin [Levaquin] 750 mg PO DAILY #10 tab 10/30/17 [Rx] predniSONE [Prednisone] 40 mg PO DAILY #10 tablet 10/30/17 [Rx] Past Medical History HEENT History: Reports: Hard of Hearing Cardiovascular History: Reports: Hypertension Respiratory History: Reports: Asthma, COPD, Other (See Below) Other Respiratory History: on home oxygen at 3liters per minute; lung cancer Gastrointestinal History: Reports: GERD Genitourinary History: Reports: None 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: 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 History: Reports: None Neurological History: Reports: Vertigo Other Neuro History: pt reports "small stroke 2016" Psychiatric History: Reports: Anxiety, Depression Other Psychiatric History: claustrophobic Endocrine/Metabolic History: Reports: Diabetes, Type II Hematologic History: Reports: None Immunologic History: Reports: None Oncologic (Cancer) History: Reports: Lung Other Oncologic History: remission for 4 months Dermatologic History: Reports: None - Infectious Disease History Infectious Disease History: Reports: Chicken Pox, Measles, Mumps - Past Surgical History Head Surgeries/Procedures: Reports: None HEENT Surgical History: Reports: None Cardiovascular Surgical History: Reports: Other (See Below) Other Cardiovascular Surgeries/Procedures: Left bracial plastic artery Respiratory Surgical History: Reports: Other (See Below) Other Respiratory Surgeries/Procedures: lung surgery- hx lung cancer GI Surgical History: Reports: Appendectomy, Cholecystectomy Endocrine Surgical History: Reports: None Neurological Surgical History: Reports: None 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 Surgical History: Reports: None Oncologic Surgical History: Reports: None Dermatological Surgical History: Reports: None Social & Family History - Family History Family Medical History: Noncontributory - Tobacco Use Smoking Status *Q: Former Smoker Years of Tobacco use: 25 Used Tobacco, but Quit: Yes Month Tobacco Last Used: 1999 Second Hand Smoke Exposure: No - Caffeine Use Caffeine Use: Reports: Coffee Caffeine Use Comment: 1-2drinks/day - Alcohol Use Days Per Week of Alcohol Use: 0 - Recreational Drug Use Recreational Drug Use: No - Living Situation & Occupation Living situation: Reports: with Family Occupation: Retired ED ROS GENERAL - Review of Systems Review Of Systems: ROS reveals no pertinent complaints other than HPI. ED EXAM, GENERAL - Physical Exam Exam: See Below Course - Vital Signs Last Recorded V/S: Last Vital Signs Temp 96.2 F 11/03/17 15:43 Pulse 97 11/03/17 17:01 Resp 13 11/03/17 17:01 BP 109/58 L 11/03/17 17:01 Pulse Ox 95 11/03/17 17:01 - Orders/Labs/Meds Orders: Active Orders 24 hr Category Date Time Status EKG Documentation Completion [RC] STAT Care 11/03/17 15:42 Active RT Aerosol Therapy [RC] ASDIRECTED Care 11/03/17 15:41 Active Central Line Placement [CR] Routine Exams 11/03/17 Ordered Guide Vascular Access [US] Routine Exams 11/03/17 Taken PICC Line Insertion [CR] Stat Exams 11/03/17 16:37 Ordered CULTURE BLOOD [BC] Stat Lab 11/03/17 17:53 Ordered CULTURE BLOOD [BC] Stat Lab 11/03/17 17:53 Ordered UA W/MICROSCOPIC [URIN] Stat Lab 11/03/17 15:41 Uncollected Sodium Chloride 0.9% [Normal Saline] 1,000 ml Med 11/03/17 15:45 Active IV STAT Blood Culture x2 Reflex Set [OM.PC] Stat Oth 11/03/17 17:53 Ordered Medication Orders Sodium Chloride (Normal Saline) 1,000 mls @ 125 mls/hr IV STAT VIJAYA Labs: Laboratory Tests 11/03/17 11/03/17 11/03/17 Range/Units 16:15 16:15 16:15 WBC 27.48 H (4.0-11.0) K/uL RBC 4.66 (4.30-5.90) M/uL Hgb 14.3 (12.0-16.0) g/dL Hct 42.7 (36.0-46.0) % MCV 91.6 (80.0-98.0) fL MCH 30.7 (27.0-32.0) pg MCHC 33.5 (31.0-37.0) g/dL RDW Std Deviation 51.4 (28.0-62.0) fl RDW Coeff of Lucrecia 15 (11.0-15.0) % Plt Count 228 (150-400) K/uL MPV 11.20 (7.40-12.00) fL Add Manual Diff YES Neutrophils % (Manual) 94 H (48.0-80.0) % Lymphocytes % (Manual) 4 L (16.0-40.0) % Monocytes % (Manual) 2 (0.0-15.0) % Nucleated RBC % 0.0 /100WBC Absolute Seg Neuts 25.8 H (1.4-5.7) Lymphocytes # (Manual) 1.1 (0.6-2.4) Monocytes # (Manual) 0.5 (0.0-0.8) Nucleated RBCs # 0 K/uL INR 1.24 H (0.86-1.11) Lactate (0.20-2.00) mmol/L Sodium 137 (136-146) mmol/L Potassium 4.4 (3.5-5.1) mmol/L Chloride 97 L (98-110) mmol/L Carbon Dioxide 24 (21-31) mmol/L BUN 52 H (6.0-23.0) mg/dL Creatinine 1.6 H (0.6-1.5) mg/dL Est Cr Clr Drug Dosing 23.66 mL/min Estimated GFR (MDRD) 31.3 ml/min Glucose 213 H (60-110) mg/dL Calcium 9.3 (8.8-10.8) mg/dL Total Bilirubin 0.9 (0.1-1.5) mg/dL AST 42 H (5-40) IU/L ALT 52 (8-54) IU/L Alkaline Phosphatase 86 (40-150) Creatine Kinase 672 H (9-236) IU/L CK-MB (CK-2) 6.1 (0-6.6) ng/ml Troponin I < 0.10 (0.0-0.29) NG/ML B-Natriuretic Peptide (<100) PG/ML Total Protein 6.2 (6.0-8.0) g/dL Albumin 3.5 (3.4-4.8) g/dL Globulin 2.7 (2.0-3.5) g/dL Albumin/Globulin Ratio 1.3 (1.3-2.8) Amylase (10-90) U/L Lipase (7-80) U/L 11/03/17 11/03/17 11/03/17 Range/Units 16:15 16:15 16:15 WBC (4.0-11.0) K/uL RBC (4.30-5.90) M/uL Hgb (12.0-16.0) g/dL Hct (36.0-46.0) % MCV (80.0-98.0) fL MCH (27.0-32.0) pg MCHC (31.0-37.0) g/dL RDW Std Deviation (28.0-62.0) fl RDW Coeff of Lucrecia (11.0-15.0) % Plt Count (150-400) K/uL MPV (7.40-12.00) fL Add Manual Diff Neutrophils % (Manual) (48.0-80.0) % Lymphocytes % (Manual) (16.0-40.0) % Monocytes % (Manual) (0.0-15.0) % Nucleated RBC % /100WBC Absolute Seg Neuts (1.4-5.7) Lymphocytes # (Manual) (0.6-2.4) Monocytes # (Manual) (0.0-0.8) Nucleated RBCs # K/uL INR (0.86-1.11) Lactate 2.7 H (0.20-2.00) mmol/L Sodium (136-146) mmol/L Potassium (3.5-5.1) mmol/L Chloride (98-110) mmol/L Carbon Dioxide (21-31) mmol/L BUN (6.0-23.0) mg/dL Creatinine (0.6-1.5) mg/dL Est Cr Clr Drug Dosing mL/min Estimated GFR (MDRD) ml/min Glucose (60-110) mg/dL Calcium (8.8-10.8) mg/dL Total Bilirubin (0.1-1.5) mg/dL AST (5-40) IU/L ALT (8-54) IU/L Alkaline Phosphatase (40-150) Creatine Kinase (9-236) IU/L CK-MB (CK-2) (0-6.6) ng/ml Troponin I (0.0-0.29) NG/ML B-Natriuretic Peptide 31 (<100) PG/ML Total Protein (6.0-8.0) g/dL Albumin (3.4-4.8) g/dL Globulin (2.0-3.5) g/dL Albumin/Globulin Ratio (1.3-2.8) Amylase 63 (10-90) U/L Lipase 13 (7-80) U/L Meds: Medications Generic Name Dose Route Start Last Admin Trade Name Freq PRN Reason Stop Dose Admin Sodium Chloride 1,000 mls @ 125 mls/hr 11/03/17 15:45 Normal Saline IV STAT VIJAYA Discontinued Medications Generic Name Dose Route Start Last Admin Trade Name Freq PRN Reason Stop Dose Admin Albuterol/Ipratropium 3 ml 11/03/17 15:40 11/03/17 15:46 Duoneb 3.0-0.5 Mg/3 Ml NEB 11/03/17 15:41 3 ml ONETIME ONE Administration Albuterol/Ipratropium Confirm 11/03/17 15:42 11/03/17 16:24 Duoneb 3.0-0.5 Mg/3 Ml Administered 11/03/17 15:43 Not Given Dose 3 ml .ROUTE .STK-MED ONE Levofloxacin/Dextrose 750 mg/ 150 mls @ 100 mls/hr 11/03/17 16:36 Premix IV 11/03/17 18:05 ONETIME ONE Vancomycin HCl 1 gm/ Sodium 250 mls @ 250 mls/hr 11/03/17 16:38 Chloride IV 11/03/17 17:37 ONETIME ONE Methylprednisolone Sodium Succinate 125 mg 11/03/17 15:40 11/03/17 16:25 Solu-Medrol IVPUSH 11/03/17 15:41 Not Given ONETIME ONE Methylprednisolone Sodium Succinate 125 mg 11/03/17 16:19 11/03/17 16:24 Solu-Medrol IM 11/03/17 16:20 125 mg ONETIME ONE Administration Departure - Departure Time of Disposition: 18:27 Disposition: Admitted As Inpatient 67 Condition: Poor Clinical Impression: Rhabdomyolysis, Hypoxia - Discharge Information Referrals: PCP,None [Primary Care Provider] - Forms: ED Department Discharge - My Orders Last 24 Hours: My Active Orders 11/03/17 Central Line Placement [CR] Routine Guide Vascular Access [US] Routine 11/03/17 15:41 RT Aerosol Therapy [RC] ASDIRECTED UA W/MICROSCOPIC [URIN] Stat 11/03/17 15:42 EKG Documentation Completion [RC] STAT 11/03/17 15:45 Sodium Chloride 0.9% [Normal Saline] 1,000 ml IV STAT 11/03/17 16:37 PICC Line Insertion [CR] Stat 11/03/17 17:53 CULTURE BLOOD [BC] Stat CULTURE BLOOD [BC] Stat Blood Culture x2 Reflex Set [OM.PC] Stat - Assessment/Plan Last 24 Hours: My Active Orders 11/03/17 Central Line Placement [CR] Routine Guide Vascular Access [US] Routine 11/03/17 15:41 RT Aerosol Therapy [RC] ASDIRECTED UA W/MICROSCOPIC [URIN] Stat 11/03/17 15:42 EKG Documentation Completion [RC] STAT 11/03/17 15:45 Sodium Chloride 0.9% [Normal Saline] 1,000 ml IV STAT 11/03/17 16:37 PICC Line Insertion [CR] Stat 11/03/17 17:53 CULTURE BLOOD [BC] Stat CULTURE BLOOD [BC] Stat Blood Culture x2 Reflex Set [OM.PC] Stat
[2017-11-03] MEDS ORDERED: Sodium Chloride 0.9% 1,000 ML IV SCH (15:45)
[2017-11-03] MEDS ORDERED: methylPREDNISolone Sodium Succinate 125 MG/2 ML SDV IM ONE (16:19)
[2017-11-03] MEDS ORDERED: Levofloxacin/Dextrose 5%-Water 750 MG in Premix Bag 1 BAG IV ONE ×2 (16:36→19:30)
--- NOTE | 2017-11-03 16:42 | CR ---
EXAMINATION: Portable chest radiograph. HISTORY: Shortness of breath. Comparison: 10/26/2017, 03/12/2017. FINDINGS: The trachea is midline. The cardiomediastinal silhouette is within normal limits. There is a stable l eft suprahilar area of atelectasis/scarring. No acute pulmonary infiltrates, effusions or pneumothora x. Osseous structures appear unremarkable. IMPRESSION: No acute cardiopulmonary process.
[2017-11-03 16:47] LABS: CHLORIDE,CL 97 mmol/L (98-110); SODIUM,NA 137 mmol/L (136-146)
[2017-11-03] MEDS ORDERED: Acetaminophen/HYDROcodone 325-5 MG Tab PO PRN (18:56)
[2017-11-03] MEDS ORDERED: Levalbuterol HCl 1.25 MG/3 ML Neb INH PRN (18:57)
--- NOTE | 2017-11-03 19:02 | PCM.HP ---
H&P History of Present Illness - General Date of Service: 11/03/17 Admit Problem/Dx: Admission Diagnosis/Problem Admission Diagnosis/Problem Hypoxia Source of Information: Patient, Family - History of Present Illness Initial Comments - Free Text/Narative: 77F with a past medical history of end stage COPD, T2DM presents today with chief complaint of shortness of breath, weakness, lack of appetite. Patient was admitted last week and discharged on 10/30/17 for a COPD exacerbation secondary to pneumonia resulting in E. Coli bacteremia. She was also admitted in September 2017 for pneumonia. Patient is oxygen dependent at home using 3L. Her daughters state that since the left the hospital, she has not been able to eat. She has been lethargic and sleeping most of the day. She denies chest pain, nausea, vomiting, fevers, chills. ER Course: CBC - leukocytosis 27,000 CMP - elevated BUN/Cr 52/1.6 Lactate 2.7 Glucose 213 CK 672 Troponin negative x1 1L NS Bolus IV Solumedrol x1 DuoNeb x1 3.5L O2 via [place] UPPER BACK Pain Score (Numeric/FACES): 10 - Related Data Allergies/Adverse Reactions: Allergies Allergy/AdvReac Type Severity Reaction Status Date / Time aspirin Allergy Rash Verified 11/03/17 15:43 codeine Allergy Airway Verified 11/03/17 15:43 Tightness Influenza Virus Vaccines Allergy Hives Verified 11/03/17 15:43 peas Allergy Rash Verified 11/03/17 15:43 Penicillins Allergy Airway Verified 11/03/17 15:43 Tightness pneumococcal vaccine Allergy Hives Verified 11/03/17 15:43 potato Allergy Rash Verified 11/03/17 15:43 procaine HCl [From Novocain] Allergy Itching Verified 11/03/17 15:43 Tetanus Vaccines and Toxoid Allergy Hives Verified 11/03/17 15:43 wheat Allergy Airway Verified 11/03/17 15:43 Tightness chocolate Allergy Itching Uncoded 09/25/17 14:03 potato starch Allergy Rash Uncoded 09/25/17 14:03 sea food Allergy Rash Uncoded 09/25/17 14:03 tea Allergy Rash Uncoded 09/25/17 14:03 Home Medications: Home Meds Esomeprazole Magnesium [Nexium] 40 mg PO DAILY 11/09/14 [History] Furosemide [Lasix] 20 mg PO DAILY 11/09/14 [History] Insulin Glarg,Human.Rec.Analog [Lantus] 12 units SUBCUT BID 11/09/14 [History] LORazepam 1 mg PO QID 11/09/14 [History] Levalbuterol HCl 1.25 mg INH QID PRN 11/09/14 [History] Losartan [Cozaar] 50 mg PO DAILY 11/09/14 [History] diphenhydrAMINE [Benadryl] 50 mg PO QID 11/09/14 [History] Budesonide/Formoterol [Symbicort 160-4.5 MCG] 2 inh IH BID 02/01/17 [History] Hydrocodone/Acetaminophen [Hydrocodon-Acetaminophen 5-325] 5 - 325 mg PO QID PRN 02/01/17 [History] Insulin Aspart [Novolog Flexpen] 8 unit SUBCUT TIDAC 02/01/17 [History] Levofloxacin [Levaquin] 750 mg PO DAILY #10 tab 10/30/17 [Rx] predniSONE [Prednisone] 40 mg PO DAILY #10 tablet 10/30/17 [Rx] Past Medical History HEENT History: Reports: Hard of Hearing Cardiovascular History: Reports: Hypertension Respiratory History: Reports: Asthma, COPD, Other (See Below) Other Respiratory History: on home oxygen at 3liters per minute; lung cancer Gastrointestinal History: Reports: GERD Genitourinary History: Reports: None 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: 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 History: Reports: None Neurological History: Reports: Vertigo Other Neuro History: pt reports "small stroke 2016" Psychiatric History: Reports: Anxiety, Depression Other Psychiatric History: claustrophobic Endocrine/Metabolic History: Reports: Diabetes, Type II Hematologic History: Reports: None Immunologic History: Reports: None Oncologic (Cancer) History: Reports: Lung Other Oncologic History: remission for 4 months Dermatologic History: Reports: None - Infectious Disease History Infectious Disease History: Reports: Chicken Pox, Measles, Mumps - Past Surgical History Head Surgeries/Procedures: Reports: None HEENT Surgical History: Reports: None Cardiovascular Surgical History: Reports: Other (See Below) Other Cardiovascular Surgeries/Procedures: Left bracial plastic artery Respiratory Surgical History: Reports: Other (See Below) Other Respiratory Surgeries/Procedures: lung surgery- hx lung cancer GI Surgical History: Reports: Appendectomy, Cholecystectomy Endocrine Surgical History: Reports: None Neurological Surgical History: Reports: None 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 Surgical History: Reports: None Oncologic Surgical History: Reports: None Dermatological Surgical History: Reports: None Social & Family History - Family History Family Medical History: Noncontributory - Tobacco Use Smoking Status *Q: Former Smoker Years of Tobacco use: 25 Used Tobacco, but Quit: Yes Month Tobacco Last Used: 1999 Second Hand Smoke Exposure: No - Caffeine Use Caffeine Use: Reports: Coffee Caffeine Use Comment: 1-2drinks/day - Alcohol Use Days Per Week of Alcohol Use: 0 - Recreational Drug Use Recreational Drug Use: No - Living Situation & Occupation Living situation: Reports: with Family Occupation: Retired H&P Review of Systems - Review of Systems: Review Of Systems: See Below General: Reports: Weakness, Fatigue, Decreased Appetite HEENT: Reports: No Symptoms Pulmonary: Reports: Shortness of Breath, Wheezing, Pleuritic Chest Pain Cardiovascular: Reports: No Symptoms Gastrointestinal: Reports: No Symptoms Genitourinary: Reports: No Symptoms 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: Reports: No Symptoms Skin: Reports: No Symptoms Psychiatric: Reports: No Symptoms Neurological: Reports: No Symptoms Hematologic/Lymphatic: Reports: No Symptoms Immunologic: Reports: No Symptoms Exam - Exam Exam: See Below - Vital Signs Vital Signs: Last Vital Signs Temp 35.7 C 11/03/17 15:43 Pulse 97 11/03/17 17:01 Resp 13 11/03/17 17:01 BP 109/58 L 11/03/17 17:01 Pulse Ox 95 11/03/17 17:01 Weight: 74.9 kg - Exam Quality Assessment: Supplemental Oxygen, Central Line/PICC General: Alert, Oriented HEENT: Conjunctiva Clear Neck: Supple, Trachea Midline Lungs: Wheezing Cardiovascular: Regular Rate, Regular Rhythm, Normal S1, Normal S2 GI/Abdominal Exam: Normal Bowel Sounds, Soft Back Exam: Normal Inspection, Full Range of Motion. No: CVA Tenderness (L), CVA Tenderness (R) Peripheral Pulses: 3+: Dorsalis Pedis (L), Dorsalis Pedis (R) Skin: Warm, Ecchymosis Neurological: Cranial Nerves Intact Neuro Extensive - Mental Status: Alert, Oriented x3, Normal Mood/Affect Neuro Extensive - Motor, Sensory, Reflexes: CN II-XII Intact Psychiatric: Alert, Normal Affect, Normal Mood - Patient Data Lab Results Last 24 hrs: Laboratory Results - last 24 hr 11/03/17 11/03/17 11/03/17 Range/Units 16:15 16:15 16:15 WBC 27.48 H (4.0-11.0) K/uL RBC 4.66 (4.30-5.90) M/uL Hgb 14.3 (12.0-16.0) g/dL Hct 42.7 (36.0-46.0) % MCV 91.6 (80.0-98.0) fL MCH 30.7 (27.0-32.0) pg MCHC 33.5 (31.0-37.0) g/dL RDW Std Deviation 51.4 (28.0-62.0) fl RDW Coeff of Lucrecia 15 (11.0-15.0) % Plt Count 228 (150-400) K/uL MPV 11.20 (7.40-12.00) fL Add Manual Diff YES Neutrophils % (Manual) 94 H (48.0-80.0) % Lymphocytes % (Manual) 4 L (16.0-40.0) % Monocytes % (Manual) 2 (0.0-15.0) % Nucleated RBC % 0.0 /100WBC Absolute Seg Neuts 25.8 H (1.4-5.7) Lymphocytes # (Manual) 1.1 (0.6-2.4) Monocytes # (Manual) 0.5 (0.0-0.8) Nucleated RBCs # 0 K/uL INR 1.24 H (0.86-1.11) Lactate (0.20-2.00) mmol/L Sodium 137 (136-146) mmol/L Potassium 4.4 (3.5-5.1) mmol/L Chloride 97 L (98-110) mmol/L Carbon Dioxide 24 (21-31) mmol/L BUN 52 H (6.0-23.0) mg/dL Creatinine 1.6 H (0.6-1.5) mg/dL Est Cr Clr Drug Dosing 23.66 mL/min Estimated GFR (MDRD) 31.3 ml/min Glucose 213 H (60-110) mg/dL Calcium 9.3 (8.8-10.8) mg/dL Total Bilirubin 0.9 (0.1-1.5) mg/dL AST 42 H (5-40) IU/L ALT 52 (8-54) IU/L Alkaline Phosphatase 86 (40-150) Creatine Kinase 672 H (9-236) IU/L CK-MB (CK-2) 6.1 (0-6.6) ng/ml Troponin I < 0.10 (0.0-0.29) NG/ML B-Natriuretic Peptide (<100) PG/ML Total Protein 6.2 (6.0-8.0) g/dL Albumin 3.5 (3.4-4.8) g/dL Globulin 2.7 (2.0-3.5) g/dL Albumin/Globulin Ratio 1.3 (1.3-2.8) Amylase (10-90) U/L Lipase (7-80) U/L 11/03/17 11/03/17 11/03/17 Range/Units 16:15 16:15 16:15 WBC (4.0-11.0) K/uL RBC (4.30-5.90) M/uL Hgb (12.0-16.0) g/dL Hct (36.0-46.0) % MCV (80.0-98.0) fL MCH (27.0-32.0) pg MCHC (31.0-37.0) g/dL RDW Std Deviation (28.0-62.0) fl RDW Coeff of Lucrecia (11.0-15.0) % Plt Count (150-400) K/uL MPV (7.40-12.00) fL Add Manual Diff Neutrophils % (Manual) (48.0-80.0) % Lymphocytes % (Manual) (16.0-40.0) % Monocytes % (Manual) (0.0-15.0) % Nucleated RBC % /100WBC Absolute Seg Neuts (1.4-5.7) Lymphocytes # (Manual) (0.6-2.4) Monocytes # (Manual) (0.0-0.8) Nucleated RBCs # K/uL INR (0.86-1.11) Lactate 2.7 H (0.20-2.00) mmol/L Sodium (136-146) mmol/L Potassium (3.5-5.1) mmol/L Chloride (98-110) mmol/L Carbon Dioxide (21-31) mmol/L BUN (6.0-23.0) mg/dL Creatinine (0.6-1.5) mg/dL Est Cr Clr Drug Dosing mL/min Estimated GFR (MDRD) ml/min Glucose (60-110) mg/dL Calcium (8.8-10.8) mg/dL Total Bilirubin (0.1-1.5) mg/dL AST (5-40) IU/L ALT (8-54) IU/L Alkaline Phosphatase (40-150) Creatine Kinase (9-236) IU/L CK-MB (CK-2) (0-6.6) ng/ml Troponin I (0.0-0.29) NG/ML B-Natriuretic Peptide 31 (<100) PG/ML Total Protein (6.0-8.0) g/dL Albumin (3.4-4.8) g/dL Globulin (2.0-3.5) g/dL Albumin/Globulin Ratio (1.3-2.8) Amylase 63 (10-90) U/L Lipase 13 (7-80) U/L Result Diagrams: 11/03/17 16:15 11/03/17 16:15 *Q Meaningful Use (ADM) - VTE *Q VTE Criteria *Q: - Stroke *Q Stroke Criteria *Q: - AMI *Q AMI Criteria *Q: Problem List Initiated/Reviewed/Updated: Yes Orders Last 24hrs: Active Orders 24 hr Category Date Time Status Admission Status [Patient Status] [ADT] Stat ADT 11/03/17 18:28 Active EKG Documentation Completion [RC] STAT Care 11/03/17 15:42 Active RT Aerosol Therapy [RC] ASDIRECTED Care 11/03/17 15:41 Active Central Line Placement [CR] Routine Exams 11/03/17 Ordered Guide Vascular Access [US] Routine Exams 11/03/17 Taken PICC Line Insertion [CR] Stat Exams 11/03/17 16:37 Ordered CULTURE BLOOD [BC] Stat Lab 11/03/17 18:43 Received CULTURE BLOOD [BC] Stat Lab 11/03/17 18:53 Received UA W/MICROSCOPIC [URIN] Stat Lab 11/03/17 15:41 Uncollected Sodium Chloride 0.9% [Normal Saline] 1,000 ml Med 11/03/17 15:45 Active IV STAT Blood Culture x2 Reflex Set [OM.PC] Stat Oth 11/03/17 17:53 Ordered Medication Orders Sodium Chloride (Normal Saline) 1,000 mls @ 125 mls/hr IV STAT [facility] Assessment/Plan Comment:: Assessment: #1. Acute hypoxic respiratory failure secondary to COPD exacerbation #2. Sepsis with recent hx of bacteremia #3. Dehydration #4. NATI #5. Elevated Lactate #6. Elevated CK #7. Hyperglycemia #8. Elevated AST #9. History of oxygen-dependent COPD, recent hospitalization for bacteremia, T2DM, anxiety, depression Plan: #1. Admit as inpatient. Full code #2. Vital signs per floor routine. Up ad donaldo. Regular diet Titrate O2 to maintain >88%. #3. IV Solumedrol 60mg q6hrs #4. DuoNeb q4hrs PRN sob/wheezing #5. IVNS 150mL/hr #6. Follow up on blood cultures #7. Vanc, zosyn, levaquin for sepsis likely secondary to persistent pneumonia despite normal CXR. Resume home meds. Hold on lasix. #8. CBC, BMP for tomorrow AM
[2017-11-03] MEDS ORDERED: LORazepam 2 MG/ML MDV IV PRN (19:13)
[2017-11-03] MEDS ORDERED: Ondansetron 4 MG/2 ML SDV IVPUSH PRN (19:13)
[2017-11-03] MEDS: Sodium Chloride 0.9% 1,000 ML IV SCH (20:36)
[2017-11-03] MEDS: Albuterol/Ipratropium 3.0-0.5 MG/3 ML Neb Soln NEB PRN (20:56)
[2017-11-03] MEDS: Enoxaparin 30 MG/0.3 ML Syringe SUBCUT SCH (22:00)
[2017-11-03] MEDS ORDERED: Morphine 2 MG/ML Syringe IVPUSH SCH (22:15)
[2017-11-03] MEDS: Non-Formulary Medication 1 Each (Budesonide/Formoterol 2 INH) IH SCH ×2 (22:47→23:43)
[2017-11-03] MEDS: methylPREDNISolone Sodium Succinate 125 MG/2 ML SDV IVPUSH SCH (22:48)
[2017-11-03] MEDS: Piperacillin/Tazobactam 3.375 GM in Sodium Chloride 0.9% 50 ML IV SCH (22:50)
[2017-11-03] MEDS: Morphine 2 MG/ML Syringe IVPUSH PRN (23:07)
[2017-11-03] MEDS: diphenhydrAMINE 50 MG Cap PO SCH (23:48)
[2017-11-04] MEDS ORDERED: LORazepam 1 MG Tab PO SCH
[2017-11-04] MEDS: Acetaminophen/oxyCODONE 325-7.5 MG Tab PO PRN ×4 (00:06→23:01)
[2017-11-04] MEDS: LORazepam 2 MG/ML MDV IVPUSH PRN ×2 (00:08→20:29)
[2017-11-04] MEDS: Morphine 2 MG/ML Syringe IVPUSH PRN ×3 (03:17→21:08)
[2017-11-04] MEDS: methylPREDNISolone Sodium Succinate 125 MG/2 ML SDV IVPUSH SCH ×5 (04:34→23:00)
[2017-11-04] MEDS: Piperacillin/Tazobactam 3.375 GM in Sodium Chloride 0.9% 50 ML IV SCH ×2 (05:00→09:25)
[2017-11-04] MEDS: Acetaminophen 325 MG Tab PO PRN (05:38)
[2017-11-04] MEDS: diphenhydrAMINE 50 MG Cap PO SCH ×4 (05:38→23:01)
[2017-11-04] MEDS: Albuterol/Ipratropium 3.0-0.5 MG/3 ML Neb Soln NEB PRN ×4 (06:45→20:33)
[2017-11-04] MEDS ORDERED: Potassium Chloride 10% 20 MEQ/15 ML Soln 30 ML UD Cup PO ONE (07:58)
[2017-11-04] MEDS: Non-Formulary Medication 1 Each (Budesonide/Formoterol 2 INH) IH SCH ×3 (08:47→20:30)
[2017-11-04] MEDS: Losartan 50 MG Tab PO SCH (08:47)
[2017-11-04] MEDS ORDERED: ESOMEPRAZOLE 40 MG PO SCH (09:00)
[2017-11-04] MEDS: Sodium Chloride 0.9% 1,000 ML IV SCH ×2 (09:11→17:56)
[2017-11-04] MEDS ORDERED: Calcium Carbonate 500 MG Tab.Chew PO ONE (09:26)
[2017-11-04] MEDS: Insulin Aspart 100 Units/ML 3 ML Pen SUBCUT SCH ×3 (10:18→18:02)
--- NOTE | 2017-11-04 10:40 | CR ---
EXAMINATION: Fluoro and ultrasound guided right-sided PICC line placement. HISTORY: Removal of previous PICC line. TECHNIQUE/FINDINGS: After written informed consent was obtained from the patient using ultrasound an d Fluoro guidance under aseptic conditions utilizing 1% lidocaine as local anesthesia right basilic v ein was accessed and 5 [place] dual lumen PICC catheter was deployed with its tip in the distal superi or vena cava. The catheter flushes and withdraws blood well. The catheter is flushed with the dilute d heparin. The catheter secured well. IMPRESSION: Successful Fluoro and ultrasound guided PICC line placement.
--- NOTE | 2017-11-04 11:37 | PCM.PN ---
- General Info Date of Service: 11/04/17 Admission Dx/Problem (Free Text): continues to complain of shortness of breath, and generalized pain. Last 24 hours, the patient wmitted and started pectrum antibiotics. She is saturating greater than 90% on 4 L right now. She was started on Percocet for pain control.otherwise, denies chest pain, fevers chills nausea or vomiting. Denies any numbness or tingling. - Review of Systems General: Reports: Other (see history of present illness) - Patient Data Vitals - Most Recent: Last Vital Signs Temp 37.0 C 11/04/17 06:00 Pulse 94 11/04/17 06:00 Resp 20 11/04/17 06:00 BP 95/56 L 11/04/17 08:47 Pulse Ox 93 L 11/04/17 06:00 Weight - Most Recent: 69.5 kg I&O - Last 24 Hours: Intake & Output 11/03/17 11/04/17 11/04/17 22:59 06:59 14:59 Intake Total 650 228 Output Total 0 Balance 650 228 Lab Results Last 24 Hours: Laboratory Results - last 24 hr 11/04/17 11/04/17 11/04/17 Range/Units 02:51 05:31 05:31 WBC 21.35 H (4.0-11.0) K/uL RBC 3.59 L (4.30-5.90) M/uL Hgb 10.9 L (12.0-16.0) g/dL Hct 32.9 L (36.0-46.0) % MCV 91.6 (80.0-98.0) fL MCH 30.4 (27.0-32.0) pg MCHC 33.1 (31.0-37.0) g/dL RDW Std Deviation 50.5 (28.0-62.0) fl RDW Coeff of Lucrecia 15 (11.0-15.0) % Plt Count 183 (150-400) K/uL MPV 11.10 (7.40-12.00) fL Add Manual Diff YES Neutrophils % (Manual) 93 H (48.0-80.0) % Band Neutrophils % 4 % Lymphocytes % (Manual) 2 L (16.0-40.0) % Monocytes % (Manual) 1 (0.0-15.0) % Nucleated RBC % 0.0 /100WBC Absolute Seg Neuts 19.9 H (1.4-5.7) Band Neutrophils # 0.9 Lymphocytes # (Manual) 0.4 L (0.6-2.4) Monocytes # (Manual) 0.2 (0.0-0.8) Nucleated RBCs # 0 K/uL Lactate 0.7 (0.20-2.00) mmol/L Sodium 139 (136-146) mmol/L Potassium 3.0 L (3.5-5.1) mmol/L Chloride 108 (98-110) mmol/L Carbon Dioxide 22 (21-31) mmol/L BUN 45 H (6.0-23.0) mg/dL Creatinine 1.0 (0.6-1.5) mg/dL Est Cr Clr Drug Dosing 37.52 mL/min Estimated GFR (MDRD) 53.9 ml/min Glucose 212 H (60-110) mg/dL POC Glucose (60-110) mg/dL Calcium 6.7 L (8.8-10.8) mg/dL C-Reactive Protein 2.36 H (0.0-0.5) mg/dL 11/04/17 11/04/17 Range/Units 06:54 10:15 WBC (4.0-11.0) K/uL RBC (4.30-5.90) M/uL Hgb (12.0-16.0) g/dL Hct (36.0-46.0) % MCV (80.0-98.0) fL MCH (27.0-32.0) pg MCHC (31.0-37.0) g/dL RDW Std Deviation (28.0-62.0) fl RDW Coeff of Lucrecia (11.0-15.0) % Plt Count (150-400) K/uL MPV (7.40-12.00) fL Add Manual Diff Neutrophils % (Manual) (48.0-80.0) % Band Neutrophils % % Lymphocytes % (Manual) (16.0-40.0) % Monocytes % (Manual) (0.0-15.0) % Nucleated RBC % /100WBC Absolute Seg Neuts (1.4-5.7) Band Neutrophils # Lymphocytes # (Manual) (0.6-2.4) Monocytes # (Manual) (0.0-0.8) Nucleated RBCs # K/uL Lactate (0.20-2.00) mmol/L Sodium (136-146) mmol/L Potassium (3.5-5.1) mmol/L Chloride (98-110) mmol/L Carbon Dioxide (21-31) mmol/L BUN (6.0-23.0) mg/dL Creatinine (0.6-1.5) mg/dL Est Cr Clr Drug Dosing mL/min Estimated GFR (MDRD) ml/min Glucose (60-110) mg/dL POC Glucose 228 H 327 H (60-110) mg/dL Calcium (8.8-10.8) mg/dL C-Reactive Protein (0.0-0.5) mg/dL Med Orders - Current: Current Medications Acetaminophen (Tylenol) 650 mg PO Q4H PRN PRN Reason: Pain (Mild 1-3)/fever Last Admin: 11/04/17 05:38 Dose: 650 mg Albuterol/Ipratropium (Duoneb 3.0-0.5 Mg/3 Ml) 3 ml NEB Q4HRRT PRN PRN Reason: Shortness of Breath Last Admin: 11/04/17 10:24 Dose: 3 ml Cyclobenzaprine HCl (Flexeril) 10 mg PO BEDTIME [facility] Diphenhydramine HCl (Benadryl) 50 mg PO QID [facility] Last Admin: 11/04/17 11:01 Dose: 50 mg Enoxaparin Sodium (Lovenox) 30 mg SUBCUT BEDTIME [facility] Last Admin: 11/03/17 22:00 Dose: 30 mg Levofloxacin/Dextrose 750 mg/ (Premix) 150 mls @ 100 mls/hr IV Q48H [facility] Sodium Chloride (Normal Saline) 1,000 mls @ 125 mls/hr IV ASDIRECTED [facility] Last Admin: 11/04/17 09:11 Dose: 150 mls/hr Vancomycin HCl 1 gm/ Sodium (Chloride) 250 mls @ 125 mls/hr IV Q24H [facility] Last Admin: 11/03/17 23:48 Dose: 125 mls/hr Insulin Aspart (Novolog) 8 unit SUBCUT TIDAC [facility] Last Admin: 11/04/17 10:18 Dose: 8 units Levalbuterol HCl (Xopenex) 1.25 mg INH QID PRN PRN Reason: Shortness of Breath Lorazepam (Ativan) 1 mg IVPUSH Q6H PRN PRN Reason: Anxiety Last Admin: 11/04/17 00:08 Dose: 1 mg Losartan Potassium (Cozaar) 50 mg PO DAILY [facility] Last Admin: 11/04/17 08:47 Dose: Not Given Methylprednisolone Sodium Succinate (Solu-Medrol) 60 mg IVPUSH Q6H [facility] Last Admin: 11/04/17 11:01 Dose: 60 mg Morphine Sulfate (Morphine) 2 mg IVPUSH Q4H PRN PRN Reason: Pain Last Admin: 11/04/17 09:59 Dose: 2 mg Non-Formulary Medication (Budesonide/Formoterol) 2 inh IH BID [facility] Last Admin: 11/04/17 10:33 Dose: 2 inh Non-Formulary Medication (Esomeprazole) 40 mg PO DAILY [facility] Last Admin: 11/04/17 08:47 Dose: Not Given Ondansetron HCl (Zofran) 4 mg IVPUSH Q4H PRN PRN Reason: Nausea Last Admin: 11/03/17 20:26 Dose: 4 mg Oxycodone/Acetaminophen (Percocet 325-7.5 Mg) 1 tab PO Q6H PRN PRN Reason: Pain Last Admin: 11/04/17 06:49 Dose: 1 tab Vancomycin HCl (Pharmacy To Dose - Vancomycin) 1 dose .XX ASDIRECTED [facility] Discontinued Medications Hydrocodone Bitart/Acetaminophen ([place] 325-5 Mg) 1 tab PO QID PRN PRN Reason: Pain Last Admin: 11/03/17 20:31 Dose: 1 tab Albuterol/Ipratropium (Duoneb 3.0-0.5 Mg/3 Ml) 3 ml NEB ONETIME ONE Stop: 11/03/17 15:41 Last Admin: 11/03/17 15:46 Dose: 3 ml Albuterol/Ipratropium (Duoneb 3.0-0.5 Mg/3 Ml) Confirm Administered Dose 3 ml .ROUTE .STK-MED ONE Stop: 11/03/17 15:43 Last Admin: 11/03/17 16:24 Dose: Not Given Calcium Carbonate/Glycine (Tums) 1,000 mg PO ONETIME ONE Stop: 11/04/17 09:27 Last Admin: 11/04/17 09:35 Dose: 1,000 mg Levofloxacin/Dextrose 750 mg/ (Premix) 150 mls @ 100 mls/hr IV ONETIME ONE Stop: 11/03/17 18:05 Last Admin: 11/04/17 04:33 Dose: Not Given Vancomycin HCl 1 gm/ Sodium (Chloride) 250 mls @ 250 mls/hr IV ONETIME ONE Stop: 11/03/17 17:37 Last Admin: 11/04/17 04:34 Dose: Not Given Piperacillin Sod/Tazobactam (Sod 3.375 gm/ Sodium Chloride) 50 mls @ 100 mls/ hr IV Q6H [facility] Last Admin: 11/04/17 09:25 Dose: 100 mls/hr Levofloxacin/Dextrose 750 mg/ (Premix) 150 mls @ 100 mls/hr IV ONETIME ONE Stop: 11/03/17 20:59 Last Admin: 11/03/17 20:42 Dose: 100 mls/hr Lorazepam (Ativan) 1 mg PO QID VIJAYA Lorazepam (Ativan) 1 mg IV Q6H PRN PRN Reason: Anxiety Methylprednisolone Sodium Succinate (Solu-Medrol) 125 mg IVPUSH ONETIME ONE Stop: 11/03/17 15:41 Last Admin: 11/03/17 16:25 Dose: Not Given Methylprednisolone Sodium Succinate (Solu-Medrol) 125 mg IM ONETIME ONE Stop: 11/03/17 16:20 Last Admin: 11/03/17 16:24 Dose: 125 mg Methylprednisolone Sodium Succinate (Solu-Medrol) 60 mg IVPUSH Q6H [facility] Last Admin: 11/04/17 04:34 Dose: Not Given Morphine Sulfate (Morphine) 2 mg IVPUSH Q4H [facility] Last Admin: 11/04/17 04:34 Dose: Not Given Potassium Chloride (Potassium Chloride) 40 meq PO ONETIME ONE Stop: 11/04/17 07:59 Last Admin: 11/04/17 08:13 Dose: 40 meq - Exam Quality Assessment: Supplemental Oxygen, Central Line/PICC General: Alert, Oriented HEENT: Pupils Equal Neck: Supple, Trachea Midline Lungs: Wheezing Cardiovascular: Regular Rate, Regular Rhythm GI/Abdominal Exam: Normal Bowel Sounds, Soft Extremities: Pedal Edema (trace) Peripheral Pulses: 3+: Posterior Tibial (L), Posterior Tibial (R) Skin: Warm Psy/Mental Status: Alert, Normal Affect, Normal Mood - Problem List Review Problem List Initiated/Reviewed/Updated: Yes - My Orders Last 24 Hours: My Active Orders 11/03/17 18:57 Levalbuterol HCl [Xopenex] 1.25 mg INH QID PRN 11/03/17 19:00 Budesonide/Formoterol 2 inh IH BID 11/03/17 19:13 Ambulate [RC] ASDIRECTED Oxygen Therapy [RC] PRN Up ad Sara [RC] ASDIRECTED VTE/DVT Education [RC] PER UNIT ROUTINE Vital Signs [RC] Q4H Acetaminophen [Tylenol] 650 mg PO Q4H PRN Ondansetron [Zofran] 4 mg IVPUSH Q4H PRN Resuscitation Status Routine 11/03/17 19:18 RT Aerosol Therapy [RC] ASDIRECTED Albuterol/Ipratropium [DuoNeb 3.0-0.5 MG/3 ML] 3 ml NEB Q4HRRT PRN 11/03/17 19:20 LORazepam [Ativan] 1 mg IVPUSH Q6H PRN 11/03/17 19:30 Sodium Chloride 0.9% [Normal Saline] 1,000 ml IV ASDIRECTED Vancomycin Pharmacy to Dose [Pharmacy to Dose - Vancomycin] 1 dose .XX ASDIRECTED 11/03/17 21:00 Enoxaparin [Lovenox] 30 mg SUBCUT BEDTIME 11/03/17 23:00 Vancomycin [Vancocin] 1 gm Sodium Chloride 0.9% [Normal Saline] 250 ml IV Q24H 11/04/17 00:00 diphenhydrAMINE [Benadryl] 50 mg PO QID 11/04/17 05:00 methylPREDNISolone Sod Succ [Solu-MEDROL] 60 mg IVPUSH Q6H 11/04/17 07:30 Insulin Aspart [NovoLOG] 8 unit SUBCUT TIDAC 11/04/17 09:00 Esomeprazole 40 mg PO DAILY Losartan [Cozaar] 50 mg PO DAILY 11/05/17 19:00 Levofloxacin/Dextrose 5%-Water [Levaquin in D5W 750 MG/150 ML] 750 mg Premix Bag 1 bag IV Q48H - Plan Plan:: Assessment: #1. Acute hypoxic respiratory failure secondary to COPD exacerbation #2. Dehydration that appears to be clinically improving given a lab results #3. Elevated lactate resolved #4. Acute kidney injury, resolved. Plan: #1. continue management as is. #2. wean down oxygen as tolerated back to her baseline which is 3 L. #3. Anticipate discharge tomorrow
[2017-11-04] MEDS: Cyclobenzaprine 10 MG Tab PO SCH (20:31)
[2017-11-04] MEDS: Enoxaparin 30 MG/0.3 ML Syringe SUBCUT SCH (20:31)
[2017-11-05] MEDS: Sodium Chloride 0.9% 1,000 ML IV SCH ×2 (05:05→15:00)
[2017-11-05] MEDS: diphenhydrAMINE 50 MG Cap PO SCH ×4 (05:05→23:39)
[2017-11-05] MEDS: Morphine 2 MG/ML Syringe IVPUSH PRN ×2 (05:09→13:12)
[2017-11-05] MEDS: methylPREDNISolone Sodium Succinate 125 MG/2 ML SDV IVPUSH SCH (05:09)
[2017-11-05] MEDS: Albuterol/Ipratropium 3.0-0.5 MG/3 ML Neb Soln NEB PRN ×4 (05:17→22:07)
[2017-11-05] MEDS: Insulin Aspart 100 Units/ML 3 ML Pen SUBCUT SCH ×3 (06:47→18:25)
[2017-11-05 08:46] LABS: CHLORIDE,CL 110 mmol/L (98-110); SODIUM,NA 138 mmol/L (136-146)
[2017-11-05] MEDS ORDERED: ESOMEPRAZOLE 40 MG PO SCH (09:00)
[2017-11-05] MEDS: Losartan 50 MG Tab PO SCH (09:24)
[2017-11-05] MEDS: Acetaminophen/oxyCODONE 325-7.5 MG Tab PO PRN ×2 (09:25→21:59)
[2017-11-05] MEDS ORDERED: Calcium Carbonate 500 MG Tab.Chew PO ONE (09:38)
[2017-11-05] MEDS: predniSONE 20 MG Tab PO SCH (10:04)
[2017-11-05] MEDS: Non-Formulary Medication 1 Each (Budesonide/Formoterol 2 INH) IH SCH ×2 (10:06→22:01)
[2017-11-05] MEDS: ESOMEPRAZOLE 40 MG PO SCH (10:14)
[2017-11-05] MEDS: Acetaminophen 325 MG Tab PO PRN (11:48)
--- NOTE | 2017-11-05 15:41 | PCM.PN ---
- General Info Date of Service: 11/05/17 Admission Dx/Problem (Free Text): Patient is currently on 4 L oxygen nasal cannula which is a liter above her baseline. She tells me that she did well overnight. She complains of muscle spasms. Otherwise, she tells me that her breathing is stable. She denies any chest pain nausea vomiting palpitations. No overnight events. - Review of Systems General: Reports: Other (See history of present illness) - Patient Data Vitals - Most Recent: Last Vital Signs Temp 36.7 C 11/05/17 12:00 Pulse 99 11/05/17 12:00 Resp 20 11/05/17 12:00 BP 122/72 11/05/17 09:24 Pulse Ox 96 11/05/17 12:00 Weight - Most Recent: 69.5 kg I&O - Last 24 Hours: Intake & Output 11/05/17 11/05/17 11/05/17 06:59 14:59 22:59 Intake Total 2000 Output Total 650 Balance 1350 Lab Results Last 24 Hours: Laboratory Results - last 24 hr 11/04/17 11/05/17 11/05/17 Range/Units 16:05 05:58 05:58 WBC 21.74 H (4.0-11.0) K/uL RBC 3.35 L (4.30-5.90) M/uL Hgb 10.1 L (12.0-16.0) g/dL Hct 31.0 L (36.0-46.0) % MCV 92.5 (80.0-98.0) fL MCH 30.1 (27.0-32.0) pg MCHC 32.6 (31.0-37.0) g/dL RDW Std Deviation 52.8 (28.0-62.0) fl RDW Coeff of Lucrecia 16 H (11.0-15.0) % Plt Count 179 (150-400) K/uL MPV 11.20 (7.40-12.00) fL Neut % (Auto) 93.6 H (48.0-80.0) % Lymph % (Auto) 3.3 L (16.0-40.0) % [place] % (Auto) 3.0 (0.0-15.0) % Eos % (Auto) 0.0 (0.0-7.0) % Baso % (Auto) 0.1 (0.0-1.5) % Neut # (Auto) 20.3 H (1.4-5.7) K/uL Lymph # (Auto) 0.7 (0.6-2.4) K/uL [place] # (Auto) 0.7 (0.0-0.8) K/uL Eos # (Auto) 0.0 (0.0-0.7) K/uL Baso # (Auto) 0.0 (0.0-0.1) K/uL Nucleated RBC % 0.0 /100WBC Nucleated RBCs # 0 K/uL Sodium 138 (136-146) mmol/L Potassium 3.6 (3.5-5.1) mmol/L Chloride 110 (98-110) mmol/L Carbon Dioxide 20 L (21-31) mmol/L BUN 32 H (6.0-23.0) mg/dL Creatinine 0.8 (0.6-1.5) mg/dL Est Cr Clr Drug Dosing 46.91 mL/min Estimated GFR (MDRD) > 60.0 ml/min Glucose 232 H (60-110) mg/dL POC Glucose 227 H (60-110) mg/dL Calcium 7.3 L (8.8-10.8) mg/dL 11/05/17 Range/Units 06:35 WBC (4.0-11.0) K/uL RBC (4.30-5.90) M/uL Hgb (12.0-16.0) g/dL Hct (36.0-46.0) % MCV (80.0-98.0) fL MCH (27.0-32.0) pg MCHC (31.0-37.0) g/dL RDW Std Deviation (28.0-62.0) fl RDW Coeff of Lucrecia (11.0-15.0) % Plt Count (150-400) K/uL MPV (7.40-12.00) fL Neut % (Auto) (48.0-80.0) % Lymph % (Auto) (16.0-40.0) % [place] % (Auto) (0.0-15.0) % Eos % (Auto) (0.0-7.0) % Baso % (Auto) (0.0-1.5) % Neut # (Auto) (1.4-5.7) K/uL Lymph # (Auto) (0.6-2.4) K/uL [place] # (Auto) (0.0-0.8) K/uL Eos # (Auto) (0.0-0.7) K/uL Baso # (Auto) (0.0-0.1) K/uL Nucleated RBC % /100WBC Nucleated RBCs # K/uL Sodium (136-146) mmol/L Potassium (3.5-5.1) mmol/L Chloride (98-110) mmol/L Carbon Dioxide (21-31) mmol/L BUN (6.0-23.0) mg/dL Creatinine (0.6-1.5) mg/dL Est Cr Clr Drug Dosing mL/min Estimated GFR (MDRD) ml/min Glucose (60-110) mg/dL POC Glucose 233 H (60-110) mg/dL Calcium (8.8-10.8) mg/dL Tra Results Last 24 Hours: Microbiology 11/03/17 18:53 Aerobic Blood Culture - Preliminary Blood - Venous - Lab Draw NO GROWTH AFTER 1 DAY Anaerobic Blood Culture - Preliminary NO GROWTH AFTER 1 DAY 11/03/17 18:43 Aerobic Blood Culture - Preliminary Blood - Venous NO GROWTH AFTER 1 DAY Anaerobic Blood Culture - Preliminary NO GROWTH AFTER 1 DAY Med Orders - Current: Current Medications Acetaminophen (Tylenol) 650 mg PO Q4H PRN PRN Reason: Pain (Mild 1-3)/fever Last Admin: 11/05/17 11:48 Dose: 650 mg Albuterol/Ipratropium (Duoneb 3.0-0.5 Mg/3 Ml) 3 ml NEB Q4HRRT PRN PRN Reason: Shortness of Breath Last Admin: 11/05/17 09:52 Dose: 3 ml Cyclobenzaprine HCl (Flexeril) 10 mg PO BEDTIME [facility] Last Admin: 11/04/17 20:31 Dose: 10 mg Diphenhydramine HCl (Benadryl) 50 mg PO QID VIJAYA Last Admin: 11/05/17 12:23 Dose: 50 mg Enoxaparin Sodium (Lovenox) 30 mg SUBCUT BEDTIME VIJAYA Last Admin: 11/04/17 20:31 Dose: 30 mg Levofloxacin/Dextrose 750 mg/ (Premix) 150 mls @ 100 mls/hr IV Q48H [facility] Sodium Chloride (Normal Saline) 1,000 mls @ 75 mls/hr IV ASDIRECTED [facility] Last Admin: 11/05/17 15:00 Dose: 75 mls/hr Insulin Aspart (Novolog) 8 unit SUBCUT TIDAC [facility] Last Admin: 11/05/17 12:23 Dose: 8 units Levalbuterol HCl (Xopenex) 1.25 mg INH QID PRN PRN Reason: Shortness of Breath Lorazepam (Ativan) 1 mg IVPUSH Q6H PRN PRN Reason: Anxiety Last Admin: 11/04/17 20:29 Dose: 1 mg Losartan Potassium (Cozaar) 50 mg PO DAILY [facility] Last Admin: 11/05/17 09:24 Dose: 50 mg Morphine Sulfate (Morphine) 2 mg IVPUSH Q4H PRN PRN Reason: Pain Last Admin: 11/05/17 13:12 Dose: 2 mg Non-Formulary Medication (Budesonide/Formoterol) 2 inh IH BID [facility] Last Admin: 11/05/17 10:06 Dose: 2 inh Ondansetron HCl (Zofran) 4 mg IVPUSH Q4H PRN PRN Reason: Nausea Last Admin: 11/03/17 20:26 Dose: 4 mg Oxycodone/Acetaminophen (Percocet 325-7.5 Mg) 1 tab PO Q6H PRN PRN Reason: Pain Last Admin: 11/05/17 09:25 Dose: 1 tab Esomeprazole 40 Mg ( (Nexium)) 1 each PO DAILY [facility] Last Admin: 11/05/17 10:14 Dose: 1 each Prednisone (Prednisone) 40 mg PO WITHBREAKFAST [facility] Last Admin: 11/05/17 10:04 Dose: 40 mg Discontinued Medications Hydrocodone Bitart/Acetaminophen ([place] 325-5 Mg) 1 tab PO QID PRN PRN Reason: Pain Last Admin: 11/03/17 20:31 Dose: 1 tab Albuterol/Ipratropium (Duoneb 3.0-0.5 Mg/3 Ml) 3 ml NEB ONETIME ONE Stop: 11/03/17 15:41 Last Admin: 11/03/17 15:46 Dose: 3 ml Albuterol/Ipratropium (Duoneb 3.0-0.5 Mg/3 Ml) Confirm Administered Dose 3 ml .ROUTE .STK-MED ONE Stop: 11/03/17 15:43 Last Admin: 11/03/17 16:24 Dose: Not Given Calcium Carbonate/Glycine (Tums) 1,000 mg PO ONETIME ONE Stop: 11/04/17 09:27 Last Admin: 11/04/17 09:35 Dose: 1,000 mg Calcium Carbonate/Glycine (Tums) 1,000 mg PO ONETIME ONE Stop: 11/05/17 09:39 Last Admin: 11/05/17 10:05 Dose: 1,000 mg Levofloxacin/Dextrose 750 mg/ (Premix) 150 mls @ 100 mls/hr IV ONETIME ONE Stop: 11/03/17 18:05 Last Admin: 11/04/17 04:33 Dose: Not Given Vancomycin HCl 1 gm/ Sodium (Chloride) 250 mls @ 250 mls/hr IV ONETIME ONE Stop: 11/03/17 17:37 Last Admin: 11/04/17 04:34 Dose: Not Given Piperacillin Sod/Tazobactam (Sod 3.375 gm/ Sodium Chloride) 50 mls @ 100 mls/ hr IV Q6H [facility] Last Admin: 11/04/17 09:25 Dose: 100 mls/hr Sodium Chloride (Normal Saline) 1,000 mls @ 125 mls/hr IV ASDIRECTED [facility] Last Admin: 11/05/17 05:05 Dose: 150 mls/hr Levofloxacin/Dextrose 750 mg/ (Premix) 150 mls @ 100 mls/hr IV ONETIME ONE Stop: 11/03/17 20:59 Last Admin: 11/03/17 20:42 Dose: 100 mls/hr Vancomycin HCl 1 gm/ Sodium (Chloride) 250 mls @ 125 mls/hr IV Q24H [facility] Last Admin: 11/04/17 22:59 Dose: 125 mls/hr Lorazepam (Ativan) 1 mg PO QID VIJAYA Lorazepam (Ativan) 1 mg IV Q6H PRN PRN Reason: Anxiety Methylprednisolone Sodium Succinate (Solu-Medrol) 125 mg IVPUSH ONETIME ONE Stop: 11/03/17 15:41 Last Admin: 11/03/17 16:25 Dose: Not Given Methylprednisolone Sodium Succinate (Solu-Medrol) 125 mg IM ONETIME ONE Stop: 11/03/17 16:20 Last Admin: 11/03/17 16:24 Dose: 125 mg Methylprednisolone Sodium Succinate (Solu-Medrol) 60 mg IVPUSH Q6H [facility] Last Admin: 11/04/17 04:34 Dose: Not Given Methylprednisolone Sodium Succinate (Solu-Medrol) 60 mg IVPUSH Q6H [facility] Last Admin: 11/05/17 05:09 Dose: 60 mg Morphine Sulfate (Morphine) 2 mg IVPUSH Q4H [facility] Last Admin: 11/04/17 04:34 Dose: Not Given Non-Formulary Medication (Esomeprazole) 40 mg PO DAILY [facility] Last Admin: 11/04/17 08:47 Dose: Not Given Esomeprazole 40 Mg ( (Nexium)) 40 each PO DAILY [facility] Last Admin: 11/05/17 10:20 Dose: Not Given Potassium Chloride (Potassium Chloride) 40 meq PO ONETIME ONE Stop: 11/04/17 07:59 Last Admin: 11/04/17 08:13 Dose: 40 meq Vancomycin HCl (Pharmacy To Dose - Vancomycin) 1 dose .XX ASDIRECTED [facility] - Exam Quality Assessment: Supplemental Oxygen General: Alert, Oriented HEENT: Pupils Equal Lungs: Clear to Auscultation Cardiovascular: Regular Rate, Regular Rhythm GI/Abdominal Exam: Normal Bowel Sounds, Soft Extremities: No Pedal Edema Peripheral Pulses: 2+: Dorsalis Pedis (L), Dorsalis Pedis (R) - Problem List Review Problem List Initiated/Reviewed/Updated: Yes - My Orders Last 24 Hours: My Active Orders 11/05/17 09:00 Blood Glucose Check, Bedside [RC] TIDAC Patient's Own Medication [Ptom] 1 each PO DAILY 11/05/17 19:00 Levofloxacin/Dextrose 5%-Water [Levaquin in D5W 750 MG/150 ML] 750 mg Premix Bag 1 bag IV Q48H 11/06/17 05:11 CBC WITH AUTO DIFF [HEME] AM 11/07/17 05:11 BASIC METABOLIC PANEL,BMP [CHEM] AM CBC WITH AUTO DIFF [HEME] AM - Plan Plan:: Assessment: #1. Acute hypoxic respiratory failure secondary to COPD exacerbation #2. Dehydration that appears to be clinically improving given a lab results. Bring down the fluids to 75 mL an hour of IV normal saline #3. Elevated lactate resolved #4. Acute kidney injury, resolved. Plan: #1. continue management as is. #2. wean down oxygen as tolerated back to her baseline which is 3 L. #3. Anticipate discharge tomorrow
[2017-11-05] MEDS ORDERED: Levofloxacin/Dextrose 5%-Water 750 MG in Premix Bag 1 BAG IV SCH (19:00)
[2017-11-05] MEDS: Enoxaparin 30 MG/0.3 ML Syringe SUBCUT SCH (21:41)
[2017-11-05] MEDS: Cyclobenzaprine 10 MG Tab PO SCH (21:41)
[2017-11-06] MEDS: LORazepam 2 MG/ML MDV IVPUSH PRN (00:14)
[2017-11-06] MEDS: Albuterol/Ipratropium 3.0-0.5 MG/3 ML Neb Soln NEB PRN ×2 (06:27→09:50)
[2017-11-06] MEDS: Sodium Chloride 0.9% 1,000 ML IV SCH (06:40)
[2017-11-06] MEDS: diphenhydrAMINE 50 MG Cap PO SCH (06:54)
[2017-11-06] MEDS: Insulin Aspart 100 Units/ML 3 ML Pen SUBCUT SCH (06:55)
[2017-11-06] MEDS: Losartan 50 MG Tab PO SCH (08:04)
[2017-11-06] MEDS: predniSONE 20 MG Tab PO SCH (08:04)
[2017-11-06 08:05] VITALS: BP 168/73
[2017-11-06] MEDS: ESOMEPRAZOLE 40 MG PO SCH (08:05)
[2017-11-06] MEDS: Morphine 2 MG/ML Syringe IVPUSH PRN (08:06)
--- NOTE | 2017-11-06 09:20 | PCM.DCSUM1 ---
Discharge Summary - Hospital Course HPI Initial Comments: 77-year-old female admitted 11/03/17 for hypoxia and dehydration with past medical history of end-stage COPD and type 2 diabetes. Brief History: Patient presented to ED with chief complaint of shortness of breath, weakness, lack of appetite. Patient had been admitted the previous week and discharged on 10/30/17 for a COPD exacerbation secondary to pneumonia resulting in E. Coli bacteremia. She was also admitted in September 2017 for pneumonia. Patient is oxygen dependent at home using 3L. Her daughters stated that since they left the hospital, she had not been able to eat. She had been lethargic and sleeping most of the day. She denied chest pain, nausea, vomiting , fevers, chills. - Discharge Data Discharge Date: 11/06/17 Discharge Disposition: Home, W Home Health Agency 06 Condition: Good - Patient Summary/Data Consults: Consultations 11/04/17 09:40 Consult to Physical Therapy [PT Evaluation and Treatment] [CONS] Routine - Patient Instructions Diet: Heart Healthy Diet Activity: Rest and Relax Today Driving: Do Not Drive Showering/Bathing: February Shower Notify Provider of: Fever, Increased Pain, Nausea and/or Vomiting - Discharge Plan Prescriptions/Med Rec: Hydrocodone/Acetaminophen [Hydrocodon-Acetaminoph 7.5-300] 1 each PO Q6H PRN # 12 tablet PRN Reason: Pain Levofloxacin [Levaquin] 750 mg PO DAILY #3 tab Methocarbamol [Robaxin] 750 mg PO Q6H #12 tab Prednisone [IJD: predniSONE] 40 mg PO WITHBREAKFAST #18 tablet Home Medications: Home Meds Esomeprazole Magnesium [Nexium] 40 mg PO DAILY 11/09/14 [History] Furosemide [Lasix] 20 mg PO DAILY 11/09/14 [History] Insulin Glarg,Human.Rec.Analog [Lantus] 12 units SUBCUT BID 11/09/14 [History] LORazepam 1 mg PO QID 11/09/14 [History] Levalbuterol HCl 1.25 mg INH QID PRN 11/09/14 [History] Losartan [Cozaar] 50 mg PO DAILY 11/09/14 [History] diphenhydrAMINE [Benadryl] 50 mg PO QID 11/09/14 [History] Budesonide/Formoterol [Symbicort 160-4.5 MCG] 2 inh IH BID 02/01/17 [History] Insulin Aspart [Novolog Flexpen] 8 unit SUBCUT TIDAC 02/01/17 [History] Hydrocodone/Acetaminophen [Hydrocodon-Acetaminoph 7.5-300] 1 each PO Q6H PRN # 12 tablet 11/06/17 [Rx] Levofloxacin [Levaquin] 750 mg PO DAILY #3 tab 11/06/17 [Rx] Methocarbamol [Robaxin] 750 mg PO Q6H #12 tab 11/06/17 [Rx] Prednisone [IJD: predniSONE] 40 mg PO WITHBREAKFAST #18 tablet 11/06/17 [Rx] Patient Handouts: Hypoxemia, Levofloxacin tablets, Prednisone tablets, Methocarbamol tablets Referrals: Micha Dai MD [Physician] - 11/11/17 2:00 pm - Discharge Summary/Plan Comment DC Time >30 min.: Yes Discharge Summary/Plan Comment: 77-year-old female admitted 11/03/17 for hypoxia and dehydration with past medical history of end-stage COPD and type 2 diabetes. Patient presented to ED with chief complaint of shortness of breath, weakness, lack of appetite. Patient had been admitted the previous week and discharged on 10/30/17 for a COPD exacerbation secondary to pneumonia resulting in E. Coli bacteremia. She was also admitted in September 2017 for pneumonia. Patient is oxygen dependent at home using 3L. Her daughters stated that since they left the hospital, she had not been able to eat. She had been lethargic and sleeping most of the day. She denied chest pain, nausea, vomiting, fevers, chills. In the Emergency Department: CBC - leukocytosis 27,000 CMP - elevated BUN/Cr 52/1.6 Lactate 2.7 Glucose 213 CK 672 Troponin negative x1 1L NS Bolus IV Solumedrol x1 DuoNeb x1 3.5L O2 via NC Patient was admitted for hypoxia and dehydration. Patient had previously been discharged on prednisone and her elevated white count was most likely secondary to dehydration with hemoconcentration causing further elevation of her white count. Chest x-ray on this admission was unremarkable. There was no other source suspicious for infection. With IV fluid resuscitation the patient's white count did decrease back to its levels from previous discharge on last admission one week ago. Patient was covered however for a resistant pneumonia with Levaquin, Zosyn and vancomycin. The patient was afebrile throughout her entire stay including emergency department. Antibiotics were slowly discontinued and there were no signs of infection. Patient's renal function improved with just IV fluids. Blood cultures were negative 2 days and we slowly weaned her to her baseline home 3 L of oxygen continuous. She received a total of 4 days of Levaquin, 2 days of vancomycin, and 2 days of Zosyn. The patient was discharged in good condition with a prescription for Levaquin 3 days, a prednisone taper, [place] 7.5 #12, Robaxin 500mg #12, and home health. Home health determined to be benefitial because the patient has had increased difficulty ambulating around the home. She needs assistance with walking and becomes short of breath with ambulation less than 10 feet needing to stop for break. She is also somewhat unsteady with walking and a fall risk, she does utilize a walker. Physical therapy is needed for strengthening due to weakness from this recent hospitalization and deconditioning due to her COPD causing unsteady gait and a high fall risk. Occupational therapy should assess the patient's increased functional safety in her home. Dr. Dai will continue to follow the patient as he is her PCP once discharged from the hospital. - General Info Date of Service: 11/06/17 Admission Dx/Problem (Free Text: Patient is currently on 4 L oxygen nasal cannula which is a liter above her baseline. She tells me that she did well overnight. She complains of muscle spasms. Otherwise, she tells me that her breathing is stable. She denies any chest pain nausea vomiting palpitations. No overnight events. Subjective Update: Back to baseline option requirement. Feeling much improved from admission. Ready to go home. - Review of Systems General: Reports: Weakness, Fatigue. Denies: Fever HEENT: Denies: Headaches, Visual Changes Pulmonary: Reports: Shortness of Breath. Denies: Pleuritic Chest Pain, Cough, Sputum, Hemoptysis Cardiovascular: Denies: Chest Pain, Palpitations, Edema Gastrointestinal: Denies: Abdominal Pain, Diarrhea, Nausea, Vomiting Genitourinary: Denies: Dysuria, Hematuria 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: Reports: Back Pain. Denies: Neck Pain, Leg Pain Skin: Denies: Cyanosis Neurological: Denies: Confusion, Dizziness, Headache Psychiatric: Denies: Confusion - Patient Data Vitals - Most Recent: Last Vital Signs Temp 97.9 F 11/06/17 08:00 Pulse 98 11/06/17 08:00 Resp 22 H 11/06/17 08:00 BP 168/73 H 11/06/17 08:04 Pulse Ox 99 11/06/17 08:00 Weight - Most Recent: 69.5 kg I&O - Last 24 hours: Intake & Output 11/05/17 11/06/17 11/06/17 22:59 06:59 14:59 Intake Total 2070 200 Output Total 650 1000 Balance 1420 -800 Lab Results - Last 24 hrs: Laboratory Results - last 24 hr 11/05/17 11/05/17 11/05/17 Range/Units 06:35 12:22 17:01 WBC (4.0-11.0) K/uL RBC (4.30-5.90) M/uL Hgb (12.0-16.0) g/dL Hct (36.0-46.0) % MCV (80.0-98.0) fL MCH (27.0-32.0) pg MCHC (31.0-37.0) g/dL RDW Std Deviation (28.0-62.0) fl RDW Coeff of Lucrecia (11.0-15.0) % Plt Count (150-400) K/uL MPV (7.40-12.00) fL Neut % (Auto) (48.0-80.0) % Lymph % (Auto) (16.0-40.0) % Christian % (Auto) (0.0-15.0) % Eos % (Auto) (0.0-7.0) % Baso % (Auto) (0.0-1.5) % Neut # (Auto) (1.4-5.7) K/uL Lymph # (Auto) (0.6-2.4) K/uL Christian # (Auto) (0.0-0.8) K/uL Eos # (Auto) (0.0-0.7) K/uL Baso # (Auto) (0.0-0.1) K/uL Nucleated RBC % /100WBC Nucleated RBCs # K/uL POC Glucose 233 H 252 H 213 H (60-110) mg/dL 11/06/17 11/06/17 Range/Units 06:19 06:30 WBC 19.40 H (4.0-11.0) K/uL RBC 3.97 L (4.30-5.90) M/uL Hgb 12.1 (12.0-16.0) g/dL Hct 36.8 (36.0-46.0) % MCV 92.7 (80.0-98.0) fL MCH 30.5 (27.0-32.0) pg MCHC 32.9 (31.0-37.0) g/dL RDW Std Deviation 53.3 (28.0-62.0) fl RDW Coeff of Lucrecia 16 H (11.0-15.0) % Plt Count 205 (150-400) K/uL MPV 10.90 (7.40-12.00) fL Neut % (Auto) 87.6 H (48.0-80.0) % Lymph % (Auto) 5.8 L (16.0-40.0) % Christian % (Auto) 6.5 (0.0-15.0) % Eos % (Auto) 0.0 (0.0-7.0) % Baso % (Auto) 0.1 (0.0-1.5) % Neut # (Auto) 17.0 H (1.4-5.7) K/uL Lymph # (Auto) 1.1 (0.6-2.4) K/uL Christian # (Auto) 1.3 H (0.0-0.8) K/uL Eos # (Auto) 0.0 (0.0-0.7) K/uL Baso # (Auto) 0.0 (0.0-0.1) K/uL Nucleated RBC % 0.0 /100WBC Nucleated RBCs # 0 K/uL POC Glucose 149 H (60-110) mg/dL SWETHA Results - Last 24 hrs: Microbiology 11/03/17 18:53 Aerobic Blood Culture - Preliminary Blood - Venous - Lab Draw NO GROWTH AFTER 2 DAYS Anaerobic Blood Culture - Preliminary NO GROWTH AFTER 2 DAYS 11/03/17 18:43 Aerobic Blood Culture - Preliminary Blood - Venous NO GROWTH AFTER 2 DAYS Anaerobic Blood Culture - Preliminary NO GROWTH AFTER 2 DAYS Med Orders - Current: Current Medications Acetaminophen (Tylenol) 650 mg PO Q4H PRN PRN Reason: Pain (Mild 1-3)/fever Last Admin: 11/05/17 11:48 Dose: 650 mg Albuterol/Ipratropium (Duoneb 3.0-0.5 Mg/3 Ml) 3 ml NEB Q4HRRT PRN PRN Reason: Shortness of Breath Last Admin: 11/06/17 06:27 Dose: 3 ml Cyclobenzaprine HCl (Flexeril) 10 mg PO BEDTIME [facility] Last Admin: 11/05/17 21:41 Dose: 10 mg Diphenhydramine HCl (Benadryl) 50 mg PO QID [facility] Last Admin: 11/06/17 06:54 Dose: 50 mg Enoxaparin Sodium (Lovenox) 30 mg SUBCUT BEDTIME [facility] Last Admin: 11/05/17 21:41 Dose: 30 mg Levofloxacin/Dextrose 750 mg/ (Premix) 150 mls @ 100 mls/hr IV Q48H [facility] Last Admin: 11/05/17 18:45 Dose: 100 mls/hr Sodium Chloride (Normal Saline) 1,000 mls @ 75 mls/hr IV ASDIRECTED [facility] Last Admin: 11/06/17 06:40 Dose: 75 mls/hr Insulin Aspart (Novolog) 8 unit SUBCUT TIDAC [facility] Last Admin: 11/06/17 06:55 Dose: 8 units Levalbuterol HCl (Xopenex) 1.25 mg INH QID PRN PRN Reason: Shortness of Breath Lorazepam (Ativan) 1 mg IVPUSH Q6H PRN PRN Reason: Anxiety Last Admin: 11/06/17 00:14 Dose: 1 mg Losartan Potassium (Cozaar) 50 mg PO DAILY [facility] Last Admin: 11/06/17 08:04 Dose: 50 mg Morphine Sulfate (Morphine) 2 mg IVPUSH Q4H PRN PRN Reason: Pain Last Admin: 11/06/17 08:06 Dose: 2 mg Non-Formulary Medication (Budesonide/Formoterol) 2 inh IH BID [facility] Last Admin: 11/05/17 22:01 Dose: 2 inh Ondansetron HCl (Zofran) 4 mg IVPUSH Q4H PRN PRN Reason: Nausea Last Admin: 11/03/17 20:26 Dose: 4 mg Oxycodone/Acetaminophen (Percocet 325-7.5 Mg) 1 tab PO Q6H PRN PRN Reason: Pain Last Admin: 11/05/17 21:59 Dose: 1 tab Esomeprazole 40 Mg ( (Nexium)) 1 each PO DAILY [facility] Last Admin: 11/06/17 08:05 Dose: 1 each Prednisone (Prednisone) 40 mg PO WITHBREAKFAST [facility] Last Admin: 11/06/17 08:04 Dose: 40 mg Discontinued Medications Hydrocodone Bitart/Acetaminophen ([place] 325-5 Mg) 1 tab PO QID PRN PRN Reason: Pain Last Admin: 11/03/17 20:31 Dose: 1 tab Albuterol/Ipratropium (Duoneb 3.0-0.5 Mg/3 Ml) 3 ml NEB ONETIME ONE Stop: 11/03/17 15:41 Last Admin: 11/03/17 15:46 Dose: 3 ml Albuterol/Ipratropium (Duoneb 3.0-0.5 Mg/3 Ml) Confirm Administered Dose 3 ml .ROUTE .STK-MED ONE Stop: 11/03/17 15:43 Last Admin: 11/03/17 16:24 Dose: Not Given Calcium Carbonate/Glycine (Tums) 1,000 mg PO ONETIME ONE Stop: 11/04/17 09:27 Last Admin: 11/04/17 09:35 Dose: 1,000 mg Calcium Carbonate/Glycine (Tums) 1,000 mg PO ONETIME ONE Stop: 11/05/17 09:39 Last Admin: 11/05/17 10:05 Dose: 1,000 mg Levofloxacin/Dextrose 750 mg/ (Premix) 150 mls @ 100 mls/hr IV ONETIME ONE Stop: 11/03/17 18:05 Last Admin: 11/04/17 04:33 Dose: Not Given Vancomycin HCl 1 gm/ Sodium (Chloride) 250 mls @ 250 mls/hr IV ONETIME ONE Stop: 11/03/17 17:37 Last Admin: 11/04/17 04:34 Dose: Not Given Piperacillin Sod/Tazobactam (Sod 3.375 gm/ Sodium Chloride) 50 mls @ 100 mls/ hr IV Q6H [facility] Last Admin: 11/04/17 09:25 Dose: 100 mls/hr Sodium Chloride (Normal Saline) 1,000 mls @ 125 mls/hr IV ASDIRECTED [facility] Last Admin: 11/05/17 05:05 Dose: 150 mls/hr Levofloxacin/Dextrose 750 mg/ (Premix) 150 mls @ 100 mls/hr IV ONETIME ONE Stop: 11/03/17 20:59 Last Admin: 11/03/17 20:42 Dose: 100 mls/hr Vancomycin HCl 1 gm/ Sodium (Chloride) 250 mls @ 125 mls/hr IV Q24H [facility] Last Admin: 11/04/17 22:59 Dose: 125 mls/hr Lorazepam (Ativan) 1 mg PO QID [facility] Lorazepam (Ativan) 1 mg IV Q6H PRN PRN Reason: Anxiety Methylprednisolone Sodium Succinate (Solu-Medrol) 125 mg IVPUSH ONETIME ONE Stop: 11/03/17 15:41 Last Admin: 11/03/17 16:25 Dose: Not Given Methylprednisolone Sodium Succinate (Solu-Medrol) 125 mg IM ONETIME ONE Stop: 11/03/17 16:20 Last Admin: 11/03/17 16:24 Dose: 125 mg Methylprednisolone Sodium Succinate (Solu-Medrol) 60 mg IVPUSH Q6H [facility] Last Admin: 11/04/17 04:34 Dose: Not Given Methylprednisolone Sodium Succinate (Solu-Medrol) 60 mg IVPUSH Q6H [facility] Last Admin: 11/05/17 05:09 Dose: 60 mg Morphine Sulfate (Morphine) 2 mg IVPUSH Q4H [facility] Last Admin: 11/04/17 04:34 Dose: Not Given Non-Formulary Medication (Esomeprazole) 40 mg PO DAILY [facility] Last Admin: 11/04/17 08:47 Dose: Not Given Esomeprazole 40 Mg ( (Nexium)) 40 each PO DAILY [facility] Last Admin: 11/05/17 10:20 Dose: Not Given Potassium Chloride (Potassium Chloride) 40 meq PO ONETIME ONE Stop: 11/04/17 07:59 Last Admin: 11/04/17 08:13 Dose: 40 meq Vancomycin HCl (Pharmacy To Dose - Vancomycin) 1 dose .XX ASDIRECTED [facility] - Exam Quality Assessment: Reports: Supplemental Oxygen, DVT Prophylaxis General: Reports: Alert, Oriented, Cooperative, No Acute Distress HEENT: Reports: Pupils Equal, Pupils Reactive, EOMI, Mucous Membr. Moist/[place] Neck: Reports: Supple Lungs: Reports: Clear to Auscultation, Normal Respiratory Effort Cardiovascular: Reports: Regular Rate, Regular Rhythm GI/Abdominal Exam: Normal Bowel Sounds, Soft, Non-Tender, No Organomegaly, No Distention Back Exam: Reports: Normal Inspection Extremities: Normal Inspection, Non-Tender, No Pedal Edema, Normal Capillary Refill Skin: Reports: Warm, Dry, Intact Neurological: Reports: No New Focal Deficit Psy/Mental Status: Reports: Alert, Normal Affect, Normal Mood *Q Meaningful Use (DIS) - VTE *Q VTE Criteria *Q: - Stroke *Q Stroke Criteria *Q: - AMI *Q AMI Criteria *Q:
[2017-11-06] MEDS: Non-Formulary Medication 1 Each (Budesonide/Formoterol 2 INH) IH SCH (09:50)
[2017-11-06] MEDS: Acetaminophen/oxyCODONE 325-7.5 MG Tab PO PRN (11:08)
[2017-11-06] MEDS ORDERED: Enoxaparin 40 MG/0.4 ML Syringe SUBCUT SCH (21:00)
== END 2017-11-06 13:25 | disposition home health service (06) | DRG 189 ==
LOC: MW.ED 15:33 → MW.MS 18:28
PROVIDERS: ADMIT Family Medicine; ATTEND Family Medicine
PROC: 02HV33Z Insertion of Infusion Device into Superior Vena Cava, Percutaneous Approach (ICD-10-PCS; principal; 2017-11-03)
DX: M62.82 Rhabdomyolysis (principal); R09.02 Hypoxemia; J96.01 Acute respiratory failure with hypoxia; J44.1 Chronic obstructive pulmonary disease with (acute) exacerbation; N17.9 Acute kidney failure, unspecified; J44.9 Chronic obstructive pulmonary disease, unspecified; E11.9 Type 2 diabetes mellitus without complications; I10 Essential (primary) hypertension; F41.8 Other specified anxiety disorders; Z88.0 Allergy status to penicillin; Z86.73 Personal history of transient ischemic attack (TIA), and cerebral infarction without residual deficits; M62.838 Other muscle spasm; E86.0 Dehydration; R79.89 Other specified abnormal findings of blood chemistry; Z87.891 Personal history of nicotine dependence; Z99.81 Dependence on supplemental oxygen; Z88.7 Allergy status to serum and vaccine; Z88.8 Allergy status to other drugs, medicaments and biological substances; Z79.899 Other long term (current) drug therapy; Z79.4 Long term (current) use of insulin; Z85.118 Personal history of other malignant neoplasm of bronchus and lung
CPT/HCPCS: 36415; 36569; 71045; 76937; 77001; 80053; 82150; 82550; 82553; 83605; 83690; 83880; 84484; 85025; 85610; 93005; 94640; 96372; 99285; J2930; 80048; 81001; 82962; 86140; 87040; 97161-GP; 99284; A9270-GY; J1650; J1815-GY; J1956; J2060; J2270; J2405; J2543; J3370; J7040; J7050

== ENCOUNTER 2018-01-20 12:13 | Emergency (ER) | payer MEDICARE, OTHER ==
[2018-01-20 13:14] LABS: CHLORIDE,CL 101 mmol/L (98-107); SODIUM,NA 139 mmol/L (136-145)
[2018-01-20] MEDS ORDERED: Meclizine 25 MG Tab PO ONE (13:15)
--- NOTE | 2018-01-20 14:15 | EDM.PDOC ---
ED HPI GENERAL MEDICAL PROBLEM - General Chief Complaint: Cardiovascular Problem Stated Complaint: DIZZINESS Time Seen by Provider: 01/20/18 12:14 Source of Information: Reports: Patient History Limitations: Reports: No Limitations - History of Present Illness INITIAL COMMENTS - FREE TEXT/NARRATIVE: History of present illness: []Patient complains of some dizziness with spinning sensation. She denies any headache, blurry vision, fevers, chills, sinus congestion chest pain or shortness of breath. Review of systems: As per history of present illness and below otherwise all systems reviewed and negative. Past medical history: As per history of present illness and as reviewed below otherwise noncontributory. Surgical history: As per history of present illness and as reviewed below otherwise noncontributory. Social history: No reported history of drug or alcohol abuse. Family history: As per history of present illness and as reviewed below otherwise noncontributory. Physical exam: General: Well developed, well nourished in NAD HEENT: Atraumatic, normocephalic, pupils reactive, negative for conjunctival pallor or scleral icterus, mucous membranes moist, throat clear, neck supple, nontender, trachea midline. Sinuses nontender to palpation TMs clear Lungs: Clear to auscultation, breath sounds equal bilaterally, chest nontender no rhonchi or wheezing Heart: S1S2, regular, negative for clicks, rubs, or JVD. Abdomen: Soft, nondistended, nontender. Negative for masses or hepatosplenomegaly. Negative for costovertebral tenderness. Pelvis: Stable nontender. Genitourinary: Deferred. Rectal: Deferred. Extremities: Atraumatic, negative for cords or calf pain. Neurovascular unremarkable. Neuro: Awake, alert, oriented. Cranial nerves II through XII unremarkable. Cerebellum unremarkable. Motor and sensory unremarkable throughout. Exam nonfocal. Diagnostics: []CBC normal chemistry normal troponin negative UA negative Therapeutics: []Meclizine with improvement Impression: []Benign positional vertigo Plan: []Meclizine as directed increase fluids follow up with primary care return if symptoms worsen or change Definitive disposition and diagnosis as appropriate pending reevaluation and review of above. Chest Pain Score (Numeric/FACES): 7 - Related Data Allergies Allergy/AdvReac Type Severity Reaction Status Date / Time aspirin Allergy Rash Verified 01/20/18 12:23 codeine Allergy Airway Verified 01/20/18 12:23 Tightness Influenza Virus Vaccines Allergy Hives Verified 01/20/18 12:23 peas Allergy Rash Verified 01/20/18 12:23 Penicillins Allergy Airway Verified 01/20/18 12:23 Tightness pneumococcal vaccine Allergy Hives Verified 01/20/18 12:23 potato Allergy Rash Verified 01/20/18 12:23 procaine HCl [From Novocain] Allergy Itching Verified 01/20/18 12:23 Tetanus Vaccines and Toxoid Allergy Hives Verified 01/20/18 12:23 wheat Allergy Airway Verified 01/20/18 12:23 Tightness chocolate Allergy Itching Uncoded 01/20/18 12:23 potato starch Allergy Rash Uncoded 01/20/18 12:23 sea food Allergy Rash Uncoded 01/20/18 12:23 tea Allergy Rash Uncoded 01/20/18 12:23 Home Meds: Home Meds Esomeprazole Magnesium [Nexium] 40 mg PO DAILY 11/09/14 [History] Furosemide [Lasix] 20 mg PO DAILY 11/09/14 [History] Insulin Glarg,Human.Rec.Analog [Lantus] 12 units SUBCUT BID 11/09/14 [History] LORazepam 1 mg PO QID 11/09/14 [History] Levalbuterol HCl 1.25 mg INH QID PRN 11/09/14 [History] Losartan [Cozaar] 50 mg PO DAILY 11/09/14 [History] diphenhydrAMINE [Benadryl] 50 mg PO QID 11/09/14 [History] Budesonide/Formoterol [Symbicort 160-4.5 MCG] 2 inh IH BID 02/01/17 [History] Insulin Aspart [Novolog Flexpen] 8 unit SUBCUT TIDAC 02/01/17 [History] Hydrocodone/Acetaminophen [Hydrocodon-Acetaminoph 7.5-300] 1 each PO Q6H PRN # 12 tablet 11/06/17 [Rx] Levofloxacin [Levaquin] 750 mg PO DAILY #3 tab 11/06/17 [Rx] Methocarbamol [Robaxin] 750 mg PO Q6H #12 tab 11/06/17 [Rx] Prednisone [IJD: predniSONE] 40 mg PO WITHBREAKFAST #18 tablet 11/06/17 [Rx] Meclizine [Antivert] 25 mg PO TID PRN #30 tab 01/20/18 [Rx] Past Medical History HEENT History: Reports: Hard of Hearing Cardiovascular History: Reports: Hypertension Respiratory History: Reports: Asthma, COPD, Other (See Below) Other Respiratory History: on home oxygen at 3liters per minute; lung cancer Gastrointestinal History: Reports: GERD Genitourinary History: Reports: None [employer]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: 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 History: Reports: Back Pain, Chronic Neurological History: Reports: Vertigo Other Neuro History: pt reports "small stroke 2016" Psychiatric History: Reports: Anxiety, Depression Other Psychiatric History: claustrophobic Endocrine/Metabolic History: Reports: Diabetes, Type II Hematologic History: Reports: None Immunologic History: Reports: None Oncologic (Cancer) History: Reports: Lung Other Oncologic History: remission for 4 months Dermatologic History: Reports: None - Infectious Disease History Infectious Disease History: Reports: Chicken Pox, Measles, Mumps - Past Surgical History Head Surgeries/Procedures: Reports: None HEENT Surgical History: Reports: None Other Cardiovascular Surgeries/Procedures: Left brachial plastic artery Respiratory Surgical History: Reports: Other (See Below) Other Respiratory Surgeries/Procedures: lung surgery- hx lung cancer GI Surgical History: Reports: Appendectomy, Cholecystectomy Endocrine Surgical History: Reports: None Neurological Surgical History: Reports: None Oncologic Surgical History: Reports: None Dermatological Surgical History: Reports: None Social & Family History - Family History Family Medical History: Noncontributory - Tobacco Use Smoking Status *Q: Former Smoker Years of Tobacco use: 50 Used Tobacco, but Quit: Yes Month/Year Tobacco Last Used: 2003 Second Hand Smoke Exposure: No - Caffeine Use Caffeine Use: Reports: Coffee Caffeine Use Comment: 1-2drinks/day - Alcohol Use Days Per Week of Alcohol Use: 0 - Recreational Drug Use Recreational Drug Use: No - Living Situation & Occupation Living situation: Reports: with Family Occupation: Retired ED ROS GENERAL - Review of Systems Review Of Systems: See Below (See history of present illness) ED EXAM, GENERAL - Physical Exam Exam: See Below (See history of present illness) Course - Vital Signs Last Recorded V/S: Last Vital Signs Temp 97.7 F 01/20/18 14:31 Pulse 97 01/20/18 14:31 Resp 18 01/20/18 14:31 BP 131/55 L 01/20/18 14:31 Pulse Ox 96 04/05/18 14:31 - Orders/Labs/Meds Orders: Active Orders 24 hr Category Date Time Status EKG 12 Lead [EKG Documentation Completion] [RC] ROUTINE Care 01/20/18 13:03 Active UA W/MICROSCOPIC [URIN] Stat Lab 01/20/18 13:50 Ordered Labs: Laboratory Tests 01/20/18 01/20/18 01/20/18 Range/Units 12:39 12:39 13:50 WBC 9.86 (4.0-11.0) K/uL RBC 4.19 L (4.30-5.90) M/uL Hgb 12.5 (12.0-16.0) g/dL Hct 39.1 (36.0-46.0) % MCV 93.3 (80.0-98.0) fL MCH 29.8 (27.0-32.0) pg MCHC 32.0 (31.0-37.0) g/dL RDW Std Deviation 51.0 (28.0-62.0) fl RDW Coeff of Lucrecia 15 (11.0-15.0) % Plt Count 272 (150-400) K/uL MPV 11.10 (7.40-12.00) fL Neut % (Auto) 75.4 (48.0-80.0) % Lymph % (Auto) 18.4 (16.0-40.0) % Titus % (Auto) 4.2 (0.0-15.0) % Eos % (Auto) 1.6 (0.0-7.0) % Baso % (Auto) 0.4 (0.0-1.5) % Neut # (Auto) 7.4 H (1.4-5.7) K/uL Lymph # (Auto) 1.8 (0.6-2.4) K/uL Titus # (Auto) 0.4 (0.0-0.8) K/uL Eos # (Auto) 0.2 (0.0-0.7) K/uL Baso # (Auto) 0.0 (0.0-0.1) K/uL Nucleated RBC % 0.0 /100WBC Nucleated RBCs # 0 K/uL Sodium 139 (136-145) mmol/L Potassium 4.4 (3.5-5.1) mmol/L Chloride 101 (98-107) mmol/L Carbon Dioxide 27.6 (21.0-32.0) mmol/L BUN 13 (7.0-18.0) mg/dL Creatinine 1.1 H (0.6-1.0) mg/dL Est Cr Clr Drug Dosing 34.41 mL/min Estimated GFR (MDRD) 48.3 ml/min Glucose 176 H (74-106) mg/dL Calcium 9.3 (8.5-10.1) mg/dL Total Bilirubin 0.3 (0.2-1.0) mg/dL AST 18 (15-37) IU/L ALT 16 (14-63) IU/L Alkaline Phosphatase 68 (46-116) U/L Troponin I < 0.050 (0.000-0.056) ng/mL Total Protein 6.4 (6.4-8.2) g/dL Albumin 3.5 (3.4-5.0) g/dL Globulin 2.9 (2.0-3.5) g/dL Albumin/Globulin Ratio 1.2 L (1.3-2.8) Urine Color YELLOW Urine Appearance CLEAR Urine pH 6.0 (5.0-8.0) Ur Specific Pierre Part 1.010 (1.001-1.035) Urine Protein NEGATIVE (NEGATIVE) mg/dL Urine Glucose (UA) NEGATIVE (NEGATIVE) mg/dL Urine Ketones NEGATIVE (NEGATIVE) mg/dL Urine Occult Blood NEGATIVE (NEGATIVE) Urine Nitrite NEGATIVE (NEGATIVE) Urine Bilirubin NEGATIVE (NEGATIVE) Urine Urobilinogen 0.2 (<2.0) EU/dL Ur Leukocyte Esterase TRACE (NEGATIVE) Urine RBC 0-1 (0-2/HPF) Urine WBC 0-3 (0-5/HPF) Ur Epithelial Cells OCCASIONAL (NONE-FEW) Urine Bacteria RARE (NEGATIVE) Meds: Medications Discontinued Medications Generic Name Dose Route Start Last Admin Trade Name Freq PRN Reason Stop Dose Admin Meclizine HCl 25 mg 01/20/18 13:15 01/20/18 13:42 Antivert PO 01/20/18 13:16 25 mg ONETIME ONE Administration Departure - Departure Time of Disposition: 14:22 Disposition: Home, Self-Care 01 Condition: Good Clinical Impression: Benign positional vertigo Qualifiers: Laterality: unspecified laterality Qualified Code(s): H81.10 - Benign paroxysmal vertigo, unspecified ear Prescriptions: Meclizine [Antivert] 25 mg PO TID PRN #30 tab PRN Reason: Dizziness Instructions: Benign Positional Vertigo Referrals: [facility] [Outside] PCP,None [Primary Care Provider] - Forms: ED Department Discharge Additional Instructions: The following information is given to patients seen in the emergency department who are being discharged to home. This information is to outline your options for follow-up care. We provide all patients seen in our emergency department with a follow-up referral. The need for follow-up, as well as the timing and circumstances, are variable depending upon the specifics of your emergency department visit. If you don't have a primary care physician on staff, we will provide you with a referral. We always advise you to contact your personal physician following an emergency department visit to inform them of the circumstance of the visit and for follow-up with them and/or the need for any referrals to a consulting specialist. The emergency department will also refer you to a specialist when appropriate. This referral assures that you have the opportunity for follow-up care with a specialist. All of these measure are taken in an effort to provide you with optimal care, which includes your follow-up. Under all circumstances we always encourage you to contact your private physician who remains a resource for coordinating your care. When calling for follow-up care, please make the office aware that this follow-up is from your recent emergency room visit. If for any reason you are refused follow-up, please contact the [facility] Emergency Department at and asked to speak to the emergency department charge nurse. Meclizine as directed for dizziness follow-up with primary care return if symptoms worsen or change [facility] [address] [place] [id number] - My Orders Last 24 Hours: My Active Orders 01/20/18 13:03 EKG 12 Lead [EKG Documentation Completion] [RC] ROUTINE 01/20/18 13:50 UA W/MICROSCOPIC [URIN] Stat - Assessment/Plan Last 24 Hours: My Active Orders 01/20/18 13:03 EKG 12 Lead [EKG Documentation Completion] [RC] ROUTINE 01/20/18 13:50 UA W/MICROSCOPIC [URIN] Stat
[2018-01-20 19:17] VITALS: BP 131/55
== END 2018-01-20 14:35 | disposition home or self-care (01) ==
LOC: MW.ED 12:13
DX: H81.10 Benign paroxysmal vertigo, unspecified ear (principal); I10 Essential (primary) hypertension; J44.9 Chronic obstructive pulmonary disease, unspecified; E11.9 Type 2 diabetes mellitus without complications; Z88.5 Allergy status to narcotic agent; Z88.0 Allergy status to penicillin; Z88.7 Allergy status to serum and vaccine; Z88.6 Allergy status to analgesic agent; Z91.018 Allergy to other foods; Z91.013 Allergy to seafood; Z79.899 Other long term (current) drug therapy; Z79.4 Long term (current) use of insulin; Z87.891 Personal history of nicotine dependence
CPT/HCPCS: 36415; 80053; 81001; 84484; 85025; 93005; 99283; 99284-25; A9270-GY

== ENCOUNTER 2018-06-13 13:14 | Emergency (ER) | payer MEDICARE, OTHER ==
[2018-06-13 13:22] VITALS: BP 152/66
[2018-06-13] MEDS ORDERED: Albuterol/Ipratropium 3.0-0.5 MG/3 ML Neb Soln NEB ONE ×2 (13:29→15:31)
[2018-06-13] MEDS ORDERED: Sodium Chloride 0.9% 10 ML Syringe FLUSH PRN (13:45)
[2018-06-13] MEDS ORDERED: Sodium Chloride 0.9% 2.5 ML Syringe FLUSH PRN (13:45)
[2018-06-13] MEDS ORDERED: Sodium Chloride 0.9% 500 ML IV SCH (13:45)
[2018-06-13] MEDS ORDERED: methylPREDNISolone Sodium Succinate 125 MG/2 ML SDV IVPUSH ONE (13:45)
--- NOTE | 2018-06-13 13:49 | EDM.PDOC ---
ED HPI GENERAL MEDICAL PROBLEM - General Chief Complaint: Respiratory Problem Stated Complaint: SOB Time Seen by Provider: 06/13/18 13:31 - History of Present Illness INITIAL COMMENTS - FREE TEXT/NARRATIVE: HISTORY AND PHYSICAL: History of present illness: The patient is a 78-year-old female with a known history of COPD who uses oxygen 3 L nasal cannula at home only at nighttime and also has a history of hypertension anxiety BPV and presents with 2-3 days of vague chest pain and shortness of breath with increased wheezing over the last 2-3 days. They've been using increased number of nebs and is not helped. They follow with Dr. Micha Delvalle at [facility] and have an appointment next week. The patient takes prednisone chronically 10 mg daily and was last boosted and needed increased dosing months ago. She has no cardiac disease that she is aware of and says that her chest discomfort is likely triggered by her breathing and she thinks she has pneumonia. In many fluids but is not vomiting and has no abdominal pain. She's had no fever at home and no productive cough. Her O2 sat is 89% on room air and the daughter says that she doesn't use the oxygen during the daytime. She has been more short of breath with activity and has been wheezing more. Review of systems: As per history of present illness and below otherwise all systems reviewed and negative. Past medical history: As per history of present illness and as reviewed below otherwise noncontributory. Surgical history: As per history of present illness and as reviewed below otherwise noncontributory. Social history: No reported history of drug or alcohol abuse. Family history: As per history of present illness and as reviewed below otherwise noncontributory. Physical exam: General: Well-developed well-nourished female was not breathless on my evaluation but she is currently doing a nebulizer treatment. Vital signs have been noted by me HEENT: Atraumatic, normocephalic, negative for conjunctival pallor or scleral icterus, mucous membranes tacky throat clear, neck supple, nontender, trachea midline. Lungs: Coarse breath sounds and expiratory wheezing throughout all lung ascencio and diminished air exchange at the bases, there is some abdominal work of breathing and she is slightly breathless with activity in the ED., breath sounds equal bilaterally, chest nontender. Heart: S1S2, regular and rhythm no overt murmurs Abdomen: Soft, nondistended, nontender. NABS Pelvis: Deferred Genitourinary: Deferred. Rectal: Deferred. Extremities: Atraumatic, negative for cords or calf pain. Neurovascular unremarkable. No pedal edema Neuro: Awake, alert, oriented. Cranial nerves II through XII unremarkable. Cerebellum unremarkable. Motor and sensory unremarkable throughout. Exam nonfocal. Diagnostics: EKG CBC CMP troponin lactic acid chest x-ray Therapeutics: IV, gentle IV fluids duo neb Solu-Medrol oxygen therapy She is feeling much improved and I discussed testing results with patient and family at bedside. They would like to try another DuoNeb and take her off oxygen and see how she does. He would prefer not to be admitted if that's possible. Patient sounds much improved and is moving air better and feels much better. Heart rate has normalized to 94 on my evaluation. After the second duo neb the patient was gotten up to the chair and then back into bed which is the most activity she will be doing at home and her O2 sat held and only dipped to 90 briefly and the patient was on the 2 L of nasal cannula at that time. I discussed with them taking her off the O2 and see how she does and they are declining that.. The patient and family would like to try to go home. She had been offered admission on 2 occasions and they would prefer to go home and said that they will apply the oxygen as needed and will return if they do not feel that she is improving. They are aware of my concerns with this discharge. They do have home O2 that they can use as needed and nebulizer treatments. I will give her prednisone to booster for the next several days. She is aware she can return any time and she would prefer to try to go home than be admitted. Family is with her at all times and said they will continue to monitor her oxygen level and Impression: COPD exacerbation with hypoxia improving Definitive disposition and diagnosis as appropriate pending reevaluation and review of above. Mid-Sternal Chest Pain Score (Numeric/FACES): 6 - Related Data Allergies Allergy/AdvReac Type Severity Reaction Status Date / Time aspirin Allergy Rash Verified 06/13/18 13:23 codeine Allergy Airway Verified 06/13/18 13:23 Tightness Influenza Virus Vaccines Allergy Hives Verified 06/13/18 13:23 peas Allergy Rash Verified 06/13/18 13:23 Penicillins Allergy Airway Verified 06/13/18 13:23 Tightness pneumococcal vaccine Allergy Hives Verified 06/13/18 13:23 potato Allergy Rash Verified 06/13/18 13:23 procaine HCl [From Novocain] Allergy Itching Verified 06/13/18 13:23 Tetanus Vaccines and Toxoid Allergy Hives Verified 06/13/18 13:23 wheat Allergy Airway Verified 06/13/18 13:23 Tightness chocolate Allergy Itching Uncoded 01/20/18 12:23 potato starch Allergy Rash Uncoded 01/20/18 12:23 sea food Allergy Rash Uncoded 01/20/18 12:23 tea Allergy Rash Uncoded 01/20/18 12:23 Home Meds: Home Meds Esomeprazole Magnesium [Nexium] 40 mg PO DAILY 11/09/14 [History] Furosemide [Lasix] 20 mg PO DAILY 11/09/14 [History] Insulin Glarg,Human.Rec.Analog [Lantus] 12 units SUBCUT BID 11/09/14 [History] LORazepam 1 mg PO QID 11/09/14 [History] Levalbuterol HCl 1.25 mg INH QID PRN 11/09/14 [History] Losartan [Cozaar] 50 mg PO DAILY 11/09/14 [History] diphenhydrAMINE [Benadryl] 50 mg PO QID 11/09/14 [History] Budesonide/Formoterol [Symbicort 160-4.5 MCG] 2 inh IH BID 02/01/17 [History] Insulin Aspart [Novolog Flexpen] 8 unit SUBCUT TIDAC 02/01/17 [History] Hydrocodone/Acetaminophen [Hydrocodon-Acetaminoph 7.5-300] 1 each PO Q6H PRN # 12 tablet 11/06/17 [Rx] Methocarbamol [Robaxin] 750 mg PO Q6H #12 tab 11/06/17 [Rx] Meclizine [Antivert] 25 mg PO TID PRN #30 tab 01/20/18 [Rx] Prednisone [IJD: predniSONE] 10 mg PO WITHBREAKFAST 06/13/18 [History] Past Medical History HEENT History: Reports: Hard of Hearing Cardiovascular History: Reports: Hypertension Respiratory History: Reports: Asthma, COPD, Other (See Below) Other Respiratory History: on home oxygen at 3liters per minute; lung cancer Gastrointestinal History: Reports: GERD Genitourinary History: Reports: None PURCHASING/RECEIVING History: Reports: 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 History: Reports: Back Pain, Chronic Neurological History: Reports: Vertigo Other Neuro History: pt reports "small stroke 2016" Psychiatric History: Reports: Anxiety, Depression Other Psychiatric History: claustrophobic Endocrine/Metabolic History: Reports: Diabetes, Type II Hematologic History: Reports: None Immunologic History: Reports: None Oncologic (Cancer) History: Reports: Lung Other Oncologic History: remission for 4 months Dermatologic History: Reports: None - Infectious Disease History Infectious Disease History: Reports: Chicken Pox, Measles, Mumps - Past Surgical History Head Surgeries/Procedures: Reports: None HEENT Surgical History: Reports: None Other Cardiovascular Surgeries/Procedures: Left brachial plastic artery Respiratory Surgical History: Reports: Other (See Below) Other Respiratory Surgeries/Procedures: lung surgery- hx lung cancer GI Surgical History: Reports: Appendectomy, Cholecystectomy Endocrine Surgical History: Reports: None Neurological Surgical History: Reports: None Oncologic Surgical History: Reports: None Dermatological Surgical History: Reports: None Social & Family History - Family History Family Medical History: Noncontributory - Tobacco Use Smoking Status *Q: Former Smoker Used Tobacco, but Quit: Yes Month/Year Tobacco Last Used: 14 years - Caffeine Use Caffeine Use: Reports: Coffee Caffeine Use Comment: 1-2drinks/day - Recreational Drug Use Recreational Drug Use: No - Living Situation & Occupation Living situation: Reports: with Family Occupation: Retired ED ROS GENERAL - Review of Systems Review Of Systems: ROS reveals no pertinent complaints other than HPI. ED EXAM, GENERAL - Physical Exam Exam: See Below (see dictation) Course - Vital Signs Last Recorded V/S: Last Vital Signs Temp 36.9 C 06/13/18 13:20 Pulse 108 H 06/13/18 13:20 Resp 22 H 06/13/18 13:20 BP 152/66 H 06/13/18 13:20 Pulse Ox 89 L 06/13/18 13:20 - Orders/Labs/Meds Orders: Active Orders 24 hr Category Date Time Status EKG Documentation Completion [RC] STAT Care 06/13/18 13:44 Active Oxygen Therapy, ED [RC] ASDIRECTED Care 06/13/18 13:44 Active Pulse Oximetry [RC] ASDIRECTED Care 06/13/18 13:44 Active RT Aerosol Therapy [RC] ASDIRECTED Care 06/13/18 13:29 Active RT Aerosol Therapy [RC] ASDIRECTED Care 06/13/18 15:31 Active Chest 2V [CR] Stat Exams 06/13/18 13:45 Taken Sodium Chloride 0.9% [Normal Saline] 500 ml Med 06/13/18 13:45 Active IV STAT Sodium Chloride 0.9% [Saline Flush] Med 06/13/18 13:45 Active 10 ml FLUSH ASDIRECTED PRN Sodium Chloride 0.9% [Saline Flush] Med 06/13/18 13:45 Active 2.5 ml FLUSH ASDIRECTED PRN Saline Lock Insert [OM.PC] Stat Oth 06/13/18 13:44 Ordered Medication Orders Sodium Chloride (Normal Saline) 500 mls @ 999 mls/hr IV STAT VIJAYA Last Admin: 06/13/18 15:07 Dose: 999 mls/hr Sodium Chloride (Saline Flush) 10 ml FLUSH ASDIRECTED PRN PRN Reason: Keep Vein Open Last Admin: 06/13/18 15:08 Dose: 10 ml Sodium Chloride (Saline Flush) 2.5 ml FLUSH ASDIRECTED PRN PRN Reason: Keep Vein Open Labs: Laboratory Tests 06/13/18 06/13/18 06/13/18 Range/Units 14:00 14:00 14:00 WBC 9.54 (4.0-11.0) K/uL RBC 3.89 L (4.30-5.90) M/uL Hgb 11.1 L (12.0-16.0) g/dL Hct 35.0 L (36.0-46.0) % MCV 90.0 (80.0-98.0) fL MCH 28.5 (27.0-32.0) pg MCHC 31.7 (31.0-37.0) g/dL RDW Std Deviation 51.7 (28.0-62.0) fl RDW Coeff of Lucrecia 16 H (11.0-15.0) % Plt Count 268 (150-400) K/uL MPV 10.30 (7.40-12.00) fL Neut % (Auto) 71.1 (48.0-80.0) % Lymph % (Auto) 14.9 L (16.0-40.0) % [place] % (Auto) 7.3 (0.0-15.0) % Eos % (Auto) 5.9 (0.0-7.0) % Baso % (Auto) 0.8 (0.0-1.5) % Neut # (Auto) 6.8 H (1.4-5.7) K/uL Lymph # (Auto) 1.4 (0.6-2.4) K/uL [place] # (Auto) 0.7 (0.0-0.8) K/uL Eos # (Auto) 0.6 (0.0-0.7) K/uL Baso # (Auto) 0.1 (0.0-0.1) K/uL Nucleated RBC % 0.0 /100WBC Nucleated RBCs # 0 K/uL Lactate 2.3 H (0.20-2.00) mmol/L Sodium 138 (136-145) mmol/L Potassium 4.3 (3.5-5.1) mmol/L Chloride 102 (98-107) mmol/L Carbon Dioxide 30.4 (21.0-32.0) mmol/L BUN 18 (7.0-18.0) mg/dL Creatinine 1.2 H (0.6-1.0) mg/dL Est Cr Clr Drug Dosing 31.05 mL/min Estimated GFR (MDRD) 43.6 ml/min Glucose 159 H (74-106) mg/dL Calcium 8.8 (8.5-10.1) mg/dL Total Bilirubin 0.2 (0.2-1.0) mg/dL AST 13 L (15-37) IU/L ALT 19 (14-63) IU/L Alkaline Phosphatase 83 (46-116) U/L Troponin I < 0.050 (0.000-0.056) ng/mL Total Protein 6.6 (6.4-8.2) g/dL Albumin 3.4 (3.4-5.0) g/dL Globulin 3.2 (2.0-3.5) g/dL Albumin/Globulin Ratio 1.1 L (1.3-2.8) Meds: Medications Generic Name Dose Route Start Last Admin Trade Name Freq PRN Reason Stop Dose Admin Sodium Chloride 500 mls @ 999 mls/hr 06/13/18 13:45 06/13/18 15:07 Normal Saline IV 999 mls/hr STAT VIJAYA Administration Sodium Chloride 10 ml 06/13/18 13:45 06/13/18 15:08 Saline Flush FLUSH 10 ml ASDIRECTED PRN Administration Keep Vein Open Sodium Chloride 2.5 ml 06/13/18 13:45 Saline Flush FLUSH ASDIRECTED PRN Keep Vein Open Discontinued Medications Generic Name Dose Route Start Last Admin Trade Name Freq PRN Reason Stop Dose Admin Albuterol/Ipratropium 3 ml 06/13/18 13:29 06/13/18 13:40 Duoneb 3.0-0.5 Mg/3 Ml NEB 06/13/18 13:30 3 ml ONETIME ONE Administration Albuterol/Ipratropium 3 ml 06/13/18 15:31 06/13/18 15:46 Duoneb 3.0-0.5 Mg/3 Ml NEB 06/13/18 15:32 3 ml ONETIME ONE Administration Methylprednisolone Sodium Succinate 125 mg 06/13/18 13:45 06/13/18 15:07 Solu-Medrol IVPUSH 06/13/18 13:46 125 mg ONETIME ONE Administration Departure - Departure Time of Disposition: 16:15 Disposition: Home, Self-Care 01 Condition: Good, Fair Clinical Impression: COPD exacerbation - Discharge Information Referrals: Micha Dai MD [Primary Care Provider] - Forms: ED Department Discharge Additional Instructions: The following information is given to patients seen in the emergency department who are being discharged to home. This information is to outline your options for follow-up care. We provide all patients seen in our emergency department with a follow-up referral. The need for follow-up, as well as the timing and circumstances, are variable depending upon the specifics of your emergency department visit. If you don't have a primary care physician on staff, we will provide you with a referral. We always advise you to contact your personal physician following an emergency department visit to inform them of the circumstance of the visit and for follow-up with them and/or the need for any referrals to a consulting specialist. The emergency department will also refer you to a specialist when appropriate. This referral assures that you have the opportunity for followup care with a specialist. All of these measure are taken in an effort to provide you with optimal care, which includes your followup. Under all circumstances we always encourage you to contact your private physician who remains a resource for coordinating your care. When calling for followup care, please make the office aware that this follow-up is from your recent emergency room visit. If for any reason you are refused follow-up, please contact the [facility] emergency department at and ask to speak to the emergency department charge nurse. [facility] Primary care- Internal Medicine and Family [facility] [address] [place] [address] [id number] Please contact your provider in the clinic and schedule a follow-up appointment. Please use her nebulizer treatments at home as needed and as directed and use her home oxygen as needed. Please start the prednisone you have been given today tomorrow as he received steroids earlier IV today. Return to ER as needed and as discussed - My Orders Last 24 Hours: My Active Orders 06/13/18 13:29 RT Aerosol Therapy [RC] ASDIRECTED 06/13/18 13:44 EKG Documentation Completion [RC] STAT Oxygen Therapy, ED [RC] ASDIRECTED Pulse Oximetry [RC] ASDIRECTED Saline Lock Insert [OM.PC] Stat 06/13/18 13:45 Chest 2V [CR] Stat Sodium Chloride 0.9% [Normal Saline] 500 ml IV STAT Sodium Chloride 0.9% [Saline Flush] 10 ml FLUSH ASDIRECTED PRN Sodium Chloride 0.9% [Saline Flush] 2.5 ml FLUSH ASDIRECTED PRN 06/13/18 15:31 RT Aerosol Therapy [RC] ASDIRECTED - Assessment/Plan Last 24 Hours: My Active Orders 06/13/18 13:29 RT Aerosol Therapy [RC] ASDIRECTED 06/13/18 13:44 EKG Documentation Completion [RC] STAT Oxygen Therapy, ED [RC] ASDIRECTED Pulse Oximetry [RC] ASDIRECTED Saline Lock Insert [OM.PC] Stat 06/13/18 13:45 Chest 2V [CR] Stat Sodium Chloride 0.9% [Normal Saline] 500 ml IV STAT Sodium Chloride 0.9% [Saline Flush] 10 ml FLUSH ASDIRECTED PRN Sodium Chloride 0.9% [Saline Flush] 2.5 ml FLUSH ASDIRECTED PRN 06/13/18 15:31 RT Aerosol Therapy [RC] ASDIRECTED
[2018-06-13 14:49] LABS: CHLORIDE,CL 102 mmol/L (98-107); SODIUM,NA 138 mmol/L (136-145)
--- NOTE | 2018-06-13 16:42 | CR ---
EXAM DATE: 06/13/18 PATIENT'S AGE: 78 Patient: SEB WALKER Facility: [place], [place] Site . Site : [id number] Study: XRay Chest [id number] 2:42:00 PM Ordering Physician: Slava Jimenez Final Report: INDICATION: Shortness of breath. COMPARISON: PA chest 06/13/2018. FINDINGS: The bones are diffusely demineralized and a compression deformity is noted of the T7 vertebral body which and there is a kyphotic deformity. Left upper lung scar with retraction of pleura of remains unchanged. The right lung is clear. There are no new pulmonary infiltrates. Cardiac and mediastinal silhouettes are stable in appearance. The pulmonary vasculature is normal. There are no pleural effusions. IMPRESSION: Stable left upper low pleural parenchymal scar. Dictated by Charleen Quinones MD @ Jun 13 2018 2:52PM (Electronic Signature) Report Signed by Proxy. GUERO
== END 2018-06-13 16:35 | disposition home or self-care (01) ==
LOC: MW.ED 13:14
DX: J44.1 Chronic obstructive pulmonary disease with (acute) exacerbation (principal); R09.02 Hypoxemia; I10 Essential (primary) hypertension; E11.9 Type 2 diabetes mellitus without complications; Z87.891 Personal history of nicotine dependence; Z79.4 Long term (current) use of insulin; Z79.899 Other long term (current) drug therapy; Z88.6 Allergy status to analgesic agent; Z88.5 Allergy status to narcotic agent; Z88.7 Allergy status to serum and vaccine; Z88.0 Allergy status to penicillin; Z91.018 Allergy to other foods; Z91.013 Allergy to seafood
CPT/HCPCS: 36415; 71046; 80053; 83605; 84484; 85025; 93005; 94640; 99285; J2930; J7040; 99284; J7620-GY

== ENCOUNTER 2018-07-15 23:27 | Emergency (ER) | payer MEDICARE, OTHER ==
--- NOTE | 2018-07-15 23:34 | EDM.PDOC ---
ED HPI GENERAL MEDICAL PROBLEM - General Chief Complaint: Respiratory Problem Stated Complaint: PROBLEMS BREATHING Time Seen by Provider: 07/15/18 23:34 Source of Information: Reports: Patient History Limitations: Reports: No Limitations - History of Present Illness INITIAL COMMENTS - FREE TEXT/NARRATIVE: HISTORY AND PHYSICAL: History of present illness: 78-year-old female presenting to emergency department with chief complaint of shortness of breath with past medical history of severe COPD on 3 L home oxygen per nasal cannula, hypertension, and anxiety. Patient states that over the past 2-3 days she's had some worsening shortness of breath. Feels like she has been able to catch her breath appropriately. Daughter states that they have been using neb treatments approximately every 2 hours but she still seems more short of breath. She states that she did have a fever on . She has had a nonproductive cough. She denies any nausea, vomiting, diarrhea, abdominal pain, sore throat, or other signs of systemic infection. Patient does see Dr. Dai as her primary care provider. She currently denies any chest pain, palpitations, shortness of breath, syncopal episodes, focal neurologic deficits. Patient initially arrived without oxygen to the emergency room. She does not have a travel oxygen with her. Initial oxygen saturation 79% on room air. Initial exam shows generalized wheezing heard throughout. No crackles or rales. Patient treated with DuoNeb 2 and 125 mg Solu-Medrol IV with significant improvement in wheezing. Patient was also given 500 mL of normal saline as her lactate was mildly elevated at 2.1 normal value 2.0 most likely secondary to her respiratory acidosis. Review of systems: As per history of present illness and below otherwise all systems reviewed and negative. Past medical history: As per history of present illness and as reviewed below otherwise noncontributory. Surgical history: As per history of present illness and as reviewed below otherwise noncontributory. Social history: No reported history of drug or alcohol abuse. Family history: As per history of present illness and as reviewed below otherwise noncontributory. Physical exam: HEENT: Atraumatic, normocephalic, pupils reactive, negative for conjunctival pallor or scleral icterus, mucous membranes moist, throat clear, neck supple, nontender, trachea midline. Lungs: Generalized wheezing throughout, breath sounds equal bilaterally, chest nontender. Heart: S1S2, regular, negative for clicks, rubs, or JVD. Abdomen: Soft, nondistended, nontender. Negative for masses or hepatosplenomegaly. Negative for costovertebral tenderness. Pelvis: Stable nontender. Genitourinary: Deferred. Rectal: Deferred. Extremities: Atraumatic, negative for cords or calf pain. Neurovascular unremarkable. Neuro: Awake, alert, oriented. Cranial nerves II through XII unremarkable. Cerebellum unremarkable. Motor and sensory unremarkable throughout. Exam nonfocal. Diagnostics: CBC, CMP, UA/UC, blood culture 2, chest x-ray, ABG Therapeutics: DuoNeb 2, 500 mL normal saline IV, 125 mg Solu-Medrol IV 2, azithromycin 5 days, prednisone 40 mg by mouth daily 5 days Impression: Shortness of breath COPD exacerbation Plan: Please see above H&P After 2 treatments of DuoNeb as well as Solu-Medrol patient was oxygenating 95% on 3 L per nasal cannula. Patient did have significant improvement but did have some mild wheezing still heard on exam. Did talk to the patient and offered admission observation but they did wish to be discharged. I did prescribe the patient azithromycin as well as prednisone 40 mg by mouth 5 days burst dosing and told him to follow-up with Dr. Dai her primary care provider as soon as possible by calling his office on Wednesday. If they were any worsening of her symptoms they should return to the emergency department immediately. Definitive disposition and diagnosis as appropriate pending reevaluation and review of above. no pain Pain Score (Numeric/FACES): 0 - Related Data Allergies Allergy/AdvReac Type Severity Reaction Status Date / Time aspirin Allergy Rash Verified 06/13/18 13:23 codeine Allergy Airway Verified 06/13/18 13:23 Tightness Influenza Virus Vaccines Allergy Hives Verified 06/13/18 13:23 peas Allergy Rash Verified 06/13/18 13:23 Penicillins Allergy Airway Verified 06/13/18 13:23 Tightness pneumococcal vaccine Allergy Hives Verified 06/13/18 13:23 potato Allergy Rash Verified 06/13/18 13:23 procaine HCl [From Novocain] Allergy Itching Verified 06/13/18 13:23 Tetanus Vaccines and Toxoid Allergy Hives Verified 06/13/18 13:23 wheat Allergy Airway Verified 06/13/18 13:23 Tightness chocolate Allergy Itching Uncoded 01/20/18 12:23 potato starch Allergy Rash Uncoded 01/20/18 12:23 sea food Allergy Rash Uncoded 01/20/18 12:23 tea Allergy Rash Uncoded 01/20/18 12:23 Home Meds: Home Meds Esomeprazole Magnesium [Nexium] 40 mg PO DAILY 11/09/14 [History] Furosemide [Lasix] 20 mg PO DAILY 11/09/14 [History] Insulin Glarg,Human.Rec.Analog [Lantus] 12 units SUBCUT BID 11/09/14 [History] LORazepam 1 mg PO QID 11/09/14 [History] Levalbuterol HCl 1.25 mg INH QID PRN 11/09/14 [History] Losartan [Cozaar] 50 mg PO DAILY 11/09/14 [History] diphenhydrAMINE [Benadryl] 50 mg PO QID 11/09/14 [History] Budesonide/Formoterol [Symbicort 160-4.5 MCG] 2 inh IH BID 02/01/17 [History] Insulin Aspart [Novolog Flexpen] 8 unit SUBCUT TIDAC 02/01/17 [History] Hydrocodone/Acetaminophen [Hydrocodon-Acetaminoph 7.5-300] 1 each PO Q6H PRN # 12 tablet 11/06/17 [Rx] Methocarbamol [Robaxin] 750 mg PO Q6H #12 tab 11/06/17 [Rx] Meclizine [Antivert] 25 mg PO TID PRN #30 tab 01/20/18 [Rx] Prednisone [IJD: predniSONE] 10 mg PO WITHBREAKFAST 06/13/18 [History] Past Medical History HEENT History: Reports: Hard of Hearing Cardiovascular History: Reports: Hypertension Respiratory History: Reports: Asthma, COPD, Other (See Below) Other Respiratory History: on home oxygen at 3liters per minute; lung cancer Gastrointestinal History: Reports: GERD Genitourinary History: Reports: None LICENSED EMBALMER History: Reports: 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 History: Reports: Back Pain, Chronic Neurological History: Reports: Vertigo Other Neuro History: pt reports "small stroke 2016" Psychiatric History: Reports: Anxiety, Depression Other Psychiatric History: claustrophobic Endocrine/Metabolic History: Reports: Diabetes, Type II Hematologic History: Reports: None Immunologic History: Reports: None Oncologic (Cancer) History: Reports: Lung Other Oncologic History: remission for 4 months Dermatologic History: Reports: None - Infectious Disease History Infectious Disease History: Reports: Chicken Pox, Measles, Mumps - Past Surgical History Head Surgeries/Procedures: Reports: None HEENT Surgical History: Reports: None Other Cardiovascular Surgeries/Procedures: Left brachial plastic artery Respiratory Surgical History: Reports: Other (See Below) Other Respiratory Surgeries/Procedures: lung surgery- hx lung cancer GI Surgical History: Reports: Appendectomy, Cholecystectomy Endocrine Surgical History: Reports: None Neurological Surgical History: Reports: None Oncologic Surgical History: Reports: None Dermatological Surgical History: Reports: None Social & Family History - Family History Family Medical History: Noncontributory - Caffeine Use Caffeine Use: Reports: Coffee Caffeine Use Comment: 1-2drinks/day - Living Situation & Occupation Living situation: Reports: with Family Occupation: Retired ED ROS GENERAL - Review of Systems Review Of Systems: ROS reveals no pertinent complaints other than HPI. ED EXAM, GENERAL - Physical Exam Exam: See Below Course - Vital Signs Last Recorded V/S: Last Vital Signs Temp 98.6 F 07/16/18 00:09 Pulse 86 07/16/18 01:06 Resp 20 07/16/18 01:06 BP 128/68 07/16/18 01:06 Pulse Ox 96 07/16/18 01:06 - Orders/Labs/Meds Orders: Active Orders 24 hr Category Date Time Status EKG 12 Lead [EKG Documentation Completion] [RC] STAT Care 07/15/18 23:38 Active RT Aerosol Therapy [RC] ASDIRECTED Care 07/16/18 00:03 Active RT Aerosol Therapy [RC] ASDIRECTED Care 07/16/18 01:21 Active CXR [Chest 1V Frontal] [CR] Stat Exams 07/16/18 00:08 Taken CULTURE BLOOD [BC] Stat Lab 07/15/18 22:34 Received CULTURE BLOOD [BC] Stat Lab 07/15/18 23:52 Received CULTURE URINE [RM] Stat Lab 07/15/18 23:38 Ordered UA W/MICROSCOPIC [URIN] Stat Lab 07/15/18 23:38 Ordered Sodium Chloride 0.9% [Normal Saline] 500 ml Med 07/16/18 00:30 Active IV STAT Blood Culture x2 Reflex Set [OM.PC] Stat Oth 07/15/18 23:38 Ordered Medication Orders Sodium Chloride (Normal Saline) 500 mls @ 999 mls/hr IV STAT VIJAYA Last Admin: 07/16/18 01:04 Dose: 999 mls/hr Labs: Laboratory Tests 07/15/18 07/15/18 07/15/18 Range/Units 22:34 22:34 23:52 WBC 8.91 (4.0-11.0) K/uL RBC 4.35 (4.30-5.90) M/uL Hgb 12.4 (12.0-16.0) g/dL Hct 39.3 (36.0-46.0) % MCV 90.3 (80.0-98.0) fL MCH 28.5 (27.0-32.0) pg MCHC 31.6 (31.0-37.0) g/dL RDW Std Deviation 50.3 (28.0-62.0) fl RDW Coeff of Lucrecia 15 (11.0-15.0) % Plt Count 290 (150-400) K/uL MPV 10.40 (7.40-12.00) fL Neut % (Auto) 50.1 (48.0-80.0) % Lymph % (Auto) 31.6 (16.0-40.0) % [place] % (Auto) 9.1 (0.0-15.0) % Eos % (Auto) 8.3 H (0.0-7.0) % Baso % (Auto) 0.9 (0.0-1.5) % Neut # (Auto) 4.5 (1.4-5.7) K/uL Lymph # (Auto) 2.8 H (0.6-2.4) K/uL [place] # (Auto) 0.8 (0.0-0.8) K/uL Eos # (Auto) 0.7 (0.0-0.7) K/uL Baso # (Auto) 0.1 (0.0-0.1) K/uL Nucleated RBC % 0.0 /100WBC Nucleated RBCs # 0 K/uL ABG pH (7.35-7.45) ABG pCO2 (35-45) mmHG ABG pO2 (75-100) mmHG ABG HCO3 (22-26) mEq/L ABG Total CO2 ABG Base Excess (-2.0-2.0) Lactate 2.1 H (0.20-2.00) mmol/L Sodium 142 (136-145) mmol/L Potassium 4.1 (3.5-5.1) mmol/L Chloride 103 (98-107) mmol/L Carbon Dioxide 31.5 (21.0-32.0) mmol/L BUN 17 (7.0-18.0) mg/dL Creatinine 1.1 H (0.6-1.0) mg/dL Est Cr Clr Drug Dosing 33.87 mL/min Estimated GFR (MDRD) 48.2 ml/min Glucose 115 H (74-106) mg/dL Calcium 9.0 (8.5-10.1) mg/dL Total Bilirubin 0.3 (0.2-1.0) mg/dL AST 9 L (15-37) IU/L ALT 16 (14-63) IU/L Alkaline Phosphatase 87 (46-116) U/L Total Protein 6.7 (6.4-8.2) g/dL Albumin 3.4 (3.4-5.0) g/dL Globulin 3.3 (2.0-3.5) g/dL Albumin/Globulin Ratio 1.0 L (1.3-2.8) 07/16/18 Range/Units 00:12 WBC (4.0-11.0) K/uL RBC (4.30-5.90) M/uL Hgb (12.0-16.0) g/dL Hct (36.0-46.0) % MCV (80.0-98.0) fL MCH (27.0-32.0) pg MCHC (31.0-37.0) g/dL RDW Std Deviation (28.0-62.0) fl RDW Coeff of Lucrecia (11.0-15.0) % Plt Count (150-400) K/uL MPV (7.40-12.00) fL Neut % (Auto) (48.0-80.0) % Lymph % (Auto) (16.0-40.0) % [place] % (Auto) (0.0-15.0) % Eos % (Auto) (0.0-7.0) % Baso % (Auto) (0.0-1.5) % Neut # (Auto) (1.4-5.7) K/uL Lymph # (Auto) (0.6-2.4) K/uL [place] # (Auto) (0.0-0.8) K/uL Eos # (Auto) (0.0-0.7) K/uL Baso # (Auto) (0.0-0.1) K/uL Nucleated RBC % /100WBC Nucleated RBCs # K/uL ABG pH 7.441 (7.35-7.45) ABG pCO2 48 H (35-45) mmHG ABG pO2 78 (75-100) mmHG ABG HCO3 33 H (22-26) mEq/L ABG Total CO2 30.1 ABG Base Excess 7.6 H (-2.0-2.0) Lactate (0.20-2.00) mmol/L Sodium (136-145) mmol/L Potassium (3.5-5.1) mmol/L Chloride (98-107) mmol/L Carbon Dioxide (21.0-32.0) mmol/L BUN (7.0-18.0) mg/dL Creatinine (0.6-1.0) mg/dL Est Cr Clr Drug Dosing mL/min Estimated GFR (MDRD) ml/min Glucose (74-106) mg/dL Calcium (8.5-10.1) mg/dL Total Bilirubin (0.2-1.0) mg/dL AST (15-37) IU/L ALT (14-63) IU/L Alkaline Phosphatase (46-116) U/L Total Protein (6.4-8.2) g/dL Albumin (3.4-5.0) g/dL Globulin (2.0-3.5) g/dL Albumin/Globulin Ratio (1.3-2.8) Meds: Medications Generic Name Dose Route Start Last Admin Trade Name Freq PRN Reason Stop Dose Admin Sodium Chloride 500 mls @ 999 mls/hr 07/16/18 00:30 07/16/18 01:04 Normal Saline IV 999 mls/hr STAT VIJAYA Administration Discontinued Medications Generic Name Dose Route Start Last Admin Trade Name Freq PRN Reason Stop Dose Admin Albuterol/Ipratropium 3 ml 07/16/18 00:03 07/15/18 23:30 Duoneb 3.0-0.5 Mg/3 Ml NEB 07/16/18 00:04 3 ml ONETIME ONE Administration Albuterol/Ipratropium 3 ml 07/16/18 01:21 07/16/18 01:34 Duoneb 3.0-0.5 Mg/3 Ml NEB 07/16/18 01:22 3 ml ONETIME ONE Administration Methylprednisolone Sodium Succinate 125 mg 07/16/18 00:10 07/16/18 00:16 Solu-Medrol IVPUSH 07/16/18 00:11 125 mg ONETIME ONE Administration Departure - Departure Time of Disposition: :28 Disposition: Home, Self-Care 01 Condition: Good Clinical Impression: Shortness of breath, COPD exacerbation - Discharge Information Referrals: PCP,None [Primary Care Provider] - Forms: ED Department Discharge Additional Instructions: My general discharge The following information is given to patients seen in the emergency department who are being discharged to home. This information is to outline your options for follow-up care. We provide all patients seen in our emergency department with a follow-up referral. The need for follow-up, as well as the timing and circumstances, are variable depending upon the specifics of your emergency department visit. If you don't have a primary care physician on staff, we will provide you with a referral. We always advise you to contact your personal physician following an emergency department visit to inform them of the circumstance of the visit and for follow-up with them and/or the need for any referrals to a consulting specialist. The emergency department will also refer you to a specialist when appropriate. This referral assures that you have the opportunity for follow-up care with a specialist. All of these measure are taken in an effort to provide you with optimal care, which includes your follow-up. Under all circumstances we always encourage you to contact your private physician who remains a resource for coordinating your care. When calling for follow-up care, please make the office aware that this follow-up is from your recent emergency room visit. If for any reason you are refused follow-up, please contact the [facility] Emergency Department at and asked to speak to the emergency department charge nurse. [address] [address] Please follow-up with Dr. Dai on Wednesday as we discussed. Take medication as prescribed. Return to emergency room department immediately if any new or worsening symptoms as we discussed. - My Orders Last 24 Hours: My Active Orders 07/15/18 22:34 CULTURE BLOOD [BC] Stat 07/15/18 23:38 EKG 12 Lead [EKG Documentation Completion] [RC] STAT CULTURE URINE [RM] Stat UA W/MICROSCOPIC [URIN] Stat Blood Culture x2 Reflex Set [OM.PC] Stat 07/15/18 23:52 CULTURE BLOOD [BC] Stat 07/16/18 00:03 RT Aerosol Therapy [RC] ASDIRECTED 07/16/18 00:08 CXR [Chest 1V Frontal] [CR] Stat 07/16/18 00:30 Sodium Chloride 0.9% [Normal Saline] 500 ml IV STAT 07/16/18 01:21 RT Aerosol Therapy [RC] ASDIRECTED - Assessment/Plan Last 24 Hours: My Active Orders 07/15/18 22:34 CULTURE BLOOD [BC] Stat 07/15/18 23:38 EKG 12 Lead [EKG Documentation Completion] [RC] STAT CULTURE URINE [RM] Stat UA W/MICROSCOPIC [URIN] Stat Blood Culture x2 Reflex Set [OM.PC] Stat 07/15/18 23:52 CULTURE BLOOD [BC] Stat 07/16/18 00:03 RT Aerosol Therapy [RC] ASDIRECTED 07/16/18 00:08 CXR [Chest 1V Frontal] [CR] Stat 07/16/18 00:30 Sodium Chloride 0.9% [Normal Saline] 500 ml IV STAT 07/16/18 01:21 RT Aerosol Therapy [RC] ASDIRECTED
[2018-07-16] MEDS ORDERED: Albuterol/Ipratropium 3.0-0.5 MG/3 ML Neb Soln NEB ONE ×2 (00:03→01:21)
[2018-07-16] MEDS ORDERED: methylPREDNISolone Sodium Succinate 125 MG/2 ML SDV IVPUSH ONE ×2 (00:10→02:30)
[2018-07-16] MEDS ORDERED: Sodium Chloride 0.9% 500 ML IV SCH (00:30)
[2018-07-16 02:54] VITALS: BP 143/68
--- NOTE | 2018-07-18 11:43 | CR ---
EXAM DATE: 07/15/18 PATIENT'S AGE: 78 Patient: SEB WALKER Facility: [place], [place] Site . Site : [id number] Study: XRay Chest [id number] 12:37:30 AM Ordering Physician: Sharan Macias Final Report: HISTORY: Shortness of breath COMPARISON: Chest two views from 06/13/2018 FINDINGS: A portable erect AP view of the chest was obtained at 0016 hours. There is stable linear scarring in the left mid-upper chest associated with mild pleural thickening and rib deformities from rib fractures. There is no change in mild linear scarring in the medial right apex. The rest of the chest remains clear. The heart remains top-normal in size. The mediastinum is normal in appearance. The osseous structures are normal in appearance for the patient`s age. IMPRESSION: NO ACTIVE DISEASE SEEN IN THE CHEST. STABLE MILD SCARRING IN THE LEFT MID-UPPER LUNG AND MINIMAL STABLE SCARRING IN THE MEDIAL RIGHT UPPER LUNG. Dictated by Colby Kelly MD @ Jul 16 2018 12:38AM (Electronic Signature) Report Signed by Proxy. GUERO
== END 2018-07-16 02:58 | disposition home or self-care (01) ==
LOC: MW.ED 23:27
DX: J44.1 Chronic obstructive pulmonary disease with (acute) exacerbation (principal); I10 Essential (primary) hypertension; E11.9 Type 2 diabetes mellitus without complications; Z79.4 Long term (current) use of insulin; Z79.899 Other long term (current) drug therapy; Z88.0 Allergy status to penicillin; Z88.7 Allergy status to serum and vaccine; Z91.013 Allergy to seafood; Z91.018 Allergy to other foods; Z88.5 Allergy status to narcotic agent; Z88.6 Allergy status to analgesic agent
CPT/HCPCS: 36600; 71045; 80053; 82803; 83605; 85025; 87040; 87804; 93005; 94640; 96361; 96374; 96376; 99285; J2930; J7040; 99284; J7620-GY

== ENCOUNTER 2019-10-28 16:33 | Observation (INO) | payer MEDICARE, OTHER ==
[2019-10-28] MEDS ORDERED: Albuterol/Ipratropium 3.0-0.5 MG/3 ML Neb Soln NEB ONE (17:31)
[2019-10-28] MEDS ORDERED: methylPREDNISolone Sodium Succinate 125 MG/2 ML SDV IVPUSH ONE (17:33)
--- NOTE | 2019-10-28 17:37 | EDM.PDOC ---
ED HPI GENERAL MEDICAL PROBLEM - General Chief Complaint: Respiratory Problem Stated Complaint: SOB Time Seen by Provider: 10/28/19 17:12 Source of Information: Reports: Patient, Family History Limitations: Reports: Altered Mental Status (history of dementia.) - History of Present Illness Onset: Today (started around 1:30AM this morning.), Gradual (getting worse.) Duration: Getting Worse Location: Reports: Chest Severity: Moderate - Related Data Allergies Allergy/AdvReac Type Severity Reaction Status Date / Time aspirin Allergy Rash Verified 10/28/19 16:44 codeine Allergy Airway Verified 10/28/19 16:44 Tightness Influenza Virus Vaccines Allergy Hives Verified 10/28/19 16:44 morphine Allergy Airway Verified 10/28/19 16:44 Tightness peas Allergy Rash Verified 10/28/19 16:44 Penicillins Allergy Airway Verified 10/28/19 16:44 Tightness pneumococcal vaccine Allergy Hives Verified 10/28/19 16:44 potato Allergy Rash Verified 10/28/19 16:44 procaine HCl [From Novocain] Allergy Itching Verified 10/28/19 16:44 Tetanus Vaccines and Toxoid Allergy Hives Verified 10/28/19 16:44 wheat Allergy Airway Verified 10/28/19 16:44 Tightness chocolate Allergy Itching Uncoded 10/28/19 16:44 morphine Allergy Difficulty Uncoded 10/28/19 16:44 Breathing potato starch Allergy Rash Uncoded 10/28/19 16:44 sea food Allergy Rash Uncoded 10/28/19 16:44 tea Allergy Rash Uncoded 10/28/19 16:44 Home Meds: Home Meds Esomeprazole Magnesium [Nexium] 40 mg PO DAILY 11/09/14 [History] Furosemide [Lasix] 20 mg PO DAILY 11/09/14 [History] Insulin Glarg,Human.Rec.Analog [Lantus] 12 units SUBCUT BID 11/09/14 [History] LORazepam 1 mg PO QID 11/09/14 [History] Levalbuterol HCl 1.25 mg INH QID PRN 11/09/14 [History] Losartan [Cozaar] 50 mg PO DAILY 11/09/14 [History] diphenhydrAMINE [Benadryl] 50 mg PO TID 11/09/14 [History] Budesonide/Formoterol [Symbicort 160-4.5 MCG] 2 inh IH BID 02/01/17 [History] Insulin Aspart [Novolog Flexpen] 8 unit SUBCUT TIDAC 02/01/17 [History] Hydrocodone/Acetaminophen [Hydrocodon-Acetaminoph 7.5-300] 1 each PO Q6H PRN # 12 tablet 11/06/17 [Rx] Methocarbamol [Robaxin] 750 mg PO Q6H #12 tab 11/06/17 [Rx] Prednisone [IJD: predniSONE] 10 mg PO WITHBREAKFAST 06/13/18 [History] Albuterol/Ipratropium [DuoNeb 3.0-0.5 MG/3 ML] 3 ml NEB Q4HR PRN 5 Days #30 neb 08/13/18 [Rx] Levofloxacin [Levaquin] 750 mg PO DAILY 3 Days #3 tablet 08/13/18 [Rx] predniSONE [Prednisone] 10 mg PO DAILY 10/28/19 [History] Past Medical History HEENT History: Reports: Hard of Hearing Cardiovascular History: Reports: High Cholesterol, Hypertension Respiratory History: Reports: Asthma, COPD, Other (See Below) Other Respiratory History: on home oxygen at 3liters per minute; lung cancer Gastrointestinal History: Reports: GERD Genitourinary History: Reports: None EVENT [employer]IST [employer] History: Reports: 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 History: Reports: Back Pain, Chronic Neurological History: Reports: Vertigo Other Neuro History: pt reports "small stroke 2016" Psychiatric History: Reports: Anxiety, Depression Other Psychiatric History: claustrophobic Endocrine/Metabolic History: Reports: Diabetes, Type II Hematologic History: Reports: None Immunologic History: Reports: None Oncologic (Cancer) History: Reports: Lung Other Oncologic History: remission for 4 months Dermatologic History: Reports: None - Infectious Disease History Infectious Disease History: Reports: Chicken Pox, Measles, Mumps - Past Surgical History Head Surgeries/Procedures: Reports: None HEENT Surgical History: Reports: None Other Cardiovascular Surgeries/Procedures: Left brachial plastic artery Respiratory Surgical History: Reports: Other (See Below) Other Respiratory Surgeries/Procedures: lung surgery- hx lung cancer GI Surgical History: Reports: Appendectomy, Cholecystectomy Endocrine Surgical History: Reports: None Neurological Surgical History: Reports: None Oncologic Surgical History: Reports: None Dermatological Surgical History: Reports: None Social & Family History - Family History Family Medical History: Noncontributory - Tobacco Use Smoking Status *Q: Former Smoker Used Tobacco, but Quit: Yes Month/Year Tobacco Last Used: 1999 - Caffeine Use Caffeine Use: Reports: Coffee Caffeine Use Comment: 1-2drinks/day - Recreational Drug Use Recreational Drug Use: No - Living Situation & Occupation Living situation: Reports: with Family Occupation: Retired ED ROS GENERAL - Review of Systems Review Of Systems: See Below Constitutional: Reports: No Symptoms HEENT: Reports: No Symptoms Respiratory: Reports: Shortness of Breath, Wheezing, Cough Cardiovascular: Reports: No Symptoms, Dyspnea on Exertion, Orthopnea. Denies: Edema, Palpitations, Syncope Endocrine: Reports: No Symptoms GI/Abdominal: Reports: No Symptoms : Reports: No Symptoms 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: Reports: Leg Pain (complains of bilateral calf pain.) Skin: Reports: No Symptoms Neurological: Reports: Other (history of dementia according to her daughter) ED EXAM, GENERAL - Physical Exam Exam: See Below Exam Limited By: Altered Mental Status (Dementia.) General Appearance: Lethargic, Mild Distress (mild to moderate distress with oxygen sat of 89-94% on 4L of nasal oxygen.) Eye Exam: Bilateral Eye: EOMI, Normal Inspection, PERRL Ears: Normal External Exam, Normal Canal, Hearing Grossly Normal, Normal TMs Ear Exam: Bilateral Ear: Auricle Normal, Canal Normal, TM normal Nose: Normal Inspection, Normal Mucosa, No Blood Throat/Mouth: Normal Inspection, Normal Lips, Normal Teeth, Normal Gums, Normal Oropharynx, Normal Voice, No Airway Compromise Head: Atraumatic, Normocephalic Neck: Normal Inspection, Supple, Non-Tender, Full Range of Motion Respiratory/Chest: Respiratory Distress (Mild to moderate respiratory distress.) , Decreased Breath Sounds (through out.), Wheezing (noted in the apex of both lungs.), Prolonged Expiration Cardiovascular: Normal Peripheral Pulses, Regular Rate, Rhythm, No Edema, Systolic Murmur (Systolic ejection murmur grade 2/6 best heard at the base without radiation of murmur.). No: Gallop/S3, Gallop/S4, Extra Beats Peripheral Pulses: 2+: Radial (L), Dorsalis Pedis (L), Dorsalis Pedis (R), 3+: Carotid (L), Carotid (R), Radial (R), Femoral (L), Femoral (R) GI/Abdominal: Normal Bowel Sounds, Soft, Non-Tender, No Organomegaly, No Distention, No Abnormal Bruit, No Mass Back Exam: Normal Inspection, Full Range of Motion, NT Extremities: Normal Inspection, Normal Capillary Refill, Wanda's Sign (positive bilaterally.) Neurological: Other (unable to evaluate due to dementia) Skin Exam: Warm, Dry, Intact, Pallor. No: Petechiae, Rash Lymphatic: No Adenopathy Course - Vital Signs Text/Narrative:: I discussed this case with Dr. Solitario Longo at 7:28PM regarding this patient need for his care as I am signing out. He is aware that she has an elevated D-dimer and a CTA of the chest is pending. I have also done blood cultures, urine cultures and ordered a lactate level. She has been placed on Levaquin. I discussed all of the patients diagnostic test. Dr. Longo has agreed to accept this patient in handoff. Last Recorded V/S: Last Vital Signs Temp 98.3 F 10/28/19 16:46 Pulse 111 H 10/28/19 18:57 Resp 22 H 10/28/19 18:57 BP 151/65 H 10/28/19 18:57 Pulse Ox 94 L 10/28/19 18:57 - Orders/Labs/Meds Orders: Active Orders 24 hr Category Date Time Status RT Aerosol Therapy [RC] ASDIRECTED Care 10/28/19 17:32 Active CULTURE BLOOD [BC] Stat Lab 10/28/19 19:19 Ordered CULTURE BLOOD [BC] Stat Lab 10/28/19 19:19 Ordered INFLUENZA A+B AG SCREEN [RM] Stat Lab 10/28/19 19:25 Ordered Levofloxacin/Dextrose 5%-Water [Levaquin in D5W 500 MG/ Med 10/28/19 19:22 Active 100 ML] 500 mg Premix Bag 1 bag IV ONETIME Blood Culture x2 Reflex Set [OM.PC] Stat Oth 10/28/19 19:17 Ordered Medication Orders Levofloxacin/Dextrose 500 mg/ (Premix) 100 mls @ 100 mls/hr IV ONETIME ONE Stop: 10/28/19 20:21 Labs: Laboratory Tests 10/28/19 10/28/19 10/28/19 Range/Units 17:44 17:44 17:44 WBC 21.65 H (4.0-11.0) K/uL RBC 3.95 L (4.30-5.90) M/uL Hgb 10.6 L (12.0-16.0) g/dL Hct 32.6 L (36.0-46.0) % MCV 82.5 (80.0-98.0) fL MCH 26.8 L (27.0-32.0) pg MCHC 32.5 (31.0-37.0) g/dL RDW Std Deviation 50.0 (28.0-62.0) fl RDW Coeff of Lucrecia 17 H (11.0-15.0) % Plt Count 268 (150-400) K/uL MPV 11.10 (7.40-12.00) fL Add Manual Diff YES Neutrophils % (Manual) 76 (48.0-80.0) % Lymphocytes % (Manual) 11 L (16.0-40.0) % Monocytes % (Manual) 8 (0.0-15.0) % Eosinophils % (Manual) 4 (0.0-7.0) % Basophils % (Manual) 1 (0.0-1.5) % Absolute Seg Neuts 16.5 H (1.4-5.7) Lymphocytes # (Manual) 2.4 (0.6-2.4) Monocytes # (Manual) 1.7 H (0.0-0.8) Eosinophils # (Manual) 0.9 H (0.0-0.7) Basophils # (Manual) 0.2 H (0.0-0.1) D-Dimer, Quantitative 2.82 H (0.0-0.50) mg/L FEU ABG pH (7.35-7.45) ABG pCO2 (35-45) mmHG ABG pO2 (75-100) mmHG ABG HCO3 (22-26) mEq/L ABG Total CO2 ABG Base Excess (-2.0-2.0) Sodium 143 (136-145) mmol/L Potassium 4.4 (3.5-5.1) mmol/L Chloride 105 (98-107) mmol/L Carbon Dioxide 27.6 (21.0-32.0) mmol/L BUN 23 H (7.0-18.0) mg/dL Creatinine 1.0 (0.6-1.0) mg/dL Est Cr Clr Drug Dosing 36.67 mL/min Estimated GFR (MDRD) 53.6 ml/min Glucose 145 H (74-106) mg/dL Calcium 8.8 (8.5-10.1) mg/dL Magnesium 2.1 (1.8-2.4) mg/dL Total Bilirubin 0.5 (0.2-1.0) mg/dL AST 153 H (15-37) IU/L ALT 49 (14-63) IU/L Alkaline Phosphatase 70 (46-116) U/L Troponin I < 0.050 (0.000-0.056) ng/mL B-Natriuretic Peptide (<100) PG/ML Total Protein 6.4 (6.4-8.2) g/dL Albumin 3.2 L (3.4-5.0) g/dL Globulin 3.2 (2.6-4.0) g/dL Albumin/Globulin Ratio 1.0 (0.9-1.6) 10/28/19 10/28/19 Range/Units 17:44 18:35 WBC (4.0-11.0) K/uL RBC (4.30-5.90) M/uL Hgb (12.0-16.0) g/dL Hct (36.0-46.0) % MCV (80.0-98.0) fL MCH (27.0-32.0) pg MCHC (31.0-37.0) g/dL RDW Std Deviation (28.0-62.0) fl RDW Coeff of Lucrecia (11.0-15.0) % Plt Count (150-400) K/uL MPV (7.40-12.00) fL Add Manual Diff Neutrophils % (Manual) (48.0-80.0) % Lymphocytes % (Manual) (16.0-40.0) % Monocytes % (Manual) (0.0-15.0) % Eosinophils % (Manual) (0.0-7.0) % Basophils % (Manual) (0.0-1.5) % Absolute Seg Neuts (1.4-5.7) Lymphocytes # (Manual) (0.6-2.4) Monocytes # (Manual) (0.0-0.8) Eosinophils # (Manual) (0.0-0.7) Basophils # (Manual) (0.0-0.1) D-Dimer, Quantitative (0.0-0.50) mg/L FEU ABG pH 7.453 H (7.35-7.45) ABG pCO2 39 (35-45) mmHG ABG pO2 53 L (75-100) mmHG ABG HCO3 27 H (22-26) mEq/L ABG Total CO2 24.9 ABG Base Excess 2.9 H (-2.0-2.0) Sodium (136-145) mmol/L Potassium (3.5-5.1) mmol/L Chloride (98-107) mmol/L Carbon Dioxide (21.0-32.0) mmol/L BUN (7.0-18.0) mg/dL Creatinine (0.6-1.0) mg/dL Est Cr Clr Drug Dosing mL/min Estimated GFR (MDRD) ml/min Glucose (74-106) mg/dL Calcium (8.5-10.1) mg/dL Magnesium (1.8-2.4) mg/dL Total Bilirubin (0.2-1.0) mg/dL AST (15-37) IU/L ALT (14-63) IU/L Alkaline Phosphatase (46-116) U/L Troponin I (0.000-0.056) ng/mL B-Natriuretic Peptide 114 H (<100) PG/ML Total Protein (6.4-8.2) g/dL Albumin (3.4-5.0) g/dL Globulin (2.6-4.0) g/dL Albumin/Globulin Ratio (0.9-1.6) Meds: Medications Generic Name Dose Route Start Last Admin Trade Name Freq PRN Reason Stop Dose Admin Levofloxacin/Dextrose 500 mg/ 100 mls @ 100 mls/hr 10/28/19 19:22 Premix IV 10/28/19 20:21 ONETIME ONE Discontinued Medications Generic Name Dose Route Start Last Admin Trade Name Freq PRN Reason Stop Dose Admin Albuterol/Ipratropium 3 ml 10/28/19 17:31 10/28/19 17:36 Duoneb 3.0-0.5 Mg/3 Ml NEB 10/28/19 17:32 3 ml ONETIME ONE Administration Magnesium Sulfate 2 gm/ Premix 50 mls @ 50 mls/hr 10/28/19 17:53 10/28/19 18: 22 IV 10/28/19 18:52 50 mls/hr ONETIME ONE Administration Methylprednisolone Sodium Succinate 125 mg 10/28/19 17:33 10/28/19 17:59 Solu-Medrol IVPUSH 10/28/19 17:34 125 mg ONETIME ONE Administration Departure - Departure Time of Disposition: 19:36 Disposition: Still A Patient 30 Condition: Fair Clinical Impression: Hypoxemia - Discharge Information *PRESCRIPTION DRUG MONITORING PROGRAM REVIEWED*: Yes *COPY OF PRESCRIPTION DRUG MONITORING REPORT IN PATIENT DAISY: Yes Sepsis Event Note - Evaluation Sepsis Screening Result: No Definite Risk - Focused Exam Vital Signs: Vital Signs Temp Pulse Resp BP Pulse Ox 10/28/19 18:57 111 H 22 H 151/65 H 94 L 10/28/19 17:58 108 H 24 H 147/62 H 98 10/28/19 16:46 98.3 F 102 H 32 H 142/55 H 96 Date Exam was Performed: 10/28/19 Time Exam was Performed: 19:27 - My Orders Last 24 Hours: My Active Orders 10/28/19 17:32 RT Aerosol Therapy [RC] ASDIRECTED 10/28/19 19:17 Blood Culture x2 Reflex Set [OM.PC] Stat 10/28/19 19:19 CULTURE BLOOD [BC] Stat CULTURE BLOOD [BC] Stat 10/28/19 19:22 Levofloxacin/Dextrose 5%-Water [Levaquin in D5W 500 MG/100 ML] 500 mg Premix Bag 1 bag IV ONETIME 10/28/19 19:25 INFLUENZA A+B AG SCREEN [RM] Stat - Assessment/Plan Last 24 Hours: My Active Orders 10/28/19 17:32 RT Aerosol Therapy [RC] ASDIRECTED 10/28/19 19:17 Blood Culture x2 Reflex Set [OM.PC] Stat 10/28/19 19:19 CULTURE BLOOD [BC] Stat CULTURE BLOOD [BC] Stat 10/28/19 19:22 Levofloxacin/Dextrose 5%-Water [Levaquin in D5W 500 MG/100 ML] 500 mg Premix Bag 1 bag IV ONETIME 10/28/19 19:25 INFLUENZA A+B AG SCREEN [RM] Stat
[2019-10-28] MEDS ORDERED: Magnesium Sulfate/Water 2 GM in Premix Bag 1 BAG IV ONE (17:53)
[2019-10-28 18:12] LABS: BLOOD UREA NITROGEN,BUN 23 mg/dL (7.0-18.0); CARBON DIOXIDE,CO2 27.6 mmol/L (21.0-32.0); CHLORIDE,CL 105 mmol/L (98-107); GLUCOSE RANDOM 145 mg/dL (74-106); POTASSIUM,K 4.4 mmol/L (3.5-5.1); SODIUM,NA 143 mmol/L (136-145)
--- NOTE | 2019-10-28 18:13 | CR ---
Chest: Portable view of the chest was obtained. Comparison: Prior chest CT of 07/18/19 and chest x-ray of 08/11/18. Nodular density is seen adjacent to the left pleural margin within left upper lung. This finding measures about 3.0 cm in size and is more prominent than on prior chest x-ray. Scarring is also noted in this area within the left upper lung. Small nodule is noted within the right upper lung which appears as an interval change. Heart size is normal. Upper mediastinum is normal. Lung markings slightly increased which appears stable. Bony structures are grossly intact. Impression: 1. Slight increased size of nodular pleural-based density with left upper chest. Small new nodule within the right upper chest. Chest CT recommended to allow for comparison to previous CT exam see if these findings are a real interval change. This can be performed non-emergently if clinically needed. 2. Interstitial change which appears chronic. 3. Nothing acute is otherwise seen. Diagnostic code #9 This report was dictated in [place] Standard Time
[2019-10-28] MEDS ORDERED: Levofloxacin/Dextrose 5%-Water 500 MG in Premix Bag 1 BAG IV ONE (19:22)
[2019-10-28] MEDS ORDERED: diphenhydrAMINE 50 MG/ML SDV IVPUSH ONE (20:10)
[2019-10-28] MEDS ORDERED: Insulin Detemir 100 Units/ML 3 ML Pen SUBCUT SCH (21:00)
[2019-10-28] MEDS ORDERED: Iopamidol 755 Mg/ML 100 ML Bottle IVPUSH STA (21:34)
--- NOTE | 2019-10-28 21:58 | CT ---
HISTORY: Shortness of breath. Elevated D-dimer. COMPARISON: 03/12/2017. TECHNIQUE: Axial images were obtained through the chest following 10 cc of Isovue-[id number] intravenous contrast. FINDINGS: Adequate contrast bolus. No evidence for pulmonary embolism. Mild airspace opacities in the lingula right lower lobe similar to previous and have a linear appearance suggesting atelectasis. No thoracic lymphadenopathy. No pleural or pericardial effusion. Small renal cysts. The adrenal glands are normal. Bilateral rib fracture deformities. Compression fracture at T6 is new from the previous study. IMPRESSION: No evidence for pulmonary embolism. Chronic lung changes left middle lobe and right lower lobe suggests atelectasis. Associated older fracture deformities. Mild airspace opacity right lower lobe may represent pneumonia. New compression fracture T6 since the previous study. Please note that all CT scans at this facility use dose modulation, iterative reconstruction, and/or weight-based dosing when appropriate to reduce radiation dose to as low as reasonably achievable. Dictated by Margareth Melton MD @ Oct 28 2019 9:50PM Signed by Dr. Margareth Melton @ Oct 28 2019 9:56PM
[2019-10-28] MEDS ORDERED: [UNRECOGNIZED DRUG - OTHER] PO PRN (23:11)
[2019-10-28] MEDS ORDERED: ACETAMINOPHEN PO PRN (23:11)
[2019-10-28] MEDS ORDERED: HYDROCODONE PO PRN (23:11)
[2019-10-28 23:33] LABS: HEMOGLOBIN A1C 8.3 % (4.5-6.2)
[2019-10-29] MEDS: [UNRECOGNIZED DRUG - OTHER] SUBCUT SCH ×2 (00:59→09:15)
[2019-10-29] MEDS: INSULIN GLARGINE SUBCUT SCH ×2 (00:59→09:15)
[2019-10-29] MEDS ORDERED: Sodium Chloride 0.9% 1,000 ML IV SCH (01:00)
[2019-10-29] MEDS: Acetaminophen/HYDROcodone 325-5 MG Tab PO PRN ×2 (01:55→09:15)
[2019-10-29] MEDS: Ketorolac 30 MG/ML SDV IVPUSH ONE ×2 (06:44→07:08)
[2019-10-29 06:51] LABS: POTASSIUM,K 4.3 mmol/L (3.5-5.1)
[2019-10-29] MEDS ORDERED: Ketorolac 15 MG/ML SDV ONE (07:06)
[2019-10-29] MEDS ORDERED: Insulin Aspart 100 Units/ML 3 ML Pen SUBCUT SCH (07:30)
[2019-10-29] MEDS: methylPREDNISolone Sodium Succinate 40 MG/1 ML SDV IVPUSH SCH ×2 (09:15→21:37)
[2019-10-29] MEDS: Levofloxacin/Dextrose 5%-Water 500 MG in Premix Bag 1 BAG IV SCH (09:21)
--- NOTE | 2019-10-29 12:50 | CR ---
Lumbar spine: AP, lateral and coned-down lateral views centered to the lumbosacral junction were obtained. Comparison: No previous study. Severe disc space narrowing is noted at L5-S1 with endplate sclerosis and vacuum phenomena. Other disc spaces are preserved. Vertebral body heights are maintained. Pedicles as well as visualized transverse and spinous processes are intact. No subluxation or fracture is seen. Osteopenia is present. Diffuse vascular calcification is present. Impression: 1. Severe degenerative disc change at L5-S1. 2. Osteopenia and vascular calcification. Diagnostic code #2 This report was dictated in [place] Standard Time
--- NOTE | 2019-10-29 12:50 | CR ---
Left ankle: 2 views of the left ankle were obtained. Comparison: No previous ankle study. Ankle mortise is symmetric. Overlying artifact is noted. Several bony densities are noted off the medial ankle compatible with old injury. Vascular calcification is present. No acute fracture or other abnormality is appreciated on this limited study. Impression: 1. Overlying artifact. 2. Other findings as noted above. 3. Nothing acute is appreciated. Diagnostic code #2 This report was dictated in [place] Standard Time
--- NOTE | 2019-10-29 12:50 | CR ---
Left hip: AP and frog-leg lateral views left hip were obtained. Comparison: No prior hip exam. Joint space within the left hip is preserved. Bony structures are slightly osteopenic. No fracture or other abnormality is appreciated. Soft tissue calcifications are seen believed to be dystrophic and therefore incidental. Impression: 1. Nothing acute is seen on 2 view left hip exam. Diagnostic code #2 This report was dictated in [place] Standard Time
[2019-10-29] MEDS: Insulin Aspart 100 Units/ML 3 ML Pen SUBCUT SCH ×2 (13:00→17:13)
[2019-10-29] MEDS ORDERED: Non-Formulary Medication 1 Each (Hydrocodone/Acetaminophen 1 EACH) PO SCH (13:30)
--- NOTE | 2019-10-29 13:48 | PCM.HP.2 ---
H&P History of Present Illness - General Date of Service: 10/29/19 (documentaion delayed due to patient care) Admit Problem/Dx: Admission Diagnosis/Problem Admission Diagnosis/Problem Hypoxia Source of Information: Patient, Family - History of Present Illness Initial Comments - Free Text/Narative: Patient is a 79 y/o F with PMH of copd, HTN. DM who was bought in by EMS for Acute hypoxic respiratory failure. Per family she wasn't really her self last 1 day or so, was confined to bed and lethargic, they called EMS who found her to be hypoxic nd hence was bought to ER. In ER patient was found to be sating in 60s. Was started on NC and oxygenation improved. CT chest was obtained which showed left middle lobe and right lower lobe atelectasis, also showed T6 compression facture which is relatively new. Patient does state she fell 2 weeks back on her buttocks. WBC count was elevated as well. Patient was admitted to hospital for presumed pneumonia. started on IV levofloxacin and IV steroids. Left Upper Leg Pain Score (Numeric/FACES): 10 Bilateral Perineal Area Pain Score (Numeric/FACES): 8 - Related Data Allergies/Adverse Reactions: Allergies Allergy/AdvReac Type Severity Reaction Status Date / Time aspirin Allergy Rash Verified 10/29/19 07:43 codeine Allergy Airway Verified 10/29/19 07:43 Tightness Influenza Virus Vaccines Allergy Hives Verified 10/29/19 07:43 morphine Allergy Airway Verified 10/29/19 07:43 Tightness peas Allergy Rash Verified 10/29/19 07:43 Penicillins Allergy Airway Verified 10/29/19 07:43 Tightness pneumococcal vaccine Allergy Hives Verified 10/29/19 07:43 potato Allergy Rash Verified 10/29/19 07:43 procaine HCl [From Novocain] Allergy Itching Verified 10/29/19 07:43 Tetanus Vaccines and Toxoid Allergy Hives Verified 10/29/19 07:43 wheat Allergy Airway Verified 10/29/19 07:43 Tightness chocolate Allergy Itching Uncoded 10/29/19 07:43 morphine Allergy Difficulty Uncoded 10/29/19 07:43 Breathing potato starch Allergy Rash Uncoded 10/29/19 07:43 sea food Allergy Rash Uncoded 10/29/19 07:43 tea Allergy Rash Uncoded 10/29/19 07:43 Home Medications: Home Meds Esomeprazole Magnesium [Nexium] 40 mg PO DAILY 11/09/14 [History] Insulin Glarg,Human.Rec.Analog [Lantus] 12 units SUBCUT BID 11/09/14 [History] LORazepam 1 mg PO QID 11/09/14 [History] Losartan [Cozaar] 50 mg PO DAILY 11/09/14 [History] diphenhydrAMINE [Benadryl] 50 mg PO TID 11/09/14 [History] Insulin Aspart [Novolog Flexpen] 8 unit SUBCUT TIDAC 02/01/17 [History] Prednisone [IJD: predniSONE] 10 mg PO WITHBREAKFAST 06/13/18 [History] Hydrocodone/Acetaminophen [Hydrocodon-Acetaminophn 10-325] 1 each PO Q8H PRN 10/06 [History] Methocarbamol [Robaxin] 750 mg PO Q6H PRN 10/29/19 [History] atorvaSTATin [Lipitor] 5 mg PO BEDTIME 10/29/19 [History] Past Medical History HEENT History: Reports: Hard of Hearing Cardiovascular History: Reports: High Cholesterol, Hypertension Respiratory History: Reports: Asthma, COPD, Other (See Below) Other Respiratory History: on home oxygen at 3liters per minute; lung cancer Gastrointestinal History: Reports: GERD Genitourinary History: Reports: None 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: 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 History: Reports: Back Pain, Chronic Neurological History: Reports: Vertigo, Other (See Below) Other Neuro History: pt reports "occular stroke 2016" Psychiatric History: Reports: Anxiety, Depression, Panic Attack Other Psychiatric History: claustrophobic Endocrine/Metabolic History: Reports: Diabetes, Type II Hematologic History: Reports: None Immunologic History: Reports: None Oncologic (Cancer) History: Reports: Lung Other Oncologic History: remission for 2 years Dermatologic History: Reports: None - Infectious Disease History Infectious Disease History: Reports: Chicken Pox, Measles, Mumps - Past Surgical History Head Surgeries/Procedures: Reports: None HEENT Surgical History: Reports: None Other Cardiovascular Surgeries/Procedures: Left brachial plastic artery Respiratory Surgical History: Reports: Other (See Below) Other Respiratory Surgeries/Procedures: lung surgery- hx lung cancer GI Surgical History: Reports: Appendectomy, Cholecystectomy Endocrine Surgical History: Reports: None Neurological Surgical History: Reports: None Other Neurological Surgeries/Procedures: Family thinks that she may have dementia, but she has not been diagnosed. Patient has hallucinations at times, family stated, "she will be watching tv and think that the people in the tv, are in the room." Oncologic Surgical History: Reports: None Dermatological Surgical History: Reports: None Social & Family History - Family History Family Medical History: Noncontributory Respiratory: Reports: Asthma, COPD OBGYN: Reports: Oncologic: Reports: Breast - Tobacco Use Smoking Status *Q: Former Smoker Used Tobacco, but Quit: Yes Month/Year Tobacco Last Used: 2004 Second Hand Smoke Exposure: No - Caffeine Use Caffeine Use: Reports: Coffee Caffeine Use Comment: 1-2drinks/day - Recreational Drug Use Recreational Drug Use: No - Living Situation & Occupation Living situation: Reports: with Family Occupation: Retired H&P Review of Systems - Review of Systems: Review Of Systems: See Below General: Reports: Weakness. Denies: Chills, Malaise HEENT: Denies: Dysphasia, Ear Pain Pulmonary: Reports: Shortness of Breath, Wheezing. Denies: Hemoptysis Cardiovascular: Reports: Dyspnea on Exertion. Denies: Chest Pain, Palpitations , Lightheadedness, Syncope, Claudication Gastrointestinal: Denies: Abdominal Pain, Anorexia, Black Stool Genitourinary: Reports: Dysuria, Burning. Denies: Frequency 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: Denies: Neck Pain, Shoulder Pain Skin: Denies: Cyanosis, Jaundice Psychiatric: Reports: Confusion. Denies: Depression, Mood Lability Neurological: Reports: Confusion. Denies: Dizziness, Headache, Numbness Hematologic/Lymphatic: Denies: Anemia, Easy Bleeding, Easy Bruising Exam - Exam Exam: See Below - Vital Signs Vital Signs: Last Vital Signs Temp 36.6 C 10/29/19 12:00 Pulse 96 10/29/19 12:00 Resp 18 10/29/19 12:00 BP 116/60 10/29/19 12:00 Pulse Ox 92 L 10/29/19 12:00 Weight: 68.492 kg - Exam Quality Assessment: Supplemental Oxygen General: Alert, Oriented, Cooperative Neck: Supple, Trachea Midline Lungs: Normal Respiratory Effort, Decreased Breath Sounds, Crackles Cardiovascular: Regular Rate, Regular Rhythm, Normal S1, Normal S2 GI/Abdominal Exam: Normal Bowel Sounds, Soft, Non-Tender Back Exam: Decreased Range of Motion. No: Full Range of Motion Extremities: Leg Pain - Patient Data Lab Results Last 24 hrs: Laboratory Results - last 24 hr 10/28/19 10/28/19 10/28/19 Range/Units 17:44 17:44 17:44 WBC 21.65 H (4.0-11.0) K/uL RBC 3.95 L (4.30-5.90) M/uL Hgb 10.6 L (12.0-16.0) g/dL Hct 32.6 L (36.0-46.0) % MCV 82.5 (80.0-98.0) fL MCH 26.8 L (27.0-32.0) pg MCHC 32.5 (31.0-37.0) g/dL RDW Std Deviation 50.0 (28.0-62.0) fl RDW Coeff of Lucrecia 17 H (11.0-15.0) % Plt Count 268 (150-400) K/uL MPV 11.10 (7.40-12.00) fL Neut % (Auto) (48.0-80.0) % Lymph % (Auto) (16.0-40.0) % Porter % (Auto) (0.0-15.0) % Eos % (Auto) (0.0-7.0) % Baso % (Auto) (0.0-1.5) % Neut # (Auto) (1.4-5.7) K/uL Lymph # (Auto) (0.6-2.4) K/uL Porter # (Auto) (0.0-0.8) K/uL Eos # (Auto) (0.0-0.7) K/uL Baso # (Auto) (0.0-0.1) K/uL Add Manual Diff YES Neutrophils % (Manual) 76 (48.0-80.0) % Lymphocytes % (Manual) 11 L (16.0-40.0) % Monocytes % (Manual) 8 (0.0-15.0) % Eosinophils % (Manual) 4 (0.0-7.0) % Basophils % (Manual) 1 (0.0-1.5) % Absolute Seg Neuts 16.5 H (1.4-5.7) Lymphocytes # (Manual) 2.4 (0.6-2.4) Monocytes # (Manual) 1.7 H (0.0-0.8) Eosinophils # (Manual) 0.9 H (0.0-0.7) Basophils # (Manual) 0.2 H (0.0-0.1) D-Dimer, Quantitative 2.82 H (0.0-0.50) mg/L FEU ABG pH (7.35-7.45) ABG pCO2 (35-45) mmHG ABG pO2 (75-100) mmHG ABG HCO3 (22-26) mEq/L ABG Total CO2 ABG Base Excess (-2.0-2.0) Lactate (0.20-2.00) mmol/L Sodium 143 (136-145) mmol/L Potassium 4.4 (3.5-5.1) mmol/L Chloride 105 (98-107) mmol/L Carbon Dioxide 27.6 (21.0-32.0) mmol/L BUN 23 H (7.0-18.0) mg/dL Creatinine 1.0 (0.6-1.0) mg/dL Est Cr Clr Drug Dosing 36.67 mL/min Estimated GFR (MDRD) 53.6 ml/min Glucose 145 H (74-106) mg/dL POC Glucose (60-110) mg/dL Hemoglobin A1c (4.5-6.2) % Calcium 8.8 (8.5-10.1) mg/dL Phosphorus (2.6-4.7) mg/dL Magnesium 2.1 (1.8-2.4) mg/dL Total Bilirubin 0.5 (0.2-1.0) mg/dL AST 153 H (15-37) IU/L ALT 49 (14-63) IU/L Alkaline Phosphatase 70 (46-116) U/L Troponin I < 0.050 (0.000-0.056) ng/mL B-Natriuretic Peptide (<100) PG/ML Total Protein 6.4 (6.4-8.2) g/dL Albumin 3.2 L (3.4-5.0) g/dL Globulin 3.2 (2.6-4.0) g/dL Albumin/Globulin Ratio 1.0 (0.9-1.6) Urine Color Urine Appearance Urine pH (5.0-8.0) Ur Specific [place] (1.001-1.035) Urine Protein (NEGATIVE) mg/dL Urine Glucose (UA) (NEGATIVE) mg/dL Urine Ketones (NEGATIVE) mg/dL Urine Occult Blood (NEGATIVE) Urine Nitrite (NEGATIVE) Urine Bilirubin (NEGATIVE) Urine Urobilinogen (<2.0) EU/dL Ur Leukocyte Esterase (NEGATIVE) Urine RBC (0-2/HPF) Urine WBC (0-5/HPF) Ur Epithelial Cells (NONE-FEW) Urine Bacteria (NEGATIVE) 10/28/19 10/28/19 10/28/19 Range/Units 17:44 17:44 18:35 WBC (4.0-11.0) K/uL RBC (4.30-5.90) M/uL Hgb (12.0-16.0) g/dL Hct (36.0-46.0) % MCV (80.0-98.0) fL MCH (27.0-32.0) pg MCHC (31.0-37.0) g/dL RDW Std Deviation (28.0-62.0) fl RDW Coeff of Lucrecia (11.0-15.0) % Plt Count (150-400) K/uL MPV (7.40-12.00) fL Neut % (Auto) (48.0-80.0) % Lymph % (Auto) (16.0-40.0) % Porter % (Auto) (0.0-15.0) % Eos % (Auto) (0.0-7.0) % Baso % (Auto) (0.0-1.5) % Neut # (Auto) (1.4-5.7) K/uL Lymph # (Auto) (0.6-2.4) K/uL Porter # (Auto) (0.0-0.8) K/uL Eos # (Auto) (0.0-0.7) K/uL Baso # (Auto) (0.0-0.1) K/uL Add Manual Diff Neutrophils % (Manual) (48.0-80.0) % Lymphocytes % (Manual) (16.0-40.0) % Monocytes % (Manual) (0.0-15.0) % Eosinophils % (Manual) (0.0-7.0) % Basophils % (Manual) (0.0-1.5) % Absolute Seg Neuts (1.4-5.7) Lymphocytes # (Manual) (0.6-2.4) Monocytes # (Manual) (0.0-0.8) Eosinophils # (Manual) (0.0-0.7) Basophils # (Manual) (0.0-0.1) D-Dimer, Quantitative (0.0-0.50) mg/L FEU ABG pH 7.453 H (7.35-7.45) ABG pCO2 39 (35-45) mmHG ABG pO2 53 L (75-100) mmHG ABG HCO3 27 H (22-26) mEq/L ABG Total CO2 24.9 ABG Base Excess 2.9 H (-2.0-2.0) Lactate 1.6 (0.20-2.00) mmol/L Sodium (136-145) mmol/L Potassium (3.5-5.1) mmol/L Chloride (98-107) mmol/L Carbon Dioxide (21.0-32.0) mmol/L BUN (7.0-18.0) mg/dL Creatinine (0.6-1.0) mg/dL Est Cr Clr Drug Dosing mL/min Estimated GFR (MDRD) ml/min Glucose (74-106) mg/dL POC Glucose (60-110) mg/dL Hemoglobin A1c (4.5-6.2) % Calcium (8.5-10.1) mg/dL Phosphorus (2.6-4.7) mg/dL Magnesium (1.8-2.4) mg/dL Total Bilirubin (0.2-1.0) mg/dL AST (15-37) IU/L ALT (14-63) IU/L Alkaline Phosphatase (46-116) U/L Troponin I (0.000-0.056) ng/mL B-Natriuretic Peptide 114 H (<100) PG/ML Total Protein (6.4-8.2) g/dL Albumin (3.4-5.0) g/dL Globulin (2.6-4.0) g/dL Albumin/Globulin Ratio (0.9-1.6) Urine Color Urine Appearance Urine pH (5.0-8.0) Ur Specific [place] (1.001-1.035) Urine Protein (NEGATIVE) mg/dL Urine Glucose (UA) (NEGATIVE) mg/dL Urine Ketones (NEGATIVE) mg/dL Urine Occult Blood (NEGATIVE) Urine Nitrite (NEGATIVE) Urine Bilirubin (NEGATIVE) Urine Urobilinogen (<2.0) EU/dL Ur Leukocyte Esterase (NEGATIVE) Urine RBC (0-2/HPF) Urine WBC (0-5/HPF) Ur Epithelial Cells (NONE-FEW) Urine Bacteria (NEGATIVE) 10/28/19 10/29/19 10/29/19 Range/Units 23:20 01:18 02:15 WBC (4.0-11.0) K/uL RBC (4.30-5.90) M/uL Hgb (12.0-16.0) g/dL Hct (36.0-46.0) % MCV (80.0-98.0) fL MCH (27.0-32.0) pg MCHC (31.0-37.0) g/dL RDW Std Deviation (28.0-62.0) fl RDW Coeff of Lucrecia (11.0-15.0) % Plt Count (150-400) K/uL MPV (7.40-12.00) fL Neut % (Auto) (48.0-80.0) % Lymph % (Auto) (16.0-40.0) % Porter % (Auto) (0.0-15.0) % Eos % (Auto) (0.0-7.0) % Baso % (Auto) (0.0-1.5) % Neut # (Auto) (1.4-5.7) K/uL Lymph # (Auto) (0.6-2.4) K/uL Porter # (Auto) (0.0-0.8) K/uL Eos # (Auto) (0.0-0.7) K/uL Baso # (Auto) (0.0-0.1) K/uL Add Manual Diff Neutrophils % (Manual) (48.0-80.0) % Lymphocytes % (Manual) (16.0-40.0) % Monocytes % (Manual) (0.0-15.0) % Eosinophils % (Manual) (0.0-7.0) % Basophils % (Manual) (0.0-1.5) % Absolute Seg Neuts (1.4-5.7) Lymphocytes # (Manual) (0.6-2.4) Monocytes # (Manual) (0.0-0.8) Eosinophils # (Manual) (0.0-0.7) Basophils # (Manual) (0.0-0.1) D-Dimer, Quantitative (0.0-0.50) mg/L FEU ABG pH (7.35-7.45) ABG pCO2 (35-45) mmHG ABG pO2 (75-100) mmHG ABG HCO3 (22-26) mEq/L ABG Total CO2 ABG Base Excess (-2.0-2.0) Lactate (0.20-2.00) mmol/L Sodium (136-145) mmol/L Potassium (3.5-5.1) mmol/L Chloride (98-107) mmol/L Carbon Dioxide (21.0-32.0) mmol/L BUN (7.0-18.0) mg/dL Creatinine (0.6-1.0) mg/dL Est Cr Clr Drug Dosing mL/min Estimated GFR (MDRD) ml/min Glucose (74-106) mg/dL POC Glucose 218 H (60-110) mg/dL Hemoglobin A1c 8.3 H (4.5-6.2) % Calcium (8.5-10.1) mg/dL Phosphorus (2.6-4.7) mg/dL Magnesium (1.8-2.4) mg/dL Total Bilirubin (0.2-1.0) mg/dL AST (15-37) IU/L ALT (14-63) IU/L Alkaline Phosphatase (46-116) U/L Troponin I (0.000-0.056) ng/mL B-Natriuretic Peptide (<100) PG/ML Total Protein (6.4-8.2) g/dL Albumin (3.4-5.0) g/dL Globulin (2.6-4.0) g/dL Albumin/Globulin Ratio (0.9-1.6) Urine Color YELLOW Urine Appearance SLT CLOUDY Urine pH 6.0 (5.0-8.0) Ur Specific [place] 1.020 (1.001-1.035) Urine Protein 30 H (NEGATIVE) mg/dL Urine Glucose (UA) >=1000 (NEGATIVE) mg/dL Urine Ketones 15 H (NEGATIVE) mg/dL Urine Occult Blood MODERATE H (NEGATIVE) Urine Nitrite POSITIVE H (NEGATIVE) Urine Bilirubin NEGATIVE (NEGATIVE) Urine Urobilinogen 0.2 (<2.0) EU/dL Ur Leukocyte Esterase NEGATIVE (NEGATIVE) Urine RBC 1-3 (0-2/HPF) Urine WBC 3-6 (0-5/HPF) Ur Epithelial Cells OCCASIONAL (NONE-FEW) Urine Bacteria 3+ H (NEGATIVE) 10/29/19 10/29/19 10/29/19 Range/Units 05:48 06:20 06:20 WBC 16.93 H (4.0-11.0) K/uL RBC 3.60 L (4.30-5.90) M/uL Hgb 9.6 L (12.0-16.0) g/dL Hct 29.9 L (36.0-46.0) % MCV 83.1 (80.0-98.0) fL MCH 26.7 L (27.0-32.0) pg MCHC 32.1 (31.0-37.0) g/dL RDW Std Deviation 49.6 (28.0-62.0) fl RDW Coeff of Lucrecia 17 H (11.0-15.0) % Plt Count 236 (150-400) K/uL MPV 11.00 (7.40-12.00) fL Neut % (Auto) 92.1 H (48.0-80.0) % Lymph % (Auto) 5.7 L (16.0-40.0) % Porter % (Auto) 2.1 (0.0-15.0) % Eos % (Auto) 0.0 (0.0-7.0) % Baso % (Auto) 0.1 (0.0-1.5) % Neut # (Auto) 15.6 H (1.4-5.7) K/uL Lymph # (Auto) 1.0 (0.6-2.4) K/uL Porter # (Auto) 0.4 (0.0-0.8) K/uL Eos # (Auto) 0.0 (0.0-0.7) K/uL Baso # (Auto) 0.0 (0.0-0.1) K/uL Add Manual Diff Neutrophils % (Manual) (48.0-80.0) % Lymphocytes % (Manual) (16.0-40.0) % Monocytes % (Manual) (0.0-15.0) % Eosinophils % (Manual) (0.0-7.0) % Basophils % (Manual) (0.0-1.5) % Absolute Seg Neuts (1.4-5.7) Lymphocytes # (Manual) (0.6-2.4) Monocytes # (Manual) (0.0-0.8) Eosinophils # (Manual) (0.0-0.7) Basophils # (Manual) (0.0-0.1) D-Dimer, Quantitative (0.0-0.50) mg/L FEU ABG pH (7.35-7.45) ABG pCO2 (35-45) mmHG ABG pO2 (75-100) mmHG ABG HCO3 (22-26) mEq/L ABG Total CO2 ABG Base Excess (-2.0-2.0) Lactate (0.20-2.00) mmol/L Sodium 143 (136-145) mmol/L Potassium 4.3 (3.5-5.1) mmol/L Chloride 107 (98-107) mmol/L Carbon Dioxide 26.0 (21.0-32.0) mmol/L BUN 19 H (7.0-18.0) mg/dL Creatinine 1.0 (0.6-1.0) mg/dL Est Cr Clr Drug Dosing 36.67 mL/min Estimated GFR (MDRD) 53.6 ml/min Glucose 212 H (74-106) mg/dL POC Glucose 191 H (60-110) mg/dL Hemoglobin A1c (4.5-6.2) % Calcium 8.0 L (8.5-10.1) mg/dL Phosphorus 3.2 (2.6-4.7) mg/dL Magnesium 2.4 (1.8-2.4) mg/dL Total Bilirubin (0.2-1.0) mg/dL AST (15-37) IU/L ALT (14-63) IU/L Alkaline Phosphatase (46-116) U/L Troponin I (0.000-0.056) ng/mL B-Natriuretic Peptide (<100) PG/ML Total Protein (6.4-8.2) g/dL Albumin (3.4-5.0) g/dL Globulin (2.6-4.0) g/dL Albumin/Globulin Ratio (0.9-1.6) Urine Color Urine Appearance Urine pH (5.0-8.0) Ur Specific [place] (1.001-1.035) Urine Protein (NEGATIVE) mg/dL Urine Glucose (UA) (NEGATIVE) mg/dL Urine Ketones (NEGATIVE) mg/dL Urine Occult Blood (NEGATIVE) Urine Nitrite (NEGATIVE) Urine Bilirubin (NEGATIVE) Urine Urobilinogen (<2.0) EU/dL Ur Leukocyte Esterase (NEGATIVE) Urine RBC (0-2/HPF) Urine WBC (0-5/HPF) Ur Epithelial Cells (NONE-FEW) Urine Bacteria (NEGATIVE) 10/29/19 Range/Units 09:24 WBC (4.0-11.0) K/uL RBC (4.30-5.90) M/uL Hgb (12.0-16.0) g/dL Hct (36.0-46.0) % MCV (80.0-98.0) fL MCH (27.0-32.0) pg MCHC (31.0-37.0) g/dL RDW Std Deviation (28.0-62.0) fl RDW Coeff of Lucrecia (11.0-15.0) % Plt Count (150-400) K/uL MPV (7.40-12.00) fL Neut % (Auto) (48.0-80.0) % Lymph % (Auto) (16.0-40.0) % Porter % (Auto) (0.0-15.0) % Eos % (Auto) (0.0-7.0) % Baso % (Auto) (0.0-1.5) % Neut # (Auto) (1.4-5.7) K/uL Lymph # (Auto) (0.6-2.4) K/uL Porter # (Auto) (0.0-0.8) K/uL Eos # (Auto) (0.0-0.7) K/uL Baso # (Auto) (0.0-0.1) K/uL Add Manual Diff Neutrophils % (Manual) (48.0-80.0) % Lymphocytes % (Manual) (16.0-40.0) % Monocytes % (Manual) (0.0-15.0) % Eosinophils % (Manual) (0.0-7.0) % Basophils % (Manual) (0.0-1.5) % Absolute Seg Neuts (1.4-5.7) Lymphocytes # (Manual) (0.6-2.4) Monocytes # (Manual) (0.0-0.8) Eosinophils # (Manual) (0.0-0.7) Basophils # (Manual) (0.0-0.1) D-Dimer, Quantitative (0.0-0.50) mg/L FEU ABG pH (7.35-7.45) ABG pCO2 (35-45) mmHG ABG pO2 (75-100) mmHG ABG HCO3 (22-26) mEq/L ABG Total CO2 ABG Base Excess (-2.0-2.0) Lactate (0.20-2.00) mmol/L Sodium (136-145) mmol/L Potassium (3.5-5.1) mmol/L Chloride (98-107) mmol/L Carbon Dioxide (21.0-32.0) mmol/L BUN (7.0-18.0) mg/dL Creatinine (0.6-1.0) mg/dL Est Cr Clr Drug Dosing mL/min Estimated GFR (MDRD) ml/min Glucose (74-106) mg/dL POC Glucose 217 H (60-110) mg/dL Hemoglobin A1c (4.5-6.2) % Calcium (8.5-10.1) mg/dL Phosphorus (2.6-4.7) mg/dL Magnesium (1.8-2.4) mg/dL Total Bilirubin (0.2-1.0) mg/dL AST (15-37) IU/L ALT (14-63) IU/L Alkaline Phosphatase (46-116) U/L Troponin I (0.000-0.056) ng/mL B-Natriuretic Peptide (<100) PG/ML Total Protein (6.4-8.2) g/dL Albumin (3.4-5.0) g/dL Globulin (2.6-4.0) g/dL Albumin/Globulin Ratio (0.9-1.6) Urine Color Urine Appearance Urine pH (5.0-8.0) Ur Specific [place] (1.001-1.035) Urine Protein (NEGATIVE) mg/dL Urine Glucose (UA) (NEGATIVE) mg/dL Urine Ketones (NEGATIVE) mg/dL Urine Occult Blood (NEGATIVE) Urine Nitrite (NEGATIVE) Urine Bilirubin (NEGATIVE) Urine Urobilinogen (<2.0) EU/dL Ur Leukocyte Esterase (NEGATIVE) Urine RBC (0-2/HPF) Urine WBC (0-5/HPF) Ur Epithelial Cells (NONE-FEW) Urine Bacteria (NEGATIVE) Result Diagrams: 10/29/19 06:20 10/29/19 06:20 Tra Results Last 24 hrs: Microbiology 10/28/19 20:05 Influenza Type A Antigen Screen - Final Nasopharyngeal Swab NEGATIVE INFLUENZA A VIRUS AG REFERENCE RANGE: NEGATIVE Influenza Type B Antigen Screen - Final NEGATIVE INFLUENZA B VIRUS AG REFERENCE RANGE: NEGATIVE Sepsis Event Note - Evaluation Sepsis Screening Result: No Definite Risk - Focused Exam Vital Signs: Vital Signs Temp Pulse Resp BP Pulse Ox 10/29/19 12:00 36.6 C 96 18 116/60 92 L 10/29/19 08:00 36.9 C 91 19 123/68 95 10/29/19 03:53 36.7 C 100 22 H 129/68 94 L Date Exam was Performed: 10/29/19 Time Exam was Performed: 19:48 - Problem List (1) Acute on chronic respiratory failure with hypoxia SNOMED Code(s): 54806273, 770674857 ICD Code: J96.21 - ACUTE AND CHRONIC RESPIRATORY FAILURE WITH HYPOXIA Status: Acute Current Visit: Yes (2) UTI (urinary tract infection) SNOMED Code(s): 82620134 ICD Code: N39.0 - URINARY TRACT INFECTION, SITE NOT SPECIFIED Status: Acute Current Visit: Yes (3) Ankle pain, left SNOMED Code(s): 011586992, 064103011 ICD Code: M25.572 - PAIN IN LEFT ANKLE AND JOINTS OF LEFT FOOT Status: Acute Current Visit: Yes (4) T6 vertebral fracture SNOMED Code(s): 799272553 ICD Code: S22.059A - UNSP FRACTURE OF T5-T6 VERTEBRA, INIT FOR CLOS FX Status: Acute Current Visit: Yes Problem List Initiated/Reviewed/Updated: Yes Orders Last 24hrs: Active Orders 24 hr Category Date Time Status Admission Status [Patient Status] [ADT] Stat ADT 10/28/19 22:33 Active Ambulate [RC] ASDIRECTED Care 10/28/19 23:07 Active Blood Glucose Check, Bedside [RC] WITHMEALSANDBED Care 10/29/19 01:04 Active Incentive Spirometry [RT Incentive Spirometry] [RC] Care 10/28/19 23:11 Active ASDIRECTED Insert Zarate Catheter [Insert Urinary Catheter] [OM.PC] Care 10/29/19 01:15 Ordered Q24H Oxygen Therapy [RC] CONTINUOUS Care 10/28/19 23:08 Active RT Aerosol Therapy [RC] ASDIRECTED Care 10/28/19 23:10 Active Telemetry Monitoring [Cardiac Monitoring] [RC] Q8H Care 10/28/19 23:50 Active Vital Signs [RC] Q4H Care 10/28/19 23:07 Active ADA Diabetic [[place] [employer] Diet] [DIET Diet 10/29/19 Breakfast Active ] CULTURE BLOOD [BC] Stat Lab 10/28/19 19:57 Received CULTURE BLOOD [BC] Stat Lab 10/28/19 20:07 Received CULTURE URINE [RM] Routine Lab 10/29/19 12:21 Ordered Albuterol/Ipratropium [DuoNeb 3.0-0.5 MG/3 ML] Med 10/28/19 23:09 Active 3 ml NEB Q4HRRT PRN Insulin Aspart [NovoLOG] Med 10/29/19 11:30 Active See Protocol SUBCUT TIDAC Insulin Detemir [Levemir] Med 10/29/19 21:00 Active 15 unit SUBCUT BEDTIME Levofloxacin/Dextrose 5%-Water [Levaquin in D5W 500 MG/ Med 10/29/19 09:00 Active 100 ML] 500 mg Premix Bag 1 bag IV Q24H Patient's Own Medication [Ptom] Med 10/29/19 13:28 Active 1 each PO Q8H PRN methylPREDNISolone Sod Succ [Solu-MEDROL] Med 10/29/19 09:00 Active 40 mg IVPUSH Q12H Blood Culture x2 Reflex Set [OM.PC] Stat Oth 10/28/19 19:17 Ordered Medication Orders Albuterol/Ipratropium (Duoneb 3.0-0.5 Mg/3 Ml) 3 ml NEB Q4HRRT PRN PRN Reason: Shortness of Breath Levofloxacin/Dextrose 500 mg/ (Premix) 100 mls @ 100 mls/hr IV Q24H [facility] Last Admin: 10/29/19 09:21 Dose: 100 mls/hr Insulin Aspart (Novolog) 0 unit SUBCUT TIDAC [facility]; Protocol Last Admin: 10/29/19 13:00 Dose: Not Given Insulin Detemir (Levemir) 15 unit SUBCUT BEDTIME [facility] Methylprednisolone Sodium Succinate (Solu-Medrol) 40 mg IVPUSH Q12H [facility] Last Admin: 10/29/19 09:15 Dose: 40 mg Hydrocodone/ (Acetaminophen) 1 each PO Q8H PRN PRN Reason: Pain Assessment/Plan Comment:: A/P: 79 y/o F admitted for acute over chronic respiratory failure CT angio ruled out PE but showed atelectasis and T4 compression # Cont NC oxygenation, has been weaned down to 2 Lts now Cont Levofloxacin for UTI, i dont suspect PNA, WBC count improving continue steroids for now X-ray of left ankle. lumbar spine and left hip to r/o acute fracture due to h/o fall and worsening pain cont to monitor vitals closely cont IC for atelectasis Monitor and replete electrolytes Family at bedside, updated and understand the plan
[2019-10-29] MEDS: LORazepam 1 MG Tab PO SCH (17:23)
[2019-10-29] MEDS: Albuterol/Ipratropium 3.0-0.5 MG/3 ML Neb Soln NEB PRN ×2 (18:27→22:35)
[2019-10-29] MEDS ORDERED: Carboxymethylcellulose Sodium 0.5% Ophth Soln 0.4 ML UD Box of 30 EYEBOTH PRN (21:00)
[2019-10-29] MEDS ORDERED: atorvaSTATin 10 MG Tab PO SCH (21:00)
[2019-10-29] MEDS ORDERED: Insulin Detemir 100 Units/ML 3 ML Pen SUBCUT SCH (21:00)
[2019-10-30] MEDS: LORazepam 1 MG Tab PO SCH ×3 (01:49→12:29)
[2019-10-30] MEDS: Insulin Aspart 100 Units/ML 3 ML Pen SUBCUT SCH ×2 (06:59→12:59)
[2019-10-30] MEDS ORDERED: Esomeprazole Magnesium [Nexium] 40 MG PO SCH (07:30)
[2019-10-30] MEDS: methylPREDNISolone Sodium Succinate 40 MG/1 ML SDV IVPUSH SCH (08:16)
[2019-10-30] MEDS: Levofloxacin/Dextrose 5%-Water 500 MG in Premix Bag 1 BAG IV SCH (08:18)
[2019-10-30 08:42] LABS: CARBON DIOXIDE,CO2 24.7 mmol/L (21.0-32.0); POTASSIUM,K 4.4 mmol/L (3.5-5.1)
[2019-10-30] MEDS ORDERED: Losartan 50 MG Tab PO SCH (09:00)
[2019-10-30 11:59] VITALS: BP 124/58; PULSE 92
--- NOTE | 2019-10-30 12:04 | PCM.DCSUM1 ---
<Johanna Jay - Last Filed: 10/30/19 13:31> Discharge Summary - Hospital Course HPI Initial Comments: Admission Date: 10/29/2019 Discharge Date: 10/30/2019 Admission Diagnosis: 1. Acute on chronic hypoxic respiratory failure 2. UTI 3. T6 compression fracture 4. Chronic conditions- HTN, DMII, hyperlipidemia Discharge Diagnosis: 1. Acute on chronic hypoxic respiratory failure 2. UTI 3. T6 compression fracture 4. Chronic conditions- HTN, DMII, hyperlipidemia Procedures: None Consults: None Hospital Course: The patient is a 79-year-old female with past medical history of oxygen dependent COPD, hypertension, hyperlipidemia and type 2 diabetes. The patient presented to the ER after family found her hypoxia and satting in the 60s. In the ER, CT was obtained and showed left middle and right lower lobe atelectasis as well as a T6 compression fracture. Patient also had her lumbar spine, hip, and ankle x-ray due to fall two weeks ago with no acute changes. Additional workup showed an elevated white count and urine with signs of infection. Swab negative for influenza. Blood cultures were negative. She was requiring 5 L of O2 in the ER. Her baseline requirement at home is around 3.5 L. Patient was admitted to the medical surgical floor for observation and started on Levaquin, IV steroids, and duonebs. Over the course of her stay, her breathing improved and oxygen was decreased. She will still need to go home on oxygen. She never had UTI symptoms but was continued on the antibiotics. Her urine culture was pending at time of discharge. She was continued on her home pain management for her T6 compression fracture. She will need a DEXA scan as an outpatient. She will be sent home on calcium and vitamin D. She was continued on her home meds for her chronic conditions. For her diabetes she was placed on sliding scale and Levemir. By day of discharge patient stated she felt much better and wanted to go home. Disposition: Home Discharge Condition: vitals stable, tolerating oral diet, ambulating without difficulty, symptom improvement Discharge Instructions: regular diet as tolerated, activity as tolerated, take medications as prescribed. Symptoms to report to physician include fever/chills , chest pain, shortness of breath, abdominal pain, erythema, drainage/discharge , or not improving as expected. Needs to use oxygen via nasal cannula at 3.5 L. Discharge Medications: Esomeprazole Magnesium [Nexium] 40 mg PO DAILY Insulin Glarg,Human.Rec.Analog [Lantus] 12 units SUBCUT BID LORazepam 1 mg PO QID Losartan [Cozaar] 50 mg PO DAILY diphenhydrAMINE [Benadryl] 50 mg PO TID Insulin Aspart [Novolog Flexpen] 8 unit SUBCUT TIDAC Prednisone [IJD: predniSONE] 10 mg PO WITHBREAKFAST Hydrocodone/Acetaminophen [Hydrocodon-Acetaminophn 10-325] 1 each PO Q8H PRN Methocarbamol [Robaxin] 750 mg PO Q6H PRN atorvaSTATin [Lipitor] 5 mg PO BEDTIME Calcium Carbonate/Vitamin D3 [Calcium 600-Vit D3 400 Tablet] 1 each PO BID Levofloxacin 750 mg PO DAILY predniSONE [Prednisone] 40 mg PO DAILY Follow-up: 1. PCP- Dr. Dai 11/06/2019 Diagnosis: Stroke: No - Discharge Data Discharge Date: 10/30/19 Discharge Disposition: Home, Self-Care 01 Condition: Stable - Referral to Home Health Primary Care Physician: Micha Dai MD - Patient Summary/Data Consults: Consultations 10/29/19 14:06 Consult to Physical Therapy [PT Evaluation and Treatment] [CONS] Routine - Patient Instructions Diet: Regular Diet as Tolerated Activity: As Tolerated Showering/Bathing: May Shower Notify Provider of: Fever, Increased Pain, Swelling and Redness, Drainage, Nausea and/or Vomiting Other/Special Instructions: Additional symptoms include chest pain, shortness of breath, abdominal pain, or increased oxygen requirement. - Discharge Plan *PRESCRIPTION DRUG MONITORING PROGRAM REVIEWED*: Yes *COPY OF PRESCRIPTION DRUG MONITORING REPORT IN PATIENT DAISY: Yes Prescriptions/Med Rec: Calcium Carbonate/Vitamin D3 [Calcium 600-Vit D3 400 Tablet] 1 each PO BID 30 Days #60 tablet Levofloxacin 750 mg PO DAILY 2 Days #2 tablet predniSONE [Prednisone] 40 mg PO DAILY 4 Days #8 tablet Home Medications: Home Meds Esomeprazole Magnesium [Nexium] 40 mg PO DAILY 11/09/14 [History] Insulin Glarg,Human.Rec.Analog [Lantus] 12 units SUBCUT BID 11/09/14 [History] LORazepam 1 mg PO QID 11/09/14 [History] Losartan [Cozaar] 50 mg PO DAILY 11/09/14 [History] diphenhydrAMINE [Benadryl] 50 mg PO TID 11/09/14 [History] Insulin Aspart [Novolog Flexpen] 8 unit SUBCUT TIDAC 02/01/17 [History] Prednisone [IJD: predniSONE] 10 mg PO WITHBREAKFAST 06/13/18 [History] Hydrocodone/Acetaminophen [Hydrocodon-Acetaminophn 10-325] 1 each PO Q8H PRN 10/06 [History] Methocarbamol [Robaxin] 750 mg PO Q6H PRN 10/29/19 [History] atorvaSTATin [Lipitor] 5 mg PO BEDTIME 10/29/19 [History] Calcium Carbonate/Vitamin D3 [Calcium 600-Vit D3 400 Tablet] 1 each PO BID 30 Days #60 tablet 10/30/19 [Rx] Levofloxacin 750 mg PO DAILY 2 Days #2 tablet 10/30/19 [Rx] predniSONE [Prednisone] 40 mg PO DAILY 4 Days #8 tablet 10/30/19 [Rx] Patient Handouts: Chronic Obstructive Pulmonary Disease Exacerbation, Easy-to- Read, Hypoxia, Calcium; Vitamin D oral tablets, Urinary Tract Infection, Adult, [id number], Levofloxacin tablets, Prednisone tablets Referrals: [facility] [Outside] Micha Dai MD [Primary Care Provider] - 11/06/19 1:45 pm - Discharge Summary/Plan Comment DC Time >30 min.: No - Patient Data Vitals - Most Recent: Last Vital Signs Temp 98.4 F 10/30/19 08:00 Pulse 92 10/30/19 11:58 Resp 16 10/30/19 11:58 BP 124/58 L 10/30/19 11:58 Pulse Ox 92 L 10/30/19 11:58 Weight - Most Recent: 68.492 kg I&O - Last 24 hours: Intake & Output 10/29/19 10/30/19 10/30/19 22:59 06:59 14:59 Intake Total 340 120 Output Total 320 500 Balance 20 -380 Lab Results - Last 24 hrs: Laboratory Results - last 24 hr 10/29/19 10/29/19 10/29/19 Range/Units 12:49 16:38 20:30 WBC (4.0-11.0) K/uL RBC (4.30-5.90) M/uL Hgb (12.0-16.0) g/dL Hct (36.0-46.0) % MCV (80.0-98.0) fL MCH (27.0-32.0) pg MCHC (31.0-37.0) g/dL RDW Std Deviation (28.0-62.0) fl RDW Coeff of Lucrecia (11.0-15.0) % Plt Count (150-400) K/uL MPV (7.40-12.00) fL Neut % (Auto) (48.0-80.0) % Lymph % (Auto) (16.0-40.0) % [place] % (Auto) (0.0-15.0) % Eos % (Auto) (0.0-7.0) % Baso % (Auto) (0.0-1.5) % Neut # (Auto) (1.4-5.7) K/uL Lymph # (Auto) (0.6-2.4) K/uL [place] # (Auto) (0.0-0.8) K/uL Eos # (Auto) (0.0-0.7) K/uL Baso # (Auto) (0.0-0.1) K/uL Nucleated RBC % /100WBC Nucleated RBCs # K/uL Sodium (136-145) mmol/L Potassium (3.5-5.1) mmol/L Chloride (98-107) mmol/L Carbon Dioxide (21.0-32.0) mmol/L BUN (7.0-18.0) mg/dL Creatinine (0.6-1.0) mg/dL Est Cr Clr Drug Dosing mL/min Estimated GFR (MDRD) ml/min Glucose (74-106) mg/dL POC Glucose 111 H 167 H 258 H (60-110) mg/dL Calcium (8.5-10.1) mg/dL 10/30/19 10/30/19 10/30/19 Range/Units 06:38 07:38 07:38 WBC 21.12 H (4.0-11.0) K/uL RBC 3.68 L (4.30-5.90) M/uL Hgb 9.7 L (12.0-16.0) g/dL Hct 30.7 L (36.0-46.0) % MCV 83.4 (80.0-98.0) fL MCH 26.4 L (27.0-32.0) pg MCHC 31.6 (31.0-37.0) g/dL RDW Std Deviation 51.4 (28.0-62.0) fl RDW Coeff of Lucrecia 17 H (11.0-15.0) % Plt Count 266 (150-400) K/uL MPV 11.30 (7.40-12.00) fL Neut % (Auto) 93.9 H (48.0-80.0) % Lymph % (Auto) 3.2 L (16.0-40.0) % [place] % (Auto) 2.9 (0.0-15.0) % Eos % (Auto) 0.0 (0.0-7.0) % Baso % (Auto) 0.0 (0.0-1.5) % Neut # (Auto) 19.8 H (1.4-5.7) K/uL Lymph # (Auto) 0.7 (0.6-2.4) K/uL [place] # (Auto) 0.6 (0.0-0.8) K/uL Eos # (Auto) 0.0 (0.0-0.7) K/uL Baso # (Auto) 0.0 (0.0-0.1) K/uL Nucleated RBC % 0.0 /100WBC Nucleated RBCs # 0 K/uL Sodium 142 (136-145) mmol/L Potassium 4.4 (3.5-5.1) mmol/L Chloride 106 (98-107) mmol/L Carbon Dioxide 24.7 (21.0-32.0) mmol/L BUN 26 H (7.0-18.0) mg/dL Creatinine 1.0 (0.6-1.0) mg/dL Est Cr Clr Drug Dosing 36.67 mL/min Estimated GFR (MDRD) 53.6 ml/min Glucose 209 H (74-106) mg/dL POC Glucose 216 H (60-110) mg/dL Calcium 8.6 (8.5-10.1) mg/dL 10/30/19 Range/Units 11:23 WBC (4.0-11.0) K/uL RBC (4.30-5.90) M/uL Hgb (12.0-16.0) g/dL Hct (36.0-46.0) % MCV (80.0-98.0) fL MCH (27.0-32.0) pg MCHC (31.0-37.0) g/dL RDW Std Deviation (28.0-62.0) fl RDW Coeff of Lucrecia (11.0-15.0) % Plt Count (150-400) K/uL MPV (7.40-12.00) fL Neut % (Auto) (48.0-80.0) % Lymph % (Auto) (16.0-40.0) % [place] % (Auto) (0.0-15.0) % Eos % (Auto) (0.0-7.0) % Baso % (Auto) (0.0-1.5) % Neut # (Auto) (1.4-5.7) K/uL Lymph # (Auto) (0.6-2.4) K/uL [place] # (Auto) (0.0-0.8) K/uL Eos # (Auto) (0.0-0.7) K/uL Baso # (Auto) (0.0-0.1) K/uL Nucleated RBC % /100WBC Nucleated RBCs # K/uL Sodium (136-145) mmol/L Potassium (3.5-5.1) mmol/L Chloride (98-107) mmol/L Carbon Dioxide (21.0-32.0) mmol/L BUN (7.0-18.0) mg/dL Creatinine (0.6-1.0) mg/dL Est Cr Clr Drug Dosing mL/min Estimated GFR (MDRD) ml/min Glucose (74-106) mg/dL POC Glucose 116 H (60-110) mg/dL Calcium (8.5-10.1) mg/dL SWETHA Results - Last 24 hrs: Microbiology 10/28/19 20:07 Aerobic Blood Culture - Preliminary Blood - Venous - Lab Draw NO GROWTH AFTER 1 DAY Anaerobic Blood Culture - Preliminary NO GROWTH AFTER 1 DAY 10/28/19 19:57 Aerobic Blood Culture - Preliminary Blood - Venous NO GROWTH AFTER 1 DAY Anaerobic Blood Culture - Preliminary NO GROWTH AFTER 1 DAY Med Orders - Current: Current Medications Albuterol/Ipratropium (Duoneb 3.0-0.5 Mg/3 Ml) 3 ml NEB Q4HRRT PRN PRN Reason: Shortness of Breath Last Admin: 10/29/19 22:35 Dose: 3 ml Artificial Tears (Refresh Plus 0.5%) 0 each EYEBOTH BID PRN PRN Reason: Dry Eyes Atorvastatin Calcium (Lipitor) 5 mg PO BEDTIME [facility] Last Admin: 10/29/19 21:39 Dose: Not Given Levofloxacin/Dextrose 500 mg/ (Premix) 100 mls @ 100 mls/hr IV Q24H [facility] Last Admin: 10/30/19 08:18 Dose: 100 mls/hr Insulin Aspart (Novolog) 0 unit SUBCUT TIDAC [facility]; Protocol Last Admin: 10/30/19 06:59 Dose: 9 units Insulin Detemir (Levemir) 15 unit SUBCUT BEDTIME [facility] Last Admin: 10/29/19 21:22 Dose: 15 units Lorazepam (Ativan) 1 mg PO QID [facility] Last Admin: 10/30/19 06:56 Dose: 1 mg Losartan Potassium (Cozaar) 50 mg PO DAILY [facility] Last Admin: 10/30/19 08:16 Dose: 50 mg Methylprednisolone Sodium Succinate (Solu-Medrol) 40 mg IVPUSH Q12H [facility] Last Admin: 10/30/19 08:16 Dose: 40 mg Hydrocodone/ (Acetaminophen) 1 each PO Q8H PRN PRN Reason: Pain Last Admin: 10/29/19 15:47 Dose: 1 each Esomeprazole Magnesium [Nexium] 40 Mg 1 each PO ACBREAKFAST [facility] Last Admin: 10/30/19 07:51 Dose: 1 each Discontinued Medications Hydrocodone Bitart/Acetaminophen ([place] 325-5 Mg) 1 tab PO Q6H PRN PRN Reason: Pain Last Admin: 10/29/19 09:15 Dose: 1 tab Albuterol/Ipratropium (Duoneb 3.0-0.5 Mg/3 Ml) 3 ml NEB ONETIME ONE Stop: 10/28/19 17:32 Last Admin: 10/28/19 17:36 Dose: 3 ml Diphenhydramine HCl (Benadryl) 50 mg IVPUSH ONETIME ONE Stop: 10/28/19 20:11 Last Admin: 10/28/19 20:18 Dose: 50 mg Magnesium Sulfate 2 gm/ Premix 50 mls @ 50 mls/hr IV ONETIME ONE Stop: 10/28/19 18:52 Last Admin: 10/28/19 18:22 Dose: 50 mls/hr Levofloxacin/Dextrose 500 mg/ (Premix) 100 mls @ 100 mls/hr IV ONETIME ONE Stop: 10/28/19 20:21 Last Admin: 10/28/19 20:23 Dose: 100 mls/hr Sodium Chloride (Normal Saline) 1,000 mls @ 125 mls/hr IV ASDIRECTED [facility] Last Admin: 10/29/19 02:02 Dose: 125 mls/hr Insulin Aspart (Novolog) 8 unit SUBCUT TIDAC [facility] Last Admin: 10/29/19 07:38 Dose: 8 units Insulin Detemir (Levemir) 12 unit SUBCUT BEDTIME [facility] Last Admin: 10/29/19 01:57 Dose: 12 units Iopamidol (Isovue-370 (76%)) 100 ml IVPUSH ONETIME STA Stop: 10/28/19 21:35 Last Admin: 10/28/19 21:34 Dose: 100 ml Ketorolac Tromethamine (Toradol) 15 mg IVPUSH ONETIME ONE Stop: 10/29/19 02:31 Last Admin: 10/29/19 07:08 Dose: 15 mg Ketorolac Tromethamine (Toradol) Confirm Administered Dose 15 mg .ROUTE .STK- MED ONE Stop: 10/29/19 07:07 Last Admin: 10/29/19 07:13 Dose: Not Given Methylprednisolone Sodium Succinate (Solu-Medrol) 125 mg IVPUSH ONETIME ONE Stop: 10/28/19 17:34 Last Admin: 10/28/19 17:59 Dose: 125 mg Non-Formulary Medication (Insulin Glarg,Human.Rec.Analog) 12 units SUBCUT BID [facility] Last Admin: 10/29/19 09:15 Dose: Not Given Non-Formulary Medication (Hydrocodone/Acetaminophen) 1 each PO Q8H [facility] <David Rene - Last Filed: 10/30/19 20:57> Discharge Summary - Hospital Course HPI Initial Comments: I have seen and evaluated the patient and agree with the residents note unless specified in my note - Referral to Home Health Primary Care Physician: Micha Dai MD - Discharge Diagnosis/Problem(s) (1) Acute on chronic respiratory failure with hypoxia SNOMED Code(s): 76421722, 638316256 ICD Code: J96.21 - ACUTE AND CHRONIC RESPIRATORY FAILURE WITH HYPOXIA Status: Acute (2) UTI (urinary tract infection) SNOMED Code(s): 62033985 ICD Code: N39.0 - URINARY TRACT INFECTION, SITE NOT SPECIFIED Status: Acute (3) Ankle pain, left SNOMED Code(s): 180148534, 403533618 ICD Code: M25.572 - PAIN IN LEFT ANKLE AND JOINTS OF LEFT FOOT Status: Acute (4) T6 vertebral fracture SNOMED Code(s): 420719940 ICD Code: S22.059A - UNSP FRACTURE OF T5-T6 VERTEBRA, INIT FOR CLOS FX Status: Acute - Patient Summary/Data Consults: Consultations 10/29/19 14:06 Consult to Physical Therapy [PT Evaluation and Treatment] [CONS] Routine - Patient Data Vitals - Most Recent: Last Vital Signs Temp 36.9 C 10/30/19 08:00 Pulse 92 10/30/19 11:58 Resp 16 10/30/19 11:58 BP 124/58 L 10/30/19 11:58 Pulse Ox 92 L 10/30/19 11:58 I&O - Last 24 hours: Intake & Output 10/30/19 10/30/19 10/30/19 06:59 14:59 22:59 Intake Total 120 540 Output Total 500 200 Balance -380 340 Lab Results - Last 24 hrs: Laboratory Results - last 24 hr 10/30/19 10/30/19 10/30/19 Range/Units 06:38 07:38 07:38 WBC 21.12 H (4.0-11.0) K/uL RBC 3.68 L (4.30-5.90) M/uL Hgb 9.7 L (12.0-16.0) g/dL Hct 30.7 L (36.0-46.0) % MCV 83.4 (80.0-98.0) fL MCH 26.4 L (27.0-32.0) pg MCHC 31.6 (31.0-37.0) g/dL RDW Std Deviation 51.4 (28.0-62.0) fl RDW Coeff of Lucrecia 17 H (11.0-15.0) % Plt Count 266 (150-400) K/uL MPV 11.30 (7.40-12.00) fL Neut % (Auto) 93.9 H (48.0-80.0) % Lymph % (Auto) 3.2 L (16.0-40.0) % [place] % (Auto) 2.9 (0.0-15.0) % Eos % (Auto) 0.0 (0.0-7.0) % Baso % (Auto) 0.0 (0.0-1.5) % Neut # (Auto) 19.8 H (1.4-5.7) K/uL Lymph # (Auto) 0.7 (0.6-2.4) K/uL [place] # (Auto) 0.6 (0.0-0.8) K/uL Eos # (Auto) 0.0 (0.0-0.7) K/uL Baso # (Auto) 0.0 (0.0-0.1) K/uL Nucleated RBC % 0.0 /100WBC Nucleated RBCs # 0 K/uL Sodium 142 (136-145) mmol/L Potassium 4.4 (3.5-5.1) mmol/L Chloride 106 (98-107) mmol/L Carbon Dioxide 24.7 (21.0-32.0) mmol/L BUN 26 H (7.0-18.0) mg/dL Creatinine 1.0 (0.6-1.0) mg/dL Est Cr Clr Drug Dosing 36.67 mL/min Estimated GFR (MDRD) 53.6 ml/min Glucose 209 H (74-106) mg/dL POC Glucose 216 H (60-110) mg/dL Calcium 8.6 (8.5-10.1) mg/dL 10/30/19 Range/Units 11:23 WBC (4.0-11.0) K/uL RBC (4.30-5.90) M/uL Hgb (12.0-16.0) g/dL Hct (36.0-46.0) % MCV (80.0-98.0) fL MCH (27.0-32.0) pg MCHC (31.0-37.0) g/dL RDW Std Deviation (28.0-62.0) fl RDW Coeff of Lucrecia (11.0-15.0) % Plt Count (150-400) K/uL MPV (7.40-12.00) fL Neut % (Auto) (48.0-80.0) % Lymph % (Auto) (16.0-40.0) % [place] % (Auto) (0.0-15.0) % Eos % (Auto) (0.0-7.0) % Baso % (Auto) (0.0-1.5) % Neut # (Auto) (1.4-5.7) K/uL Lymph # (Auto) (0.6-2.4) K/uL [place] # (Auto) (0.0-0.8) K/uL Eos # (Auto) (0.0-0.7) K/uL Baso # (Auto) (0.0-0.1) K/uL Nucleated RBC % /100WBC Nucleated RBCs # K/uL Sodium (136-145) mmol/L Potassium (3.5-5.1) mmol/L Chloride (98-107) mmol/L Carbon Dioxide (21.0-32.0) mmol/L BUN (7.0-18.0) mg/dL Creatinine (0.6-1.0) mg/dL Est Cr Clr Drug Dosing mL/min Estimated GFR (MDRD) ml/min Glucose (74-106) mg/dL POC Glucose 116 H (60-110) mg/dL Calcium (8.5-10.1) mg/dL SWETHA Results - Last 24 hrs: Microbiology 10/28/19 20:07 Aerobic Blood Culture - Preliminary Blood - Venous - Lab Draw NO GROWTH AFTER 2 DAYS Anaerobic Blood Culture - Preliminary NO GROWTH AFTER 2 DAYS 10/28/19 19:57 Aerobic Blood Culture - Preliminary Blood - Venous NO GROWTH AFTER 2 DAYS Anaerobic Blood Culture - Preliminary NO GROWTH AFTER 2 DAYS Med Orders - Current: Current Medications Discontinued Medications Hydrocodone Bitart/Acetaminophen ([place] 325-5 Mg) 1 tab PO Q6H PRN PRN Reason: Pain Last Admin: 10/29/19 09:15 Dose: 1 tab Albuterol/Ipratropium (Duoneb 3.0-0.5 Mg/3 Ml) 3 ml NEB ONETIME ONE Stop: 10/28/19 17:32 Last Admin: 10/28/19 17:36 Dose: 3 ml Albuterol/Ipratropium (Duoneb 3.0-0.5 Mg/3 Ml) 3 ml NEB Q4HRRT PRN PRN Reason: Shortness of Breath Last Admin: 10/29/19 22:35 Dose: 3 ml Artificial Tears (Refresh Plus 0.5%) 0 each EYEBOTH BID PRN PRN Reason: Dry Eyes Atorvastatin Calcium (Lipitor) 5 mg PO BEDTIME [facility] Last Admin: 10/29/19 21:39 Dose: Not Given Diphenhydramine HCl (Benadryl) 50 mg IVPUSH ONETIME ONE Stop: 10/28/19 20:11 Last Admin: 10/28/19 20:18 Dose: 50 mg Magnesium Sulfate 2 gm/ Premix 50 mls @ 50 mls/hr IV ONETIME ONE Stop: 10/28/19 18:52 Last Admin: 10/28/19 18:22 Dose: 50 mls/hr Levofloxacin/Dextrose 500 mg/ (Premix) 100 mls @ 100 mls/hr IV ONETIME ONE Stop: 10/28/19 20:21 Last Admin: 10/28/19 20:23 Dose: 100 mls/hr Levofloxacin/Dextrose 500 mg/ (Premix) 100 mls @ 100 mls/hr IV Q24H [facility] Last Admin: 10/30/19 08:18 Dose: 100 mls/hr Sodium Chloride (Normal Saline) 1,000 mls @ 125 mls/hr IV ASDIRECTED [facility] Last Admin: 10/29/19 02:02 Dose: 125 mls/hr Insulin Aspart (Novolog) 8 unit SUBCUT TIDAC [facility] Last Admin: 10/29/19 07:38 Dose: 8 units Insulin Aspart (Novolog) 0 unit SUBCUT TIDAC [facility]; Protocol Last Admin: 10/30/19 12:59 Dose: Not Given Insulin Detemir (Levemir) 12 unit SUBCUT BEDTIME [facility] Last Admin: 10/29/19 01:57 Dose: 12 units Insulin Detemir (Levemir) 15 unit SUBCUT BEDTIME [facility] Last Admin: 10/29/19 21:22 Dose: 15 units Iopamidol (Isovue-370 (76%)) 100 ml IVPUSH ONETIME STA Stop: 10/28/19 21:35 Last Admin: 10/28/19 21:34 Dose: 100 ml Ketorolac Tromethamine (Toradol) 15 mg IVPUSH ONETIME ONE Stop: 10/29/19 02:31 Last Admin: 10/29/19 07:08 Dose: 15 mg Ketorolac Tromethamine (Toradol) Confirm Administered Dose 15 mg .ROUTE .STK- MED ONE Stop: 10/29/19 07:07 Last Admin: 10/29/19 07:13 Dose: Not Given Lorazepam (Ativan) 1 mg PO QID [facility] Last Admin: 10/30/19 12:29 Dose: 1 mg Losartan Potassium (Cozaar) 50 mg PO DAILY [facility] Last Admin: 10/30/19 08:16 Dose: 50 mg Methylprednisolone Sodium Succinate (Solu-Medrol) 125 mg IVPUSH ONETIME ONE Stop: 10/28/19 17:34 Last Admin: 10/28/19 17:59 Dose: 125 mg Methylprednisolone Sodium Succinate (Solu-Medrol) 40 mg IVPUSH Q12H [facility] Last Admin: 10/30/19 08:16 Dose: 40 mg Non-Formulary Medication (Insulin Glarg,Human.Rec.Analog) 12 units SUBCUT BID [facility] Last Admin: 10/29/19 09:15 Dose: Not Given Non-Formulary Medication (Hydrocodone/Acetaminophen) 1 each PO Q8H [facility] Hydrocodone/ (Acetaminophen) 1 each PO Q8H PRN PRN Reason: Pain Last Admin: 10/29/19 15:47 Dose: 1 each Esomeprazole Magnesium [Nexium] 40 Mg 1 each PO ACBREAKFAST [facility] Last Admin: 10/30/19 07:51 Dose: 1 each
== END 2019-10-30 14:00 | disposition home or self-care (01) ==
LOC: MW.ED 16:33 → UNDOADMOB 22:33 → MW.MS 22:33
PROVIDERS: ADMIT Student in an Organized Health Care Education/Training Program; ATTEND Student in an Organized Health Care Education/Training Program
DX: J96.21 Acute and chronic respiratory failure with hypoxia (principal); N39.0 Urinary tract infection, site not specified; M25.572 Pain in left ankle and joints of left foot; S22.059A Unspecified fracture of T5-T6 vertebra, initial encounter for closed fracture; I10 Essential (primary) hypertension; E11.9 Type 2 diabetes mellitus without complications; E78.00 Pure hypercholesterolemia, unspecified; E78.5 Hyperlipidemia, unspecified; J44.9 Chronic obstructive pulmonary disease, unspecified; K21.9 Gastro-esophageal reflux disease without esophagitis; C34.90 Malignant neoplasm of unspecified part of unspecified bronchus or lung; F41.9 Anxiety disorder, unspecified; F32.9 Major depressive disorder, single episode, unspecified; W19.XXXA Unspecified fall, initial encounter; Z87.891 Personal history of nicotine dependence; Z88.6 Allergy status to analgesic agent; Z88.5 Allergy status to narcotic agent; Z88.7 Allergy status to serum and vaccine; Z91.018 Allergy to other foods; Z91.013 Allergy to seafood; Z79.4 Long term (current) use of insulin; Z79.899 Other long term (current) drug therapy; Z99.81 Dependence on supplemental oxygen
CPT/HCPCS: 36415; 36600; 51701; 71045; 71275; 72100; 73502; 73600; 80048; 80053; 81001; 82803; 82962; 83036; 83605; 83735; 83880; 84100; 84484; 85025; 85379; 87040; 87086; 87088; 87186; 87804; 94640; 96365; 96366; 96367; 96375; 96376; 97161; 99285; A9270; G0378; J1200; J1815; J1885; J1956; J2920; J2930; J3475; J7030; Q9967; 99284; J7620-GY

== ENCOUNTER 2019-11-13 20:07 | Inpatient (IN) | payer MEDICARE, OTHER ==
[2019-11-13] MEDS ORDERED: Sodium Chloride 0.9% 10 ML Syringe FLUSH PRN (20:23)
[2019-11-13] MEDS ORDERED: methylPREDNISolone Sodium Succinate 125 MG/2 ML SDV IVPUSH ONE (20:23)
[2019-11-13] MEDS ORDERED: Sodium Chloride 0.9% 2.5 ML Syringe FLUSH PRN (20:23)
[2019-11-13] MEDS ORDERED: Albuterol/Ipratropium 3.0-0.5 MG/3 ML Neb Soln NEB ONE (20:23)
[2019-11-13] MEDS: Sodium Chloride 0.9% 1,000 ML IV SCH ×2 (20:25→23:50)
--- NOTE | 2019-11-13 20:31 | EDM.PDOC ---
ED HPI GENERAL MEDICAL PROBLEM - General Chief Complaint: Respiratory Problem Stated Complaint: EMS ARRIVAL Time Seen by Provider: 11/13/19 20:12 - History of Present Illness INITIAL COMMENTS - FREE TEXT/NARRATIVE: HISTORY AND PHYSICAL: History of present illness: Patient is a 79-year-old female with a history of oxygen dependent COPD hypertension hyperlipidemia diabetes a T6 fracture for which she is taking pain medication and who had a recent admission here from October 28 to October 30 for hypoxemia COPD exacerbation and pneumonia and who presents via EMS for similar. The patient lives with her family and she did have a fall earlier today which was witnessed and she fell on her butt and her back but did not strike her head pass out or blackout. She Had no complaints at the time of the fall so she did not seek evaluation. The report from EMS from the family is that she was seated on the bed when she fell off the bed and not striking her head. She is not on anticoagulation therapy per our understanding. The patient also verifies that this did not happen and she says she has no pain that is new or different as a result of this fall. She was doing okay and then she was noted by family to be hypoxemic and to be having a lower level of consciousness and her O2 sats were low so they called EMS. The patient says she normally uses 3 L of oxygen. The patient tells me that after her discharge she did finish her antibiotics and her prednisone treatment but it is unclear if she followed up with her provider in the clinic. She says she is very thirsty currently but she is not had vomiting or diarrhea and she has not had a fever today that she is aware of. She says that she has had a persistent cough which is occasionally productive and currently in the ED she says she feels short of breath and she feels thirsty. She has no chest pain or abdominal pain and she has her chronic mid back pain that is not new or different. She has no extremity complaints no headache or neck pain. On our assessment in the ED she is speaking and answering questions appropriately. The patient's prior admission here was reviewed by me please see below Review of systems: As per history of present illness and below otherwise all systems reviewed and negative. Past medical history: As per history of present illness and as reviewed below otherwise noncontributory. Surgical history: As per history of present illness and as reviewed below otherwise noncontributory. Social history: No reported history of drug or alcohol abuse. Family history: As per history of present illness and as reviewed below otherwise noncontributory. Physical exam: General: Well-developed well-nourished female who is speaking clearly with slight breathlessness with activity but she is not hoarse or muffled. Vital signs are noted by me. She is moving all extremities spontaneously and interactive and laughing appropriately. HEENT: Atraumatic, normocephalic, pupils reactive, negative for conjunctival pallor or scleral icterus, mucous membranes dry, throat clear, neck supple, nontender, trachea midline. There is no evidence of any scalp defects or deformities or tenderness and no midline step-offs tenderness defects of the cervical spine. Lungs: Minutes breath sounds throughout with some expiratory wheezing and some minimal abdominal work of breathing, no stridor, breath sounds equal bilaterally , chest nontender. Heart: S1S2, regular and rhythm heart sounds are very distant but no overt murmurs appreciated Abdomen: Soft, nondistended, nontender. Bowel sounds are hypoactive and there are a well-healed scar seen in her abdomen and it is very globular but there is no rebound guarding or tenderness with palpation. Negative for masses or hepatosplenomegaly. Negative for costovertebral tenderness. Pelvis: Stable nontender. Genitourinary: Deferred. Rectal: Deferred. Extremities: Atraumatic, negative for cords or calf pain. Neurovascular unremarkable. The patient has full range of motion without defects deformities or tenderness and there is no evidence of any trauma seen on the skin. Neuro: Awake, alert, oriented. Cranial nerves II through XII unremarkable. Cerebellum unremarkable. Motor is slightly diminished throughout 4/5 but the patient can assist sitting herself up in bed and sensory unremarkable throughout. Exam nonfocal. Back: There are no midline step-offs tenderness or defects of the thoracic or lumbar spine and there is kyphosis of the thoracic spine. There is no tenderness of the posterior pelvis or posterior ribs and there is no soft tissue injuries ecchymosis or erythema consistent with trauma seen. Skin: There is slightly diminished turgor but there are no rashes or recent lesions seen Diagnostics: EKG chest x-ray CBC CMP lactic acid blood cultures influenza swab troponin UA with reflex ABG Therapeutics: IV O2 monitor IV fluids DuoNeb Solu-Medrol The patient's prior admission and presentation is very similar to this evening with hypoxemia cough and shortness of breath. She was treated as a pneumonia and did have a leukocytosis at that time. She was discharged home on the prednisone and Levaquin. The patient's WBC count today is 13.43 and I reviewed her discharge WBC count on October 30 which was 21. Her IV fluids the patient's blood pressure has normalized and is now 131/78. Her stats are still tenuous and she is still short of breath but she denies any chest pain. I will perform an ABG to be complete and the patient will need admission or transfer pending my discussion with the hospitalist. Her ABG performed on October 28 was reviewed and had results of 7.45, PCO2 of 39, PO2 of 53, HCO3 of 27 and a lactate of 1.6. Her positive troponin of 0.261 is noted and on her last admission it was normal but the patient currently has an elevated lactate and is clinically dehydrated and I will discuss these findings with our hospitalist. [id number]: Discussed with our hospitalist Dr. Alaniz; she is aware of all testing results and feels comfortable with admission here. We will place her in the ICU in light of her multiple medical problems. I will discuss with the family and patient admission. Impression: COPD exacerbation with hypoxia, recently treated pneumonia, severe dehydration with elevated lactate and troponin Definitive disposition and diagnosis as appropriate pending reevaluation and review of above. back Pain Score (Numeric/FACES): 7 - Related Data Allergies Allergy/AdvReac Type Severity Reaction Status Date / Time aspirin Allergy Rash Verified 11/13/19 20:17 codeine Allergy Airway Verified 11/13/19 20:17 Tightness Influenza Virus Vaccines Allergy Hives Verified 11/13/19 20:17 morphine Allergy Airway Verified 11/13/19 20:17 Tightness peas Allergy Rash Verified 11/13/19 20:17 Penicillins Allergy Airway Verified 11/13/19 20:17 Tightness pneumococcal vaccine Allergy Hives Verified 11/13/19 20:17 potato Allergy Rash Verified 11/13/19 20:17 procaine HCl [From Novocain] Allergy Itching Verified 11/13/19 20:17 Tetanus Vaccines and Toxoid Allergy Hives Verified 11/13/19 20:17 wheat Allergy Airway Verified 10/29/19 07:43 Tightness chocolate Allergy Itching Uncoded 10/29/19 07:43 morphine Allergy Difficulty Uncoded 10/29/19 07:43 Breathing potato starch Allergy Rash Uncoded 10/29/19 07:43 sea food Allergy Rash Uncoded 10/29/19 07:43 tea Allergy Rash Uncoded 10/29/19 07:43 Home Meds: Home Meds Esomeprazole Magnesium [Nexium] 40 mg PO DAILY 11/09/14 [History] Insulin Glarg,Human.Rec.Analog [Lantus] 12 units SUBCUT BID 11/09/14 [History] LORazepam 1 mg PO QID 11/09/14 [History] Losartan [Cozaar] 50 mg PO DAILY 11/09/14 [History] diphenhydrAMINE [Benadryl] 50 mg PO TID 11/09/14 [History] Insulin Aspart [Novolog Flexpen] 8 unit SUBCUT TIDAC 02/01/17 [History] Prednisone [IJD: predniSONE] 10 mg PO WITHBREAKFAST 06/13/18 [History] Hydrocodone/Acetaminophen [Hydrocodon-Acetaminophn 10-325] 1 each PO Q8H PRN 10/06 [History] atorvaSTATin [Lipitor] 5 mg PO BEDTIME 10/29/19 [History] methocarbamoL [Robaxin] 750 mg PO Q6H PRN 10/29/19 [History] Calcium Carbonate/Vitamin D3 [Calcium 600-Vit D3 400 Tablet] 1 each PO BID 30 Days #60 tablet 10/30/19 [Rx] Levofloxacin 750 mg PO DAILY 2 Days #2 tablet 10/30/19 [Rx] predniSONE [Prednisone] 40 mg PO DAILY 4 Days #8 tablet 10/30/19 [Rx] Past Medical History HEENT History: Reports: Hard of Hearing Cardiovascular History: Reports: High Cholesterol, Hypertension Respiratory History: Reports: Asthma, COPD, Other (See Below) Other Respiratory History: on home oxygen at 3liters per minute; lung cancer Gastrointestinal History: Reports: GERD Genitourinary History: Reports: None [employer] History: Reports: 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 History: Reports: Back Pain, Chronic Neurological History: Reports: Vertigo, Other (See Below) Other Neuro History: pt reports "occular stroke 2016" Psychiatric History: Reports: Anxiety, Depression, Panic Attack Other Psychiatric History: claustrophobic Endocrine/Metabolic History: Reports: Diabetes, Type II Hematologic History: Reports: None Immunologic History: Reports: None Oncologic (Cancer) History: Reports: Lung Other Oncologic History: remission for 2 years Dermatologic History: Reports: None - Infectious Disease History Infectious Disease History: Reports: Chicken Pox, Measles, Mumps - Past Surgical History Head Surgeries/Procedures: Reports: None HEENT Surgical History: Reports: None Other Cardiovascular Surgeries/Procedures: Left brachial plastic artery Respiratory Surgical History: Reports: Other (See Below) Other Respiratory Surgeries/Procedures: lung surgery- hx lung cancer GI Surgical History: Reports: Appendectomy, Cholecystectomy Endocrine Surgical History: Reports: None Neurological Surgical History: Reports: None Other Neurological Surgeries/Procedures: Family thinks that she may have dementia, but she has not been diagnosed. Patient has hallucinations at times, family stated, "she will be watching tv and think that the people in the tv, are in the room." Oncologic Surgical History: Reports: None Dermatological Surgical History: Reports: None Social & Family History - Family History Family Medical History: Noncontributory Respiratory: Reports: Asthma, COPD OBGYN: Reports: Oncologic: Reports: Breast - Caffeine Use Caffeine Use: Reports: Coffee Caffeine Use Comment: 1-2drinks/day - Living Situation & Occupation Living situation: Reports: with Family Occupation: Retired ED ROS GENERAL - Review of Systems Review Of Systems: Comprehensive ROS is negative, except as noted in HPI. ED EXAM, GENERAL - Physical Exam Exam: See Below (see dictation) Course - Vital Signs Last Recorded V/S: Last Vital Signs Temp 36.5 C 11/13/19 20:10 Pulse 100 11/13/19 20:46 Resp 32 H 11/13/19 20:46 BP 131/78 11/13/19 20:46 Pulse Ox 90 L 11/13/19 20:46 - Orders/Labs/Meds Orders: Active Orders 24 hr Category Date Time Status Blood Glucose Check, Bedside [RC] ONETIME Care 11/13/19 20:22 Active Cardiac Monitoring [RC] . DIRECTED Care 11/13/19 20:22 Active EKG Documentation Completion [RC] STAT Care 11/13/19 20:22 Active Oxygen Therapy, ED [RC] ASDIRECTED Care 11/13/19 20:22 Active Pulse Oximetry [RC] ASDIRECTED Care 11/13/19 20:22 Active RT Aerosol Therapy [RC] ASDIRECTED Care 11/13/19 20:24 Active CULTURE BLOOD [BC] Stat Lab 11/13/19 20:23 Ordered CULTURE BLOOD [BC] Stat Lab 11/13/19 20:23 Ordered Sodium Chloride 0.9% [Normal Saline] 1,000 ml Med 11/13/19 20:30 Active IV ASDIRECTED Sodium Chloride 0.9% [Saline Flush] Med 11/13/19 20:23 Active 10 ml FLUSH ASDIRECTED PRN Sodium Chloride 0.9% [Saline Flush] Med 11/13/19 20:23 Active 2.5 ml FLUSH ASDIRECTED PRN Blood Culture x2 Reflex Set [OM.PC] Stat Oth 11/13/19 20:23 Ordered Saline Lock Insert [OM.PC] Stat Oth 11/13/19 20:22 Ordered Medication Orders Sodium Chloride (Normal Saline) 1,000 mls @ 75 mls/hr IV ASDIRECTED VIJAYA Last Admin: 11/13/19 20:25 Dose: 500 mls/hr Sodium Chloride (Saline Flush) 10 ml FLUSH ASDIRECTED PRN PRN Reason: Keep Vein Open Last Admin: 11/13/19 20:32 Dose: 10 ml Sodium Chloride (Saline Flush) 2.5 ml FLUSH ASDIRECTED PRN PRN Reason: Keep Vein Open Last Admin: 11/13/19 20:32 Dose: 2.5 ml Labs: Laboratory Tests 11/13/19 11/13/19 11/13/19 Range/Units 20:08 20:08 20:08 WBC 13.43 H (4.0-11.0) K/uL RBC 4.49 (4.30-5.90) M/uL Hgb 11.8 L (12.0-16.0) g/dL Hct 39.1 (36.0-46.0) % MCV 87.1 (80.0-98.0) fL MCH 26.3 L (27.0-32.0) pg MCHC 30.2 L (31.0-37.0) g/dL RDW Std Deviation 58.6 (28.0-62.0) fl RDW Coeff of Lucrecia 19 H (11.0-15.0) % Plt Count 331 (150-400) K/uL MPV 11.20 (7.40-12.00) fL Neut % (Auto) 74.3 (48.0-80.0) % Lymph % (Auto) 15.0 L (16.0-40.0) % York % (Auto) 8.7 (0.0-15.0) % Eos % (Auto) 1.6 (0.0-7.0) % Baso % (Auto) 0.4 (0.0-1.5) % Neut # (Auto) 10.0 H (1.4-5.7) K/uL Lymph # (Auto) 2.0 (0.6-2.4) K/uL York # (Auto) 1.2 H (0.0-0.8) K/uL Eos # (Auto) 0.2 (0.0-0.7) K/uL Baso # (Auto) 0.1 (0.0-0.1) K/uL Nucleated RBC % 0.7 /100WBC Nucleated RBCs # 0 K/uL ABG pH (7.35-7.45) ABG pCO2 (35-45) mmHG ABG pO2 (75-100) mmHG ABG HCO3 (22-26) mEq/L ABG Total CO2 ABG Base Excess (-2.0-2.0) Lactate 3.2 H* (0.20-2.00) mmol/L Sodium 143 (136-145) mmol/L Potassium 4.6 (3.5-5.1) mmol/L Chloride 103 (98-107) mmol/L Carbon Dioxide 28.9 (21.0-32.0) mmol/L BUN 36 H (7.0-18.0) mg/dL Creatinine 1.8 H (0.6-1.0) mg/dL Est Cr Clr Drug Dosing 20.37 mL/min Estimated GFR (MDRD) 27.2 ml/min Glucose 181 H (74-106) mg/dL Calcium 9.2 (8.5-10.1) mg/dL Total Bilirubin 0.4 (0.2-1.0) mg/dL AST 16 (15-37) IU/L ALT 20 (14-63) IU/L Alkaline Phosphatase 71 (46-116) U/L Troponin I 0.261 H* (0.000-0.056) ng/mL Total Protein 6.7 (6.4-8.2) g/dL Albumin 3.3 L (3.4-5.0) g/dL Globulin 3.4 (2.6-4.0) g/dL Albumin/Globulin Ratio 1.0 (0.9-1.6) Urine Color Urine Appearance Urine pH (5.0-8.0) Ur Specific Donaldson (1.001-1.035) Urine Protein (NEGATIVE) mg/dL Urine Glucose (UA) (NEGATIVE) mg/dL Urine Ketones (NEGATIVE) mg/dL Urine Occult Blood (NEGATIVE) Urine Nitrite (NEGATIVE) Urine Bilirubin (NEGATIVE) Urine Ictotest Urine Urobilinogen (<2.0) EU/dL Ur Leukocyte Esterase (NEGATIVE) Urine RBC (0-2/HPF) Urine WBC (0-5/HPF) Ur Epithelial Cells (NONE-FEW) Urine Bacteria (NEGATIVE) Urine Mucus (NONE-MOD) 11/13/19 11/13/19 Range/Units 20:51 21:26 WBC (4.0-11.0) K/uL RBC (4.30-5.90) M/uL Hgb (12.0-16.0) g/dL Hct (36.0-46.0) % MCV (80.0-98.0) fL MCH (27.0-32.0) pg MCHC (31.0-37.0) g/dL RDW Std Deviation (28.0-62.0) fl RDW Coeff of Lucrecia (11.0-15.0) % Plt Count (150-400) K/uL MPV (7.40-12.00) fL Neut % (Auto) (48.0-80.0) % Lymph % (Auto) (16.0-40.0) % York % (Auto) (0.0-15.0) % Eos % (Auto) (0.0-7.0) % Baso % (Auto) (0.0-1.5) % Neut # (Auto) (1.4-5.7) K/uL Lymph # (Auto) (0.6-2.4) K/uL York # (Auto) (0.0-0.8) K/uL Eos # (Auto) (0.0-0.7) K/uL Baso # (Auto) (0.0-0.1) K/uL Nucleated RBC % /100WBC Nucleated RBCs # K/uL ABG pH 7.441 (7.35-7.45) ABG pCO2 39 (35-45) mmHG ABG pO2 57 L (75-100) mmHG ABG HCO3 27 H (22-26) mEq/L ABG Total CO2 24.5 ABG Base Excess 2.5 H (-2.0-2.0) Lactate (0.20-2.00) mmol/L Sodium (136-145) mmol/L Potassium (3.5-5.1) mmol/L Chloride (98-107) mmol/L Carbon Dioxide (21.0-32.0) mmol/L BUN (7.0-18.0) mg/dL Creatinine (0.6-1.0) mg/dL Est Cr Clr Drug Dosing mL/min Estimated GFR (MDRD) ml/min Glucose (74-106) mg/dL Calcium (8.5-10.1) mg/dL Total Bilirubin (0.2-1.0) mg/dL AST (15-37) IU/L ALT (14-63) IU/L Alkaline Phosphatase (46-116) U/L Troponin I (0.000-0.056) ng/mL Total Protein (6.4-8.2) g/dL Albumin (3.4-5.0) g/dL Globulin (2.6-4.0) g/dL Albumin/Globulin Ratio (0.9-1.6) Urine Color YELLOW Urine Appearance CLEAR Urine pH 5.5 (5.0-8.0) Ur Specific Donaldson >= 1.030 (1.001-1.035) Urine Protein TRACE H (NEGATIVE) mg/dL Urine Glucose (UA) NEGATIVE (NEGATIVE) mg/dL Urine Ketones NEGATIVE (NEGATIVE) mg/dL Urine Occult Blood NEGATIVE (NEGATIVE) Urine Nitrite NEGATIVE (NEGATIVE) Urine Bilirubin SMALL H (NEGATIVE) Urine Ictotest POSITIVE Urine Urobilinogen 0.2 (<2.0) EU/dL Ur Leukocyte Esterase NEGATIVE (NEGATIVE) Urine RBC NONE SEEN (0-2/HPF) Urine WBC 0-2 (0-5/HPF) Ur Epithelial Cells RARE (NONE-FEW) Urine Bacteria FEW (NEGATIVE) Urine Mucus LIGHT (NONE-MOD) Meds: Medications Generic Name Dose Route Start Last Admin Trade Name Freq PRN Reason Stop Dose Admin Sodium Chloride 1,000 mls @ 75 mls/hr 11/13/19 20:30 11/13/19 20:25 Normal Saline IV 500 mls/hr ASDIRECTED VIJAYA Administration Sodium Chloride 10 ml 11/13/19 20:23 11/13/19 20:32 Saline Flush FLUSH 10 ml ASDIRECTED PRN Administration Keep Vein Open Sodium Chloride 2.5 ml 11/13/19 20:23 11/13/19 20:32 Saline Flush FLUSH 2.5 ml ASDIRECTED PRN Administration Keep Vein Open Discontinued Medications Generic Name Dose Route Start Last Admin Trade Name Miguelq PRN Reason Stop Dose Admin Albuterol/Ipratropium 3 ml 11/13/19 20:23 11/13/19 20:34 Duoneb 3.0-0.5 Mg/3 Ml NEB 11/13/19 20:24 3 ml ONETIME ONE Administration Methylprednisolone Sodium Succinate 125 mg 11/13/19 20:23 11/13/19 20:32 Solu-Medrol IVPUSH 11/13/19 20:24 125 mg ONETIME ONE Administration Departure - Departure Time of Disposition: 21:54 Disposition: Admitted As Inpatient 67 Condition: Fair Clinical Impression: Dehydration, COPD with exacerbation, Hypoxemia - Discharge Information Forms: ED Department Discharge Sepsis Event Note - Evaluation Sepsis Screening Result: No Definite Risk - Focused Exam Vital Signs: Vital Signs Temp Pulse Resp BP Pulse Ox Pulse Ox 11/13/19 20:46 100 32 H 131/78 90 L 11/13/19 20:22 91 L 11/13/19 20:10 36.5 C 96 28 H 74/36 L 97 Date Exam was Performed: 11/13/19 Time Exam was Performed: 21:53 - My Orders Last 24 Hours: My Active Orders 11/13/19 20:22 Blood Glucose Check, Bedside [RC] ONETIME Cardiac Monitoring [RC] . DIRECTED EKG Documentation Completion [RC] STAT Oxygen Therapy, ED [RC] ASDIRECTED Pulse Oximetry [RC] ASDIRECTED Saline Lock Insert [OM.PC] Stat 11/13/19 20:23 CULTURE BLOOD [BC] Stat CULTURE BLOOD [BC] Stat Sodium Chloride 0.9% [Saline Flush] 10 ml FLUSH ASDIRECTED PRN Sodium Chloride 0.9% [Saline Flush] 2.5 ml FLUSH ASDIRECTED PRN Blood Culture x2 Reflex Set [OM.PC] Stat 11/13/19 20:24 RT Aerosol Therapy [RC] ASDIRECTED 11/13/19 20:30 Sodium Chloride 0.9% [Normal Saline] 1,000 ml IV ASDIRECTED - Assessment/Plan Last 24 Hours: My Active Orders 11/13/19 20:22 Blood Glucose Check, Bedside [RC] ONETIME Cardiac Monitoring [RC] . DIRECTED EKG Documentation Completion [RC] STAT Oxygen Therapy, ED [RC] ASDIRECTED Pulse Oximetry [RC] ASDIRECTED Saline Lock Insert [OM.PC] Stat 11/13/19 20:23 CULTURE BLOOD [BC] Stat CULTURE BLOOD [BC] Stat Sodium Chloride 0.9% [Saline Flush] 10 ml FLUSH ASDIRECTED PRN Sodium Chloride 0.9% [Saline Flush] 2.5 ml FLUSH ASDIRECTED PRN Blood Culture x2 Reflex Set [OM.PC] Stat 11/13/19 20:24 RT Aerosol Therapy [RC] ASDIRECTED 11/13/19 20:30 Sodium Chloride 0.9% [Normal Saline] 1,000 ml IV ASDIRECTED
[2019-11-13 20:49] LABS: CARBON DIOXIDE,CO2 28.9 mmol/L (21.0-32.0); POTASSIUM,K 4.6 mmol/L (3.5-5.1)
--- NOTE | 2019-11-13 20:51 | CR ---
Chest: Portable view of the chest was obtained. Comparison: Prior chest x-ray of 10/28/19. Pleural thickening and thick adjacent parenchymal density is noted within the left upper chest. This finding is stable from previous exam. Adjacent rib deformities are seen. Lungs otherwise are clear. Heart is enlarged. Upper mediastinum is normal. Stable blunting of the lateral costophrenic angles are noted. Impression: 1. Findings as described above. 2. No significant change from previous chest x-ray. 3. Nothing acute is appreciated. Diagnostic code #2 Study was dictated in [place] Standard Time
--- NOTE | 2019-11-13 22:42 | PCM.HP.2 ---
H&P History of Present Illness - General Date of Service: 11/13/19 Admit Problem/Dx: Admission Diagnosis/Problem Admission Diagnosis/Problem Hypoxemia - History of Present Illness Initial Comments - Free Text/Narative: Patient is a 79-year-old female with a history of oxygen dependent COPD (3L), hypertension, hyperlipidemia, diabetes, T6 fracture. The patient lives with her family and she did have a witnessed fall earlier today, per daughter at bedside , patient fell on her buttocks, did not hit her head, or blackout. Patient was found to have low )2 sats in 70s at home,so EMS was called. Patient denied any vomiting or diarrhea, fever. Patient states she has been feeling short of breath , witch persistent cough(close to baseline) but denied any chest pain, palpitations. In the ER patient was hypotensive and was also tachypneic. Was started on IV fluids and IV steroids. Patient also was found to have elevated troponin, which were attributed to her severe hypoxia, and renal insufficiency. Lactic acid was high as well, secondary to hypoxemia. Patient was admitted for further management of her acute over chronic hypoxic respiratory failure. Onset of Symptoms: Reports: Today, Sudden Duration of Symptoms: Reports: Hour(s): Severity: Severe back Pain Score (Numeric/FACES): 7 - Related Data Allergies/Adverse Reactions: Allergies Allergy/AdvReac Type Severity Reaction Status Date / Time aspirin Allergy Rash Verified 11/13/19 20:17 codeine Allergy Airway Verified 11/13/19 20:17 Tightness Influenza Virus Vaccines Allergy Hives Verified 11/13/19 20:17 morphine Allergy Airway Verified 11/13/19 20:17 Tightness peas Allergy Rash Verified 11/13/19 20:17 Penicillins Allergy Airway Verified 11/13/19 20:17 Tightness pneumococcal vaccine Allergy Hives Verified 11/13/19 20:17 potato Allergy Rash Verified 11/13/19 20:17 procaine HCl [From Novocain] Allergy Itching Verified 11/13/19 20:17 Tetanus Vaccines and Toxoid Allergy Hives Verified 11/13/19 20:17 wheat Allergy Airway Verified 10/29/19 07:43 Tightness chocolate Allergy Itching Uncoded 10/29/19 07:43 morphine Allergy Difficulty Uncoded 10/29/19 07:43 Breathing potato starch Allergy Rash Uncoded 10/29/19 07:43 sea food Allergy Rash Uncoded 10/29/19 07:43 tea Allergy Rash Uncoded 10/29/19 07:43 Home Medications: Home Meds Esomeprazole Magnesium [Nexium] 40 mg PO DAILY 11/09/14 [History] Insulin Glarg,Human.Rec.Analog [Lantus] 12 units SUBCUT BID 11/09/14 [History] LORazepam 1 mg PO QID 11/09/14 [History] Losartan [Cozaar] 50 mg PO DAILY 11/09/14 [History] diphenhydrAMINE [Benadryl] 50 mg PO TID 11/09/14 [History] Insulin Aspart [Novolog Flexpen] 8 unit SUBCUT TIDAC 02/01/17 [History] Prednisone [IJD: predniSONE] 10 mg PO WITHBREAKFAST 06/13/18 [History] Hydrocodone/Acetaminophen [Hydrocodon-Acetaminophn 10-325] 1 each PO Q8H PRN 10/06 [History] atorvaSTATin [Lipitor] 5 mg PO BEDTIME 10/29/19 [History] methocarbamoL [Robaxin] 750 mg PO Q6H PRN 10/29/19 [History] Calcium Carbonate/Vitamin D3 [Calcium 600-Vit D3 400 Tablet] 1 each PO BID 30 Days #60 tablet 10/30/19 [Rx] Levofloxacin 750 mg PO DAILY 2 Days #2 tablet 10/30/19 [Rx] predniSONE [Prednisone] 40 mg PO DAILY 4 Days #8 tablet 10/30/19 [Rx] Past Medical History HEENT History: Reports: Hard of Hearing Cardiovascular History: Reports: High Cholesterol, Hypertension Respiratory History: Reports: Asthma, COPD, Other (See Below) Other Respiratory History: on home oxygen at 3liters per minute; lung cancer Gastrointestinal History: Reports: GERD Genitourinary History: Reports: None NET PROGRAMMER History: Reports: 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 History: Reports: Back Pain, Chronic Other 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 History: T-spine fx Neurological History: Reports: Vertigo, Other (See Below) Other Neuro History: pt reports "occular stroke 2016" Psychiatric History: Reports: Anxiety, Depression, Panic Attack Other Psychiatric History: claustrophobic Endocrine/Metabolic History: Reports: Diabetes, Type II Hematologic History: Reports: None Immunologic History: Reports: None Oncologic (Cancer) History: Reports: Lung Other Oncologic History: remission for 2 years Dermatologic History: Reports: None - Infectious Disease History Infectious Disease History: Reports: Chicken Pox, Measles, Mumps - Past Surgical History Head Surgeries/Procedures: Reports: None HEENT Surgical History: Reports: None Other Cardiovascular Surgeries/Procedures: Left brachial plastic artery Respiratory Surgical History: Reports: Other (See Below) Other Respiratory Surgeries/Procedures: lung surgery- hx lung cancer GI Surgical History: Reports: Appendectomy, Cholecystectomy Endocrine Surgical History: Reports: None Neurological Surgical History: Reports: None Other Neurological Surgeries/Procedures: Family thinks that she may have dementia, but she has not been diagnosed. Patient has hallucinations at times, family stated, "she will be watching tv and think that the people in the tv, are in the room." Oncologic Surgical History: Reports: None Dermatological Surgical History: Reports: None Social & Family History - Family History Family Medical History: Noncontributory Respiratory: Reports: Asthma, COPD OBGYN: Reports: Oncologic: Reports: Breast - Tobacco Use Smoking Status *Q: Never Smoker Second Hand Smoke Exposure: No - Caffeine Use Caffeine Use: Reports: Coffee Caffeine Use Comment: 1-2drinks/day - Recreational Drug Use Recreational Drug Use: No - Living Situation & Occupation Living situation: Reports: with Family Occupation: Retired H&P Review of Systems - Review of Systems: Review Of Systems: See Below General: Reports: Weakness. Denies: Fever, Chills, Malaise, Fatigue, Night Sweats, Diaphoresis HEENT: Denies: Dysphasia, Ear Pain, Eye Pain Pulmonary: Reports: Shortness of Breath, Wheezing, Cough. Denies: Sputum, Hemoptysis Cardiovascular: Reports: Dyspnea on Exertion. Denies: Chest Pain, Palpitations , Orthopnea, PND Gastrointestinal: Denies: Abdominal Pain, Anorexia, Black Stool, Vomiting Genitourinary: Denies: Dysuria, Frequency, Burning 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: Denies: Neck Pain, Shoulder Pain Skin: Denies: Cyanosis, Jaundice, Mottled Psychiatric: Denies: Anxiety, Agitation, Hallucinations Neurological: Denies: Headache, Numbness Exam - Exam Exam: See Below - Vital Signs Vital Signs: Last Vital Signs Temp 36.5 C 11/13/19 20:10 Pulse 70 11/13/19 21:57 Resp 28 H 11/13/19 21:57 BP 146/70 H 11/13/19 21:57 Pulse Ox 92 L 11/13/19 21:57 Weight: 58.967 kg - Exam General: Alert, Cooperative, Moderate Distress HEENT: Conjunctiva Clear. No: Rhinitis, Scleral Icterus Neck: Trachea Midline. No: Supple Lungs: Decreased Breath Sounds, Wheezing. No: Clear to Auscultation Cardiovascular: Regular Rate, Regular Rhythm GI/Abdominal Exam: Normal Bowel Sounds, Soft, Non-Tender Neuro Extensive - Mental Status: Alert, Normal Cognition - Patient Data Lab Results Last 24 hrs: Laboratory Results - last 24 hr 11/13/19 11/13/19 11/13/19 Range/Units 20:08 20:08 20:08 WBC 13.43 H (4.0-11.0) K/uL RBC 4.49 (4.30-5.90) M/uL Hgb 11.8 L (12.0-16.0) g/dL Hct 39.1 (36.0-46.0) % MCV 87.1 (80.0-98.0) fL MCH 26.3 L (27.0-32.0) pg MCHC 30.2 L (31.0-37.0) g/dL RDW Std Deviation 58.6 (28.0-62.0) fl RDW Coeff of Lucrecia 19 H (11.0-15.0) % Plt Count 331 (150-400) K/uL MPV 11.20 (7.40-12.00) fL Neut % (Auto) 74.3 (48.0-80.0) % Lymph % (Auto) 15.0 L (16.0-40.0) % [place] % (Auto) 8.7 (0.0-15.0) % Eos % (Auto) 1.6 (0.0-7.0) % Baso % (Auto) 0.4 (0.0-1.5) % Neut # (Auto) 10.0 H (1.4-5.7) K/uL Lymph # (Auto) 2.0 (0.6-2.4) K/uL [place] # (Auto) 1.2 H (0.0-0.8) K/uL Eos # (Auto) 0.2 (0.0-0.7) K/uL Baso # (Auto) 0.1 (0.0-0.1) K/uL Nucleated RBC % 0.7 /100WBC Nucleated RBCs # 0 K/uL ABG pH (7.35-7.45) ABG pCO2 (35-45) mmHG ABG pO2 (75-100) mmHG ABG HCO3 (22-26) mEq/L ABG Total CO2 ABG Base Excess (-2.0-2.0) Lactate 3.2 H* (0.20-2.00) mmol/L Sodium 143 (136-145) mmol/L Potassium 4.6 (3.5-5.1) mmol/L Chloride 103 (98-107) mmol/L Carbon Dioxide 28.9 (21.0-32.0) mmol/L BUN 36 H (7.0-18.0) mg/dL Creatinine 1.8 H (0.6-1.0) mg/dL Est Cr Clr Drug Dosing 20.37 mL/min Estimated GFR (MDRD) 27.2 ml/min Glucose 181 H (74-106) mg/dL Calcium 9.2 (8.5-10.1) mg/dL Total Bilirubin 0.4 (0.2-1.0) mg/dL AST 16 (15-37) IU/L ALT 20 (14-63) IU/L Alkaline Phosphatase 71 (46-116) U/L Troponin I 0.261 H* (0.000-0.056) ng/mL Total Protein 6.7 (6.4-8.2) g/dL Albumin 3.3 L (3.4-5.0) g/dL Globulin 3.4 (2.6-4.0) g/dL Albumin/Globulin Ratio 1.0 (0.9-1.6) Urine Color Urine Appearance Urine pH (5.0-8.0) Ur Specific [place] (1.001-1.035) Urine Protein (NEGATIVE) mg/dL Urine Glucose (UA) (NEGATIVE) mg/dL Urine Ketones (NEGATIVE) mg/dL Urine Occult Blood (NEGATIVE) Urine Nitrite (NEGATIVE) Urine Bilirubin (NEGATIVE) Urine Ictotest Urine Urobilinogen (<2.0) EU/dL Ur Leukocyte Esterase (NEGATIVE) Urine RBC (0-2/HPF) Urine WBC (0-5/HPF) Ur Epithelial Cells (NONE-FEW) Urine Bacteria (NEGATIVE) Urine Mucus (NONE-MOD) 11/13/19 11/13/19 Range/Units 20:51 21:26 WBC (4.0-11.0) K/uL RBC (4.30-5.90) M/uL Hgb (12.0-16.0) g/dL Hct (36.0-46.0) % MCV (80.0-98.0) fL MCH (27.0-32.0) pg MCHC (31.0-37.0) g/dL RDW Std Deviation (28.0-62.0) fl RDW Coeff of Lucrecia (11.0-15.0) % Plt Count (150-400) K/uL MPV (7.40-12.00) fL Neut % (Auto) (48.0-80.0) % Lymph % (Auto) (16.0-40.0) % [place] % (Auto) (0.0-15.0) % Eos % (Auto) (0.0-7.0) % Baso % (Auto) (0.0-1.5) % Neut # (Auto) (1.4-5.7) K/uL Lymph # (Auto) (0.6-2.4) K/uL [place] # (Auto) (0.0-0.8) K/uL Eos # (Auto) (0.0-0.7) K/uL Baso # (Auto) (0.0-0.1) K/uL Nucleated RBC % /100WBC Nucleated RBCs # K/uL ABG pH 7.441 (7.35-7.45) ABG pCO2 39 (35-45) mmHG ABG pO2 57 L (75-100) mmHG ABG HCO3 27 H (22-26) mEq/L ABG Total CO2 24.5 ABG Base Excess 2.5 H (-2.0-2.0) Lactate (0.20-2.00) mmol/L Sodium (136-145) mmol/L Potassium (3.5-5.1) mmol/L Chloride (98-107) mmol/L Carbon Dioxide (21.0-32.0) mmol/L BUN (7.0-18.0) mg/dL Creatinine (0.6-1.0) mg/dL Est Cr Clr Drug Dosing mL/min Estimated GFR (MDRD) ml/min Glucose (74-106) mg/dL Calcium (8.5-10.1) mg/dL Total Bilirubin (0.2-1.0) mg/dL AST (15-37) IU/L ALT (14-63) IU/L Alkaline Phosphatase (46-116) U/L Troponin I (0.000-0.056) ng/mL Total Protein (6.4-8.2) g/dL Albumin (3.4-5.0) g/dL Globulin (2.6-4.0) g/dL Albumin/Globulin Ratio (0.9-1.6) Urine Color YELLOW Urine Appearance CLEAR Urine pH 5.5 (5.0-8.0) Ur Specific [place] >= 1.030 (1.001-1.035) Urine Protein TRACE H (NEGATIVE) mg/dL Urine Glucose (UA) NEGATIVE (NEGATIVE) mg/dL Urine Ketones NEGATIVE (NEGATIVE) mg/dL Urine Occult Blood NEGATIVE (NEGATIVE) Urine Nitrite NEGATIVE (NEGATIVE) Urine Bilirubin SMALL H (NEGATIVE) Urine Ictotest POSITIVE Urine Urobilinogen 0.2 (<2.0) EU/dL Ur Leukocyte Esterase NEGATIVE (NEGATIVE) Urine RBC NONE SEEN (0-2/HPF) Urine WBC 0-2 (0-5/HPF) Ur Epithelial Cells RARE (NONE-FEW) Urine Bacteria FEW (NEGATIVE) Urine Mucus LIGHT (NONE-MOD) Result Diagrams: 11/13/19 20:08 11/13/19 20:08 Tra Results Last 24 hrs: Microbiology 11/13/19 20:20 Influenza Type A Antigen Screen - Final Nasopharyngeal Swab NEGATIVE INFLUENZA A VIRUS AG REFERENCE RANGE: NEGATIVE Influenza Type B Antigen Screen - Final NEGATIVE INFLUENZA B VIRUS AG REFERENCE RANGE: NEGATIVE Sepsis Event Note - Evaluation Sepsis Screening Result: No Definite Risk - Focused Exam Vital Signs: Vital Signs Temp Pulse Resp BP Pulse Ox Pulse Ox 11/13/19 21:57 70 28 H 146/70 H 92 L 11/13/19 20:46 100 32 H 131/78 90 L 11/13/19 20:22 91 L 11/13/19 20:10 36.5 C 96 28 H 74/36 L 97 Date Exam was Performed: 11/13/19 Time Exam was Performed: 22:59 - Problem List (1) Elevated troponin SNOMED Code(s): 324777970, 739882429, 563872936 ICD Code: R79.89 - OTHER SPECIFIED ABNORMAL FINDINGS OF BLOOD CHEMISTRY Status: Acute Current Visit: Yes (2) Dementia SNOMED Code(s): 03004985 ICD Code: F03.90 - UNSPECIFIED DEMENTIA WITHOUT BEHAVIORAL DISTURBANCE Status: Acute Current Visit: Yes (3) COPD with exacerbation SNOMED Code(s): 186709146 ICD Code: J44.1 - CHRONIC OBSTRUCTIVE PULMONARY DISEASE W (ACUTE) EXACERBATION Status: Acute Current Visit: Yes (4) Acute on chronic respiratory failure with hypoxia SNOMED Code(s): 41688085, 126833377 ICD Code: J96.21 - ACUTE AND CHRONIC RESPIRATORY FAILURE WITH HYPOXIA Status: Acute Current Visit: No Problem List Initiated/Reviewed/Updated: Yes Orders Last 24hrs: Active Orders 24 hr Category Date Time Status Patient Status [ADT] Stat ADT 11/13/19 21:55 Active Blood Glucose Check, Bedside [RC] ONETIME Care 11/13/19 20:22 Active Cardiac Monitoring [RC] . DIRECTED Care 11/13/19 20:22 Active EKG Documentation Completion [RC] STAT Care 11/13/19 20:22 Active Oxygen Therapy, ED [RC] ASDIRECTED Care 11/13/19 20:22 Active Pulse Oximetry [RC] ASDIRECTED Care 11/13/19 20:22 Active RT Aerosol Therapy [RC] ASDIRECTED Care 11/13/19 20:24 Active CULTURE BLOOD [BC] Stat Lab 11/13/19 20:08 Received CULTURE BLOOD [BC] Stat Lab 11/13/19 20:23 Ordered Sodium Chloride 0.9% [Normal Saline] 1,000 ml Med 11/13/19 20:30 Active IV ASDIRECTED Sodium Chloride 0.9% [Saline Flush] Med 11/13/19 20:23 Active 10 ml FLUSH ASDIRECTED PRN Sodium Chloride 0.9% [Saline Flush] Med 11/13/19 20:23 Active 2.5 ml FLUSH ASDIRECTED PRN Blood Culture x2 Reflex Set [OM.PC] Stat Oth 11/13/19 20:23 Ordered Saline Lock Insert [OM.PC] Stat Oth 11/13/19 20:22 Ordered Medication Orders Sodium Chloride (Normal Saline) 1,000 mls @ 75 mls/hr IV ASDIRECTED [facility] Last Admin: 11/13/19 20:25 Dose: 500 mls/hr Sodium Chloride (Saline Flush) 10 ml FLUSH ASDIRECTED PRN PRN Reason: Keep Vein Open Last Admin: 11/13/19 20:32 Dose: 10 ml Sodium Chloride (Saline Flush) 2.5 ml FLUSH ASDIRECTED PRN PRN Reason: Keep Vein Open Last Admin: 11/13/19 20:32 Dose: 2.5 ml Assessment/Plan Comment:: 79 y/o F admitted for Acute over chronic respiratory failure and elevated troponin Patient was admitted to ICU due to concern of low BP on presentation and high 02 requirement for close monitoring Will start IV steroids. Rosal[place], Oxygenation via NC for COPD exacerbation CXR noted, no acute change from previous, No neutrophils, no fever, i don't suspect pneumonia as of now, will reassess in AM cont incentive spirometry cont to trend troponin, likely secondary to demand supply mismatch due to hypoxia, lactate elevated due to hypoxia, dont suspect sepsis at this point unless patients Neurophil; count jumps or she spikes a temp I did have a a length discussion with family, they do not want any aggressive measures and would like patient to be DNR/DNI and comfort measures if her respiratory status doesn't improve, or if her troponin continue to trend up. Family not interested in transfer in that situation.
[2019-11-13] MEDS ORDERED: Acetaminophen 325 MG Tab PO PRN (22:46)
[2019-11-13] MEDS: Insulin Aspart 100 Units/ML 3 ML Pen SUBCUT SCH (23:46)
[2019-11-13] MEDS: methylPREDNISolone Sodium Succinate 40 MG/1 ML SDV IVPUSH SCH (23:48)
[2019-11-14] MEDS: LORazepam 1 MG Tab PO SCH ×5 (00:04→23:32)
--- NOTE | 2019-11-14 04:05 | PN ---
TH[facility] Physician - Brief Progress [id number]/28/2020 03:49[facility] Fifi Alvarenga, [place] - DENG ([place]) - DENG ERICKSONPEYMAN JACKELYNate of Service 11/14/2019 03:49HPI/Events of N ote EICU note:Reason for ICU admission - HypoxiaPast history - COPD on home o2, HTN, DM, ? dementia, chronic painBrief HPI - History noted from ER and admit notes. 79 year old woman with O2 dependent co pd, presented with what sounds like a mechanical fall. Noted to have NATI, lactic acidosis, hypoxia an d wheezing nd admitted to ICU. HAs been given some IV hydration and her condition stabilized. No ches t pain. Data reviewed - Notes in EMR, Lab results, radiology reportsMost recent troponin 0.17 , down from 0.23Creatinine 1.6Mild leukocytosis Resolved lactic acidosisECG with no acute findings on admiss ionCamera assessment completed - Very comfortable at this time, with stable hemodynamics on o2EICU betancourt ggestions- Agree with hydration, nebs, steroidsLactate being attributed to initial hypoxia - agree, s remy this resolvedCXR with no acute findings on reportTroponin repeat ordered at 8 amI told RN it wou ld be ok to draw labs at 8 am together, with the morning labsMonitor hemodynamics, fluid balance, gly cemiaDiscussed with RN Prophylaxis - lovenoxPlease call EICU if neededInterventions Major-Respiratory failure - evaluation and managementMinor-Communication with other healthcare providers and/or family
[2019-11-14 06:41] LABS: CARBON DIOXIDE,CO2 26.4 mmol/L (21.0-32.0); POTASSIUM,K 4.6 mmol/L (3.5-5.1)
[2019-11-14] MEDS: Albuterol/Ipratropium 3.0-0.5 MG/3 ML Neb Soln NEB PRN ×5 (06:53→23:34)
[2019-11-14] MEDS: methylPREDNISolone Sodium Succinate 40 MG/1 ML SDV IVPUSH SCH ×3 (07:02→23:36)
[2019-11-14] MEDS: Insulin Aspart 100 Units/ML 3 ML Pen SUBCUT SCH ×4 (07:22→21:08)
[2019-11-14] MEDS: Omeprazole 20 MG Cap.CR PO SCH (08:06)
[2019-11-14] MEDS: Heparin Sodium 5,000 Units/ML Vial SUBCUT SCH ×3 (08:14→23:36)
--- NOTE | 2019-11-14 08:24 | PCM.PN ---
- General Info Date of Service: 11/14/19 Subjective Update: The patient was admitted for acute on chronic hypoxic respiratory failure secondary to COPD and elevated troponin. Oxygen requirement is improving down from 6 L to 4 L, home is 3L. Reports some improvement in breathing. Blood pressure improving. Troponin down from initial draw, denies chest pain. - Review of Systems General: Reports: No Symptoms HEENT: Reports: No Symptoms Pulmonary: Reports: Shortness of Breath, Wheezing Cardiovascular: Reports: No Symptoms Gastrointestinal: Reports: No Symptoms Genitourinary: Reports: No Symptoms 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: Reports: No Symptoms Skin: Reports: No Symptoms Neurological: Reports: No Symptoms Psychiatric: Reports: No Symptoms - Patient Data Vitals - Most Recent: Last Vital Signs Temp 98.6 F 11/14/19 04:00 Pulse 99 11/14/19 07:00 Resp 23 H 11/14/19 07:00 BP 120/72 11/14/19 07:00 Pulse Ox 92 L 11/14/19 07:00 Weight - Most Recent: 67.2 kg I&O - Last 24 Hours: Intake & Output 11/13/19 11/14/19 11/14/19 22:59 06:59 14:59 Intake Total 250 641 Output Total 0 Balance 250 641 Lab Results Last 24 Hours: Laboratory Results - last 24 hr 11/13/19 11/13/19 11/13/19 Range/Units 20:08 20:08 20:08 WBC 13.43 H (4.0-11.0) K/uL RBC 4.49 (4.30-5.90) M/uL Hgb 11.8 L (12.0-16.0) g/dL Hct 39.1 (36.0-46.0) % MCV 87.1 (80.0-98.0) fL MCH 26.3 L (27.0-32.0) pg MCHC 30.2 L (31.0-37.0) g/dL RDW Std Deviation 58.6 (28.0-62.0) fl RDW Coeff of Lucrecia 19 H (11.0-15.0) % Plt Count 331 (150-400) K/uL MPV 11.20 (7.40-12.00) fL Neut % (Auto) 74.3 (48.0-80.0) % Lymph % (Auto) 15.0 L (16.0-40.0) % [place] % (Auto) 8.7 (0.0-15.0) % Eos % (Auto) 1.6 (0.0-7.0) % Baso % (Auto) 0.4 (0.0-1.5) % Neut # (Auto) 10.0 H (1.4-5.7) K/uL Lymph # (Auto) 2.0 (0.6-2.4) K/uL [place] # (Auto) 1.2 H (0.0-0.8) K/uL Eos # (Auto) 0.2 (0.0-0.7) K/uL Baso # (Auto) 0.1 (0.0-0.1) K/uL Nucleated RBC % 0.7 /100WBC Nucleated RBCs # 0 K/uL ABG pH (7.35-7.45) ABG pCO2 (35-45) mmHG ABG pO2 (75-100) mmHG ABG HCO3 (22-26) mEq/L ABG Total CO2 ABG Base Excess (-2.0-2.0) Lactate 3.2 H* (0.20-2.00) mmol/L Sodium 143 (136-145) mmol/L Potassium 4.6 (3.5-5.1) mmol/L Chloride 103 (98-107) mmol/L Carbon Dioxide 28.9 (21.0-32.0) mmol/L BUN 36 H (7.0-18.0) mg/dL Creatinine 1.8 H (0.6-1.0) mg/dL Est Cr Clr Drug Dosing 20.37 mL/min Estimated GFR (MDRD) 27.2 ml/min Glucose 181 H (74-106) mg/dL POC Glucose (60-110) mg/dL Calcium 9.2 (8.5-10.1) mg/dL Phosphorus (2.6-4.7) mg/dL Magnesium (1.8-2.4) mg/dL Total Bilirubin 0.4 (0.2-1.0) mg/dL AST 16 (15-37) IU/L ALT 20 (14-63) IU/L Alkaline Phosphatase 71 (46-116) U/L Troponin I 0.261 H* (0.000-0.056) ng/mL Total Protein 6.7 (6.4-8.2) g/dL Albumin 3.3 L (3.4-5.0) g/dL Globulin 3.4 (2.6-4.0) g/dL Albumin/Globulin Ratio 1.0 (0.9-1.6) Urine Color Urine Appearance Urine pH (5.0-8.0) Ur Specific [place] (1.001-1.035) Urine Protein (NEGATIVE) mg/dL Urine Glucose (UA) (NEGATIVE) mg/dL Urine Ketones (NEGATIVE) mg/dL Urine Occult Blood (NEGATIVE) Urine Nitrite (NEGATIVE) Urine Bilirubin (NEGATIVE) Urine Ictotest Urine Urobilinogen (<2.0) EU/dL Ur Leukocyte Esterase (NEGATIVE) Urine RBC (0-2/HPF) Urine WBC (0-5/HPF) Ur Epithelial Cells (NONE-FEW) Urine Bacteria (NEGATIVE) Urine Mucus (NONE-MOD) 11/13/19 11/13/19 11/13/19 Range/Units 20:51 21:26 22:46 WBC (4.0-11.0) K/uL RBC (4.30-5.90) M/uL Hgb (12.0-16.0) g/dL Hct (36.0-46.0) % MCV (80.0-98.0) fL MCH (27.0-32.0) pg MCHC (31.0-37.0) g/dL RDW Std Deviation (28.0-62.0) fl RDW Coeff of Lucre[place] (11.0-15.0) % Plt Count (150-400) K/uL MPV (7.40-12.00) fL Neut % (Auto) (48.0-80.0) % Lymph % (Auto) (16.0-40.0) % [place] % (Auto) (0.0-15.0) % Eos % (Auto) (0.0-7.0) % Baso % (Auto) (0.0-1.5) % Neut # (Auto) (1.4-5.7) K/uL Lymph # (Auto) (0.6-2.4) K/uL [place] # (Auto) (0.0-0.8) K/uL Eos # (Auto) (0.0-0.7) K/uL Baso # (Auto) (0.0-0.1) K/uL Nucleated RBC % /100WBC Nucleated RBCs # K/uL ABG pH 7.441 (7.35-7.45) ABG pCO2 39 (35-45) mmHG ABG pO2 57 L (75-100) mmHG ABG HCO3 27 H (22-26) mEq/L ABG Total CO2 24.5 ABG Base Excess 2.5 H (-2.0-2.0) Lactate (0.20-2.00) mmol/L Sodium (136-145) mmol/L Potassium (3.5-5.1) mmol/L Chloride (98-107) mmol/L Carbon Dioxide (21.0-32.0) mmol/L BUN (7.0-18.0) mg/dL Creatinine (0.6-1.0) mg/dL Est Cr Clr Drug Dosing mL/min Estimated GFR (MDRD) ml/min Glucose (74-106) mg/dL POC Glucose (60-110) mg/dL Calcium (8.5-10.1) mg/dL Phosphorus (2.6-4.7) mg/dL Magnesium (1.8-2.4) mg/dL Total Bilirubin (0.2-1.0) mg/dL AST (15-37) IU/L ALT (14-63) IU/L Alkaline Phosphatase (46-116) U/L Troponin I 0.168 H* (0.000-0.056) ng/mL Total Protein (6.4-8.2) g/dL Albumin (3.4-5.0) g/dL Globulin (2.6-4.0) g/dL Albumin/Globulin Ratio (0.9-1.6) Urine Color YELLOW Urine Appearance CLEAR Urine pH 5.5 (5.0-8.0) Ur Specific [place] >= 1.030 (1.001-1.035) Urine Protein TRACE H (NEGATIVE) mg/dL Urine Glucose (UA) NEGATIVE (NEGATIVE) mg/dL Urine Ketones NEGATIVE (NEGATIVE) mg/dL Urine Occult Blood NEGATIVE (NEGATIVE) Urine Nitrite NEGATIVE (NEGATIVE) Urine Bilirubin SMALL H (NEGATIVE) Urine Ictotest POSITIVE Urine Urobilinogen 0.2 (<2.0) EU/dL Ur Leukocyte Esterase NEGATIVE (NEGATIVE) Urine RBC NONE SEEN (0-2/HPF) Urine WBC 0-2 (0-5/HPF) Ur Epithelial Cells RARE (NONE-FEW) Urine Bacteria FEW (NEGATIVE) Urine Mucus LIGHT (NONE-MOD) 11/13/19 11/14/19 11/14/19 Range/Units 22:46 00:41 02:00 WBC (4.0-11.0) K/uL RBC (4.30-5.90) M/uL Hgb (12.0-16.0) g/dL Hct (36.0-46.0) % MCV (80.0-98.0) fL MCH (27.0-32.0) pg MCHC (31.0-37.0) g/dL RDW Std Deviation (28.0-62.0) fl RDW Coeff of [place]cre[place] (11.0-15.0) % Plt Count (150-400) K/uL MPV (7.40-12.00) fL Neut % (Auto) (48.0-80.0) % Lymph % (Auto) (16.0-40.0) % [place] % (Auto) (0.0-15.0) % Eos % (Auto) (0.0-7.0) % Baso % (Auto) (0.0-1.5) % Neut # (Auto) (1.4-5.7) K/uL Lymph # (Auto) (0.6-2.4) K/uL [place] # (Auto) (0.0-0.8) K/uL Eos # (Auto) (0.0-0.7) K/uL Baso # (Auto) (0.0-0.1) K/uL Nucleated RBC % /100WBC Nucleated RBCs # K/uL ABG pH (7.35-7.45) ABG pCO2 (35-45) mmHG ABG pO2 (75-100) mmHG ABG HCO3 (22-26) mEq/L ABG Total CO2 ABG Base Excess (-2.0-2.0) Lactate 1.3 (0.20-2.00) mmol/L Sodium (136-145) mmol/L Potassium (3.5-5.1) mmol/L Chloride (98-107) mmol/L Carbon Dioxide (21.0-32.0) mmol/L BUN (7.0-18.0) mg/dL Creatinine (0.6-1.0) mg/dL Est Cr Clr Drug Dosing mL/min Estimated GFR (MDRD) ml/min Glucose (74-106) mg/dL POC Glucose 184 H (60-110) mg/dL Calcium (8.5-10.1) mg/dL Phosphorus (2.6-4.7) mg/dL Magnesium (1.8-2.4) mg/dL Total Bilirubin (0.2-1.0) mg/dL AST (15-37) IU/L ALT (14-63) IU/L Alkaline Phosphatase (46-116) U/L Troponin I 0.177 H* (0.000-0.056) ng/mL Total Protein (6.4-8.2) g/dL Albumin (3.4-5.0) g/dL Globulin (2.6-4.0) g/dL Albumin/Globulin Ratio (0.9-1.6) Urine Color Urine Appearance Urine pH (5.0-8.0) Ur Specific [place] (1.001-1.035) Urine Protein (NEGATIVE) mg/dL Urine Glucose (UA) (NEGATIVE) mg/dL Urine Ketones (NEGATIVE) mg/dL Urine Occult Blood (NEGATIVE) Urine Nitrite (NEGATIVE) Urine Bilirubin (NEGATIVE) Urine Ictotest Urine Urobilinogen (<2.0) EU/dL Ur Leukocyte Esterase (NEGATIVE) Urine RBC (0-2/HPF) Urine WBC (0-5/HPF) Ur Epithelial Cells (NONE-FEW) Urine Bacteria (NEGATIVE) Urine Mucus (NONE-MOD) 11/14/19 11/14/19 11/14/19 Range/Units 06:10 06:11 06:11 WBC 8.95 (4.0-11.0) K/uL RBC 3.99 L (4.30-5.90) M/uL Hgb 10.5 L (12.0-16.0) g/dL Hct 34.1 L (36.0-46.0) % MCV 85.5 (80.0-98.0) fL MCH 26.3 L (27.0-32.0) pg MCHC 30.8 L (31.0-37.0) g/dL RDW Std Deviation 56.9 (28.0-62.0) fl RDW Coeff of Lucrecia 18 H (11.0-15.0) % Plt Count 277 (150-400) K/uL MPV 10.60 (7.40-12.00) fL Neut % (Auto) 92.9 H (48.0-80.0) % Lymph % (Auto) 6.3 L (16.0-40.0) % [place] % (Auto) 0.8 (0.0-15.0) % Eos % (Auto) 0.0 (0.0-7.0) % Baso % (Auto) 0.0 (0.0-1.5) % Neut # (Auto) 8.3 H (1.4-5.7) K/uL Lymph # (Auto) 0.6 (0.6-2.4) K/uL [place] # (Auto) 0.1 (0.0-0.8) K/uL Eos # (Auto) 0.0 (0.0-0.7) K/uL Baso # (Auto) 0.0 (0.0-0.1) K/uL Nucleated RBC % 0.4 /100WBC Nucleated RBCs # 0 K/uL ABG pH (7.35-7.45) ABG pCO2 (35-45) mmHG ABG pO2 (75-100) mmHG ABG HCO3 (22-26) mEq/L ABG Total CO2 ABG Base Excess (-2.0-2.0) Lactate (0.20-2.00) mmol/L Sodium 143 (136-145) mmol/L Potassium 4.6 (3.5-5.1) mmol/L Chloride 106 (98-107) mmol/L Carbon Dioxide 26.4 (21.0-32.0) mmol/L BUN 35 H (7.0-18.0) mg/dL Creatinine 1.2 H (0.6-1.0) mg/dL Est Cr Clr Drug Dosing 30.56 mL/min Estimated GFR (MDRD) 43.4 ml/min Glucose 216 H (74-106) mg/dL POC Glucose 210 H (60-110) mg/dL Calcium 8.5 (8.5-10.1) mg/dL Phosphorus 3.7 (2.6-4.7) mg/dL Magnesium 2.1 (1.8-2.4) mg/dL Total Bilirubin (0.2-1.0) mg/dL AST (15-37) IU/L ALT (14-63) IU/L Alkaline Phosphatase (46-116) U/L Troponin I (0.000-0.056) ng/mL Total Protein (6.4-8.2) g/dL Albumin (3.4-5.0) g/dL Globulin (2.6-4.0) g/dL Albumin/Globulin Ratio (0.9-1.6) Urine Color Urine Appearance Urine pH (5.0-8.0) Ur Specific [place] (1.001-1.035) Urine Protein (NEGATIVE) mg/dL Urine Glucose (UA) (NEGATIVE) mg/dL Urine Ketones (NEGATIVE) mg/dL Urine Occult Blood (NEGATIVE) Urine Nitrite (NEGATIVE) Urine Bilirubin (NEGATIVE) Urine Ictotest Urine Urobilinogen (<2.0) EU/dL Ur Leukocyte Esterase (NEGATIVE) Urine RBC (0-2/HPF) Urine WBC (0-5/HPF) Ur Epithelial Cells (NONE-FEW) Urine Bacteria (NEGATIVE) Urine Mucus (NONE-MOD) Tra Results Last 24 Hours: Microbiology 11/13/19 22:46 Anaerobic Blood Culture - Final Blood - Venous - Lab Draw 11/13/19 20:20 Influenza Type A Antigen Screen - Final Nasopharyngeal Swab NEGATIVE INFLUENZA A VIRUS AG REFERENCE RANGE: NEGATIVE Influenza Type B Antigen Screen - Final NEGATIVE INFLUENZA B VIRUS AG REFERENCE RANGE: NEGATIVE Med Orders - Current: Current Medications Hydrocodone Bitart/Acetaminophen ([place] 325-10 Mg) 1 tab PO Q8H PRN PRN Reason: Pain Albuterol/Ipratropium (Duoneb 3.0-0.5 Mg/3 Ml) 3 ml NEB Q4HRRT PRN PRN Reason: Shortness of Breath Last Admin: 11/14/19 06:53 Dose: 3 ml Atorvastatin Calcium (Lipitor) 5 mg PO BEDTIME [facility] Calcium Carbonate (Caltrate 600+D 1500 Mg-400 Units) 1 tab PO BID VIJAYA Heparin Sodium (Porcine) (Heparin Sodium) 5,000 units SUBCUT Q8H [facility] Last Admin: 11/14/19 08:14 Dose: 5,000 units Sodium Chloride (Normal Saline) 1,000 mls @ 100 mls/hr IV ASDIRECTED [facility] Last Admin: 11/13/19 23:50 Dose: 500 mls/hr Insulin Aspart (Novolog) 0 unit SUBCUT ACBED [facility]; Protocol Last Admin: 11/14/19 07:22 Dose: 2 unit Insulin Glargine (Lantus Solostar) 12 units SUBCUT BID [facility] Lorazepam (Ativan) 1 mg PO QID [facility] Last Admin: 11/14/19 06:12 Dose: Not Given Methylprednisolone Sodium Succinate (Solu-Medrol) 40 mg IVPUSH Q8H [facility] Last Admin: 11/14/19 07:02 Dose: 40 mg Omeprazole (Omeprazole) 20 mg PO ACBREAKFAST [facility] Last Admin: 11/14/19 08:06 Dose: 20 mg Sodium Chloride (Saline Flush) 10 ml FLUSH ASDIRECTED PRN PRN Reason: Keep Vein Open Last Admin: 11/13/19 20:32 Dose: 10 ml Sodium Chloride (Saline Flush) 2.5 ml FLUSH ASDIRECTED PRN PRN Reason: Keep Vein Open Last Admin: 11/13/19 20:32 Dose: 2.5 ml Discontinued Medications Acetaminophen (Tylenol) 650 mg PO Q4H PRN PRN Reason: Pain (Mild 1-3)/fever Albuterol/Ipratropium (Duoneb 3.0-0.5 Mg/3 Ml) 3 ml NEB ONETIME ONE Stop: 11/13/19 20:24 Last Admin: 11/13/19 20:34 Dose: 3 ml Methylprednisolone Sodium Succinate (Solu-Medrol) 125 mg IVPUSH ONETIME ONE Stop: 11/13/19 20:24 Last Admin: 11/13/19 20:32 Dose: 125 mg - Exam Quality Assessment: Supplemental Oxygen (mild wheezing, slightly increased respiratory effort) General: Alert, Oriented, Cooperative Cardiovascular: Regular Rate, Regular Rhythm GI/Abdominal Exam: Normal Bowel Sounds, Soft, Non-Tender, No Distention Extremities: Pedal Edema Skin: Warm, Dry Neurological: No New Focal Deficit Psy/Mental Status: Alert, Normal Affect, Normal Mood Sepsis Event Note - Evaluation Sepsis Screening Result: No Definite Risk - Focused Exam Vital Signs: Vital Signs Temp Pulse Pulse Resp BP Pulse Ox Pulse Ox 11/14/19 07:00 99 23 H 120/72 92 L 11/14/19 06:00 99 22 H 110/68 94 L 11/14/19 05:00 91 24 H 96/69 95 11/14/19 04:00 98.6 F 90 24 H 100/63 95 11/14/19 03:00 91 24 H 118/57 L 94 L 11/14/19 02:00 95 19 109/60 93 L 11/14/19 01:00 95 24 H 128/64 92 L 11/14/19 00:00 98 F 93 24 H 135/62 93 L 11/13/19 23:00 96 21 H 129/66 93 L 11/13/19 22:36 98 F 98 31 H 124/57 L 91 L 11/13/19 21:57 70 28 H 146/70 H 92 L 11/13/19 20:46 100 32 H 131/78 90 L 11/13/19 20:22 91 L Pulse Ox 11/14/19 07:00 11/14/19 06:00 11/14/19 05:00 11/14/19 04:00 11/14/19 03:00 11/14/19 02:00 11/14/19 01:00 11/14/19 00:00 11/13/19 23:00 93 L 11/13/19 22:36 11/13/19 21:57 11/13/19 20:46 11/13/19 20:22 Date Exam was Performed: 11/14/19 Time Exam was Performed: 11:20 - Problem List Review Problem List Initiated/Reviewed/Updated: Yes - Plan Plan:: 1. Acute on chronic hypoxic respiratory failure secondary to COPD exacerbation- improving- down from 6 L to 4.5 L. Home requirement is 3 L. Continue IV steroids and duonebs. Encourage IS. Consider CT if not improving to baseline or getting worse. 2. Elevated troponin likely secondary to demand- improved form initial draw, no chest pain. Family doesn't want transfer if need for interventional cardiology. Patient is DNR/DNI. 3. Hypotension- improving, continue to hold BP meds 4. Lactic acidosis-resolved 5. NATI- improving 6. Chronic conditions- compression fracture T6, DMII, hyperlipidemia- continue home meds, long acting and sliding scale with acucchecks Spoke to daughter about goals- they would like her medically stabilized and then they will take her home with home health. The patient's nephew lives with her and helps take of her. They do not want senior care at this time.
[2019-11-14] MEDS: Calcium Carbonate/Vitamin D3 1500 MG-400 Units Tab PO SCH ×2 (08:41→20:53)
[2019-11-14] MEDS: Insulin Glargine,Human Rec. Analog 100 Units/ML 3 ML Pen SUBCUT SCH ×2 (08:58→21:03)
[2019-11-14] MEDS ORDERED: Enoxaparin 40 MG/0.4 ML Syringe SUBCUT SCH (09:00)
[2019-11-14] MEDS: Sodium Chloride 0.9% 1,000 ML IV SCH ×2 (10:07→19:19)
[2019-11-14] MEDS: Acetaminophen/HYDROcodone 325-10 MG Tab PO PRN ×2 (10:47→20:53)
[2019-11-14] MEDS ORDERED: atorvaSTATin 10 MG Tab PO SCH (21:00)
[2019-11-15] MEDS: Sodium Chloride 0.9% 1,000 ML IV SCH ×2 (03:23→14:02)
[2019-11-15] MEDS: LORazepam 1 MG Tab PO SCH ×3 (05:27→17:15)
[2019-11-15] MEDS: Albuterol/Ipratropium 3.0-0.5 MG/3 ML Neb Soln NEB PRN ×2 (05:28→08:14)
[2019-11-15] MEDS: Omeprazole 20 MG Cap.CR PO SCH (06:30)
[2019-11-15] MEDS: Heparin Sodium 5,000 Units/ML Vial SUBCUT SCH ×2 (06:31→14:49)
[2019-11-15] MEDS: methylPREDNISolone Sodium Succinate 40 MG/1 ML SDV IVPUSH SCH ×2 (06:31→14:49)
[2019-11-15 06:54] LABS: CARBON DIOXIDE,CO2 23.5 mmol/L (21.0-32.0); POTASSIUM,K 4.3 mmol/L (3.5-5.1)
[2019-11-15] MEDS: Insulin Aspart 100 Units/ML 3 ML Pen SUBCUT SCH ×3 (08:25→17:15)
[2019-11-15] MEDS: Calcium Carbonate/Vitamin D3 1500 MG-400 Units Tab PO SCH (08:25)
[2019-11-15] MEDS: Insulin Glargine,Human Rec. Analog 100 Units/ML 3 ML Pen SUBCUT SCH (08:26)
--- NOTE | 2019-11-15 09:05 | PCM.PN ---
- General Info Date of Service: 11/15/19 Subjective Update: The patient reports she was feeling better yesterday but this morning feels more short of breath and wheezy. No chest pain. Eating and drinking fine. - Review of Systems General: Reports: No Symptoms HEENT: Reports: No Symptoms Pulmonary: Reports: Shortness of Breath, Wheezing Cardiovascular: Reports: No Symptoms Gastrointestinal: Reports: No Symptoms Genitourinary: Reports: No Symptoms 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: Reports: No Symptoms Skin: Reports: No Symptoms Neurological: Reports: No Symptoms Psychiatric: Reports: No Symptoms - Patient Data Vitals - Most Recent: Last Vital Signs Temp 97.8 F 11/15/19 07:58 Pulse 111 H 11/15/19 07:58 Resp 20 11/15/19 07:58 BP 126/91 H 11/15/19 07:58 Pulse Ox 91 L 11/15/19 07:58 Weight - Most Recent: 66.3 kg I&O - Last 24 Hours: Intake & Output 11/14/19 11/15/19 11/15/19 22:59 06:59 14:59 Intake Total 1429 1212 Output Total 350 300 Balance 1079 912 Lab Results Last 24 Hours: Laboratory Results - last 24 hr 11/13/19 11/14/19 11/14/19 Range/Units 22:01 08:20 11:56 WBC (4.0-11.0) K/uL RBC (4.30-5.90) M/uL Hgb (12.0-16.0) g/dL Hct (36.0-46.0) % MCV (80.0-98.0) fL MCH (27.0-32.0) pg MCHC (31.0-37.0) g/dL RDW Std Deviation (28.0-62.0) fl RDW Coeff of [place]cre[place] (11.0-15.0) % Plt Count (150-400) K/uL MPV (7.40-12.00) fL Neut % (Auto) (48.0-80.0) % Lymph % (Auto) (16.0-40.0) % [place] % (Auto) (0.0-15.0) % Eos % (Auto) (0.0-7.0) % Baso % (Auto) (0.0-1.5) % Neut # (Auto) (1.4-5.7) K/uL Lymph # (Auto) (0.6-2.4) K/uL [place] # (Auto) (0.0-0.8) K/uL Eos # (Auto) (0.0-0.7) K/uL Baso # (Auto) (0.0-0.1) K/uL Nucleated RBC % /100WBC Nucleated RBCs # K/uL Sodium (136-145) mmol/L Potassium (3.5-5.1) mmol/L Chloride (98-107) mmol/L Carbon Dioxide (21.0-32.0) mmol/L BUN (7.0-18.0) mg/dL Creatinine (0.6-1.0) mg/dL Est Cr Clr Drug Dosing mL/min Estimated GFR (MDRD) ml/min Glucose (74-106) mg/dL POC Glucose 168 H 197 H (60-110) mg/dL Calcium (8.5-10.1) mg/dL Troponin I 0.125 H* (0.000-0.056) ng/mL 11/14/19 11/14/19 11/15/19 Range/Units 16:46 20:58 06:16 WBC 15.52 H (4.0-11.0) K/uL RBC 3.60 L (4.30-5.90) M/uL Hgb 9.5 L (12.0-16.0) g/dL Hct 30.8 L (36.0-46.0) % MCV 85.6 (80.0-98.0) fL MCH 26.4 L (27.0-32.0) pg MCHC 30.8 L (31.0-37.0) g/dL RDW Std Deviation 58.0 (28.0-62.0) fl RDW Coeff of [place] 19 H (11.0-15.0) % Plt Count 284 (150-400) K/uL MPV 10.90 (7.40-12.00) fL Neut % (Auto) 82.6 H (48.0-80.0) % Lymph % (Auto) 10.8 L (16.0-40.0) % [place] % (Auto) 6.5 (0.0-15.0) % Eos % (Auto) 0.0 (0.0-7.0) % Baso % (Auto) 0.1 (0.0-1.5) % Neut # (Auto) 12.8 H (1.4-5.7) K/uL Lymph # (Auto) 1.7 (0.6-2.4) K/uL [place] # (Auto) 1.0 H (0.0-0.8) K/uL Eos # (Auto) 0.0 (0.0-0.7) K/uL Baso # (Auto) 0.0 (0.0-0.1) K/uL Nucleated RBC % 0.4 /100WBC Nucleated RBCs # 0 K/uL Sodium (136-145) mmol/L Potassium (3.5-5.1) mmol/L Chloride (98-107) mmol/L Carbon Dioxide (21.0-32.0) mmol/L BUN (7.0-18.0) mg/dL Creatinine (0.6-1.0) mg/dL Est Cr Clr Drug Dosing mL/min Estimated GFR (MDRD) ml/min Glucose (74-106) mg/dL POC Glucose 183 H 236 H (60-110) mg/dL Calcium (8.5-10.1) mg/dL Troponin I (0.000-0.056) ng/mL 11/15/19 11/15/19 Range/Units 06:16 06:33 WBC (4.0-11.0) K/uL RBC (4.30-5.90) M/uL Hgb (12.0-16.0) g/dL Hct (36.0-46.0) % MCV (80.0-98.0) fL MCH (27.0-32.0) pg MCHC (31.0-37.0) g/dL RDW Std Deviation (28.0-62.0) fl RDW Coeff of [place]cre[place] (11.0-15.0) % Plt Count (150-400) K/uL MPV (7.40-12.00) fL Neut % (Auto) (48.0-80.0) % Lymph % (Auto) (16.0-40.0) % [place] % (Auto) (0.0-15.0) % Eos % (Auto) (0.0-7.0) % Baso % (Auto) (0.0-1.5) % Neut # (Auto) (1.4-5.7) K/uL Lymph # (Auto) (0.6-2.4) K/uL [place] # (Auto) (0.0-0.8) K/uL Eos # (Auto) (0.0-0.7) K/uL Baso # (Auto) (0.0-0.1) K/uL Nucleated RBC % /100WBC Nucleated RBCs # K/uL Sodium 143 (136-145) mmol/L Potassium 4.3 (3.5-5.1) mmol/L Chloride 109 H (98-107) mmol/L Carbon Dioxide 23.5 (21.0-32.0) mmol/L BUN 32 H (7.0-18.0) mg/dL Creatinine 1.1 H (0.6-1.0) mg/dL Est Cr Clr Drug Dosing 33.34 mL/min Estimated GFR (MDRD) 48.0 ml/min Glucose 165 H (74-106) mg/dL POC Glucose 159 H (60-110) mg/dL Calcium 8.4 L (8.5-10.1) mg/dL Troponin I (0.000-0.056) ng/mL Tra Results Last 24 Hours: Microbiology 11/13/19 22:46 Aerobic Blood Culture - Preliminary Blood - Venous - Lab Draw NO GROWTH AFTER 1 DAY Anaerobic Blood Culture - Final 11/13/19 20:08 Aerobic Blood Culture - Preliminary Blood - Venous NO GROWTH AFTER 1 DAY Anaerobic Blood Culture - Preliminary NO GROWTH AFTER 1 DAY Med Orders - Current: Current Medications Hydrocodone Bitart/Acetaminophen ([place] 325-10 Mg) 1 tab PO Q8H PRN PRN Reason: Pain Last Admin: 11/14/19 20:53 Dose: 1 tab Albuterol/Ipratropium (Duoneb 3.0-0.5 Mg/3 Ml) 3 ml NEB Q4HRRT PRN PRN Reason: Shortness of Breath Last Admin: 11/15/19 08:14 Dose: 3 ml Atorvastatin Calcium (Lipitor) 5 mg PO BEDTIME VIJAYA Last Admin: 11/14/19 20:53 Dose: 5 mg Calcium Carbonate (Caltrate 600+D 1500 Mg-400 Units) 1 tab PO BID [facility] Last Admin: 11/15/19 08:25 Dose: 1 tab Heparin Sodium (Porcine) (Heparin Sodium) 5,000 units SUBCUT Q8H [facility] Last Admin: 11/15/19 06:31 Dose: 5,000 units Sodium Chloride (Normal Saline) 1,000 mls @ 100 mls/hr IV ASDIRECTED [facility] Last Admin: 11/15/19 03:23 Dose: 100 mls/hr Insulin Aspart (Novolog) 0 unit SUBCUT ACBED [facility]; Protocol Last Admin: 11/15/19 08:25 Dose: 1 unit Insulin Glargine (Lantus Solostar) 12 units SUBCUT BID [facility] Last Admin: 11/15/19 08:26 Dose: 12 unit Lorazepam (Ativan) 1 mg PO QID [facility] Last Admin: 11/15/19 05:27 Dose: 1 mg Methylprednisolone Sodium Succinate (Solu-Medrol) 40 mg IVPUSH Q8H [facility] Last Admin: 11/15/19 06:31 Dose: 40 mg Omeprazole (Omeprazole) 20 mg PO ACBREAKFAST [facility] Last Admin: 11/15/19 06:30 Dose: 20 mg Sodium Chloride (Saline Flush) 10 ml FLUSH ASDIRECTED PRN PRN Reason: Keep Vein Open Last Admin: 11/13/19 20:32 Dose: 10 ml Sodium Chloride (Saline Flush) 2.5 ml FLUSH ASDIRECTED PRN PRN Reason: Keep Vein Open Last Admin: 11/13/19 20:32 Dose: 2.5 ml Discontinued Medications Acetaminophen (Tylenol) 650 mg PO Q4H PRN PRN Reason: Pain (Mild 1-3)/fever Albuterol/Ipratropium (Duoneb 3.0-0.5 Mg/3 Ml) 3 ml NEB ONETIME ONE Stop: 11/13/19 20:24 Last Admin: 11/13/19 20:34 Dose: 3 ml Methylprednisolone Sodium Succinate (Solu-Medrol) 125 mg IVPUSH ONETIME ONE Stop: 11/13/19 20:24 Last Admin: 11/13/19 20:32 Dose: 125 mg - Exam Quality Assessment: Supplemental Oxygen General: Alert, Oriented, Cooperative Lungs: Wheezing, Other (increased respiratory effort) GI/Abdominal Exam: Normal Bowel Sounds, Soft, Non-Tender, No Distention Extremities: No Pedal Edema Skin: Warm, Dry, Intact Neurological: No New Focal Deficit Psy/Mental Status: Alert, Normal Affect, Normal Mood Sepsis Event Note - Evaluation Sepsis Screening Result: No Definite Risk - Focused Exam Vital Signs: Vital Signs Temp Pulse Resp BP Pulse Ox Pulse Ox 11/15/19 07:58 97.8 F 111 H 20 126/91 H 91 L 11/15/19 06:00 93 L 11/15/19 04:40 97.9 F 105 H 22 H 120/69 93 L 11/15/19 01:20 97.4 F 117 H 26 H 139/80 89 L Date Exam was Performed: 11/15/19 Time Exam was Performed: 11:43 - Problem List Review Problem List Initiated/Reviewed/Updated: Yes - My Orders Last 24 Hours: My Active Orders 11/14/19 11:19 Transfer Patient (Change bed) [ADT] Routine - Plan Plan:: 1. Acute on chronic hypoxic respiratory failure secondary to COPD exacerbation- on 4 L Home requirement is 3 L. Was very wheezy and had increased respiratory effort this morning, improved with breathing treatment. Discussed with RT and will switch to scheduled duonebs q4. Continue IV steroids. Encourage IS. Will get CT today to rule out pneumonia vs PE. 2. Elevated troponin likely secondary to demand- improved form initial draw, no chest pain. Family doesn't want transfer if need for interventional cardiology. Patient is DNR/DNI. 3. Hypotension- improving, continue to hold BP meds 4. NATI- improving 5. Chronic conditions- compression fracture T6, DMII, hyperlipidemia- continue home meds, long acting and sliding scale with acucchecks 6. Ambulatory dysfunction- will have PT evaluate and treat
[2019-11-15] MEDS: Albuterol/Ipratropium 3.0-0.5 MG/3 ML Neb Soln NEB SCH ×3 (09:45→17:57)
[2019-11-15] MEDS ORDERED: Sodium Chloride 0.9% 1,000 ML IV ONE (10:17)
[2019-11-15] MEDS ORDERED: Sodium Chloride 0.9% 500 ML IV SCH (10:30)
[2019-11-15] MEDS: Acetaminophen/HYDROcodone 325-10 MG Tab PO PRN (11:18)
[2019-11-15] MEDS ORDERED: diphenhydrAMINE 50 MG/ML SDV IVPUSH ONE (12:18)
[2019-11-15] MEDS ORDERED: Iopamidol 755 MG/ML 500 ML Multipack Bottle IVPUSH STA (14:05)
--- NOTE | 2019-11-15 14:27 | CT ---
CT chest Technique: Multiple axial sections through the chest were obtained. Intravenous contrast was utilized. Study performed as a pulmonary angiogram protocol. Comparison: Previous chest CT of 07/27/17. Findings: Multiple pulmonary emboli are seen. Saddle thrombus is identified. Thrombus is noted within the distal right main pulmonary arteries extending into both upper lobe pulmonary emboli involving both segmental and subsegmental branches. Clot is seen within the right and left lower lobe segmental branches and subsegmental branches. Enlarged right ventricular cavity with straightening of the interventricular septum suggesting early right ventricular dysfunction is noted. Coronary artery calcification is seen. Aorta shows atherosclerotic calcification without aneurysm. No pericardial thickening is seen. Visualized upper abdominal structures shows no discrete abnormality. Mediastinum and hilar regions show no adenopathy. Slight parenchymal densities are seen within the left upper lung and right lower lung. Increased density noted along the right minor fissure. No pleural effusions are noted. Bone window settings shows old bony trauma within the left ribs. Impression: 1. Extensive pulmonary emboli as noted above. Early right ventricular dysfunction is also suggested. 2. Parenchymal densities are noted. Difficult to exclude developing pulmonary infarcts. 3. Other findings believed to be incidental as noted above. Diagnostic code #5 Study was dictated in [place] [employer] Time
[2019-11-15] MEDS ORDERED: Metoprolol Tartrate 5 MG/5 ML SDV IVPUSH ONE (14:53)
[2019-11-15] MEDS ORDERED: Heparin Sod,Pork In 0.45% Nacl 25,000 UNIT/500 ML IV.SOLN IV SCH (15:00)
[2019-11-15] MEDS ORDERED: Heparin Sodium 5,000 Units/ML Vial IVPUSH ONE (15:15)
--- NOTE | 2019-11-15 15:32 | PCM.DCSUM1 ---
Discharge Summary - Hospital Course HPI Initial Comments: Admission Date: 11/13/19 Discharge Date: Admission Diagnosis: 1. Acute on chronic hypoxic respiratory failure secondary to COPD exacerbation 2. Elevated troponin likely secondary to demand 3. Hypotension 4. NATI 5. Chronic conditions- DMII, hyperlipidemia, HT, compression fracture of T6 Discharge Diagnosis: 1. Acute on chronic hypoxic respiratory failure secondary to COPD exacerbation and saddle PE 2. Elevated troponin- trended down 3. Hypotension-resolved 4. NATI- improved 5. Chronic conditions- DMII, hyperlipidemia, HT, compression fracture of T6 6. Ambulatory dysfunction Procedures: None Consults: None Hospital Course: Patient is a 79-year-old female with a history of oxygen dependent COPD (3L), hypertension, hyperlipidemia, diabetes, T6 fracture. The patient lives with her family and she did have a witnessed fall earlier today, per daughter at bedside, patient fell on her buttocks, did not hit her head, or blackout. Patient was found to have low O2 sats in 70s at home, so EMS was called. Patient reports worsening shortness of breath but denied chest pain. In the ER patient was hypotensive and was also tachypneic. Was started on IV fluids and IV steroids. Patient also was found to have elevated troponin, which were attributed to her severe hypoxia, and renal insufficiency. Lactic acid was high as well, secondary to hypoxemia. Patients EKG did not show ST elevation. She was admitted to ICU for her hypotension and hypoxia. CXR did not show any infiltrate. For her COPD exacerbation, treated with duonebs and Solumedrol. She was slow to improve and became tachycardiac so CTA was obtained and showed saddle embolus with possible developing pulmonary infarcts. At this point she was started on a heparin drip and the case was discussed with family who agreed to transfer. We also discussed code status again, and they don't want CPR but are ok with intubation. Case was discussed with Dr. Goodwin, ER, at [facility] in [place] and she accepted the patient. For her elevated troponins, they trended down, and the patient never had chest pain. Family had decided that they did not want r cardiac intervention if she needed it when she was first admitted. For the patients ambulatory dysfunction, she was evaluated and treated by PT. They recommended front wheel walker. Disposition: Transfer to [facility] Discharge Condition: Blood pressure stable, tachycardiac, tachypneic, requiring 4L of oxygen via nasal cannula - Discharge Data Discharge Date: 11/15/19 Discharge Disposition: DC/Tfer to Acute Hospital 02 Condition: Stable - Referral to Home Health Primary Care Physician: Micha Dai MD - Patient Summary/Data Consults: Consultations 11/15/19 10:20 Consult to Physical Therapy [PT Evaluation and Treatment] [CONS] Routine - Discharge Plan Home Medications: Home Meds Esomeprazole Magnesium [Nexium] 40 mg PO DAILY 11/09/14 [History] Insulin Glarg,Human.Rec.Analog [Lantus] 12 units SUBCUT BID 11/09/14 [History] LORazepam 1 mg PO QID 11/09/14 [History] Losartan [Cozaar] 50 mg PO DAILY 11/09/14 [History] diphenhydrAMINE [Benadryl] 50 mg PO Q6HR 11/09/14 [History] Insulin Aspart [Novolog Flexpen] 8 unit SUBCUT TIDAC 02/01/17 [History] Prednisone [IJD: predniSONE] 10 mg PO WITHBREAKFAST 06/13/18 [History] Hydrocodone/Acetaminophen [Hydrocodon-Acetaminophn 10-325] 1 each PO Q8H PRN 10/06 [History] atorvaSTATin [Lipitor] 5 mg PO BEDTIME 10/29/19 [History] methocarbamoL [Robaxin] 750 mg PO Q6H PRN 10/29/19 [History] Calcium Carbonate/Vitamin D3 [Calcium 600-Vit D3 400 Tablet] 1 each PO BID 30 Days #60 tablet 10/30/19 [Rx] Levofloxacin 750 mg PO DAILY 2 Days #2 tablet 10/30/19 [Rx] Referrals: [facility] [Outside] Micha Dai MD [Primary Care Provider] - 11/24/19 3:00 pm - Discharge Summary/Plan Comment DC Time >30 min.: Yes - Patient Data Vitals - Most Recent: Last Vital Signs Temp 96.4 F 11/15/19 11:41 Pulse 111 H 11/15/19 11:41 Resp 22 H 11/15/19 11:41 BP 126/91 H 11/15/19 07:58 Pulse Ox 94 L 11/15/19 11:41 Weight - Most Recent: 66.3 kg I&O - Last 24 hours: Intake & Output 11/15/19 11/15/19 11/15/19 06:59 14:59 22:59 Intake Total 1212 Output Total 300 Balance 912 Lab Results - Last 24 hrs: Laboratory Results - last 24 hr 11/14/19 11/14/19 11/15/19 Range/Units 16:46 20:58 06:16 WBC 15.52 H (4.0-11.0) K/uL RBC 3.60 L (4.30-5.90) M/uL Hgb 9.5 L (12.0-16.0) g/dL Hct 30.8 L (36.0-46.0) % MCV 85.6 (80.0-98.0) fL MCH 26.4 L (27.0-32.0) pg MCHC 30.8 L (31.0-37.0) g/dL RDW Std Deviation 58.0 (28.0-62.0) fl RDW Coeff of Lucrecia 19 H (11.0-15.0) % Plt Count 284 (150-400) K/uL MPV 10.90 (7.40-12.00) fL Neut % (Auto) 82.6 H (48.0-80.0) % Lymph % (Auto) 10.8 L (16.0-40.0) % [place] % (Auto) 6.5 (0.0-15.0) % Eos % (Auto) 0.0 (0.0-7.0) % Baso % (Auto) 0.1 (0.0-1.5) % Neut # (Auto) 12.8 H (1.4-5.7) K/uL Lymph # (Auto) 1.7 (0.6-2.4) K/uL [place] # (Auto) 1.0 H (0.0-0.8) K/uL Eos # (Auto) 0.0 (0.0-0.7) K/uL Baso # (Auto) 0.0 (0.0-0.1) K/uL Nucleated RBC % 0.4 /100WBC Nucleated RBCs # 0 K/uL Sodium (136-145) mmol/L Potassium (3.5-5.1) mmol/L Chloride (98-107) mmol/L Carbon Dioxide (21.0-32.0) mmol/L BUN (7.0-18.0) mg/dL Creatinine (0.6-1.0) mg/dL Est Cr Clr Drug Dosing mL/min Estimated GFR (MDRD) ml/min Glucose (74-106) mg/dL POC Glucose 183 H 236 H (60-110) mg/dL Calcium (8.5-10.1) mg/dL 11/15/19 11/15/19 11/15/19 Range/Units 06:16 06:33 11:09 WBC (4.0-11.0) K/uL RBC (4.30-5.90) M/uL Hgb (12.0-16.0) g/dL Hct (36.0-46.0) % MCV (80.0-98.0) fL MCH (27.0-32.0) pg MCHC (31.0-37.0) g/dL RDW Std Deviation (28.0-62.0) fl RDW Coeff of Lucrecia (11.0-15.0) % Plt Count (150-400) K/uL MPV (7.40-12.00) fL Neut % (Auto) (48.0-80.0) % Lymph % (Auto) (16.0-40.0) % [place] % (Auto) (0.0-15.0) % Eos % (Auto) (0.0-7.0) % Baso % (Auto) (0.0-1.5) % Neut # (Auto) (1.4-5.7) K/uL Lymph # (Auto) (0.6-2.4) K/uL [place] # (Auto) (0.0-0.8) K/uL Eos # (Auto) (0.0-0.7) K/uL Baso # (Auto) (0.0-0.1) K/uL Nucleated RBC % /100WBC Nucleated RBCs # K/uL Sodium 143 (136-145) mmol/L Potassium 4.3 (3.5-5.1) mmol/L Chloride 109 H (98-107) mmol/L Carbon Dioxide 23.5 (21.0-32.0) mmol/L BUN 32 H (7.0-18.0) mg/dL Creatinine 1.1 H (0.6-1.0) mg/dL Est Cr Clr Drug Dosing 33.34 mL/min Estimated GFR (MDRD) 48.0 ml/min Glucose 165 H (74-106) mg/dL POC Glucose 159 H 224 H (60-110) mg/dL Calcium 8.4 L (8.5-10.1) mg/dL SWETHA Results - Last 24 hrs: Microbiology 11/13/19 22:46 Aerobic Blood Culture - Preliminary Blood - Venous - Lab Draw NO GROWTH AFTER 1 DAY Anaerobic Blood Culture - Final 11/13/19 20:08 Aerobic Blood Culture - Preliminary Blood - Venous NO GROWTH AFTER 1 DAY Anaerobic Blood Culture - Preliminary NO GROWTH AFTER 1 DAY Med Orders - Current: Current Medications Hydrocodone Bitart/Acetaminophen ([place] 325-10 Mg) 1 tab PO Q8H PRN PRN Reason: Pain Last Admin: 11/15/19 11:18 Dose: 1 tab Albuterol/Ipratropium (Duoneb 3.0-0.5 Mg/3 Ml) 3 ml NEB Q4HRRT [facility] Last Admin: 11/15/19 13:29 Dose: 3 ml Atorvastatin Calcium (Lipitor) 5 mg PO BEDTIME [facility] Last Admin: 11/14/19 20:53 Dose: 5 mg Calcium Carbonate (Caltrate 600+D 1500 Mg-400 Units) 1 tab PO BID [facility] Last Admin: 11/15/19 08:25 Dose: 1 tab Heparin Sodium (Porcine) (Heparin Sodium) 5,000 units SUBCUT Q8H [facility] Last Admin: 11/15/19 14:49 Dose: 5,000 units Sodium Chloride (Normal Saline) 1,000 mls @ 100 mls/hr IV ASDIRECTED [facility] Last Admin: 11/15/19 14:02 Dose: 100 mls/hr Heparin Sodium/Sodium Chloride (Heparin-1/2ns 25,000 Units/500) 25,000 unit in 500 mls @ 23.868 mls/hr IV TITRATE VIJAYA; Protocol Insulin Aspart (Novolog) 0 unit SUBCUT ACBED [facility]; Protocol Last Admin: 11/15/19 11:17 Dose: 2 unit Insulin Glargine (Lantus Solostar) 12 units SUBCUT BID [facility] Last Admin: 11/15/19 08:26 Dose: 12 unit Lorazepam (Ativan) 1 mg PO QID [facility] Last Admin: 11/15/19 11:07 Dose: 1 mg Methylprednisolone Sodium Succinate (Solu-Medrol) 40 mg IVPUSH Q8H [facility] Last Admin: 11/15/19 14:49 Dose: 40 mg Omeprazole (Omeprazole) 20 mg PO ACBREAKFAST [facility] Last Admin: 11/15/19 06:30 Dose: 20 mg Sodium Chloride (Saline Flush) 10 ml FLUSH ASDIRECTED PRN PRN Reason: Keep Vein Open Last Admin: 11/13/19 20:32 Dose: 10 ml Sodium Chloride (Saline Flush) 2.5 ml FLUSH ASDIRECTED PRN PRN Reason: Keep Vein Open Last Admin: 11/13/19 20:32 Dose: 2.5 ml Discontinued Medications Acetaminophen (Tylenol) 650 mg PO Q4H PRN PRN Reason: Pain (Mild 1-3)/fever Albuterol/Ipratropium (Duoneb 3.0-0.5 Mg/3 Ml) 3 ml NEB ONETIME ONE Stop: 11/13/19 20:24 Last Admin: 11/13/19 20:34 Dose: 3 ml Albuterol/Ipratropium (Duoneb 3.0-0.5 Mg/3 Ml) 3 ml NEB Q4HRRT PRN PRN Reason: Shortness of Breath Last Admin: 11/15/19 08:14 Dose: 3 ml Diphenhydramine HCl (Benadryl) 25 mg IVPUSH ONETIME ONE Stop: 11/15/19 12:19 Last Admin: 11/15/19 12:42 Dose: 25 mg Heparin Sodium (Porcine) (Heparin Sodium) 5,000 units IVPUSH ONETIME ONE Stop: 11/15/19 15:16 Sodium Chloride (Normal Saline) 1,000 mls @ 125 mls/hr IV ONETIME ONE Stop: 11/15/19 18:16 Sodium Chloride (Normal Saline) 500 mls @ 999 mls/hr IV .BOLUS [facility] Last Admin: 11/15/19 11:08 Dose: 999 mls/hr Iopamidol (Isovue Multipack-370 (76%)) 50 ml IVPUSH ONETIME STA Stop: 11/15/19 14:06 Last Admin: 11/15/19 14:06 Dose: 50 ml Methylprednisolone Sodium Succinate (Solu-Medrol) 125 mg IVPUSH ONETIME ONE Stop: 11/13/19 20:24 Last Admin: 11/13/19 20:32 Dose: 125 mg Metoprolol Tartrate (Lopressor) 5 mg IVPUSH ONETIME ONE Stop: 11/15/19 14:54
[2019-11-15 15:44] VITALS: BP 190/169; PULSE 95
[2019-11-15] MEDS ORDERED: Albuterol/Ipratropium 3.0-0.5 MG/3 ML Neb Soln NEB ONE (16:15)
== END 2019-11-15 19:00 | DRG 189 ==
LOC: MW.ED 20:07 → MW.ICU 21:55 → MW.MS 11-14 22:30
PROVIDERS: ADMIT Student in an Organized Health Care Education/Training Program; ATTEND Student in an Organized Health Care Education/Training Program
DX: J96.21 Acute and chronic respiratory failure with hypoxia (principal); R09.02 Hypoxemia; E86.0 Dehydration; H91.90 Unspecified hearing loss, unspecified ear; I26.92 Saddle embolus of pulmonary artery without acute cor pulmonale; I10 Essential (primary) hypertension; K21.9 Gastro-esophageal reflux disease without esophagitis; G89.29 Other chronic pain; M54.9 Dorsalgia, unspecified; J44.1 Chronic obstructive pulmonary disease with (acute) exacerbation; F41.9 Anxiety disorder, unspecified; N17.9 Acute kidney failure, unspecified; Z85.118 Personal history of other malignant neoplasm of bronchus and lung; E87.2 Acidosis; Z66 Do not resuscitate; E78.5 Hyperlipidemia, unspecified; Z91.013 Allergy to seafood; Z88.7 Allergy status to serum and vaccine; F03.90 Unspecified dementia, unspecified severity, without behavioral disturbance, psychotic disturbance, mood disturbance, and anxiety; I95.9 Hypotension, unspecified; E78.00 Pure hypercholesterolemia, unspecified; F41.0 Panic disorder [episodic paroxysmal anxiety]; F32.9 Major depressive disorder, single episode, unspecified; R79.89 Other specified abnormal findings of blood chemistry; N28.9 Disorder of kidney and ureter, unspecified; E11.9 Type 2 diabetes mellitus without complications; Z88.0 Allergy status to penicillin; Z88.6 Allergy status to analgesic agent; Z88.5 Allergy status to narcotic agent; Z91.018 Allergy to other foods; Z79.4 Long term (current) use of insulin; Z79.52 Long term (current) use of systemic steroids; Z79.899 Other long term (current) drug therapy; Z90.49 Acquired absence of other specified parts of digestive tract
CPT/HCPCS: 36415; 36600; 71045; 80053; 81001; 82803; 83605; 84484; 85025; 87040; 87804 ×2; J2930; J7030; 71275; 71275-26; 80048; 82962; 83735; 84100; 85730; 93005; 94640; 96374; 97162-GP; 99285; 99285-25; A9270-GY; J1200; J1644; J1815-GY; J2920; J7040; J7620-GY; Q9967